=== PATIENT | female | born 1960 | race African-American/Black ===

== ENCOUNTER 2019-11-26 02:33 | Emergency (ER) | payer BC, OTHER ==
[2019-11-26] MEDS ORDERED: HYDROCODONE/CHLORPHEN 5 ML/OSYR ONE (03:12)
[2019-11-26] MEDS ORDERED: LEVALBUTEROL 1.25 MG/3 ML NEB ONE (03:12)
[2019-11-26 03:33] LABS: Absolute Lymphocytes (CBC) 3.8 K/uL (0.7-4.9); Basophils % 0.7 % (0-1.3); Hematocrit 39.1 % (36.0-45.0); Lymphocytes % 49.1 % (15.3-44.8); MPV 11.1 fL (7.6-11.3); RBC Red Blood Cell Count 4.39 M/uL (3.86-4.86)
[2019-11-26 03:41] LABS: Potassium 4.1 mmol/L (3.5-5.1)
--- NOTE | 2019-11-26 05:15 | ER ---
Nurse's Notes [facility] Name: Brenda Velasquez Age: 59 yrs Sex: Female : 1960 Arrival Date: 11/26/2019 Time: 02:34 Bed 5 Private MD: Diagnosis: Cough;Bronchitis, not specified as acute or chronic Presentation: 11/26 02:52 Presenting complaint: Patient states: non-productive cough x 1 week. Denies fever. aa1 Transition of care: patient was not received from another setting of care. Onset of symptoms was November 19, 2019. Risk Assessment: Do you want to hurt yourself or someone else? Patient reports no desire to harm self or others. Initial Sepsis Screen: Does the patient meet any 2 criteria? No. Patient's initial sepsis screen is negative. Does the patient have a suspected source of infection? No. Patient's initial sepsis screen is negative. Care prior to arrival: None. 02:52 Method Of Arrival: Ambulatory aa1 02:52 Acuity: JOSE 3 aa1 Triage Assessment: 02:53 General: Appears in no apparent distress. uncomfortable, ill, Behavior is calm, aa1 cooperative, appropriate for age. Historical: - Allergies: 02:53 No Known Allergies; aa1 - Home Meds: 02:53 None [Active]; aa1 - PMHx: 02:53 None; aa1 - PSHx: 02:53 cervical fusion; aa1 - Immunization history:: Flu vaccine is not up to date. - Social history:: Smoking status: Patient/guardian denies using tobacco. - Ebola Screening: : Patient denies exposure to infectious person Patient denies travel to an Ebola-affected area in the 21 days before illness onset. - Family history:: not pertinent. - Hospitalizations: : No recent hospitalization is reported. Screenin:30 Abuse screen: Denies threats or abuse. Denies injuries from another. Nutritional rr5 screening: No deficits noted. Tuberculosis screening: No symptoms or risk factors identified. Fall Risk IV access (20 points). Total Medley Fall Scale indicates No Risk (0-24 pts). Assessment: 02:55 General: Appears in no apparent distress. uncomfortable, Behavior is calm, cooperative, rr5 appropriate for age. Pain: Complains of pain in chest Pain does not radiate. Pain currently is 8 out of 10 on a pain scale. Quality of pain is described as aching, Pain began gradually, Is intermittent. 02:55 Neuro: Level of Consciousness is awake, alert, obeys commands, Oriented to person, rr5 place, time, situation, Appropriate for age. Cardiovascular: Reports chest pain, Capillary refill < 3 seconds Patient's skin is warm and dry. Respiratory: Reports cough that is non-productive, Airway is patent Respiratory effort is even, unlabored, Respiratory pattern is regular. GI: No signs and/or symptoms were reported involving the gastrointestinal system. : No signs and/or symptoms were reported regarding the genitourinary system. EENT: No signs and/or symptoms were reported regarding the EENT system. Derm: Skin is intact, is healthy with good turgor, Skin temperature is warm. Musculoskeletal: Capillary refill < 3 seconds. 03:45 Reassessment: Patient appears in no apparent distress at this time. Patient and/or rr5 family updated on plan of care and expected duration. Pain level reassessed. Patient is alert, oriented x 3, equal unlabored respirations, skin warm/dry/pink. awaiting for results. 04:30 Reassessment: Patient appears in no apparent distress at this time. Patient is alert, rr5 oriented x 3, equal unlabored respirations, skin warm/dry/pink. Patient states feeling better. Patient states symptoms have improved. 05:21 Reassessment: Patient appears in no apparent distress at this time. Patient is alert, rr5 oriented x 3, equal unlabored respirations, skin warm/dry/pink. discharge instruction given and explained without complaints made. Vital Signs: 02:53 BP 168 / 95; Pulse 83; Resp 20; Temp 97.4; Pulse Ox 97% on R/A; Weight 49.44 kg; Height aa1 5 ft. 1 in. (154.94 cm); Pain 8/10; 03:46 BP 152 / 88; Pulse 71; Resp 19; Pulse Ox 98% ; rr5 04:30 BP 138 / 75; Pulse 89; Resp 19; Pulse Ox 98% on R/A; rr5 05:20 BP 124 / 85; Pulse 75; Resp 16; Temp 98; Pulse Ox 99% on R/A; rr5 02:53 Body Mass Index 20.60 (49.44 kg, 154.94 cm) aa1 ED Course: 02:34 Patient arrived in ED. ds1 02:46 Kenn Rand MD is Attending Physician. rn 02:53 Triage completed. aa1 02:53 Arm band placed on right wrist. aa1 02:54 Patient has correct armband on for positive identification. Placed in gown. Bed in low aa1 position. Call light in reach. Side rails up X 1. Pulse ox on. NIBP on. Warm blanket given. 02:56 Jhonathan Mccormick, OREN is Primary Nurse. rr5 03:18 XRAY Chest (1 view) In Process Unspecified. EDMS 03:20 Inserted saline lock: 22 gauge in right forearm, using aseptic technique. Blood rr5 collected. 03:20 Initial Neb Treatment Given as ordered Patient was instructed and evaluated on rr5 procedure Patient tolerated procedure well without adverse effect. 03:30 EKG done, by ED staff, reviewed by Kenn Rand MD. rr5 05:21 No provider procedures requiring assistance completed. IV discontinued, intact, rr5 bleeding controlled, No redness/swelling at site. Pressure dressing applied. Patient maintains SpO2 saturation greater than 95% on room air. Administered Medications: 03:05 Drug: Tussionex Pennkinetic ER 5 ml Route: PO; rr5 04:05 Follow up: Response: No adverse reaction; Marked relief of symptoms rr5 03:10 Drug: Xopenex 1.25 mg Route: Inhalation; rr5 04:10 Follow up: Response: No adverse reaction; Marked relief of symptoms rr5 Outcome: 05:14 Discharge ordered by MD. rn 05:21 Discharged to home ambulatory, with family. rr5 05:21 Condition: stable 05:21 Discharge instructions given to patient, family, Instructed on discharge instructions, follow up and referral plans. medication usage, Demonstrated understanding of instructions, follow-up care, medications, Prescriptions given X 2. 05:22 Patient left the ED. rr5 Signatures: Dispatcher [employer] EDFL Keke Vyas RN RN aa1 Zina Edwards ds1 Kenn Rand MD MD rn Roque, Raymond, RN RN rr5
--- NOTE | 2019-11-26 05:16 | EDPHYS ---
Physician Documentation [facility] Name: Brenda Velasquez Age: 59 yrs Sex: Female : 1960 Arrival Date: 11/26/2019 Time: 02:34 Bed 5 Private MD: ED Physician Kenn Rand HPI: 11/26 04:25 This 59 yrs old Black Female presents to ER via Ambulatory with complaints of Chest rn Tightness, Cough. 04:25 The patient or guardian reports chest pain that is located primarily in the anterior rn chest wall. Onset: 1 week(s) ago. The pain does not radiate. Associated signs and symptoms: Pertinent positives: cough, Pertinent negatives: abdominal pain, diaphoresis, lower extremity swelling, near syncope, palpitations. The chest pain is described as sharp, stabbing. Duration: The patient or guardian reports multiple episodes, that are intermittent. Modifying factors: The symptoms are alleviated by nothing. the symptoms are aggravated by cough. Severity of pain: At its worst the pain was mild in the emergency department the pain is unchanged. The patient has not experienced similar symptoms in the past. Reports non-productive cough for 1 week, no fever, + congestion and runny nose, non-smoker, no hx of dvt/pe, no trauma, no hemoptysis. . Historical: - Allergies: 02:53 No Known Allergies; aa1 - Home Meds: 02:53 None [Active]; aa1 - PMHx: 02:53 None; aa1 - PSHx: 02:53 cervical fusion; aa1 - Immunization history:: Flu vaccine is not up to date. - Social history:: Smoking status: Patient/guardian denies using tobacco. - Ebola Screening: : Patient denies exposure to infectious person Patient denies travel to an Ebola-affected area in the 21 days before illness onset. - Family history:: not pertinent. - Hospitalizations: : No recent hospitalization is reported. ROS: 04:25 Constitutional: Negative for fever, chills, and weight loss, Eyes: Negative for injury, rn pain, redness, and discharge, Neck: Negative for injury, pain, and swelling, Cardiovascular: Negative for palpitations, and edema, Respiratory: + cough and pleuritic chest pain Abdomen/GI: Negative for abdominal pain, nausea, vomiting, diarrhea, and constipation, MS/Extremity: Negative for injury and deformity, Skin: Negative for injury, rash, and discoloration, Neuro: Negative for headache, weakness, numbness, tingling, and seizure. Exam: 04:25 Constitutional: This is a well developed, well nourished patient who is awake, alert, rn and in no acute distress. Ambulatory to room without difficulty Head/Face: Normocephalic, atraumatic. Eyes: Pupils equal round and reactive to light, extra-ocular motions intact. Lids and lashes normal. Conjunctiva and sclera are non-icteric and not injected. Cornea within normal limits. Periorbital areas with no swelling, redness, or edema. ENT: MMM, no stridor or swelling Neck: Trachea midline, no thyromegaly or masses palpated, and no cervical lymphadenopathy. Supple, full range of motion without nuchal rigidity, or vertebral point tenderness. No Meningismus. Cardiovascular: Regular rate and rhythm. No pulse deficits. Respiratory: No increased work of breathing, no retractions or nasal flaring. Clear bilateral breath sounds Abdomen/GI: soft, non-tender MS/ Extremity: Pulses equal, no cyanosis. Neurovascular intact. Full, normal range of motion. Equal circumference. Neuro: Awake and alert, GCS 15, oriented to person, place, time, and situation. Cranial nerves II-XII grossly intact. Motor strength 5/5 in all extremities. Sensory grossly intact. Cerebellar exam normal. Normal gait. Vital Signs: 02:53 BP 168 / 95; Pulse 83; Resp 20; Temp 97.4; Pulse Ox 97% on R/A; Weight 49.44 kg; Height aa1 5 ft. 1 in. (154.94 cm); Pain 8/10; 03:46 BP 152 / 88; Pulse 71; Resp 19; Pulse Ox 98% ; rr5 04:30 BP 138 / 75; Pulse 89; Resp 19; Pulse Ox 98% on R/A; rr5 05:20 BP 124 / 85; Pulse 75; Resp 16; Temp 98; Pulse Ox 99% on R/A; rr5 02:53 Body Mass Index 20.60 (49.44 kg, 154.94 cm) aa1 MDM: 02:46 Patient medically screened. rn 05:13 Differential diagnosis: acute pericarditis, chest wall pain, costochondritis, pleurisy, rn pneumonia, pneumothorax. Data reviewed: vital signs, nurses notes, lab test result(s), EKG, radiologic studies, plain films, and as a result, I will discharge patient. Test interpretation: by ED physician or midlevel provider: ECG, plain radiologic studies, CXR neg for acute infiltrate. Counseling: I had a detailed discussion with the patient and/or guardian regarding: the historical points, exam findings, and any diagnostic results supporting the discharge/admit diagnosis, lab results, radiology results, the need for outpatient follow up, to return to the emergency department if symptoms worsen or persist or if there are any questions or concerns that arise at home. Response to treatment: the patient's symptoms have markedly improved after treatment, and as a result, I will discharge patient. Special discussion: I discussed with the patient/guardian in detail that at this point there is no indication for admission to the hospital. It is understood, however, that if the symptoms persist or worsen the patient needs to return immediately for re-evaluation. 11/26 02:51 Order name: CBC with Diff; Complete Time: 05:11 11/26 02:51 Order name: Basic Metabolic Panel; Complete Time: 05:11 11/26 02:51 Order name: XRAY Chest (1 view) 11/26 02:51 Order name: Flu; Complete Time: 05:11 rn 11/26 02:51 Order name: Strep; Complete Time: 05:11 rn 11/26 03:52 Order name: Throat Culture [facility] 11/26 02:51 Order name: IV Start; Complete Time: 03:30 rn 11/26 02:51 Order name: EKG; Complete Time: 02:52 rn 11/26 02:51 Order name: EKG - Nurse/Tech; Complete Time: 03:30 rn Administered Medications: 03:05 Drug: Tussionex Pennkinetic ER 5 ml Route: PO; rr5 04:05 Follow up: Response: No adverse reaction; Marked relief of symptoms rr5 03:10 Drug: Xopenex 1.25 mg Route: Inhalation; rr5 04:10 Follow up: Response: No adverse reaction; Marked relief of symptoms rr5 Disposition: 11/26/19 05:14 Discharged to Home. Impression: Cough, Bronchitis, not specified as acute or chronic. - Condition is Stable. - Discharge Instructions: Acute Bronchitis, Adult, Cough, Adult. - Prescriptions for Zithromax Z- Gene 250 mg Oral Tablet - take 1 tablet by ORAL route as directed for 5 days Day 1 - take two (2) tablets one time. Day 2, 3, 4 , 5 take one (1) tablet once daily.; 6 tablet. Guaifenesin AC 10- 100 mg/5 mL Oral Liquid - take 10 milliliter by ORAL route every 4 hours As needed; 240 milliliter. - Medication Reconciliation Form, Thank You Letter, Antibiotic Education, Prescription Opioid Use form. - Follow up: Private Physician; When: As needed; Reason: Recheck today's complaints, Re-evaluation by your physician. - Problem is new. - Symptoms have improved. Signatures: Dispatcher [employer] EDKeke Dang RN RN aa1 Kenn Rand MD MD rn Roque, Raymond, RN RN rr5 Corrections: (The following items were deleted from the chart) 05:22 05:14 11/26/2019 05:14 Discharged to Home. Impression: Cough; Bronchitis, not specified rr5 as acute or chronic. Condition is Stable. Forms are Medication Reconciliation Form, Thank You Letter, Antibiotic Education, Prescription Opioid Use. Follow up: Private Physician; When: As needed; Reason: Recheck today's complaints, Re-evaluation by your physician. Problem is new. Symptoms have improved. rn
[2019-11-26 05:43] VITALS: BP 124/85; TEMP 98; O2SAT 99
--- NOTE | 2019-11-26 11:44 | EKG ---
Test Date: 2019-11-26 Test Time: 03:26:21 Peanut Sorter: RR MEASUREMENT RESULTS: Intervals: Rate: 68 AK: 140 QRSD: 88 QT: 416 QTc: 442 [place]: P: 75 AK: 140 QRS: 67 T: 46 INTERPRETIVE STATEMENTS: Normal sinus rhythm Minimal voltage criteria for LVH, may be normal variant Borderline ECG Compared to ECG 09/17/2014 19:03:19 Left ventricular hypertrophy now present Myocardial infarct finding no longer present Electronically Signed On 11-26-19 11:41:56 ELECTRIC NEEDLE SPECIALIST by Martin Monahan
--- NOTE | 2019-11-27 08:59 | RAD REPORT ---
EXAM DESCRIPTION: RAD - Chest Single View - 11/26/2019 3:17 am CLINICAL HISTORY: COUGH COMPARISON: None. FINDINGS: Single frontal view of the chest. Cardiomediastinal silhouette: Cardiomegaly. Lungs: No consolidation, pneumothorax, or pleural effusion. Bones: S-shaped scoliosis of the thoracolumbar spine partially visualized. Anterior fixation of the c ervical spine partially visualized. Degenerative endplate spondylosis. Upper abdomen: No abnormality identified. IMPRESSION: 1. No acute pulmonary process identified. Electronically signed by: Dimitri Martinez 11/26/2019 4:24 AM PRODUCTION LAPPING MACHINE OPERATOR Due to temporary technical issues with the PACS/Fluency reporting system, reports are being signed by the in house radiologist as a courtesy to ensure prompt reporting. The interpreting radiologist is f ully responsible for the content of the report.
== END 2019-11-26 05:22 | disposition home or self-care (01) ==
LOC: ER 02:33
DX: J40 Bronchitis, not specified as acute or chronic (principal)
CPT/HCPCS: 36415; 71045; 80048; 85025; 87070; 87081; 87804; 93005; 99285

== ENCOUNTER 2020-05-24 09:00 | Emergency (ER) | payer OTHER ==
[2020-05-24 09:44] LABS: Absolute Lymphocytes (CBC) 1.6 K/uL (0.7-4.9); Basophils % 1.3 % (0-1.3); Hematocrit 46.2 % (36.0-45.0); Lymphocytes % 38.7 % (15.3-44.8); MPV 10.9 fL (7.6-11.3); RBC Red Blood Cell Count 5.13 M/uL (3.86-4.86)
[2020-05-24 09:48] LABS: Protime INR 1.04
[2020-05-24 10:11] LABS: Albumin 3.7 g/dL (3.4-5.0); Bilirubin Direct 0.3 mg/dL (0-0.2); Bilirubin Total 0.8 mg/dL (0.2-1.0); Potassium 3.3 mmol/L (3.5-5.1); Protein, Total 7.1 g/dL (6.4-8.2)
--- OUTSIDE RECORDS SUMMARY | 2020-05-24 10:12 | XMS REPORT | Continuity of Care Document ---
:1960 Author Organization [facility] t Address [address] [place] [address] Dr. Bloom [address] [place] [id number] Care Team Providers Name Role Phone Unavailable Unavailable Unavailable Problems This patient has no known problems. Allergies, Adverse Reactions, Alerts This patient has no known allergies or adverse reactions. Medications This patient has no known medications. Procedures This patient has no known procedures. Results This patient has no known results.
[2020-05-24 10:20] LABS: Blood Morphology Comment NOT SEEN (NOT SEEN); Platelet Estimate ADEQ; Urine White Blood Cell Casts OK
--- NOTE | 2020-05-24 12:31 | EDPHYS ---
Physician Documentation [facility] Name: Brenda Velasquez Age: 60 yrs Sex: Female : 1960 Arrival Date: 05/24/2020 Time: 09:07 Bed 5 Private MD: ED Physician Tevin Machuca HPI: 05/24 10:22 This 60 yrs old Black Female presents to ER via EMS with complaints of overdose after [facility] substance abuse. 10:22 The patient presents to the emergency department with depression, a history of [facility] substance abuse, Type: cocaine, sporatic. Onset: The symptoms/episode began/occurred just prior to arrival, today. Past psychiatric history: Prior diagnosis: no previous psychiatric diagnosis known. Associated signs and symptoms: Pertinent positives;. Severity of symptoms: At their worst the symptoms were mild. The patient has not experienced similar symptoms in the past. Historical: - Allergies: 09: No Known Allergies; ph - Home Meds: : None [Active]; ph - PMHx: :21 drug abuse; Heart Murmur; ph - PSHx: : cervical fusion; ph - Immunization history:: Adult Immunizations unknown. - Social history:: Smoking status: Patient reports the use of cigarette tobacco products, smokes one pack cigarettes per day. Patient uses street drugs, cocaine, caffeine, Patient/guardian denies using alcohol. - Family history:: not pertinent. ROS: 10:22 Constitutional: Negative for fever, chills, and weight loss, Eyes: Negative for injury, rich pain, redness, and discharge, ENT: Negative for injury, pain, and discharge, Neck: Negative for injury, pain, and swelling, Cardiovascular: Negative for chest pain, palpitations, and edema, Respiratory: Negative for shortness of breath, cough, wheezing, and pleuritic chest pain, Abdomen/GI: Negative for abdominal pain, nausea, vomiting, diarrhea, and constipation, Back: Negative for injury and pain, : Negative for injury, bleeding, discharge, and swelling, MS/Extremity: Negative for injury and deformity, Skin: Negative for injury, rash, and discoloration. 10:22 Neuro: Positive for altered mental status, weakness. Exam: 10:22 Constitutional: This is a well developed, well nourished patient who is awake, alert, rich and in no acute distress. Head/Face: Normocephalic, atraumatic. Eyes: Pupils equal round and reactive to light, extra-ocular motions intact. Lids and lashes normal. Conjunctiva and sclera are non-icteric and not injected. Cornea within normal limits. Periorbital areas with no swelling, redness, or edema. ENT: Nares patent. No nasal discharge, no septal abnormalities noted. Tympanic membranes are normal and external auditory canals are clear. Oropharynx with no redness, swelling, or masses, exudates, or evidence of obstruction, uvula midline. Mucous membranes moist. Neck: Trachea midline, no thyromegaly or masses palpated, and no cervical lymphadenopathy. Supple, full range of motion without nuchal rigidity, or vertebral point tenderness. No Meningismus. Chest/axilla: Normal chest wall appearance and motion. Nontender with no deformity. No lesions are appreciated. Cardiovascular: Regular rate and rhythm with a normal S1 and S2. No gallops, murmurs, or rubs. Normal PMI, no JVD. No pulse deficits. Respiratory: Lungs have equal breath sounds bilaterally, clear to auscultation and percussion. No rales, rhonchi or wheezes noted. No increased work of breathing, no retractions or nasal flaring. Abdomen/GI: Soft, non-tender, with normal bowel sounds. No distension or tympany. No guarding or rebound. No evidence of tenderness throughout. Back: No spinal tenderness. No costovertebral tenderness. Full range of motion. Skin: Warm, dry with normal turgor. Normal color with no rashes, no lesions, and no evidence of cellulitis. MS/ Extremity: Pulses equal, no cyanosis. Neurovascular intact. Full, normal range of motion. Neuro: Awake and alert, GCS 15, oriented to person, place, time, and situation. Cranial nerves II-XII grossly intact. Motor strength 5/5 in all extremities. Sensory grossly intact. Cerebellar exam normal. Normal gait. Psych: Awake, alert, with orientation to person, place and time. Behavior, mood, and affect are within normal limits. 10:22 Musculoskeletal/extremity: DVT Exam: No signs of deep vein thrombosis. no pain, no swelling, no tenderness, negative Homans' sign noted on exam, no appreciated bluish discoloration, no erythema, no increased warmth. 10:27 ECG was reviewed by the Attending Physician. rich Vital Signs: 09:08 BP 153 / 96; Pulse 78; Resp 18; Temp 97.8; Pulse Ox 100% on R/A; Weight 49.44 kg; ph Height 5 ft. 1 in. (154.94 cm); 09:30 BP 155 / 92; Pulse 85; Resp 16; Pulse Ox 98% ; bp 10:00 BP 152 / 88; Pulse 76; Resp 16; Pulse Ox 100% ; bp 11:07 BP 138 / 86; Pulse 76; Resp 16; Pulse Ox 99% on R/A; ph 11:58 BP 116 / 81; Pulse 81; Resp 18; Pulse Ox 100% on R/A; ph 12:40 BP 145 / 85; Pulse 79; Resp 18; Temp 97.8; Pulse Ox 98% on R/A; ph 09:08 Body Mass Index 20.60 (49.44 kg, 154.94 cm) ph MDM: 09:07 Patient medically screened. [facility] 10:25 Data reviewed: vital signs, nurses notes, lab test result(s), EKG, radiologic studies, rich plain films. 10:26 Differential diagnosis: drug withdrawal. acute psychotic break, depression, psychosis rich secondary to non-compliance. Data interpreted: technology training associate: rate is 76 beats/min, rhythm is normal sinus rhythm, Pulse oximetry: on room air is 100 %. Test interpretation: by ED physician or midlevel provider: ECG. Counseling: I had a detailed discussion with the patient and/or guardian regarding: the historical points, exam findings, and any diagnostic results supporting the discharge/admit diagnosis, the presence of at least one elevated blood pressure reading (>120/80) during this emergency department visit, lab results, radiology results, the need for outpatient follow up. 05/24 09:09 Order name: Basic Metabolic Panel; Complete Time: 11:58 [facility] 05/24 09:09 Order name: CBC with Diff; Complete Time: 11:58 [facility] 05/24 09:09 Order name: ETOH Level; Complete Time: 11:58 [facility] 05/24 09:09 Order name: Hepatic Function; Complete Time: 11:58 [facility] 05/24 09:09 Order name: PT-INR; Complete Time: 11:58 [facility] 05/24 09:09 Order name: Ptt, Activated; Complete Time: 11:58 [facility] 05/24 09:09 Order name: Salicylate; Complete Time: 11:58 [facility] 05/24 09:09 Order name: EKG; Complete Time: 09:10 [facility] 05/24 10:10 Order name: Acetaminophen Level; Complete Time: 11:58 [facility] 05/24 10:20 Order name: CBC Smear Scan; Complete Time: 11:58 [facility] 05/24 09:09 Order name: EKG - Nurse/Tech; Complete Time: 09:29 [facility] 05/24 09:09 Order name: IV Saline Lock; Complete Time: 09:28 [facility] 05/24 09:09 Order name: Labs collected and sent; Complete Time: 09:36 [facility] EC:27 Rate is 66 beats/min. Rhythm is regular. QRS [place] is Normal. [place] interval is normal. QRS rich interval is normal. QT interval is normal. No Q waves. T waves are Normal. No ST changes noted. Clinical impression: NSR w/ Non-specific ST/T Changes and No evidence of ischemia. Interpreted by me. Reviewed by me. Administered Medications: 09:30 Drug: NS 0.9% 1000 ml Route: IV; Rate: 1 bolus; Site: left antecubital; bp 11:15 Follow up: Response: No adverse reaction; IV Status: Completed infusion; IV Intake: ph 1000ml 12:55 Drug: Potassium Effervescent Tablet 25 mEq Route: PO; ph 13:08 Follow up: Response: No adverse reaction ph Disposition: 05/24/20 12:31 Discharged to Home. Impression: Cocaine abuse, Suicidal ideations, Suicide attempt, Hypokalemia. - Condition is Stable. - Discharge Instructions: Stimulant Use Disorder-Cocaine, Potassium Content of Foods, Suicidal Feelings: How to Help Yourself, Helping Someone Who is Suicidal, Hypokalemia. - Medication Reconciliation Form, Thank You Letter, Antibiotic Education, Prescription Opioid Use form. - Follow up: Private Physician; When: 2 - 3 days; Reason: Recheck today's complaints, Continuance of care, Re-evaluation by your physician. - Problem is new. - Symptoms have improved. Signatures: Dispatcher [employer] EDIL Tevin Machuca MD MD cha Hall, Patricia, RN RN ph Cesar Barajas, RN RN bp Corrections: (The following items were deleted from the chart) 10: 09:10 ACETAMINOPHEN+C.LAB.BRZ ordered. EDIL EDMS 13:10 12:31 05/24/2020 12:31 Discharged to Home. Impression: Cocaine abuse; Suicidal ph ideations; Suicide attempt; Hypokalemia. Condition is Stable. Forms are Medication Reconciliation Form, Thank You Letter, Antibiotic Education, Prescription Opioid Use. Follow up: Private Physician; When: 2 - 3 days; Reason: Recheck today's complaints, Continuance of care, Re-evaluation by your physician. Problem is new. Symptoms have improved. rich
--- NOTE | 2020-05-24 12:31 | ER ---
Nurse's Notes [facility] Name: Brenda Velasquez Age: 60 yrs Sex: Female : 1960 Arrival Date: 05/24/2020 Time: 09:07 Bed 5 Private MD: Diagnosis: Cocaine abuse;Suicidal ideations;Suicide attempt;Hypokalemia Presentation: 05/24 09:08 Chief complaint: EMS states: Pt reports hx of drug abuse, has been trying to get clean, ph relapsed last night and smoked crack, then regretted her decision and took 8 sleeping pills and 5 lisinopril, reports vomiting after taking lisinopril and throwing up pills, VSS initial BP 138/75, pt states that she took the medications because" I am tired of living like this." Pt drowsy but responsive upon arrival. Coronavirus screen: Patient denies a cough. Patient denies shortness of breath or difficulty breathing. Patient denies measured and/or subjective temperature greater than 100.4F prior to today's visit. Patient denies travel on a cruise ship or to a country the [facility] currently lists as an affected area. Patient denies contact with known and/or suspected case of COVID-19. Ebola Screen: No symptoms or risks identified at this time. Initial Sepsis Screen: Does the patient meet any 2 criteria? No. Patient's initial sepsis screen is negative. Does the patient have a suspected source of infection? No. Patient's initial sepsis screen is negative. Risk Assessment: Do you want to hurt yourself or someone else? Other: Pt states, "After I took the pills I realized that I'm not ready to go". Onset of symptoms was May 24, 2020. 09:08 Method Of Arrival: EMS: [facility] 09:08 Acuity: JOSE 2 ph Triage Assessment: 09:30 General: Appears in no apparent distress. comfortable, Behavior is cooperative, drowsy. bp Pain: Denies pain. EENT: No deficits noted. Neuro: Level of Consciousness is obeys commands, lethargic, Oriented to person, place, time, situation, Appropriate for age. Cardiovascular: Rhythm is sinus rhythm. Respiratory: No deficits noted. GI: No signs and/or symptoms were reported involving the gastrointestinal system. : No signs and/or symptoms were reported regarding the genitourinary system. Derm: No deficits noted. Musculoskeletal: No deficits noted. Historical: - Allergies: :21 No Known Allergies; ph - Home Meds: : None [Active]; ph - PMHx: :21 drug abuse; Heart Murmur; ph - PSHx: :21 cervical fusion; ph - Immunization history:: Adult Immunizations unknown. - Social history:: Smoking status: Patient reports the use of cigarette tobacco products, smokes one pack cigarettes per day. Patient uses street drugs, cocaine, caffeine, Patient/guardian denies using alcohol. - Family history:: not pertinent. Screenin:21 Abuse screen: Denies threats or abuse. Denies injuries from another. Nutritional ph screening: No deficits noted. Tuberculosis screening: No symptoms or risk factors identified. Fall Risk None identified. Assessment: 09:30 General: SEE TRIAGE NOTE. bp 10:00 Reassessment: PT REMAINS NORMOTENSIVE, SR ON MONITOR. bp 11:30 Reassessment: Patient appears in no apparent distress at this time. Patient and/or ph family updated on plan of care and expected duration. Pain level reassessed. Pt asleep w/ equal and unlabored respirations, awakens easily, denies SI at this time, SO at bedside. 13:08 Reassessment: Patient appears in no apparent distress at this time. Patient and/or ph family updated on plan of care and expected duration. Pain level reassessed. Pt awake but remains drowsy, provided w/ a list of local resources for mental health, d/c home w/ SO. Vital Signs: 09:08 BP 153 / 96; Pulse 78; Resp 18; Temp 97.8; Pulse Ox 100% on R/A; Weight 49.44 kg; ph Height 5 ft. 1 in. (154.94 cm); 09:30 BP 155 / 92; Pulse 85; Resp 16; Pulse Ox 98% ; bp 10:00 BP 152 / 88; Pulse 76; Resp 16; Pulse Ox 100% ; bp 11:07 BP 138 / 86; Pulse 76; Resp 16; Pulse Ox 99% on R/A; ph 11:58 BP 116 / 81; Pulse 81; Resp 18; Pulse Ox 100% on R/A; ph 12:40 BP 145 / 85; Pulse 79; Resp 18; Temp 97.8; Pulse Ox 98% on R/A; ph 09:08 Body Mass Index 20.60 (49.44 kg, 154.94 cm) ph ED Course: 09:07 Patient arrived in ED. rich 09:07 Tevin Machuca MD is Attending Physician. [facility] 09:08 Shanna Mathias, RN is Primary Nurse. ph 09:20 Triage completed. ph 09:21 Arm band placed on Patient placed in an exam room, on a stretcher, on intranet developer, ph on pulse oximetry. 09:21 Patient has correct armband on for positive identification. Bed in low position. Call ph light in reach. Side rails up X2. real estate site analyst on. Pulse ox on. NIBP on. Door closed. Noise minimized. Warm blanket given. 09:21 Maintain EMS IV. Dressing intact. Good blood return noted. Site clean \\T\\ dry. Gauge \\T\\ ph site: 20 LAC. 09:31 EKG done, by ED staff, reviewed by Tevin Machuca MD. [facility] 12:40 No provider procedures requiring assistance completed. IV discontinued, intact, ph bleeding controlled, No redness/swelling at site. Pressure dressing applied. Administered Medications: 09:30 Drug: NS 0.9% 1000 ml Route: IV; Rate: 1 bolus; Site: left antecubital; bp 11:15 Follow up: Response: No adverse reaction; IV Status: Completed infusion; IV Intake: ph 1000ml 12:55 Drug: Potassium Effervescent Tablet 25 mEq Route: PO; ph 13:08 Follow up: Response: No adverse reaction ph Intake: 11:15 IV: 1000ml; Total: 1000ml. ph Outcome: 12:31 Discharge ordered by . rich 13:10 Discharged to home via wheelchair, with significant other. ph 13:10 Condition: stable 13:10 Discharge instructions given to patient, significant other, Instructed on discharge instructions, follow up and referral plans. Demonstrated understanding of instructions, follow-up care. 13:10 Patient left the ED. ph Signatures: Tevin Machuca MD MD cha Hall, Patricia, RN RN [place] [id number] Cesar Barajas, RN RN bp
[2020-05-24] MEDS ORDERED: POTASSIUM 25 MEQ EFFERV TAB ONE (12:55)
[2020-05-24 13:29] VITALS: TEMP 97.8
[2020-05-24 13:39] VITALS: BP 145/85; O2SAT 98
--- NOTE | 2020-05-24 18:14 | EKG ---
Test Date: 2020-05-24 Test Time: 09:31:41 Caramel Maker: FARHAD MEASUREMENT RESULTS: Intervals: Rate: 66 NE: 134 QRSD: 86 QT: 408 QTc: 427 [place]: P: 78 NE: 134 QRS: 63 T: -35 INTERPRETIVE STATEMENTS: Normal sinus rhythm Possible Left atrial enlargement Left ventricular hypertrophy Cannot rule out Septal infarct, age undetermined T wave abnormality, consider inferior ischemia Abnormal ECG Compared to ECG 11/26/2019 03:26:21 Myocardial infarct finding now present T-wave abnormality now present Possible ischemia now present Electronically Signed On 05-24-20 18:12:36 CDT by Martin Monahan
== END 2020-05-24 13:10 | disposition home or self-care (01) ==
LOC: ER 09:00
DX: T14.91XA Suicide attempt, initial encounter (principal); F14.10 Cocaine abuse, uncomplicated; T42.72XA Poisoning by unspecified antiepileptic and sedative-hypnotic drugs, intentional self-harm, initial encounter; E87.6 Hypokalemia; Y92.9 Unspecified place or not applicable; Y93.9 Activity, unspecified; F17.210 Nicotine dependence, cigarettes, uncomplicated
CPT/HCPCS: 36415; 80048; 80076; 80320; 80329; 85025; 85610; 85730; 93005; 96360; 96361; 99284

== ENCOUNTER 2020-09-04 07:32 | Inpatient (IN) | payer OTHER ==
[2020-09-04] MEDS ORDERED: HYDROCODONE/CHLORPHEN 5 ML/OSYR ONE (07:58)
--- NOTE | 2020-09-04 08:16 | RAD REPORT ---
EXAM DESCRIPTION: Ravinder Single View09/04/2020 8:08 am CLINICAL HISTORY: Cough COMPARISON: 2019 FINDINGS: Mild right basilar opacities suspected Left lung appears clear of acute infiltrate Heart is normal size. Scoliosis involves spine IMPRESSION: Mild right basilar opacity suspected which may indicate a mild pneumonia
[2020-09-04 08:27] LABS: Absolute Lymphocytes (CBC) 1.7 K/uL (0.7-4.9); Basophils % 1.1 % (0-1.3); Hematocrit 41.7 % (36.0-45.0); Lymphocytes % 34.7 % (15.3-44.8); MPV 11.3 fL (7.6-11.3); RBC Red Blood Cell Count 4.63 M/uL (3.86-4.86)
[2020-09-04 08:31] LABS: Ferritin 75.3 ng/mL (8-388); Potassium 3.6 mmol/L (3.5-5.1); Troponin (Emerg Dept Use Only) 0.17 ng/mL (0.0-0.045)
--- NOTE | 2020-09-04 09:29 | ER ---
Nurse's Notes [facility] Name: Brenda Velasquez Age: 60 yrs Sex: Female : 1960 Arrival Date: 09/04/2020 Time: 07:33 Bed 6 Private MD: Diagnosis: Pneumonia, unspecified organism;Chest pain, unspecified Presentation: 09/04 07:45 Chief complaint: Patient states: difficulty breathing X 1 week, +cough, no fever, feels iw like someone is sitting on her chest when she lies back. Coronavirus screen: cough unrelated to allergies, difficulty breathing, Client presents with at least one sign or symptom that may indicate coronavirus-19. Standard/surgical mask placed on the client. Provider contacted for isolation considerations. Ebola Screen: Patient negative for fever greater than or equal to 101.5 degrees Fahrenheit, and additional compatible Ebola Virus Disease symptoms Patient denies exposure to infectious person. Patient denies travel to an Ebola-affected area in the 21 days before illness onset. No symptoms or risks identified at this time. Onset of symptoms was August 29, 2020. 07:45 Method Of Arrival: Wheelchair iw 07:45 Acuity: JOSE 3 iw 08:00 Initial Sepsis Screen: Does the patient meet any 2 criteria? No. Patient's initial iw sepsis screen is negative. Does the patient have a suspected source of infection? No. Patient's initial sepsis screen is negative. Risk Assessment: Do you want to hurt yourself or someone else? Patient reports no desire to harm self or others. Triage Assessment: 07:45 General: Appears in no apparent distress. uncomfortable, Behavior is cooperative, bp appropriate for age, anxious. Pain: Complains of pain in chest. EENT: No deficits noted. Neuro: No deficits noted. Cardiovascular: Rhythm is sinus tachycardia. Respiratory: Reports shortness of breath cough that is Breath sounds with wheezes bilaterally. GI: No signs and/or symptoms were reported involving the gastrointestinal system. : No signs and/or symptoms were reported regarding the genitourinary system. Derm: No deficits noted. Musculoskeletal: No deficits noted. Historical: - Allergies: 07:52 No Known Allergies; iw - PMHx: 07:52 drug abuse; Heart Murmur; iw 10:17 Hepatitis; bp - Immunization history:: Adult Immunizations up to date. - Family history:: not pertinent. - Social history:: Smoking status: unknown. - Hospitalizations: : No recent hospitalization is reported. Screenin:45 Abuse screen: Denies threats or abuse. Denies injuries from another. Nutritional bp screening: No deficits noted. Tuberculosis screening: No symptoms or risk factors identified. Fall Risk None identified. Assessment: 07:45 General: SEE TRIAGE NOTE. bp 08:07 Reassessment: Warm blankets provided for pt. pt notified of wait time for labs and aa5 x-ray results, pt verbalized understanding. . 09:22 Reassessment: ALL CURRENT ORDERS COMPLETE, LEVAQUIN INFUSING. bp 10:14 Reassessment: ADMIT INITIATED. PT PLACED ON 2LNC FOR COMFORT. bp Vital Signs: 08:00 BP 146 / 90; Pulse 104; Resp 20 S; Temp 98.3; Pulse Ox 97% on R/A; Weight 49.9 kg; iw Height 5 ft. 1 in. (154.94 cm); Pain 5/10; 08:00 BP 145 / 99; Pulse 101; Resp 26 S; Pulse Ox 97% on R/A; aa5 09:22 BP 151 / 105; Pulse 94; Resp 16; Pulse Ox 92% on R/A; bp 10:14 BP 133 / 95; Pulse 95; Resp 17; Pulse Ox 97% on 2 lpm NC; bp 11:28 BP 141 / 99; Pulse 94; Resp 19; Pulse Ox 98% ; bp 08:00 Body Mass Index 20.79 (49.90 kg, 154.94 cm) iw ED Course: 07:33 Patient arrived in ED. as 07:34 Kenn Rand MD is Attending Physician. rn 07:35 Cesar Barajas, OREN is Primary Nurse. bp 07:53 Arm band placed on. aa5 07:53 Patient has correct armband on for positive identification. Placed in gown. Bed in low aa5 position. Call light in reach. Side rails up X2. media monitor on. Pulse ox on. NIBP on. 07:54 Triage completed. iw 07:56 Inserted saline lock: 20 gauge in right forearm, using aseptic technique. Blood aa5 collected. 07:56 Initial lab(s) drawn, by ca, sent to lab. First set of blood cultures drawn by me. aa5 08:06 Second set of blood cultures drawn by me. aa5 08:06 Patient maintains SpO2 saturation greater than 95% on room air. aa5 08:08 CXR XRAY In Process Unspecified. EDMS 09:28 Shakir Santos MD is Hospitalizing Provider. rn 11:28 No provider procedures requiring assistance completed. Patient admitted, IV remains in bp place. Administered Medications: 07:53 Drug: Tussionex Pennkinetic ER 5 ml Route: PO; aa5 09:29 Follow up: Response: Marked relief of symptoms bp 08:45 Drug: LevaQUIN 500 mg Volume: 100 ml; Route: IVPB; Infused Over: 60 mins; Site: right bp forearm; 11:29 Follow up: IV Status: Completed infusion bp 09:30 Drug: Aspirin Chewable Tablet 324 mg Route: PO; bp 10:13 Follow up: Response: No adverse reaction bp Outcome: 09:28 Decision to Hospitalize by Provider. rn 11:27 Admitted to Med/surg accompanied by tech, via wheelchair, room 222, with chart, Report bp called to NERY LOTT 11:27 Condition: stable 11:27 Instructed on the need for admit. 11:54 Patient left the ED. bp Signatures: Dispatcher [employer] EDMS Eileen ePderson as Edwina Freire, OREN RN iw Kenn Rand MD MD rn Calderon, Audri, RN RN aa5 Cesar Barajas RN RN bp Corrections: (The following items were deleted from the chart) 08:04 08:00 BP 146 / 90; Pulse 104bpm; Resp 20bpm; Spontaneous; Pulse Ox 97% RA; 49.9 kg; iw Height 5 ft. 1 in.; BMI: 20.7; Pain 5/10; iw 08:10 08:00 Arm band placed on iw aa5
--- NOTE | 2020-09-04 09:29 | EDPHYS ---
Physician Documentation [facility] Name: Brenda Velasquez Age: 60 yrs Sex: Female : 1960 Arrival Date: 09/04/2020 Time: 07:33 Bed 6 Private MD: ED Physician Kenn Rand HPI: 09/04 07:45 This 60 yrs old Black Female presents to ER via Unassigned with complaints of Chest rn Pain, Shortness Of Breath. 07:45 The patient has shortness of breath at rest, with light activity. rn 07:45 Onset: The symptoms/episode began/occurred 1 week(s) ago. Duration: The symptoms are rn intermittent. The patient's shortness of breath is aggravated by coughing, exertion. Severity of symptoms: At their worst the symptoms were moderate in the emergency department the symptoms are unchanged. The patient has experienced similar episodes in the past. Reports 1 week of cough, sob, chest heaviness, + chronic smoker, states quit this year, no hemoptysis, no hx of dvt/PE, no trauma, no sick contacts. . Historical: - Allergies: 07:52 No Known Allergies; iw - PMHx: 07:52 drug abuse; Heart Murmur; iw 10:17 Hepatitis; bp - Immunization history:: Adult Immunizations up to date. - Family history:: not pertinent. - Social history:: Smoking status: unknown. - Hospitalizations: : No recent hospitalization is reported. ROS: 07:45 Constitutional: Negative for fever, chills, and weight loss, Eyes: Negative for injury, rn pain, redness, and discharge, Cardiovascular: Negative for palpitations, and edema, Respiratory: + for sob and cough Abdomen/GI: Negative for abdominal pain, vomiting, diarrhea, and constipation, MS/Extremity: Negative for injury and deformity, Skin: Negative for injury, rash, and discoloration, Neuro: Negative for headache, numbness, tingling, and seizure. Exam: 07:45 Constitutional: This is a well developed, well nourished patient who is awake, alert, rn and in no acute distress. Head/Face: Normocephalic, atraumatic. ENT: no stridor Cardiovascular: Tachycardic, regular Respiratory: Mild tachypnea, no retractions Abdomen/GI: soft, non-tender Skin: Warm, dry MS/ Extremity: Pulses equal, no cyanosis. Neurovascular intact. Full, normal range of motion. Equal circumference. Neuro: Awake and alert, GCS 15 Vital Signs: 08:00 BP 146 / 90; Pulse 104; Resp 20 S; Temp 98.3; Pulse Ox 97% on R/A; Weight 49.9 kg; iw Height 5 ft. 1 in. (154.94 cm); Pain 5/10; 08:00 BP 145 / 99; Pulse 101; Resp 26 S; Pulse Ox 97% on R/A; aa5 09:22 BP 151 / 105; Pulse 94; Resp 16; Pulse Ox 92% on R/A; bp 10:14 BP 133 / 95; Pulse 95; Resp 17; Pulse Ox 97% on 2 lpm NC; bp 11:28 BP 141 / 99; Pulse 94; Resp 19; Pulse Ox 98% ; bp 08:00 Body Mass Index 20.79 (49.90 kg, 154.94 cm) iw MDM: 07:35 Patient medically screened. rn 09:27 Differential diagnosis: Myocardial Infarction pneumonia, Pneumothorax pulmonary edema. rn Data reviewed: vital signs, nurses notes, lab test result(s), EKG, radiologic studies, plain films, and as a result, I will admit patient. Counseling: I had a detailed discussion with the patient and/or guardian regarding: the historical points, exam findings, and any diagnostic results supporting the discharge/admit diagnosis, lab results, radiology results, the need for further work-up and treatment in the hospital. Response to treatment: the patient's symptoms have mildly improved after treatment, and as a result, I will admit patient. Admission orders: after a detailed discussion of the patient's condition and case, the admit orders are written by me. ED course: Pt with possible pneumonia, story consistent with this, O2 92%, elevated troponin, nonspecific ecg, will admit for abx and cardiology consultation. . 09/04 07:40 Order name: Blood Culture Adult (2) rn 09/04 07:40 Order name: BMP; Complete Time: 08:35 rn 09/04 07:40 Order name: CBC with Diff rn 09/04 07:40 Order name: Ferritin; Complete Time: 08:35 rn 09/04 07:40 Order name: Flu; Complete Time: 09:26 rn 09/04 07:40 Order name: Lactate; Complete Time: 08:35 rn 09/04 07:40 Order name: Procalcitonin; Complete Time: 09:26 rn 09/04 07:40 Order name: Troponin (emerg Dept Use Only); Complete Time: 08:35 rn 09/04 09:26 Order name: Urine Drug Screen rn 09/04 09:33 Order name: Manual Differential EDMS 09/04 09:40 Order name: SARS-COV-2 RT PCR EDMS 09/04 10:01 Order name: Comprehensive Metabolic Panel EDMS 09/04 10:01 Order name: Comprehensive Metabolic Panel EDMS 09/04 10:01 Order name: Lactate EDMS 09/04 10:01 Order name: Lactate EDMS 09/04 10:01 Order name: Lipid Profile EDMS 09/04 10:01 Order name: Lipid Profile EDMS 09/04 10:01 Order name: Magnesium EDMS 09/04 10:01 Order name: Magnesium EDMS 09/04 10:01 Order name: NT PRO-BNP EDMS 09/04 10:01 Order name: NT PRO-BNP EDMS 09/04 10:01 Order name: Phosphorus EDMS 09/04 10:01 Order name: Phosphorus EDMS 09/04 10:01 Order name: Protime (+INR) EDMS 09/04 10:01 Order name: Protime (+INR) EDMS 09/04 10:01 Order name: PTT, Activated Partial Thromb EDMS 09/04 10:01 Order name: PTT, Activated Partial Thromb EDMS 09/04 10:03 Order name: CBC with Automated Diff EDMS 09/04 10:03 Order name: CBC with Automated Diff EDMS 09/04 07:40 Order name: CXR XRAY; Complete Time: 08:19 rn 09/04 07:40 Order name: EKG; Complete Time: 07:41 rn 09/04 07:40 Order name: Cardiac monitoring; Complete Time: 07:42 rn 09/04 07:40 Order name: Droplet/Contact Precautions; Complete Time: 07:42 rn 09/04 07:40 Order name: EKG - Nurse/Tech; Complete Time: 07:48 rn 09/04 07:40 Order name: IV Start; Complete Time: 08:08 rn 09/04 07:40 Order name: Labs collected and sent; Complete Time: 08:08 rn 09/04 07:40 Order name: O2 Per Protocol; Complete Time: 07:42 rn 09/04 07:40 Order name: O2 Sat Monitoring; Complete Time: 07:42 rn 09/04 10:02 Order name: Heart Healthy EDMS 09/04 10:28 Order name: Urine Dipstick--Ancillary (enter results) bd 09/04 10:43 Order name: Urine Dipstick-Ancillary EDMS Administered Medications: 07:53 Drug: Tussionex Pennkinetic ER 5 ml Route: PO; aa5 09:29 Follow up: Response: Marked relief of symptoms bp 08:45 Drug: LevaQUIN 500 mg Volume: 100 ml; Route: IVPB; Infused Over: 60 mins; Site: right bp forearm; 11:29 Follow up: IV Status: Completed infusion bp 09:30 Drug: Aspirin Chewable Tablet 324 mg Route: PO; bp 10:13 Follow up: Response: No adverse reaction bp Disposition: 09/04/20 09:28 Hospitalization ordered by Shakir Santos for Observation. Preliminary diagnosis are Pneumonia, unspecified organism, Chest pain, unspecified. - Bed requested for Telemetry/MedSurg (observation). - Status is Observation. bp - Condition is Stable. - Problem is new. - Symptoms have improved. Signatures: Dispatcher [employer] EDTX Shruti Gregory RN RN kl Williams, Irene, RN RN iw Nieto, Roman, MD MD rn Calderon, Audri, RN RN aa5 Cesar Barajas RN RN bp Corrections: (The following items were deleted from the chart) 09:40 07:41 CORONAVIRUS+MR.LAB.BRZ ordered. [facility] 11:08 09:28 Hospitalization Ordered by Shakir Santos MD for Observation. Preliminary kl diagnosis is Pneumonia, unspecified organism; Chest pain, unspecified. Bed requested for Telemetry/MedSurg (observation). Status is Observation. Condition is Stable. Problem is new. Symptoms have improved. rn 11:54 11:08 09/04/2020 09:28 Hospitalization Ordered by Shakir Santos MD for Observation. bp Preliminary diagnosis is Pneumonia, unspecified organism; Chest pain, unspecified. Bed requested for Telemetry/MedSurg (observation). Status is Observation. Condition is Stable. Problem is new. Symptoms have improved. kl
[2020-09-04 09:33] LABS: Blood Morphology Comment NOT SEEN (NOT SEEN); Platelet Estimate ADEQ
[2020-09-04] MEDS ORDERED: ACETAMINOPHEN 500 MG TAB PO PRN (09:55)
[2020-09-04] MEDS ORDERED: ONDANSETRON 4 MG/2 ML VIAL IV PRN (09:55)
--- NOTE | 2020-09-04 09:55 | P.HP ---
Certification for Inpatient Patient admitted to: Inpatient With expected LOS: >2 Midnights Patient will require the following post-hospital care: None Practitioner: I am a practitioner with admitting privileges, knowledge of patient current condition, hospital course, and medical plan of care. Services: Services provided to patient in accordance with Admission requirements found in Title 42 Section 412.3 of the Code of Federal Regulations Patient History Date of Service: 09/04/20 Reason for admission: Shortness of breath/hypoxemia History of Present Illness: Patient is a 60-year-old female came to the hospital with difficulty breathing. Patient states that she has had this issue on an off. She has orthopnea and PND as well. She came into the hospital because she was really tachypneic. She was coughing and was having yellowish and pink frothy sputum. She states she used to smoke but quit earlier this year. She also stated that she quit cocaine use of a few months prior. However, her cocaine screening is positive. On her chest x-ray in the emergency room she does have a right lower lobe pneumonia as well as possible cardiomegaly. She is also hypoxic with room air oxygen saturations of 85%. She is up to 92% on 2 L. I am concerned that she may have cardiomyopathy in the setting of pneumonia. Will check a BNP level. She has ph ysical exam findings and historical information suggestive of congestive heart failure which is probably being exacerbated by her right lower lobe pneumonia. She will be admitted to the hospital. At this time, she is admitted for inpatient hospitalization. For insurance purposes, it will be noted that he if she improves substantially by tomorrow morning I may be able to discharge her with antibiotics and outpatient cardiology workup. However, if she remains hypoxic then she will probably need inpatient hospitalization, and will notify her insurance company regarding this. Allergies No Known Drug Allergies Allergy (Verified 09/04/20 16:05) Unknown Home Medications: NK [No Home Meds] 09/04/20 - Past Medical/Surgical History Diabetic: No -: heart murmur -: scoliosis - Social History Caffeine use: Yes Physical Examination - Studies Laboratory Data (last 24 hrs) 09/04/20 07:56: WBC 4.9, Hgb 13.9, Hct 41.7, Plt Count 164 09/04/20 07:56: Sodium 145, Potassium 3.6, BUN 12, Creatinine 0.95, Glucose 111 H Microbiology Data (last 24 hrs): 09/04/20 07:55 Nasopharnyx Influenza Type A Antigen Screen - Final 09/04/20 07:55 Nasopharnyx Influenza Type B Antigen Screen - Final Assessment & Plan - Problems (Diagnosis) (1) New onset of congestive heart failure Current Visit: Yes Status: Acute (2) Pneumonia involving right lung Current Visit: Yes Status: Acute (3) Tachypnea Current Visit: Yes Status: Acute - Plan 1. Echocardiogram 2. Strict blood pressure control 3. May need to start carvedilol 4. Cardiology consultation secondary to elevated troponin 5. May need to Hep-Lock fluids and IV antibiotics pending echocardiogram 6. Strict I's and O's 7. Repeat CXR to monitor pneumonia 8. Daily weights 9. Education regarding diet and treatment of congestive heart failure Discharge Plan: Home Plan to discharge in: Greater than 2 days - Advance Directives Does patient have a Living Will: No Does patient have a Durable POA for Healthcare: No - Code Status/Comfort Care Code Status Assessed: Yes Code Status: Full Code Critical Care: No Time Spent Managing PTS Care (In Minutes): 45
[2020-09-04] MEDS ORDERED: ASPIRIN 81 MG CHEWABLE TABLET ONE (10:20)
[2020-09-04 10:42] LABS: Urine Blood TRACE (NEG); Urine Glucose NEGATIVE (NEG); Urine Protein NEGATIVE (NEG); Urine Specific Gravity 1.025 (1.005-1.030)
[2020-09-04 10:53] LABS: Barbiturates NEGATIVE (NEGATIVE); Benzodiazepines NEGATIVE (NEGATIVE); Cocaine POSITIVE (NEGATIVE); METHAMPHETAM NEGATIVE (NEGATIVE); Methadone NEGATIVE (NEGATIVE); Opiates POSITIVE (NEGATIVE); Phencyclidine NEGATIVE (NEGATIVE); THC Cannibis NEGATIVE (NEGATIVE)
[2020-09-04] MEDS: NA CHLORIDE 0.9% 1,000 ML IV SCH ×2 (12:43→21:28)
[2020-09-04] MEDS: AZITHROMYCIN IV 500 MG in NA CHLORIDE 0.9% 250 ML IVPB SCH (12:44)
[2020-09-04] MEDS: CEFTRIAXONE/SWI 1gm 1 GM/10 ML SYR IV SCH ×2 (12:44→20:46)
[2020-09-04] MEDS: ENOXAPARIN 40 MG/0.4 ML SQ SCH (16:35)
[2020-09-04] MEDS ORDERED: TEMAZEPAM 15 MG CAP PO PRN (19:06)
[2020-09-04] MEDS ORDERED: INFLUENZA VACCINE (for 3y+) 0.5 ML DOSE IMVAC ONE (20:00)
[2020-09-04] MEDS: ALBUTEROL 2.5 MG/3 ML NEB SOL NEB PRN (21:00)
[2020-09-04] MEDS: IPRATROPIUM BROM 0.5MG/2.5ML NEB PRN (21:00)
[2020-09-04] MEDS: GUAIFENESIN/CODEINE 5ML UCUP PO PRN (21:28)
[2020-09-05] MEDS: GUAIFENESIN/CODEINE 5ML UCUP PO PRN ×2 (03:25→10:27)
[2020-09-05] MEDS: ALBUTEROL 2.5 MG/3 ML NEB SOL NEB PRN ×2 (03:40→08:18)
[2020-09-05] MEDS: IPRATROPIUM BROM 0.5MG/2.5ML NEB PRN ×3 (03:40→14:24)
--- NOTE | 2020-09-05 05:30 | EKG ---
Test Date: 2020-09-04 Test Time: 07:50:06 Lens Coating Technician: ADRIAN MEASUREMENT RESULTS: Intervals: Rate: 97 ME: 144 QRSD: 82 QT: 374 QTc: 474 [place]: P: 78 ME: 144 QRS: 8 T: 72 INTERPRETIVE STATEMENTS: Sinus rhythm with occasional premature ventricular complexes Left atrial enlargement Septal infarct, age undetermined Abnormal ECG Compared to ECG 05/24/2020 09:31:41 Ventricular premature complex(es) now present Left ventricular hypertrophy no longer present T-wave abnormality no longer present Possible ischemia no longer present Myocardial infarct finding still present Electronically Signed On 09-05-20 05:28:45 CDT by Martin Monahan
[2020-09-05 06:08] LABS: Albumin 3.2 g/dL (3.4-5.0); Bilirubin Total 0.6 mg/dL (0.2-1.0); Magnesium 1.9 mg/dL (1.8-2.4); Phosphorus 2.8 mg/dL (2.5-4.9); Potassium 3.7 mmol/L (3.5-5.1); Protein, Total 7.1 g/dL (6.4-8.2)
[2020-09-05 06:09] LABS: Basophils % 0.8 % (0-1.3); Hematocrit 39.7 % (36.0-45.0); Lymphocytes % 37.6 % (15.3-44.8); RBC Red Blood Cell Count 4.36 M/uL (3.86-4.86)
[2020-09-05 06:11] LABS: Protime INR 1.07
[2020-09-05] MEDS ORDERED: POTASSIUM CL SA 10 MEQ TAB PO ONE (09:00)
[2020-09-05] MEDS: CEFTRIAXONE/SWI 1gm 1 GM/10 ML SYR IV SCH ×2 (10:14→21:25)
[2020-09-05] MEDS: AZITHROMYCIN IV 500 MG in NA CHLORIDE 0.9% 250 ML IVPB SCH (10:24)
[2020-09-05] MEDS: NA CHLORIDE 0.9% 1,000 ML IV SCH (10:27)
[2020-09-05] MEDS ORDERED: FUROSEMIDE 40 MG/4 ML VIAL IV ONE (10:30)
--- NOTE | 2020-09-05 11:34 | RAD REPORT ---
EXAM DESCRIPTION: RAD - Chest Single View - 09/05/2020 11:16 am CLINICAL HISTORY: pneumonia COMPARISON: September 04 TECHNIQUE: AP portable chest image was obtained 09/05/2020 11:16 am . FINDINGS: Upright portable exam has slight respiratory motion degradation artifact. The patchy right base opacification seen on the prior day study has improved slightly. The interval changes minimal. Retrocardiac left base assessment is limited. Cardiomegaly and vascular engorgement are stable. Overa ll interstitial pattern is stable. No measurable pleural effusion and no pneumothorax. No acute bony abnormality seen. No acute aortic findings suspected. IMPRESSION: Patchy right base infiltrate seen on the prior day study has improved slightly.
[2020-09-05] MEDS ORDERED: ALBUMIN HUMAN 25% 50 ML IV ONE (11:58)
[2020-09-05] MEDS ORDERED: FENTANYL CITR 100 MCG/2 ML IV ONE (15:00)
[2020-09-05] MEDS ORDERED: FUROSEMIDE 20 MG/ 2ML VIAL IV ONE (15:00)
--- NOTE | 2020-09-05 15:03 | CON ---
Date of Consultation: 09/05/2020 Reason For Consultation: Chest pain and borderline elevated troponin. History Of Present Illness: A 60-year-old female, history of polysubstance abuse including cocaine, as per report last use was in April. She presented to the emergency room complaining of chest pain, s hortness of breath, orthopnea, and paroxysmal nocturnal dyspnea as well as some lower extremity edema . In the ER, she was hypoxic, saturating 85% on room air and 92% on 2 L. The patient at bedside kim eared to be anxious from shortness of breath and chest discomfort. Past Medical History: None reported. Medications: None. Allergies: NO KNOWN DRUG ALLERGIES. Family History: No premature coronary artery disease or cancer. Review of Systems: All systems reviewed and they were negative except what mentioned in the HPI. Physical Examination: Vital Signs: Temperature is 97.0, pulse 98, breathing at 18, blood pressure is 99/75, saturating 98% on room air. General: Pleasant, middle-aged female, in no apparent distress. Head and Neck: Pupils are equal, react to light. Intact eye movements. Positive JVD. No cervical lymphadenopathy. Neck is supple. Thyroid is not enlarged. Lungs: Clear to auscultation bilaterally. Positive crackles in both bases. No accessory muscle use or muscle retraction. Heart: Regular rate and rhythm with S3. Abdomen: Soft, nontender. Bowel sounds positive. No organomegaly. No masses or hernia. No rigidi ty or rebound. Extremities: No edema, clubbing, or cyanosis. Intact pulses. Skin: No rash noted. Neurologic: Alert, awake, oriented x3. No acute focal deficits appreciated. Investigations: Sodium 143, potassium 3.7, creatinine 0.87. Troponin 0.17, then 0.31. BNP is 5337 [QAMARKER] less than 0.05. White blood cell count is , hemoglobin is 13.1. Assessment And Plan: 1.Chest pain with positive troponin. I reviewed her echo. She has severely depressed LV function. EF is 15% to 20% with global severe hypokinesis and she has severe pulmonary hypertension with RVSP more than 60 mmHg. This could be drug-induced due to use of cocaine. Her urine tox screen is positi ve for cocaine and opiates. Recommend IV diuresis. See below. 2.Advanced systolic heart failure with acute exacerbation. She has chest pain with mild troponin le ak. This heart failure issue likely has been there for some time and could be drugs related; however , coronary artery disease is a possibility with the EF being so low. I would recommend this patient to be transferred to higher level of care center as her blood pressure is on low side and she is prob ably going into cardiogenic shock. She will probably require an LV support and to do an angiogram an d if there is any coronary artery disease that needs to be intervened upon, then Impella assisted victor manuel l be mandatory. Regarding sick patient, discussed the case in detail with the primary care physician , Dr. Shakir Santos. /DARLIN Voice ID: [id number] Report ID: [id number]
--- NOTE | 2020-09-05 15:11 | ECHO ---
HEIGHT: 5 ft 1 in WEIGHT: 110 lb 0 oz DATE OF STUDY: 09/05/[address]: Shakir Santos MD 2-DIMENSIONAL: YES M.MODE: YES DOPPLER: YES COLOR FLOW: YES TDS: PORTABLE: DEFINITY: BUBBLE STUDY: DIAGNOSIS: CONGESTIVE HEART FAILURE CARDIAC HISTORY: CATHERIZATION: NO SURGERY: NO PROSTHETIC VALVE: NO PACEMAKER: NO MEASUREMENTS (cm) DIASTOLIC (NORMALS) SYSTOLIC (NORMALS) IVSd 0.9 (0.6-1.2) LA Diam 3.6 (1.9-4.0) LVEF 24% LVIDd 5.9 (3.5-5.7) LVIDs 5.3 (2.0-3.5) %FS 11% LVPWd 0.9 (0.6-1.2) Ao Diam 2.6 (2.0-3.7) 2 DIMENSIONAL ASSESSMENT: RIGHT ATRIUM: NORMAL LEFT ATRIUM: NORMAL RIGHT VENTRICLE: NORMAL LEFT VENTRICLE: SEVERELY DEPRESSED EJECTION FRACTION TRICUSPID VALVE: MODERATE TRICUSPID REGURGITATION MITRAL VALVE: MODERATE TO SEVERE MITRAL REGURGITATION PULMONIC VALVE: MILD PULMONARY INSUFFIENCY AORTIC VALVE: MILD AORTIC INSUFFIENCY PERICARDIAL EFFUSION: NONE AORTIC ROOT: NORMAL LEFT VENTRICULAR WALL MOTION: SEVERE GLOBAL HYPOKINESIS DOPPLER/COLOR FLOW: MODERATE TRICUSPID REGURGITATION. MODERATE TO SEVERE MITRAL REGURGITATION. COMMENTS: SEVERELY DEPRESSED LEFT VENTRICULAR EJECTIO FRACTION 15-20% WITH SEVERE GLOBAL HYPOKINESIS. SEVERE PULMONARY HYPERTENSION WITH RIGHT VENTRICULAR SYSTOLIC PRESSURE >60mmHg AND ELEVATED FILLING PRESSURE. MODERATE TRICUSPID REGURGITATION. MODERATE TO SEVERE MITRAL REGURGITATION. MILD AORTIC INSUFFIENCY. SEVERELY DILATED LEFT VENTRICLE. TECHNOLOGIST: JOSEMANUEL KHOURY
[2020-09-05] MEDS: ENOXAPARIN 40 MG/0.4 ML SQ SCH (17:00)
--- OUTSIDE RECORDS SUMMARY | 2020-09-05 17:42 | XMS REPORT | Summary of Care ---
:1960 Author Organization [facility] Address [address] [place] [address] Care Team Providers Name Role Phone Reece Khan MD Primary Care Provider Reason for Referral (Routine) Status Reason Specialty Diagnoses / Referred By Referred To Procedures Contact Contact New Request Surgery Diagnoses Colon cancer screening Gloria Jurado, Procedures CONSULT/REFERRAL GENERAL SURGERY (colorectal); Preferred Location: ([facility] [place] [address] [place] [address] [address] [place] [address] Radiology Services (Routine) Status Reason Specialty Diagnoses / Referred By Referred To Procedures Contact Contact New Request Diagnostic Diagnoses Encounter for screening breast examination and discussion of breast self examination Rhiannon Radiology Procedures BI SCREENING MAMMOGRAM BILATERAL [place] [facility] [address] [place] [address] Reason for Visit Reason Comments Well Woman Exam last PAP- over 1 year ago Vaginal Bleeding Other orange/reddish urine Encounter Details Date Type Department Care Team Description 06/10/2020 Office Visit [facility] Women's Gloria Jurado Well woman exam with routine gynecological exam (Primary Dx); [facility] [place] [place] Encounter for screening breast examinati on and discussion of breast self examination; [address] [place] [address] [facility] Urinary tract infection with hematuria, site unspecified; Drive, [address] Drive Colon cancer screening; [place], [place] [address] Jaundice; [address] [place] Screening examination for ve nereal disease; [phone] [address] History of illicit drug use [phone] Allergies No Known Allergiesdocumented as of this encounter (statuses as of 06/10/2020) Medications Medication Sig Dispensed Refills Start Date End Date Status methylPREDNISolone 4 mg Follow package 21 Each 0 11/27/2019 Active tabletsIndications: directions Shortness of breath, Wheezing, Bronchitis with bronchospasm, Reactive airway disease with acute exacerbation, unspecified asthma severity, unspecified whether persistent albuterol 2.5 mg /3 mL Inhale 3 mL 120 Vial 0 11/27/2019 Active (0.083 %) nebulizer every 4 (four) solutionIndications: hours as needed Shortness of breath, for Wheezing or Wheezing, Bronchitis Shortness of with bronchospasm, Breath. Via Reactive airway disease nebulizer with acute exacerbation, unspecified asthma severity, unspecified whether persistent cephALEXin 500 mg Take 1 capsule 14 capsule 0 06/10/2020 Active capsuleIndications: by mouth 2 (two) Urinary tract infection times daily. with hematuria, site unspecified documented as of this encounter (statuses as of 06/10/2020) Active Problems No known active problemsdocumented as of this encounter (statuses as of 06/10/2020) Social History Tobacco Use Types Packs/Day Years Used Date Never Smoker Smokeless Tobacco: Never Used Alcohol Use Drinks/Week oz/Week Comments Never Alcohol Habits Answer Date Recorded How often do you have a drink containing alcohol? Never 11/27/2019 How many drinks containing alcohol do you have on a typical Not asked day when you are drinking? How often do you have six or more drinks on one occasion? No t asked Sex Assigned at Date Recorded Not on file Job Start Date Occupation Industry Not on file Not on file Not on file Travel History Travel Start Travel End No recent travel history available. COVID-19 Exposure Response Date Recorded In the last month, have you been in contact with No / Unsure 06/10/2020 9:35 AM CDT someone who was confirmed or suspected to have Coronavirus / COVID-19? documented as of this encounter Last Filed Vital Signs Vital Sign Reading Time Taken Comments Blood Pressure 118/76 06/10/2020 10:09 AM CDT Pulse 90 06/10/2020 10:09 AM CDT Temperature 36.9 C (98.4 F) 06/10/2020 10:09 AM CDT Respiratory Rate 16 06/10/2020 10:09 AM CDT Oxygen Saturation - - Inhaled Oxygen Concentration - - Weight 50.6 kg (111 lb 9.6 oz) 06/10/2020 10:09 AM CDT Height 154.9 cm (5' 1") 06/10/2020 10:09 AM CDT Body Mass Index 21.09 06/10/2020 10:09 AM CDT documented in this encounter Progress Notes Gloria Jurado PA-C - 06/10/2020 9:30 AM CDT Chief complaint: Chief Complaint Patient presents with Well Woman Exam last PAP- over 1 year ago Vaginal Bleeding Other orange/reddish urine HPI Brenda Dickinson is a 60 year old female presenting for well woman exam. She is particularly concerned about spotting. Patient reports it began last week and it was very little bleeding. 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 The patient has a Body mass index is 21.09 kg/m.. She is working on eating healthier and exercising more. The patient is not concerned about her menstrual cycles. Her cycles are not present. Patient reports she went through menopause almost 10 years ago. The patient is sexually active. She currently has1 sexual partner(s). She is offered sexually transmitted disease testing and accepts. She has had 1 sexual partners in the past year. She engages in vaginal and oral sex. She prefers men. She is currently using menopause/BTL for contraception. She denies any hot flushes or night sweats. She is not using hormone therapy. She denies using any complementary or alternative medicines. The patient denies any urinary incontinence. She denies any fecal incontinence. Her last pap smear was in 2019 and was normal. Her next pap smear is due today. She engages in breast self awareness. She denies any breast changes. Her last mammogram was in 2019 and was normal. Her last colonoscopy was in 2009 and was normal. She denies any n/v, d/c, rectal bleeding. She denies any family history of breast, ovarian, uterine or colon cancer. The patient feels safe at home. She does not smoke or drink. Patient reports she use to do crack/cocaine but has stopped. Her mood is good. Histories OB History Para Term AB Living 5 5 SAB TAB Ectopic Multiple Live Births # Outcome Date GA Lbr Andi/2nd Weight Sex Delivery Anes PTL Lv 5 Para 4 Para 3 Para 2 Para 1 Para Past Medical History: Diagnosis Date Pneumonia Family History Problem Relation Age of Onset Pancreatic Cancer Mother Arthritis Father of old age COPD (chronic obstructive pulmonary disease) Father Diabetes Sister Hypertension Sister Diabetes Brother Hypertension Brother Family Status Relation Name Status Mo (Not Specified) Fa (Not Specified) Sis (Not Specified) Bro (Not Specified) Past Surgical History: Procedure Laterality Date ANTERIOR CERVICAL FUSION TUBAL LIGATION Social History Socioeconomic History Marital status: Spouse name: Not on file Number of children: Not on file Years of education: Not on file Highest education level: Not on file Occupational History Not on file Social Needs Financial resource strain: Not on file Food insecurity: Worry: Not on file Inability: Not on file Transportation needs: Medical: Not on file Non-medical: Not on file Tobacco Use Smoking status: Never Smoker Smokeless tobacco: Never Used Substance and Sexual Activity Alcohol use: Never Frequency: Never Drug use: Not Currently Types: Other-see comments Comment: crack cocaine Sexual activity: Yes Lifestyle Physical activity: Days per week: Not on file Minutes per session: Not on file Stress: Not on file Relationships Social connections: Talks on phone: Not on file Gets together: Not on file Attends gnosticist service: Not on file Active member of club or organization: Not on file Attends meetings of clubs or organizations: Not on file Relationship status: Not on file Intimate partner violence: Fear of current or ex partner: Not on file Emotionally abused: Not on file Physically abused: Not on file Forced sexual activity: Not on file Other Topics Concern Not on file Social History Narrative Not on file Social History Substance and Sexual Activity Sexual Activity Yes Labs none Radiology none Allergies Brenda has No Known Allergies. Medications Brenda has a current medication list which includes the following prescription(s): albuterol and methylprednisolone. Review of Systems Constitutional: Negative for appetite change, fatigue, fever, unexpected weight change, weight gain and weight loss. HENT: Negative for rhinorrhea and sore throat. Eyes: Negative for pain and itching. Respiratory: Negative for cough, chest tightness and shortness of breath. Breasts: Negative for discharge, mass and pain. Cardiovascular: Negative for chest pain, palpitations and leg swelling. Gastrointestinal: Negative for abdominal pain, constipation, diarrhea and nausea. Genitourinary: Negative for bladder incontinence, dysuria, vaginal discharge, difficulty urinating, vaginal pain and pelvic pain. Musculoskeletal: Negative for gait problem and myalgias. Skin: Negative for rash. Neurological: Negative for dizziness and headaches. Psychiatric/Behavioral: Negative for suicidal ideas. The patient is not nervous/anxious. Endocrine: Negative for hair loss, weight gain and weight loss. BP 118/76 | Pulse 90 | Temp 36.9 C (98.4 F) (Oral) | Resp 16 | Ht 5' 1" (1.549 m) | Wt 111 lb 9.6 oz (50.6 kg) | BMI 21.09 kg/m Pregravid BMI: Could not be calculated Physical Exam Vitals reviewed. Constitutional: She is oriented to person, place, and time. She appears well- developed and well-nourished. Neck: No mass. No thyromegaly palpated. No neck adenopathy. Cardiovascular: Regular rate and rhythm. Pulmonary/Chest: Normal inspiratory effort. Abdominal: Abdomen is soft. No tenderness present. No hernia palpated or inspected. Neuro/Psychiatric: She has a normal mood and affect. She is oriented to person, place, and time. Skin: Skin normal. Lymphadenopathy: No neck adenopathy present. No axillary adenopathy present. No inguinal adenopathy present. Breast: Right breast exhibits no mass, no nipple discharge and no tenderness. Left breast exhibits no mass, no nipple discharge and no tenderness. Breasts are symmetrical. Normal left breast and normalright breast External genitalia: Normal external genitalia appropriate for age. Urethral meatus: Normal urethral meatus Urethra: Normal urethra. Bladder: No tenderness. Normal bladder Vagina:Normal vagina. No lesion inspected. No abnormal vaginal discharge found. Cervix: Normal cervix. No lesion. No tenderness and no discharge present. Uterus: Uterus is non-tender. Normal uterus Adnexa: Right adnexa without tenderness. Left adnexa without tenderness. Normal left adnexa and normal right adnexa Anus/perineum: Normal perineum and normal anus. Assessment/Plan Well woman exam with routine gynecological exam (primary encounter diagnosis) Plan: PAP Smear-Liquid Based, HIGH RISK HPV-THIN PREP, GC & CHLAMYDIA AMPLIFIED ASSAY, TRICHOMONAS AMPLIFIED ASSAY, PAP Smear-Liquid Based, HIGH RISK HPV-THIN PREP, GC & CHLAMYDIA AMPLIFIED ASSAY, TRICHOMONAS AMPLIFIED ASSAY, URINE CULTURE, URINE CULTURE FOLLOW-UP in 1 yr WWE Encounter for screening breast examination and discussion of breast self examination Plan: GC & CHLAMYDIA AMPLIFIED ASSAY, TRICHOMONAS AMPLIFIED ASSAY, GC & CHLAMYDIA AMPLIFIED ASSAY, TRICHOMONAS AMPLIFIED ASSAY mammo ordered Urinary tract infection with hematuria, site unspecified Rx keflex given. Advised pt to increase fluid intake. Pt advised to wipe from front to back when using the restroom. Also to not hold their urine. If they are sexually active to urinate before and after sex. Pt also suggested to take cranberry tablets. Colon cancer screening Referral for colonoscopy Jaundice Plan: CBC WITH DIFF, COMP. METABOLIC PANEL (68953), HEPATIC FUNCTION PANEL (15260) (ALB,T.PRO,BILI T,BU/BC,ALT,AST,ALK PHOS) Patient to follow-up with PCP Screening examination for venereal disease Plan: ADC OR JOSE ONLY - RPR, HCV ANTIBODY, HEPATITIS B SURFACE ANTIGEN, HIV 1/2 AG-AB WITH REFLEX I counseled the patient about prevention of sexually transmitted diseases. The best form of prevention is abstinence but condom use is highly recommended to help prevent transmission in those who are sexually active. Condom use is not 100% effective in preventing transmission of sexually transmitteddisease. Discussed that while many STDs are treatable, they can have lasting impact on fertility and pelvic pain. Some STDs are not curable (HIV and HSV). The best method is prevention so encourageddiscussion with partners about sexual health and regular condom use. History of illicit drug use Plan: ADC OR JOSE ONLY - RPR, HCV ANTIBODY, HEPATITIS B SURFACE ANTIGEN, HIV 1/2 AG-AB WITH REFLEX Return to clinic in 1 yr WWE . Discussed treatment options. Reviewed patient instructions and provided printed copy. This visit did not involve counseling and coordination that comprised more than 50% of the visit time. Gloria Jurado PA-C 06/10/2020 10:12 AM documented in this encounter Plan of Treatment Date Type Specialty Care Team Description 06/10/2020 Balloon Maker Visit Phlebotomy Gloria Jurado PA-C [address] [place] [phone] 2, Adc Lab 06/10/2021 Office Visit Obstetrics & Gynecology Gloria Jurado PA-C [address] [place] [phone] Name Type Priority Associated Diagnoses Order S chedule PAP Smear-Liquid Based LAB Routine Well woman exam wi th Expected: routine gynecological 2019, Expires: exam 06/10/2021 HIGH RISK HPV-THIN PREP LAB Routine Well woman exam w ith Expected: routine gynecological 2019, Expires: exam 06/10/2021 GC & CHLAMYDIA LAB Routine Well woman exam with Expec lev: AMPLIFIED ASSAY routine gynecological , Expires: exam 06/10/2021 Encounter for screening breast examination and discussion of breast self examination TRICHOMONAS AMPLIFIED LAB Routine Well woman exam wit h Expected: ASSAY routine gynecological 2019, Expires: exam 06/10/2021 Encounter for screening breast examination and discussion of breast self examination URINE CULTURE LAB Routine Well woman exam with Expect ed: routine gynecological 2019, Expires: exam 06/10/2021 CARROLL OR JOSE ONLY - LAB Routine Screening examinati on for Expected: 07/01/2020 RPR venereal disease (Approximate), History of illicit drug Expi res: 09/10/2020 use HCV ANTIBODY LAB Routine Screening examination for Ex pected: venereal disease 06/10/2020, Expires: History of illicit drug 05/29 use HEPATITIS B SURFACE LAB Routine Screening examination for Expected: ANTIGEN venereal disease 06/10/2020, Expires: History of illicit drug 05/29 use HIV 1/2 AG-AB WITH LAB Routine Screening examination for Expected: REFLEX venereal disease 06/10/2020, Expires: History of illicit drug 05/29 use CBC WITH DIFF LAB Routine Jaundice Expected: 06/10/2020, Exp ires: 06/10/2021 COMP. METABOLIC PANEL LAB Routine Jaund[place] Expect ed: (20707) 06/10/2020, Exp ires: 06/10/2021 HEPATIC FUNCTION PANEL LAB Routine Jaundice Expec lev: (37394) (ALB,T.PRO,BILI 05/29, Expires: T,BU/BC,ALT,AST,ALK 06/10/20 21 PHOS) BI SCREENING MAMMOGRAM IMAGING Routine Encounter for scre ening Expected: BILATERAL breast examination and 06/10, Expires: discussion of breast self examination Health Maintenance Due Date Last Done Comments HEPATITIS C (HCV) SCREEN 1960 PNEUMOCOCCAL 0-64 YEARS COMBINED SERIES (1 of 1 - 1967 PPSV23) DTaP,Tdap,and Td Vaccines (1 - Tdap) 1972 PAP SMEAR 1982 Breast Cancer Screening (MAMMOGRAM) 2001 COLONOSCOPY 2011 Zoster Recombinant Vaccine (SHINGRIX) (1 of 2) 2011 INFLUENZA VACCINE (#1) 2020 02/08/2017 Depression Screening 11/27/2020 11/27/2019 documented as of this encounter Procedures Procedure Name Priority Date/Time Associated Diagnosis Comme nts POCT URINALYSIS W/O Routine 06/10/2020 Urinary tract infecti on Results for this SPECIFIC GRAVITY with hematuria, site pro cedure are in the unspecified results section . documented in this encounter Results POCT URINALYSIS W/O SPECIFIC GRAVITY (06/10/2020) Pathologist Sig nature POCT PH U 5 5 - 8 mg/dl POCT U LEUK EST ++ Negative - Negative POCT U NIT + Negative - Negative POCT U PROT trace Negative - Negative POCT U GLU normal Negative - Negative POCT U KETONE ++ moderate Negative - Negative POCT U BLD trace Negative - Negative Specimen Urine - URINE, CLEAN CATCH documented in this encounter Visit Diagnoses Diagnosis Well woman exam with routine gynecologic al exam - Primary Routine gynecological examination Encounter for screening breast examinati on and discussion of breast self examination Urinary tract infection with hematuria, site unspecified Colon cancer screening Special screening for malignant neoplasm s, colon Jaundice Jaundice, unspecified, not of Screening examination for venereal disea se History of illicit drug use documented in this encounter documented as of this encounter
--- OUTSIDE RECORDS SUMMARY | 2020-09-05 17:42 | XMS REPORT | Summary of Care ---
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 documented as of this encounter Last Filed Vital Signs Not on filedocumented in this encounter Plan of Treatment Date Type Specialty Care Team Description 06/10/2021 Office Visit Obstetrics & Gynecology Gloria Jurado PA-C [address] [place] [phone] Name Type Priority Associated Diagnoses Order S chedule CBC WITH DIFFERENTIAL LAB Routine Jaundice Ordere d: 06/10/2020 BILI UNCONJUGATED/BILI LAB Routine Jaundice Expec lev: 06/10/2020, CONJUG Expires: 2020 Health Maintenance Due Date Last Done Comments HEPATITIS C (HCV) SCREEN 1960 PNEUMOCOCCAL 0-64 YEARS COMBINED SERIES (1 of 1 - 1967 PPSV23) DTaP,Tdap,and Td Vaccines (1 - Tdap) 1972 PAP SMEAR 1982 Breast Cancer Screening (MAMMOGRAM) 2001 COLONOSCOPY 2011 Zoster Recombinant Vaccine (SHINGRIX) (1 of 2) 2011 INFLUENZA VACCINE (#1) 2020 02/08/2017 Depression Screening 11/27/2020 11/27/2019 documented as of this encounter Results Not on filedocumented in this encounter Visit Diagnoses Diagnosis Jaundice - Primary Jaundice, unspecified, not of Screening examination for venereal disea se History of illicit drug use documented in this encounter documented as of this encounter
--- OUTSIDE RECORDS SUMMARY | 2020-09-05 17:42 | XMS REPORT | Summary of Care ---
:1960 Author Organization [facility] Address [address] [place] [address] Care Team Providers Name Role Phone Reece Khan MD Primary Care Provider Reason for Visit Reason Comments Results Encounter Details Date Type Department Care Team Description 07/09/2020 Telephone [facility] Family Medicine Ginny Welch MD Results - [address] [place] [address] [place] [address] [phone] Allergies No Known Allergiesdocumented as of this encounter (statuses as of 07/09/2020) Medications Medication Sig Dispensed Refills Start Date [...] as of this encounter (statuses as of 07/09/2020) Active Problems No known active problemsdocumented as of this encounter (statuses as of 07/09/2020) Social History Tobacco Use Types Packs/Day Years [...] Assigned at Date Recorded Not on file COVID-19 Exposure Response Date Recorded In the last month, have you been in contact with No / Unsure 06/10/2020 2:12 PM CDT someone who was confirmed or suspected to have Coronavirus / COVID-19? documented as of this encounter Last Filed Vital Signs Not on filedocumented in this encounter Miscellaneous Notes Telephone Encounter - Codie Justice - 07/09/2020 1:22 PM CDTPatient has viewed lab results/recommendations via [employer]zzrhart elephone Encounter - Sarah Beth Olivera MA - 07/09/2020 1:21 PM CDTPt advised lab orders are from her DRUGLESS DOCTOR and to contact her office for results. Telephone Encounter - Yumiko Young - 07/09/2020 10:01 AM CDTPt returning call back in regards to results. documented in this encounter Plan of Treatment Date Type Specialty Care Team Description 07/15/2020 Office Visit Obstetrics & Gynecology Milena Cowan MD [address] [place] [address] Dr. Garcia [place] [phone] 07/15/2020 Office Visit Family Medicine Zuly Khan MD [address] [facility] Arely Zabala [place] [phone] 07/23/2020 Office Visit Surgery Caroline Jarvis MD [address] [facility] [address] [place] [address] [phone] 06/10/2021 Office Visit Obstetrics & Gynecology Gloria Jurado PA-C [address] [facility] [address] [place], [place] [phone] Health Maintenance Due Date Last Done Comments PNEUMOCOCCAL 0-64 YEARS COMBINED SERIES (1 of 1 - 1967 PPSV23) DTaP,Tdap,and Td Vaccines (1 - Tdap) 1980 Breast Cancer Screening (MAMMOGRAM) 2001 COLON CANCER SCREENING ANNUAL FIT/FOBT 2011 COLON CANCER SCREENING FIT DNA EVERY 3 YEARS 2011 COLON CANCER SCREENING SIGMOIDOSCOPY EVERY 5 YEARS 2011 COLONOSCOPY 2011 Colorectal Cancer Screening 2011 Zoster Recombinant Vaccine (SHINGRIX) (1 of 2) 2011 INFLUENZA VACCINE (#1) 2020 02/08/2017 Depression Screening 11/27/2020 11/27/2019 PAP SMEAR 06/10/2023 06/10/2020 HEPATITIS C (HCV) SCREEN Completed 06/10/2020 documented as of this encounter Results Not on filedocumented in this encounter Insurance Payer Benefit Plan / Group Subscriber ID Effective Dates Phone Address Type [employer] [id number] 2019-Present PPO documented as of this encounter
--- OUTSIDE RECORDS SUMMARY | 2020-09-05 17:42 | XMS REPORT | Summary of Care ---
:1960 Author Organization [facility] Address [address] [place] [address] Care Team Providers Name Role Phone Reece Khan MD Primary Care Provider Reason for Visit Reason Comments LAB Encounter Details Date Type Department Care Team Description 07/15/[address] [facility] Donovan Khan MD [address] [place] [address] [place] [address] Abnormal LFTs; Professional Office 2, Ad[facility] Lab Chronic hepatitis C without hepatic coma Building Phlebotomy Lab Professional Office Building [address] [facility] , [address] [place] [address] Allergies No Known Allergiesdocumented as of this encounter (statuses as of 07/15/2020) Medications Medication Sig Dispensed Refills Start Date End Date Status albuterol 2.5 mg /3 Inhale 3 mL every 4 120 Vial 0 11/27/2019 Active mL (0.083 %) (four) hours as nebulizer needed for Wheezing solutionIndications: or Shortness of Shortness of breath, Breath. Via Wheezing, Bronchitis nebulizer with bronchospasm, Reactive airway disease with acute exacerbation, unspecified asthma severity, unspecified whether persistent documented as of this encounter (statuses as of 07/15/2020) Active Problems No known active problemsdocumented as of this encounter (statuses as of 07/15/2020) Resolved Problems Problem Noted Date Resolved Date Tobacco use disorder, mild, abuse 09/01/20182019 Major depressive disorder, single episode, moderate 08/31/20 18 07/15/2020 Generalized anxiety disorder 08/31/2018 07/15/2020 Panic attacks 08/31/2018 07/15/2020 Cocaine use disorder, moderate, dependence 08/31/2018 07/15/2020 documented as of this encounter (statuses as of 07/15/2020) Social History Tobacco Use Types Packs/Day Years [...] been in contact with No / Unsure 07/15/2020 2:56 PM CDT someone who was confirmed or suspected to have Coronavirus / COVID-19? documented as of this encounter Last Filed Vital Signs Not on filedocumented in this encounter Nursing Notes Radha Gardner - 07/15/2020 4:00 PM CDT Venipuncture collection performed by clean technique on the left anticubitus. Total of 1 attempts were made. Slight pressure and a bandage/dressing were applied to the site(s). The patient experienced no complications. The following specimens were processed according to instructions and sent to [facility] laboratories per lab order on 07/15/20: LT BLUE SST 5 RED LAV PPT 1 DK GREEN (LiHep) DK GREEN (SodH) VIGIL DK BLUE (K2) DK BLUE (S) ACD Blood Culture NIPT/NTD documented in this encounter Plan of Treatment Date Type Specialty Care Team Description 07/23/2020 Office [place] [address] [place] [address] [place] [id number] 06/10/2021 Office Visit Obstetrics & Gynecology Gloria Jurado PA-C [address] [place] [phone] Health Maintenance Due Date Last [...] filedocumented in this encounter Visit Diagnoses Diagnosis Abnormal LFTs Other abnormal blood chemistry Chronic hepatitis C without hepatic coma documented in this encounter documented as of this encounter
--- OUTSIDE RECORDS SUMMARY | 2020-09-05 17:42 | XMS REPORT | Summary of Care ---
:1960 Author Organization [facility] Address [address] [place] [address] Care Team Providers Name Role Phone Reece Khan MD Primary Care Provider Reason for Referral (Routine) Status Reason Specialty Diagnoses / Referred By Referred To Procedures Contact Contact New Request Surgery Diagnoses Colon cancer screening Gloria Jurado, Procedures CONSULT/REFERRAL GENERAL SURGERY (colorectal); Preferred Location: ([facility] [place] [address] [place] [address] [address] [place] [address] Radiology Services (Routine) Status Reason Specialty Diagnoses / Referred By Referred To Procedures Contact Contact New Request Diagnostic Diagnoses Encounter for screening breast examination and discussion of breast self examination [facility] Procedures BI SCREENING MAMMOGRAM BILATERAL [facility] [address] [place] [address] Reason for Visit Reason Comments Well Woman Exam last PAP- over 1 year ago Vaginal Bleeding Other orange/reddish urine Encounter Details Date Type Department Care Team Description 06/10/2020 Office Visit [facility] Women's Gloria Jurado Well woman exam with routine gynecological exam (Primary Dx); [facility] [place] Encounter for screening breast examinati on and discussion of breast self examination; [address] [place] [address] [facility] Urinary tract infection with hematuria, site unspecified; Drive, [address] Drive Colon cancer screening; [place], [place] [address] [place]und[place]; [phone] [place] Screening examination for ve nereal disease; [phone] History of illicit drug use [phone] Allergies No Known Allergiesdocumented as of this [...] 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 The patient has a Body [...] file Gets together: Not on file Attends confucianism service: Not on file Active member of [...] Plan: CBC WITH DIFF, COMP. METABOLIC PANEL (95999), HEPATIC FUNCTION PANEL (99087) (ALB,T.PRO,BILI T,BU/BC,ALT,AST,ALK PHOS) Patient to follow-up with [...] Date Type Specialty Care Team Description 06/10/2020 Warehouse Record Clerk Visit Phlebotomy Gloria Jurado PA-C [address] [place] [phone] 2, Ad[facility] Lab 06/10/2021 Office Visit Obstetrics & Gynecology Gloria Jurado PA-C [address] [place] [phone] Name Type Priority Associated Diagnoses Order S [...] METABOLIC PANEL LAB Routine Jaundice Expect ed: (71522) 06/10/2020, Exp ires: 06/10/2021 HEPATIC FUNCTION PANEL LAB Routine Jaundice Expec lev: ([id number]) (ALB,T.PRO,BILI 05/29, Expires: T,BU/BC,ALT,AST,ALK 06/10/20 21 PHOS) [...]
--- OUTSIDE RECORDS SUMMARY | 2020-09-05 17:42 | XMS REPORT | Summary of Care ---
:1960 Author Organization [facility] Address [address] [place] [id number] Care Team Providers Name Role Phone Reece Khan MD Primary Care Provider Reason for Referral Radiology Services (STAT) Status Reason Specialty Diagnoses / Referred By Referred To Procedures Contact Contact New Request Diagnostic Diagnoses Abnormal LFTs Chronic hepatitis C without hepatic coma Erin, Radiology Procedures US ABDOMEN COMPLETE Ginny Newell MD [address] [place] [phone] (CHERRIE) Status Reason Specialty Diagnoses / Referred By Referred To Procedures Contact Contact New Request Gastroenterology Diagnoses Abnormal LFTs Chronic hepatitis C without hepatic coma Erin, Procedures CONSULT/REFERRAL HEPATOLOGY Ginny Newell MD [address] [place] [phone] Reason for Visit Reason Comments Abnormal Lab Encounter Details Date Type Department Care Team Description 07/15/2020 Office Visit [facility] Pediatric Ginny Khan hronic hepatitis C without hepatic coma (Primary Dx); and Adult Primary MD Reece Abnormal LFTs Care- [address], [address] [id number] [place], [place] [phone] [id number] [phone] Allergies No Known Allergiesdocumented as of this encounter (statuses as of 07/15/2020) Medications Medication Sig Dispensed Refills Start End Date Status Date albuterol 2.5 mg /3 mL Inhale 3 mL 120 Vial 0 Active (0.083 %) nebulizer every 4 (four) 9 solutionIndications: hours as Shortness of breath, needed for Wheezing, Bronchitis Wheezing or with bronchospasm, Shortness of Reactive airway Breath. Via disease with acute nebulizer exacerbation, unspecified asthma severity, unspecified whether persistent methylPREDNISolone 4 Follow package 21 Each 0 06/29 Discontinued mg tabletsIndications: directions 9 20 Shortness of breath, Wheezing, Bronchitis with bronchospasm, Reactive airway disease with acute exacerbation, unspecified asthma severity, unspecified whether persistent cephALEXin 500 mg Take 1 capsule 14 capsule 0 Discontinued capsuleIndications: by mouth 2 0 20 Urinary tract (two) times infection with daily. hematuria, site unspecified documented as of this encounter (statuses as of 07/15/2020) Active Problems Problem Noted Date Abnormal LFTs 07/15/2020 Chronic hepatitis C without hepatic coma 07/15/2020 documented as of this encounter (statuses [...] Sign Reading Time Taken Comments Blood Pressure 130/83 07/15/2020 2:56 PM CDT Pulse 78 07/15/2020 2:56 PM CDT Temperature 36.1 C (97 F) 07/15/2020 2:56 PM CDT Respiratory Rate - - Oxygen Saturation 100% 07/15/2020 2:56 PM CDT Inhaled Oxygen Concentration - - Weight 53 kg (116 lb 12.8 oz) 07/15/2020 2:56 PM CDT Height 154.9 cm (5' 1") 07/15/2020 2:56 PM CDT Body Mass Index 22.07 07/15/2020 2:56 PM CDT documented in this encounter Patient Instructions Patient InstructionsGinny Khan MD - 07/15/2020 3:00 PM CDT Patient Education Understanding Hepatitis C Virus (HCV) Hepatitis means inflammation of the liver. There are many kinds of hepatitis. Some are from infections and can be spread. Others are not. Hepatitis C virus (HCV) can be spread to other people. It can lead to lifelong liver disease. This includes chronic hepatitis, cirrhosis, liver failure, and liver cancer. Symptoms of hepatitis C Most people have no symptoms until they develop liver disease years later. Symptoms can include: Flulike symptoms such as fatigue, nausea, vomiting, diarrhea, and sore muscles and joints Sore feeling in the upper right abdomen Yellow color in skin and eyes (jaundice) Swelling in the belly Itching Confusion Abnormal bleeding Dark yellow to brown urine Light-colored stool (vo or mamie color) How HCV spreads HCV spreads through contact with an infected persons blood and body fluids. This is most likely to happen if: You used an infected needle with IV drug use, tattoos, acupuncture, or body piercing You had a needle stick injury in the hospital You shared personal care items such as razors You had sex without a condom with an infected person (a less common cause) You had a blood transfusion several years ago (blood is now screened for HCV) You shared drug tools (like snorting straws) You have ever been in retirement Many people do not know how they were exposed to HCV. The CDC advises people born between 1945 and 1965 to have 1 screening test. Screening is also advised for people born to mothers with HCV. Prevent the spread No vaccine can prevent the spread of HCV and hepatitis C. If you have HCV, its up to you to protect other people from the virus. Do's: Cover all of your skin breaks and sores. If you need help, the person helping you should wear latex gloves. Use condoms during sex. Donts: Dont donate blood, plasma, body organs, other body tissue, or sperm. Dont share needles. Dont share razors, toothbrushes, manicure tools, or other personal items. [employer] last reviewed this educational content on 12/30/201919990227-1533 [employer]. [address] [place] [address]. All rights reserved. This information is not intended as a substitute for professional medical care. Always follow your healthcare professional's instructions. Patient Education Treating Hepatitis C Virus (HCV) Its likely thatthe hepatitis C virus (HCV)was found when you had routine liver tests on your blood, or after you donated blood. Once hepatitis C is found, you need to be checked for liver disease. You may also have a small liver sample (biopsy) taken. It can see if medicines may help. Hepatitis C can be a short-term (acute) or long-term (chronic) illness. Acute hepatitis C often goesaway without treatment. With new treatments, chronichepatitis C can be cured in most people. Take these steps To help keep your body strong and possibly ease symptoms: Don't stress your liver. Dont use alcohol or any unneeded medicines. Your healthcare provider may advise not taking or taking a lower dose of acetaminophen or a nonsteroidal anti-inflammatory drug (NSAID). Sometimes, you can still use these medicines safely. Always check with your healthcare provider first before taking any srvv-bzx-lzmgydk medicines or supplements. Eat a balanced diet. A diet low in fat, high in fiber, and full of fresh fruits and vegetables helps you stay healthy. Stay at a healthy weight and control any other health problems. You have a higher risk for a fatty liver if you are overweight or obese. That's also the case if you have high cholesterol, high blood pressure, or diabetes. A fatty liver can make HCV liver disease worse. Take prescribed medicines. Your provider will talk with you about the types of medicines that will work best for you. You may need to take medicines to treat hepatitis C for several months.Compared with past treatments, new medicines are very good at curing the disease. They have fewer side effects. They are also taken by mouth and for less time. Follow up regularly Hepatitis C can get worse and hurt your liver without your knowing it. Stay in touch with your provider and healthcare team. They can watch your condition. They can tell you about any new research and types of treatment for hepatitis C. How to prevent the spread of HCV No vaccine or medicine can prevent the spread of HCV and hepatitis C. Its up to you to keep others safe. Cover all skin breaks and sores yourself. If you need help, the person treating you should wear latex gloves. Use condoms during sex. Dont donate blood, plasma, other body tissue, or sperm. Dont share needles, razors, toothbrushes, manicure tools, or other personal items. Hepatitis C can live on surfaces outside the body at room temperature for up to 4 days. Clean anyblood spills using 1 part household bleach with 10 parts water. Wear gloves when cleaning. Talk with your healthcare provider about joining a support group. [employer] reviewed this educational content on 11/29/201919998683-7344 [employer]. [address] [place] [address]. All rights reserved. This information is not intended as a substitute for professional medical care. Always follow your healthcare professional's instructions. Patient Education Hepatitis C: Preventing the Spread Dispose of needles safely, and do not share needles If you use needles for any reason, dont share them. Keep syringes capped between uses. Dont let anyone else use them. After using a needle, dispose of it safely in a puncture-proof container. (Ask your healthcare provider about this.)Don't share other drug paraphernalia, including anything used to snort. Practice safer sex Rarely, the hepatitis C virus can pass from person to person during sex. Using latex condoms correctly every time is the only effective way to protect against most diseases that are spread through sex. Dont share toiletries Even if you cant see it, tiny amounts of blood can be on razors, toothbrushes, nail clippers, or other personal care items. Dont share these items with anyone. Talk with your healthcare provider if youre not sure whats safe to share. Care for open wounds If youre bleeding, take care of the wound yourself. Anyone who helps you should wear latex gloves. Use bleach to clean up any spilled blood.Carefully dispose of bandages, tissues, or anything thathas your blood on it.Cover open cuts or sores with a bandage so others will not be exposed to yourblood. [employer] last reviewed this educational content on 12/30/201919994590-1584 [employer]. [address] [place] [address], [place] [address]. All rights reserved. This information is not intended as a substitute for professional medical care. Always follow your healthcare professional's instructions. Patient Education Hepatitis C: Protecting Your Liver Taking good care of yourself is the best way to prevent health problems linked to the hepatitis C virus (HCV). Give your liver a fighting chance. This means staying away from things that can make liverdamage worse. And help your body defend against the HCV by staying healthy. Watch medicines and supplements Some medicines and herbal supplements can harm your liver. To protect yourself: Check with yourhealthcare provideror pharmacist before taking anything that you buy hdeo-mge-wotpiyh. This includes herbal medicines. The FDA does not regulate them. So it may be hard to know which ones could harm your liver. Learn the generic and brand names for yldz-bha-hbrnqpi products that may harm your liver.Know the many combination medicines that have acetaminophen in them. Make sure you tell anyhealthcare providerwho prescribes medicine for you that you have hepatitis C. If you have cirrhosis, get specific instructions from your healthcare provider. Don't take nonsteroidal anti-inflammatory drugs (NSAIDs) such as naproxen and ibuprofen. They can hurt your kidney if you have cirrhosis. Don't drink alcohol Your liver works hard to process alcohol. If you have HCV infection, drinking alcohol may make you more likely to get cirrhosis. Youmay also developit faster. It is not known if there is a safe amount of alcohol to drink. It's best to not drink any alcohol. Get tested Make sure you get tested for hepatitis A and hepatitis B. There are vaccines against them. Talk withyourhealthcare provider about getting the shots. Stay healthy Your bodys immune system fights against infections. Its more able to do this when your body ishealthy. Eating healthy foods and getting plenty of sleep will help keep your body strong. And staying upbeat can help you keep hepatitis C in perspective. You can also help protect your liver by: Staying at a healthy weight Keeping your blood pressure and cholesterol levels in a healthy range Controlling diabetes, if you have the disease [employer] last reviewed this educational content on 12/30/201919991206-0949 [employer]. [address] [place] [address], [place] [address]. All rights reserved. This information is not intended as a substitute for professional medical care. Always follow your healthcare professional's instructions. Patient Education Hepatitis Type C You have been diagnosed with hepatitis C, also called HCV. Hepatitis is an inflammation of the liver. In your case, it is from an infection with the Hepatitis C virus. Causes The most common causes of hepatitis are viruses. Alcohol and drug abuse, chemical toxins, and immunesystem problems can also cause hepatitis. So can diabetes, obesity, and the metabolic syndrome. When a virus causes hepatitis, it is called viral hepatitis. The hepatitis viruses A, B, and C commonly cause viral hepatitis. Other viral infections can also cause hepatitis, such as the viruses that cause mononucleosis and chicken pox. What all the hepatic (liver) viruses have in common is that once they are spread to you, they infectthe liver and then cause inflammation (hepatitis). The different viruses are spread in different ways, but all of them can affect your health over a long time. Possible complications include cirrhosis,liver cancer, and liver failure. HCV is commonly spread through injection of contaminated body fluids or blood products, transfusions, or intravenous (IV) drug use. It can also be spread through tattoos or piercing with nonsterile instruments, or certain medical procedures. Although you can get hepatitis C from someone you are close to and from sexual contact, the chances are very low. There is currently no vaccine for HCV. Avoiding the common causes is the best way to avoid infection. Symptoms Many people with hepatitis B and C have no symptoms or only mild ones when they are first infected. Often this is also the case for many years afterwards. However, HCV it can damage your liver, and it can become chronic in some people. Symptoms in the early stages can include: Tiredness, fatigue, or weakness Low-grade fever Loss of appetite Upset stomach, diarrhea, nausea, or vomiting Abdominal pain Dark yellow-colored urine Light-colored or pale stool (vo or mamie color) Yellow color of the skin or eyes (jaundice) Joint pain These symptoms can be caused by many different conditions. Because these symptoms are not specific to HCV, many people are not diagnosed for a long time. HCV can become chronic in more than half of people who are infected. Chronic HCV infection means that you carry the virus and can spread the diseaseto others. Most people with chronic infection (about 70%) will develop some degree of chronic liver disease. For many, this may cause no symptoms or long-term effects, but there is a 20% chance of eventually getting cirrhosis (scarring). Heavy alcohol drinkers and people with chronic hepatitis B infection are at greatest risk for long-term problems. So are people whose livers are also inflamed from fatty liver disease (a condition called non-alcoholic steatohepatitis, or WHITE). Anyone who has hepatitis C needs to be checked by his or her healthcare provider at least once a year. This is to be sure the liver inflammation is not getting worse. There is no vaccine yet for hepatitis C. However, there is an effective treatment. You can discuss this treatment with your healthcare provider. Most people can be treated successfully with an oral treatment and hepatitis C is now considered curable. Home care A diet low in saturated fats and high in fruits and vegetables is best for you and your liver. Have small, frequent meals if you experience nausea. If you are having symptoms of hepatitis, you may fatigue easily. Get lots of rest. Don't exert yourself too much. Acetaminophen and anti-inflammatory drugs such as ibuprofen and naproxen can be toxic to the liver in high doses, with prolonged use, or in the presence of existing liver damage. ? If you have hepatitis, you should not take these medicines until you talk about them with your healthcare provider. ? If you have only mild or no liver damage from chronic hepatitis, you may take acetaminophen in lowdoses (2 grams per 24 hours). Do not take anti-inflammatory medicines. Never take acetaminophen withalcohol, since this increases the risk of liver damage. Alcohol stresses the liver. People with hepatitis should not drink alcohol. It can worsen the disease. Preventing the spread of hepatitis HCV is most often spread by blood contact. Never share needles, syringes, tattoo equipment, or snorting straws. Don't try to donate blood, organs, tissues, or semen. Don't share razors or toothbrushes, although this is a very rare method of transmitting hepatitisC. If you need medical or dental care, inform the staff that you have hepatitis. If you are or plan to become , tell your healthcare provider. There is a small chance that hepatitis C can be transmitted to the unborn baby. HCV is not passed in breast milk. The risk of spreading the virus through sex is low, especially in monogamous relationships. Standard safer-sex practices, including the use of latex condoms, are advised if you have sex with more than one partner. There is no need to change your sexual practices if you are in a long-term, monogamous relationship. The risk of household spread is low. There is no need to avoid close contact or sharing of meals or utensils. HCV does not involve any restrictions on work. Follow-up care Follow up with your healthcare provider, or as advised. Ask about hepatitis A and B vaccines. You are at greater risk of getting these types of the disease, and they could cause more damage to your liver. Your sexual partner should contact their healthcare provider and have a test to see if they have been infected with HCV. If X-rays, a CT scan, an MRI, or an ultrasound was done, they will be reviewed by a specialist. You will be notified of the results, especially if they affect treatment. Call 911 Call 911 if any of these occur: Trouble breathing or swallowing, wheezing Confusion Extreme drowsiness or trouble awakening Fainting or loss of consciousness Rapid heart rate Vomiting blood or significant rectal bleeding (red blood or black, tarry stool) When to seek medical advice Call your healthcare provider right away if any of these occur: Frequent vomiting Weight loss from poor appetite Increase in abdominal pain or swelling Increasing drowsiness or confusion Weakness or dizziness New or increasing yellow color of skin or eyes Bleeding from the gums or nose, or easy bruising [employer] last reviewed this educational content on 03/29/201719999852-1997 [employer]. [address] [place] [address], [place] [address]. All rights reserved. This information is not intended as a substitute for professional medical care. Always follow your healthcare professional's instructions. Our [facility] Referrals Team can be reached at [phone] for help with your specialist referral. 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 She says her of many years had Hepatitis C in the past but was cured with oral medication acouple of years ago. She says she was never told to get tested at that time and only had the test recently as part of her STD screening labs during her routine annual [employer]ESSING TE[employer] check-up. She denies a h/o IVDU, blood transfusion, or tattoos. She has noticed some yellowing of her eyes but she denies yellowing of her skin, abdominal pain, abdominal distension, pruritus, or confusion. She denies alcohol use or known FHx of liver disease though she does admit her parents were both alcoholics. No Known Allergies Current Outpatient Medications on File Prior to Visit Medication Sig Dispense Refill albuterol 2.5 mg /3 mL (0.083 %) nebulizer solution Inhale 3 mL every 4 (four) hours as needed for Wheezing or Shortness of Breath. Via nebulizer 120 Vial 0 No current facility-administered medications on file prior to visit. Past Medical History: Diagnosis Date Cocaine use disorder, moderate, dependence 08/31/2018 Generalized anxiety disorder 08/31/2018 Major depressive disorder, single episode, moderate 08/31/2018 Panic attacks 08/31/2018 Pneumonia Tobacco use disorder, mild, abuse 09/01/2018 Past Surgical History: Procedure Laterality Date ANTERIOR CERVICAL FUSION TUBAL LIGATION Family History Problem Relation Age of Onset Pancreatic Cancer Mother Arthritis Father of old age COPD (chronic obstructive pulmonary disease) Father Diabetes Sister Hypertension Sister Diabetes Brother Hypertension Brother Social History Socioeconomic History Marital status: Spouse name: Not on file Number of children: Not on file Years of education: Not on file Highest education level: Not on file Occupational History Not on file Social Needs Financial resource strain: Not on file Food insecurity Worry: Not on file Inability: Not on file Transportation needs Medical: Not on file Non-medical: Not on file Tobacco Use Smoking status: Never Smoker Smokeless tobacco: Never Used Substance and Sexual Activity Alcohol use: Never Frequency: Never Drug use: Not Currently Types: Other-see comments Comment: crack cocaine Sexual activity: Yes Lifestyle Physical activity Days per week: Not on file Minutes per session: Not on file Stress: Not on file Relationships Social connections Talks on phone: Not on file Gets together: Not on file Attends taoist service: Not on file Active member of club or organization: Not on file Attends meetings of clubs or organizations: Not on file Relationship status: Not on file Intimate partner violence Fear of current or ex partner: Not on file Emotionally abused: Not on file Physically abused: Not on file Forced sexual activity: Not on file Other Topics Concern Not on file Social History Narrative Not on file Review of Systems Constitutional: Negative. HENT: Negative. Eyes: "yellow eyes" Respiratory: Negative. Cardiovascular: Negative. Gastrointestinal: Negative. Genitourinary: Negative. Musculoskeletal: Negative. Skin: Negative. Neurological: Negative. Psychiatric/Behavioral: Negative. Endocrine: Endocrine negative Vital signs BP 130/83 | Pulse 78 | Temp 36.1 C (97 F) (Tympanic) | Ht 5' 1" (1.549 m) | Wt 116 lb 12.8 oz (53 kg) | SpO2 100% | BMI 22.07 kg/m Physical Exam Constitutional: She is oriented to person, place, and time. She appears well- developed. No distress. HENT: Mouth/Throat: Mucous membranes are normal. Eyes: Conjunctivae are normal. No scleral icterus. Neck: Neck supple. No JVD present. No tracheal deviation present. No thyromegaly present. Cardiovascular: Normal rate, regular rhythm, normal heart sounds and intact distal pulses. Exam reveals no gallop and no friction rub. No murmur heard. Pulmonary/Chest: Breath sounds normal. No respiratory distress. She has no wheezes. She has no rales. Abdominal: Soft. Bowel sounds are normal. She exhibits no shifting dullness, no distension, no pulsatile liver, no fluid wave, no ascites and no mass. There is no abdominal tenderness. There is negative Hinkle's sign. Musculoskeletal: General: No edema. Lymphadenopathy: She has no cervical adenopathy. Neurological: She is alert and oriented to person, place, and time. She displays no tremor. Skin: Skin is warm and dry. No rash noted. No pallor. Psychiatric: She has a normal mood and affect. Her behavior is normal. Judgment and thought content normal. LABS: CBC CMP WBC (10*3/L) Date Value 06/10/2020 5.93 NA (mmol/L) Date Value 06/10/2020 137 RBC (10*6/L) Date Value 06/10/2020 4.74 K (mmol/L) Date Value 06/10/2020 4.4 PLT (10*3/L) Date Value 06/10/2020 175 CALCIUM (mg/dL) Date Value 06/10/2020 9.1 HGB (g/dL) Date Value 06/10/2020 13.9 CL (mmol/L) Date Value 06/10/2020 104 HCT (%) Date Value 06/10/2020 43.5 BUN (mg/dL) Date Value 06/10/2020 10 LIPID PANEL CREATININE (mg/dL) Date Value 06/10/2020 0.77 No results found for: CHOL GLUCOSE (mg/dL) Date Value 06/10/2020 111 (H) No results found for: LDL CO2 TOTAL (mmol/L) Date Value 06/10/2020 26 No results found for: HDL ALBUMIN Date Value Ref Range Status 06/10/2020 3.9 3.5 - 5.0 g/dL Final No results found for: TRIG T PROTEIN Date Value Ref Range Status 06/10/2020 7.1 6.3 - 8.2 g/dL Final TSH TOTAL BILI Date Value Ref Range Status 06/10/2020 2.6 (H) 0.1 - 1.1 mg/dL Final No results found for: TSH No components found for: BILIUNCOM BILI CONJ Date Value Ref Range Status 06/10/2020 0.0 0.0 - 0.3 mg/dL Final ALTv Date Value Ref Range Status 06/10/2020 531 (H) 5 - 35 U/L Final AST(SGOT) Date Value Ref Range Status 06/10/2020 370 (H) 13 - 40 U/L Final ALK PHOS Date Value Ref Range Status 06/10/2020 247 (H) 34 - 122 U/L Final ASSESSMENT/PLAN Diagnoses and all orders for this visit: Chronic hepatitis C without hepatic coma We discussed the pathophysiology, diagnosis, treatment, and prognosis of Hepatitis C infection. It sounds like she likely contracted the infection from her who had it. I recommended evaluation and management by a Hepatology specialist and a referral has been initiated. I will check her Hepatitis C genotype and an abdominal US in preparation for that consultation. - CONSULT/REFERRAL HEPATOLOGY - US ABDOMEN COMPLETE; Future - HEPATITIS C VIRUS GENOTYPE; Standing Abnormal LFTs Her abnormal LFTs are likely due to her chronic Hepatitis C infection but concurrent autoimmune and genetic liver disorders like AIH, lupus, and hemochromatosis should be ruled-out along with structural causes of abnormal LFTs such as gallbladder disease and liver tumors. The patient was counseled to avoid/limit hepatotoxic agents including EtOH. Further work-up was ordered as noted including more advanced lab work and imaging. She has been referred to Hepatology for further evaluation and management given her diagnosis of chronic Hepatitis C infection. - CONSULT/REFERRAL HEPATOLOGY - ALKALINE PHOSPHATASE ISOENZYME; Standing - ALPHA 1 ANTITRYPSIN; Standing - ALPHA FETOPROTEIN; Standing - ANTI-NUCLEAR ANTIBODY SCREEN; Standing - FERRITIN SERUM; Standing - CERULOPLASMIN; Standing - GAMMA GLUTAMYLTRANSFERASE; Standing - HAV ANTIBODY (IGG AND IGM) ; Standing - HEPATITIS B SURFACE ANTIBODY; Standing - MITOCHONDRIAL M2 AB, IGG; Standing - SMOOTH MUSCLE AB,IGG W/REFLEX; Standing - HEPATITIS C VIRUS GENOTYPE; Standing - US ABDOMEN COMPLETE; Future Plan of care, desired health behaviors, goals, Ddx of abnormal LFTs, and any prescribed medications were discussed with the patient. This visit involved counseling and coordination of care that comprised more than 50% of the visit time. I spent 25 minute(s) total time with the patient. Education resources and self-management tools were provided and reviewed with the AVS. Patient/guardian/family verbalized understanding and agrees to the plan of care. Barriers to care: None. Ability to manage care: Good. Advanced care planning (living will) information was not given/offered to the patient to review for discussion at a future visit. If applicable, the [facility] database was accessed to review any controlled substance prescription claims data. If the patient is taking prescribed medications, the [employer] prescription claims data in [employer] was reviewed to assess patient compliance with the medication treatment plan. COVID-19 precautions given including frequent handwashing, social distancing, cleaning and disinfecting, indications for testing, etc. Follow-up: Return TBD based on lab results. Follow-up sooner if any problems or concerns. Scribe Attestation I, Elvia Caldwell am scribing for, and in the presence of, Ginny Khan MD who performed the services described here-in. Elvia Caldwell, July 15, 2020, 1:00 PM Physician Attestation I, Ginny Khan MD, personally performed the services described in this documentation , as scribed by, Elvia Caldwell in my presence and it is both accurate and complete. Ginny Khan MD July 15, 2020, 1:00 PM documented in this encounter Plan of Treatment Date Type Specialty Care Team Description 07/16/2020 Appointment Radiology Zuly Khan MD [address] [place], [place] [phone] 07/23/2020 Office Visit Surgery Caroline Jarvis MD [address] [facility] 2.[address] [place], [place] [address] 06/10/2021 Office Visit Obstetrics & Gynecology Gloria Jurado PA-C [address] [facility] [address] [place], [place] [phone] Name Type Priority Associated Diagnoses Date/Ti me ALKALINE PHOSPHATASE LAB Routine Abnormal LF Ts 07/15/2020 3:54 PM ISOENZYME Chronic hepatitis C CDT without hepatic coma ALPHA 1 ANTITRYPSIN LAB Routine Abnormal LFT s 07/15/2020 3:54 PM Chronic hepatitis C CDT without hepatic coma ANTI-NUCLEAR ANTIBODY LAB Routine Abnormal L FTs 07/15/2020 3:54 PM SCREEN Chronic hepatitis C CDT without hepatic coma CERULOPLASMIN LAB Routine Abnormal LFTs 07/15/2020 3:54 PM Chronic hepatitis C CDT without hepatic coma MITOCHONDRIAL M2 AB, IGG LAB Routine Abnorma l LFTs 07/15/2020 3:54 PM Chronic hepatitis C CDT without hepatic coma SMOOTH MUSCLE AB,IGG LAB Routine Abnormal LF Ts 07/15/2020 3:54 PM W/REFLEX Chronic hepatitis C CDT without hepatic coma HEPATITIS C VIRUS GENOTYPE LAB Routine Abnor mal LFTs 07/15/2020 3:54 PM Chronic hepatitis C CDT without hepatic coma Name Type Priority Associated Diagnoses Order S chedule ALKALINE PHOSPHATASE LAB Routine Abnormal LF Ts 1 Occurrences starting ISOENZYME Chronic hepatitis C 07/15/20 until without hepatic coma 020 ALPHA 1 ANTITRYPSIN LAB Routine Abnormal LFT s 1 Occurrences starting Chronic hepatitis C 07/15/20 20 until without hepatic coma 020 ANTI-NUCLEAR ANTIBODY LAB Routine Abnormal L FTs 1 Occurrences starting SCREEN Chronic hepatitis C 07/15/20 until without hepatic coma 020 CERULOPLASMIN LAB Routine Abnormal LFTs 1 Occurrences starting Chronic hepatitis C 07/15/20 until without hepatic coma 020 MITOCHONDRIAL M2 AB, IGG LAB Routine Abnorma l LFTs 1 Occurrences starting Chronic hepatitis C 07/15/20 until without hepatic coma 020 SMOOTH MUSCLE AB,IGG LAB Routine Abnormal LF Ts 1 Occurrences starting W/REFLEX Chronic hepatitis C 07/15/20 until without hepatic coma 020 US ABDOMEN COMPLETE IMAGING STAT Abnormal LFT s Expected: 07/15/2020, Chronic hepatitis C Expires: 07/15/2021 without hepatic coma HEPATITIS C VIRUS LAB Routine Abnormal LFTs 1 Occurrences starting GENOTYPE Chronic hepatitis C 07/15/20 until without hepatic coma 020 Health Maintenance Due Date Last Done Comments [...] 06/10/2020 documented as of this encounter Results HEPATITIS B SURFACE ANTIBODY (07/15/2020 3:54 PM CDT) Pathologist Sig nature HBsAB Negative [facility] HBsAb 0.00 mIU/mL [facility] Semi-Quantitative SERVICES Specimen Blood Narrative Performed At Interpretation: Hepatitis B Surface An tibody [facility] Negative - Patient is considered to be not immu ne to infection with HBV. Positive - Anti-HBs detected at greater than or equal to 12 mIU/mL. Patient is considered to be immune to infection with HBV. Performing Organization Address City/State/[facility] Phone Number [facility] CLIA: [id number] [place] [address] [place] [address] HAV ANTIBODY (IGG AND IGM) (07/15/2020 3:54 PM CDT) Pathologist Sig nature HAV Total Negative [facility] HAVT Semi-Quantitative 1.44 [facility] Specimen Blood Performing Organization Address [facility] Phone Number [facility] CLIA: [id number] [place] [address] [place] [address] GAMMA GLUTAMYLTRANSFERASE (07/15/2020 3:54 PM CDT) Pathologist Sig [facility] GGT 205 (H) 13 - 40 U/L [facility] Specimen Blood Performing Organization Address [facility] Phone Number [facility] CLIA: [id number] [place], [place] [address] LABORAT[address] FERRITIN SERUM (07/15/2020 3:54 PM CDT) Pathologist Sig nature FERRITIN 162.0 11.0 - 264.0 ng/mL [facility] Specimen Blood Narrative Performed At Biotin has been reported to cause a negative [facility] bias, interpret results relative to patient's use of biotin. Performing Organization Address [facility] Phone Number [facility] CLIA: [id number] [place] [address] ALPHA FETOPROTEIN (07/15/2020 3:54 PM CDT) Pathologist Sig nature AFP 7.1 <=7.5 ng/mL [facility] Specimen Blood Narrative Performed At Biotin has been reported to cause a negative bias, int erpret [facility] results relative to patient's use of biotin. Performing Organization Address City/[facility] Phone Number [facility] CLIA: [id number] [place] [address] [place] [address] documented in this encounter Visit Diagnoses Diagnosis Chronic hepatitis C without hepatic coma - Primary Abnormal LFTs Other abnormal blood chemistry documented in this encounter documented as of this encounter
--- OUTSIDE RECORDS SUMMARY | 2020-09-05 17:42 | XMS REPORT | Summary of Care ---
:1960 Author Organization [facility] Address [address] [place] [address] Care Team Providers Name Role Phone Reece Khan MD Primary Care Provider Reason for Visit Reason Comments LAB Encounter Details Date Type Department Care Team Description 06/10/2020 Body Stylist Visit [facility] Gloria Jurado PA-C [address] [place] [address] [address] [place] [address] Jaundice (Primary Dx); Professional Office 2, [facility] Lab Screening examination for venereal disea se; Building Phlebotomy History of illicit drug use Lab Professional Office Building [address] [place] [address] , [address] [place] [address] Allergies No Known Allergiesdocumented as of this encounter (statuses as of 06/11/2020) Medications Medication Sig Dispensed Refills Start Date [...] as of this encounter (statuses as of 06/11/2020) Active Problems No known active problemsdocumented as of this encounter (statuses as of 06/11/2020) Social History Tobacco Use Types Packs/Day Years [...] Visit Obstetrics & Gynecology Gloria Jurado PA-C [address] [place] [phone] Name Type Priority Associated Diagnoses Date/Ti me HCV BY PCR LAB Routine Screening examination for 2:18 PM CDT venereal disease History of illicit drug use RPR (QUANTITATIVE) LAB Routine Screening examination for 06/10/2020 2:18 PM CDT venereal disease History of illicit drug use T. PALLIDUM PARTICLE LAB Routine Screening examinatio n for 06/10/2020 2:18 PM CDT AGG venereal disease History of illicit drug use Name Type Priority Associated Diagnoses Order S chedule HCV BY PCR LAB Routine Screening examination for Ex pected: 06/11/2020, venereal disease Expires: 06/11/2021 History of illicit drug use RPR (QUANTITATIVE) LAB Routine Screening examination for Expected: 06/11/2020, venereal disease Expires: 06/11/2021 History of illicit drug use T. PALLIDUM PARTICLE LAB Routine Screening examinatio n for Expected: 06/11/2020, AGG venereal disease Expires: 06/11/2021 History of illicit drug use Health Maintenance Due Date Last Done Comments PNEUMOCOCCAL 0-64 YEARS COMBINED SERIES (1 of 1 - 1967 PPSV23) DTaP,Tdap,and Td Vaccines (1 - Tdap) 1972 PAP SMEAR 1982 Breast Cancer Screening (MAMMOGRAM) 2001 COLONOSCOPY 2011 Zoster Recombinant Vaccine (SHINGRIX) (1 of 2) 2011 INFLUENZA VACCINE (#1) 2020 02/08/2017 Depression Screening 11/27/2020 11/27/2019 HEPATITIS C (HCV) SCREEN Completed 06/10/2020 documented as of this encounter Procedures Procedure Name Priority Date/Time Associated Diagnosis Comme nts HIV 1/2 AG-AB WITH Routine 06/10/2020 2:18 Screening Resul ts for this REFLEX PM CDT examination for procedure ar e in venereal disease the results History of illicit section. drug use CBC WITH DIFFERENTIAL Routine 06/10/2020 2:18 Jaundice Re sults for this PM CDT procedure are i n the results section. ADC OR JOSE ONLY - Routine 06/10/2020 2:18 Screening Re sults for this RPR PM CDT examination for procedure ar e in venereal disease the results History of illicit section. drug use HCV ANTIBODY Routine 06/10/2020 2:18 Screening Results for this PM CDT examination for procedure ar e in venereal disease the results History of illicit section. drug use HEPATITIS B SURFACE Routine 06/10/2020 2:18 Screening Resu lts for this ANTIGEN PM CDT examination for procedure ar e in venereal disease the results History of illicit section. drug use CBC WITH DIFFERENTIAL Routine 06/10/2020 2:18 Jaundice Re sults for this PM CDT procedure are i n the results section. COMP. METABOLIC PANEL Routine 06/10/2020 2:18 Jaundice Re sults for this (13541) PM CDT procedure are i n the results section. BILI Routine 06/10/2020 2:18 Jaundice Results for this UNCONJUGATED/BILI PM CDT procedure are in CONJUG the results section. documented in this encounter Results BILI UNCONJUGATED/BILI CONJUG (06/10/2020 2:18 PM CDT) Pathologist Sig nature BILI CONJ 0.0 0.0 - 0.3 mg/dL [facility] BILI UNCON 1.0 0.1 - 1.1 mg/dL [facility] Specimen Blood Performing Organization Address City/State/Zipcode Phone Number [facility] CLIA: [id number], [address] [place], [place] [address] CBC WITH DIFFERENTIAL (06/10/2020 2:18 PM CDT) WBC 5.93 4.30 - 11.10 [facility] 10*3/L [facility] RBC 4.74 3.93 - 5.25 [facility] 10*6/L [facility] HGB 13.9 11.6 - 15.0 [facility] g/dL [facility] HCT 43.5 35.7 - 45.2 % [facility] MCV 91.8 80.6 - 95.5 [facility] LABORATORY MCH 29.3 25.9 - 32.8 [facility] LABORATORY MCHC 32.0 31.6 - 35.1 [facility] g/dL [facility] RDW-SD 50.6 (H) 39.0 - 49.9 [facility] LABORATORY RDW-CV 15.1 12.0 - 15.5 % [facility] PLT 175 166 - 358 [facility] 10*3/L [facility] MPV 14.5 (H) 9.5 - 12.9 fL [facility] IPF % 17.5 (H)Comment: 1.3 - 7.7 % [facility] Platelet count [facility] measured by LABORATORY fluorescence method. NRBC/100 WBC 0.0 0.0 - 10.0 [facility] /100 WBCs [facility] NRBC x10^3 <0.01 10*3/L [facility] GRAN MAT (NEUT) % 43.2 % [facility] IMM GRAN % 0.30 % [facility] LYMPH % 42.2 % [facility] MONO % 11.6 % [facility] EOS % 1.9 % [facility] BASO % 0.8 % [facility] GRAN MAT 2.56 1.88 - 7.09 [facility] x10^3(ANC) 10*3/uL [facility]OSPITAL LAB[facility]ORY IMM GRAN x10^3 <0.03 0.00 - 0.06 [facility] 10*3/uL [facility] LYMPH x10^3 2.50 1.32 - 3.29 [facility] 10*3/uL [facility] MONO x10^3 0.69 0.33 - 0.92 [facility] 10*3/uL [facility]ITAL LAB[facility]ORY EOS x10^3 0.11 0.03 - 0.39 [facility] 10*3/uL [facility] LAB[facility] BASO x10^3 0.05 0.01 - 0.07 [facility] 10*3/uL [facility] Specimen Blood Performing Organization Address City/State/Zipcode Phone Number [facility] CLIA: [id number], [address] [place] [address] COMP. METABOLIC PANEL (03666) (06/10/2020 2:18 PM CDT) Pathologist Sig nature NA 137 135 - 145 [facility] mmol/L [facility] K 4.4 3.5 - 5.0 [facility] mmol/L [facility] CL 104 98 - 108 mmol/L [facility] CO2 TOTAL 26 23 - 31 mmol/L [facility] AGAP 7 2 - 16 [facility] BUN 10 7 - 23 mg/dL [facility] GLUCOSE 111 (H) 70 - 110 mg/dL [facility] CREATININE 0.77 0.50 - 1.04 [facility] mg/dL [facility] TOTAL BILI 2.6 (H) 0.1 - 1.1 mg/dL [facility] CALCIUM 9.1 8.6 - 10.6 [facility] mg/dL [facility] T PROTEIN 7.1 6.3 - 8.2 g/dL [facility] ALBUMIN 3.9 3.5 - 5.0 g/dL [facility] ALK PHOS 247 (H) 34 - 122 U/L [facility] ALTv 531 (H) 5 - 35 U/L [facility] AST(SGOT) 370 (H) 13 - 40 U/L [facility] eGFR Calculation 76.7 mL/min/1.73m2 [facility] (Non[facility] LABORATORY [place]) eGFR Calculation 93.0 mL/min/1.73m2 [facility] () [facility] Specimen Blood Narrative Performed At Association of Glomerular Filtration Rate (GFR) [facility] and Staging of Kidney Disease* + + +- + | GFR (mL/min/1.73 m2) | With Kidney Damage | Without Kidney Damage + + +- + | >90 | Stage one | Normal + + +- + | 60-89 | Stage two | Decreased GFR + + +- + | 30-59 | Stage three | Stage three + + +- + | 15-29 | Stage four | Stage four + + +- + | <15 (or dialysis) | Stage five | Stage five + + +- + *Each stage assumes the associated GFR level has been in effect for at least three months. Stages 1 to 5, with or without kidney disease, indicate chronic kidney disease. Notes: Determination of stages one and two (with eGFR >59mL/min/1.73 m2) requires estimation of kidney damage for at least three months as defined by structural or functional abnormalities of the kidney, manifested by either: Pathological abnormalities or Markers of kidney damage (including abnormalities in the composition of the blood or urine or abnormalities in imaging tests). Performing Organization Address City/[facility] Phone Number [facility] CLIA: [id number], [address] [place] [address] 15 LABORATORY [facility] HIV 1/2 AG-AB WITH REFLEX (06/10/2020 2:18 PM CDT) [facility] HIV 1/2 Ag-Ab with Negative Negative [facility] LABORATORY HIV Semi-quantitative 0.10 [facility] Specimen Blood Narrative Performed At Non-reactive for HIV-1 antigen and HIV-1/HIV-2 [facility] antibodies. No laboratory evidence of HIV infection. Repeat in 2-4 weeks if acute HIV infection is suspected. Performing Organization Address City/[facility]/Zipcode Phone Number [facility] CLIA: [id number], [address] [place] [address] HEPATITIS B SURFACE ANTIGEN (06/10/2020 2:18 PM CDT) Pathologist Sig nature HBsAg Negative Negative [facility] HBsAg 0.07 [facility] Semi-Quantitative SERVICES Specimen Blood Performing Organization Address City/State/Zipcode Phone Number [facility] CLIA: [id number], [address] [place], [place] [address] [facility] HCV ANTIBODY (06/10/2020 2:18 PM CDT) HCV Ab Presumptive Positive [facility] HCV 2.36 [facility] Semi-Quantitative SERVICES Specimen Blood Narrative Performed At Presumptive positive for HCV antibody with a low signa l to [facility] cutoff ration (s/c). This may represent a false posi tive. This specimen has been reflexed to qualitative PCR t est and submitted to [facility] Laboratory. A re port will be issued by that laboratory. If any questions, contact the Clinical Chemistry Director traffic personnel supervisor at [phone]. Performing Organization Address City/[facility]/Zipcode Phone Number [facility] CLIA: [id number], [address] [place], [place] [address] [facility] ADC OR JOSE ONLY - RPR (06/10/2020 2:18 PM CDT) Pathologist Sig nature RPR (Qualitative) Reactive (A) Nonreactive [facility] Specimen Blood Narrative Performed At Weakly reactive at ADC.cn. [facility] L ABORATORY Performing Organization Address City/State/Zipcode Phone Number [facility] CLIA: [id number], [address] [place], [place] [address] documented in this encounter Visit Diagnoses Diagnosis Jaundice - Primary Jaundice, unspecified, not of Screening examination for venereal disea se History of illicit drug use documented in this encounter documented as of this encounter"
--- OUTSIDE RECORDS SUMMARY | 2020-09-05 17:42 | XMS REPORT | Continuity of Care Document ---
:1960 Author Organization [facility] t Address [address] [place] [address] Dr. Mill[address] [place] [address] Care Team Providers Name Role Phone Fab SANTILLAN Attending Clinician Problems This patient has no known problems. Allergies, Adverse Reactions, Alerts This patient has no known allergies or adverse reactions. Medications This patient has no known medications. Procedures This patient has no known procedures. Encounters Start End Encounter Admission Attending Care Care Encounter Source Date/Time Date/Time Type Type Clinicians Facility Department ID 2020-08-30 2020-08-30 Telephone LOKI Sanon [id number] 00:00:00 00:00:00 [employer] [id number] [facility] [id number] 2020-08-30 2020-08-30 Telephone LOKI Sanon [id number] 00:00:00 00:00:00 [employer] [id number] [facility] [id number] 2020-08-13 2020-08-13 Telephone LOKI Sanon [id number] 00:00:00 00:00:00 [employer] [id number] [facility] [id number] 2020-07-31 2020-07-31 Office LOKI Sanon [id number] 08:07:04 08:57:58 Visit [facility] [id number] [facility] [id number] Results This patient has no known results.
--- OUTSIDE RECORDS SUMMARY | 2020-09-05 17:43 | XMS REPORT | Summary of Care ---
:1960 Author Organization [facility] Address [address] [place] [address] Care Team Providers Name Role Phone Reece Khan MD Primary Care Provider Reason for Visit Reason Comments New Patient Establish Care routine colon cancer screeni ng- colonoscopy (Routine) Status Reason Specialty Diagnoses / Procedures Referred By Stanford ontact Referred To Contact Closed Surgery Diagnoses Colon cancer screening Gloria Jurado, Procedures CONSULT/REFERRAL GENERAL SURGERY (colorectal); Preferred Location: ([place]) [place] [address] [address] Phone: Encounter Details Date Type Department Care Team Description 07/23/2020 Office Visit [facility] Caroline Jarvis, En counter for screening colonoscopy (Primary Dx); Specialties - [place] on Chronic hepatitis C without hepatic coma [address] [facility], [address] [place] [address] [address] [facility] 2.100 [address] [place], [place] [phone] [address] [phone] Allergies No Known Allergiesdocumented as of this encounter (statuses as of 07/23/2020) Medications Medication Sig Dispensed Refills Start Date [...] as of this encounter (statuses as of 07/23/2020) Active Problems Problem Noted Date Abnormal LFTs 07/15/2020 Chronic hepatitis C without hepatic coma 07/15/2020 documented as of this encounter (statuses as of 07/23/2020) Resolved Problems Problem Noted Date Resolved Date Tobacco use disorder, mild, abuse 09/01/20182019 Major depressive disorder, single episode, moderate 08/31/20 18 07/15/2020 Generalized anxiety disorder 08/31/2018 07/15/2020 Panic attacks 08/31/2018 07/15/2020 Cocaine use disorder, moderate, dependence 08/31/2018 07/15/2020 documented as of this encounter (statuses as of 07/23/2020) Social History Tobacco Use Types Packs/Day Years [...] been in contact with No / Unsure 07/23/2020 1:15 PM CDT someone who was confirmed or suspected to have Coronavirus / COVID-19? documented as of this encounter Last Filed Vital Signs Vital Sign Reading Time Taken Comments Blood Pressure 121/75 07/23/2020 1:33 PM CDT Pulse 84 07/23/2020 1:33 PM CDT Temperature 36.2 C (97.2 F) 07/23/2020 1:33 PM CDT Respiratory Rate 18 07/23/2020 1:33 PM CDT Oxygen Saturation 97% 07/23/2020 1:33 PM CDT Inhaled Oxygen Concentration - - Weight 53.8 kg (118 lb 9.6 oz) 07/23/2020 1:33 PM CDT Height 154.9 cm (5' 1") 07/23/2020 1:33 PM CDT Body Mass Index 22.41 07/23/2020 1:33 PM CDT documented in this encounter Progress Notes Alisha Cruz MD - 07/23/2020 1:[address] [facility] clinic Note: Chief Complaint Patient presents with New Patient Establish Care routine colon cancer screening- colonoscopy Brenda Dickinson is a 60 year old female with a significant 40 pack year smoking history (she quitted recently), recently diagnosed Hepatitis C (07/15/20) confirmed by PCR but not on antiviral therapy yet, and former crack cocaine abuse in her teens, who now presents as a referral for a routine Colonoscopy screening. Her last colonoscopy was 2011 in [facility] and patient reports that 1 noncancerous polyp was found. Patient denies any significant symptoms such as weight changes, loss of appetite, melena, fever, chills, diarrhea, food intolerance. Patient denies any FH of colon cancer or, history of inflammatory bowel disease. Allergies Brenda has No Known Allergies. Medications Outpatient Medications Prior to Visit Medication Sig Dispense Refill albuterol 2.5 mg /3 mL (0.083 %) nebulizer solution Inhale 3 mL every 4 (four) hours as needed for Wheezing or Shortness of Breath. Via nebulizer 120 Vial 0 Histories Past Medical History: Diagnosis Date Abnormal LFTs 07/15/2020 Chronic hepatitis C without hepatic coma 07/15/2020 Cocaine use disorder, moderate, dependence 08/31/2018 Generalized [...] Not on file Tobacco Use Smoking status: Quit April 2020 40 years, 1 pack/week Smokeless tobacco: Never Used Substance and Sexual Activity Alcohol use: Never Frequency: Never Drug use: Not Currently Types: Other-see comments Comment: crack cocaine Sexual activity: Yes Lifestyle Physical activity Days per week: Not on file Minutes per session: Not on file Stress: Not on file Relationships Social connections Talks on phone: Not on file Gets together: Not on file Attends yazdanism service: Not on file Active member of [...] file Social History Narrative Not on file Family History Problem Relation Age of Onset Pancreatic Cancer Mother Arthritis Father of old age COPD (chronic obstructive pulmonary disease) Father Diabetes Sister Hypertension Sister Diabetes Brother Hypertension Brother Review of Systems Eyes: negative. Mouth/Throat: negative. Cardiovascular: negative. Respiratory: negative. Gastrointestinal: negative. Genitourinary: negative. Skin: negative. Neuro: negative. Vital Signs BP 121/75 (BP Location: Left arm, Patient Position: Sitting, BP CUFF SIZE: Adult Medium) | Pulse 84 | Temp 36.2 C (97.2 F) (Temporal Artery) | Resp 18 | Ht 5' 1" (1.549 m) | Wt 118 lb 9.6 oz (53.8 kg) | SpO2 97% | BMI 22.41 kg/m Physical Exam HENT: Head: Normocephalic and atraumatic. Mouth/Throat: Mouth: Oropharynx is clear and moist. Eyes: Extraocular Movements: EOM normal. Conjunctiva/sclera: Conjunctivae normal. Pupils: Pupils are equal, round, and reactive to light. Neck: Musculoskeletal: Neck supple. Cardiovascular: Rate and Rhythm: Normal rate and regular rhythm. Pulmonary: Breath sounds: Normal breath sounds. Abdominal: General: Bowel sounds are normal. Neurological: Mental Status: She is alert and oriented to person, place, and time. Psychiatric: Mood and Affect: Affect normal. Assessment/Plan Brenda Dickinson is a 60 year old female who presents as a referral for routine Colonoscopy screening. Last colonoscopy was 10 years ago. Plan 1. Colonoscopy - patient scheduled for colonoscopy. Risks of procedure were explained. She is consented 2. Hepatitis C Infection - continue to monitor, will follow up with primary team Note done by Marcio Grijalva, MS4, edited by me Alisha Bradley MD General Surgery. PGY2 Attending Attestation: I personally evaluated and examined the patient on 07/23/[address] Bradley's clinic note aswritten. I actively participated in the decision-making process. Please see the resident's note for additional details. 60 YEAR-OLD F with PMH significant for HCV presents to discuss screening colonoscopy. Last colonoscopy was about 10 years ago where she had a benign polyp removed. She denies abdominal c/o or family history of colon cancer. Will schedule colonoscopy. Risks including bleeding and perforation, benefits, alternatives of colonsocopy were discussed with the patient; all questions answered; informed consent obtained. Caroline Jarvis M.D. 07/23/2020 16:43 documented in this encounter Plan of Treatment Date Type Specialty Care Team Description 07/31/2020 Office Visit Gastroenterology Yin Sanon PA [address] [place], [place] [address] 06/10/2021 Office Visit Obstetrics & Gynecology Gloria Jurado PA-C [address] [place], [place] [phone] Health Maintenance Due Date Last Done Comments PNEUMOCOCCAL 0-64 YEARS COMBINED SERIES (1 of - 1967 PPSV23) DTaP,Tdap,and Td Vaccines (1 [...] filedocumented in this encounter Visit Diagnoses Diagnosis Encounter for screening colonoscopy - Pr imary Special screening for malignant neoplasm s, colon Chronic hepatitis C without hepatic coma documented in this encounter documented as of this encounter
--- OUTSIDE RECORDS SUMMARY | 2020-09-05 17:43 | XMS REPORT | Summary of Care ---
:1960 Author Organization [facility] Address [address] [place] [address] Care Team Providers Name Role Phone Reece Khan MD Primary Care Provider Encounter Details Date Type Department Care Team Description 07/16/2020 Orders Only [facility] Doctor Unassigned, No 301 [facility] Name [place] [phone] [place] [address] Allergies No Known Allergiesdocumented as of this encounter (statuses as of 07/16/2020) Medications Medication Sig Dispensed Refills Start Date [...] as of this encounter (statuses as of 07/16/2020) Active Problems Problem Noted Date Abnormal LFTs 07/15/2020 Chronic hepatitis C without hepatic coma 07/15/2020 documented as of this encounter (statuses as of 07/16/2020) Resolved Problems Problem Noted Date Resolved Date Tobacco use disorder, mild, abuse 09/01/20182019 Major depressive disorder, single episode, moderate 08/31/20 18 07/15/2020 Generalized anxiety disorder 08/31/2018 07/15/2020 Panic attacks 08/31/2018 07/15/2020 Cocaine use disorder, moderate, dependence 08/31/2018 07/15/2020 documented as of this encounter (statuses as of 07/16/2020) Social History Tobacco Use Types Packs/Day Years [...] 07/16/2020 Appointment Radiology Zuly Khan MD [address] [place], [place] [phone] 07/17/2020 Office Visit Gastroenterology Yin Sanon, PA [address] [place], [place] [address] 07/23/2020 Office Visit Surgery Caroline Jarvis MD [address] [facility] 2.100 [place] [address] [phone] 06/10/2021 Office Visit Obstetrics & Gynecology Gloria Jurado PA-C 146 [facility] [address] [place], [place] [phone] Health Maintenance Due Date [...] Name Priority Date/Time Associated Diagnosis Comme nts ASSIGNMENT OF BENEFITS Routine 07/16/2020 5:23 PM CDT documented in this encounter Results Not on filedocumented in this encounter Insurance Payer Benefit Plan / Group Subscriber ID Effective Dates Phone Address Type [employer] [id number] 2019-Present PPO documented as of this encounter
--- OUTSIDE RECORDS SUMMARY | 2020-09-05 17:43 | XMS REPORT | Summary of Care ---
:1960 Author Organization [facility] Address [address] [place] [address] Care Team Providers Name Role Phone Reece Khan MD Primary Care Provider Reason for Visit Reason Comments Establish Care (CHERRIE) Status Reason Specialty Diagnoses / Referred By Referred To Procedures Contact Contact New Request Gastroenterology Diagnoses Abnormal LFTs Chronic hepatitis C without hepatic coma Erin Procedures CONSULT/REFERRAL HEPATOLOGY Ginny Newell MD [address] [place] [address] [place] [address] Encounter Details Date Type Department Care Team Description 07/17/2020 Office Visit [facility] O'Sukumar, Hepatitis C vir us infection without hepatic coma, unspecified chronicity (Primary Dx); [facility]; ston [address] Elevated liver enzymes [facility] [id number], [address] [place] [address] [place], [place] [phone] [address] (Fax) [phone] Allergies No Known Allergiesdocumented as of this encounter (statuses as of 07/22/2020) Medications Medication Sig Dispensed Refills Start Date [...] as of this encounter (statuses as of 07/22/2020) Active Problems Problem Noted Date Abnormal LFTs 07/15/2020 Chronic hepatitis C without hepatic coma 07/15/2020 documented as of this encounter (statuses as of 07/22/2020) Resolved Problems Problem Noted Date Resolved Date Tobacco use disorder, mild, abuse 09/01/20182019 Major depressive disorder, single episode, moderate 08/31/20 18 07/15/2020 Generalized anxiety disorder 08/31/2018 07/15/2020 Panic attacks 08/31/2018 07/15/2020 Cocaine use disorder, moderate, dependence 08/31/2018 07/15/2020 documented as of this encounter (statuses as of 07/22/2020) Social History Tobacco Use Types Packs/Day Years [...] been in contact with No / Unsure 07/17/2020 8:33 AM CDT someone who was confirmed or suspected to have Coronavirus / COVID-19? documented as of this encounter Last Filed Vital Signs Vital Sign Reading Time Taken Comments Blood Pressure 128/85 07/17/2020 8:33 AM CDT Pulse 77 07/17/2020 8:33 AM CDT Temperature 36.6 C (97.9 F) 07/17/2020 8:33 AM CDT Respiratory Rate - - Oxygen Saturation - - Inhaled Oxygen Concentration - - Weight 53.1 kg (117 lb 1.6 oz) 07/17/2020 8:33 AM CDT Height 154.9 cm (5' 1") 07/17/2020 8:33 AM CDT Body Mass Index 22.13 07/17/2020 8:33 AM CDT documented in this encounter Progress Notes ODesirae Doston PA - 07/17/2020 9:30 AM CDTCC: elevated LFTs/HCV, new patient, her liver tests were markedly high last month after she noticed mild icterus, joint pain, light stool and dark urine, she was subsequently dx and treated with cephalexin for UTI (labs were drawn prior starting abx), w/u with PCP reveals she is positive for HCV, gt and autoimmune markers are pending, abd US from yesterday significant for mildly enlarged liver w/steatosis, her was treated successfully for HCV ~10yrs ago, she had never been tested previously,she has smoked crack cocaine for years, but denies using needles or straws PMH-spinal fusion, , no blood tx FH-alcoholism, DM, HTN SH-, lives in [place], 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, rare etoh, quit crack cocaine x 2mon, no tobacco/tattoo, +pierced ears ROS: CONSTITUTIONAL: no fever/chills/night sweats EYES:no vision changes ENT:no epistaxis CV: no chest pain/syncope RESP: no dyspnea/cough GI:no nausea/vomiting/diarrhea/constipation/change bm/melena/hematochezia :no dysuria/hematuria MS: no joint pain, no back pain SKIN: no changes/pruritis/rash NEURO: no seizure hx PSYCH: no depression/anxiety ENDO: no weight change HEME: no bruising/prolong bleeding PE: GEN: no acute distress, ambulatory without assistance SKIN: no jaundice/rash/pallor HEAD: normocephalic, no hair loss EYES: no pallor/icterus MOUTH: tongue wnl, no aphthous mouth NECK:thyroid wnl, no LAD ABD: soft, non-tender, no organomegaly/mass/ascites EXT: no leach erythema/c/c/e PSCH: good affect with clear mentation, no asterixis HCV 1a, w/markedly elevated LFTs, trending down Hepatomegaly/steatosis, mild Crack cocaine use w/abstinence ~ 2mos Labs Abd US reviewed Mavyret x 8wks after review of labs F/U 2wks documented in this encounter Plan of Treatment Date Type Specialty Care Team Description 07/23/2020 Office Visit Surgery Caroline Jarvis MD [address] [facility] 2.[address] [place] [address] [phone] 07/31/2020 Office Visit Gastroenterology Yin Sanon, JACQUE [address] [place], [place] [address] 06/10/2021 Office Visit Obstetrics & Gynecology Gloria Jurado PA-C [address] [phone] Health Maintenance Due Date Last [...] Name Priority Date/Time Associated Diagnosis Comme nts HBC ANTIBODY (IGM & Routine 07/17/2020 10:22 AM Hepatitis C vi arron Results for this IGG) CDT infection without procedure are in hepatic coma, the results unspecified section. chronicity Hepatic steatosi s Elevated liver enzymes documented in this encounter Results TOTAL IRON BINDING CAPACITY (07/17/2020 10:22 AM CDT) Pathologist Sig nature TIBC 441 (H) 250 - 410 ug/dL [facility] % FE SAT 30 20 - 50 % [facility] Specimen Blood - ARM, LEFT Performing Organization Address City/State/Zipcode Phone Number [facility] CLIA: [id number] [place] [address] [place], [place] [address]vd IRON (07/17/2020 10:22 AM CDT) Pathologist Sig nature IRON 134 50 - 160 ug/dL [facility] Specimen Blood - ARM, LEFT Performing Organization Address City/[facility]/Zipcode Phone Number [facility] CLIA: [id number] [place] [address] [place] [address] HBC ANTIBODY (IGM & IGG) (07/17/2020 10:22 AM CDT) Pathologist Sig nature HBC Negative [facility] HBC Semi-Quantitative 3.78 [facility] Specimen Blood - ARM, LEFT Performing Organization Address City/[facility]/Zipcode Phone Number [facility] CLIA: [id number] [place] [address] [place] [address] CBC WITH DIFF (07/17/2020 10:22 AM CDT) Pathologist Sig nature WBC 5.39 4.30 - 11.10 [facility] 10*3/L SERVICES RBC 4.87 3.93 - 5.25 [facility] 10*6/L SERVICES HGB 14.5 11.6 - 15.0 [facility] g/dL SERVICES HCT 45.3 (H) 35.7 - 45.2 % [facility] MCV 93.0 80.6 - 95.5 fL [facility] MCH 29.8 25.9 - 32.8 pg [facility] MCHC 32.0 31.6 - 35.1 [facility] g/dL SERVICES RDW-SD 49.8 39.0 - 49.9 fL [facility] RDW-CV 14.6 12.0 - 15.5 % [facility] PLT 108 (L) 166 - 358 [facility] 10*3/L SERVICES MPV 13.5 (H) 9.5 - 12.9 fL [facility] NRBC/100 WBC 0.0 0.0 - 10.0 /100 [facility] WBCs SERVICES NRBC x10^3 <0.01 10*3/L [facility] GRAN MAT (NEUT) % 28.2 % [facility] IMM GRAN % 0.00 % [facility] LYMPH % 58.3 % [facility] MONO % 11.1 % [facility] EOS % 1.5 % [facility] BASO % 0.9 % [facility] GRAN MAT x10^3(ANC) 1.52 (L) 1.88 - 7.09 [facility] 10*3/uL SERVICES IMM GRAN x10^3 <0.03 0.00 - 0.06 [facility] 10*3/uL SERVICES LYMPH x10^3 3.14 1.32 - 3.29 [facility] 10*3/uL SERVICES MONO x10^3 0.60 0.33 - 0.92 [facility] 10*3/uL SERVICES EOS x10^3 0.08 0.03 - 0.39 [facility] 10*3/uL SERVICES BASO x10^3 0.05 0.01 - 0.07 [facility] 10*3/uL SERVICES REACT LYMPHS Rare [facility] Specimen Blood - ARM, LEFT Performing Organization Address City/State/Zipcode Phone Number [facility] CLIA: [id number] [place] [address] [place] [address] PROTHROMBIN TIME / INR (07/17/2020 10:22 AM CDT) PROTIME PATIENT 11.0 10.1 - 12.6 [facility] Seconds SERVICES INR 1.0Comment: Normal [facility] INR <1.1; Warfarin SERVICES Therapeutic range 2.0 to 3.0 or 2.5 to 3.5, depending upon the indications. Specimen Blood - ARM, LEFT Performing Organization Address [facility] Phone Number [facility] CLIA: [id number] [place] [address] [place] [address] HEPATIC FUNCTION PANEL (42831) (ALB,T.PRO,BILI T,BU/BC,ALT,AST,ALK PHOS) (07/17/2020 10:22 AM CDT) Pathologist Sig nature TOTAL BILI 0.7 0.1 - 1.1 mg/dL [facility] BILI UNCON 0.5 0.1 - 1.1 mg/dL [facility] BILI CONJ 0.0 0.0 - 0.3 mg/dL [facility] T PROTEIN 8.0 6.3 - 8.2 g/dL [facility] ALBUMIN 4.4 3.5 - 5.0 g/dL [facility] ALK PHOS 139 (H) 34 - 122 U/L [facility] ALTv 65 (H) 5 - 35 U/L [facility] AST(SGOT) 43 (H) 13 - 40 U/L [facility] Specimen Blood - ARM, LEFT Performing Organization Address City/State/Zipcode Phone Number [facility] CLIA: [id number] [place], [place] [id number] [address] [place] [address] BASIC METABOLIC PANEL (NA, K, CL, CO2, GLUCOSE, BUN, CREATININE, CA) (07/17/2020 10:22 AM CDT) [facility] NA 139 135 - 145 mmol/L [facility] K 4.7 3.5 - 5.0 mmol/L [facility] CL 102 98 - 108 mmol/L [facility] CO2 TOTAL 29 23 - 31 mmol/L [facility] AGAP 8 2 - 16 [facility] BUN 10 7 - 23 mg/dL [facility] GLUCOSE 90 70 - 110 mg/dL [facility] CREATININE 0.75 0.50 - 1.04 [facility] mg/dL SERVICES CALCIUM 10.0 8.6 - 10.6 mg/dL [facility] eGFR Calculation 79.1 mL/min/1.73m2 [facility] (Non-) SERVICES eGFR Calculation 95.9 mL/min/1.73m2 [facility] () SERVICES Specimen Blood - ARM, LEFT Narrative Performed At Association of Glomerular Filtration Rate (GFR) and St aging [facility] of Kidney Disease* + + +------- ------ + | GFR (mL/min/1.73 m2) | With Kidney Damage | Barbara bolton Kidney Damage + + +------- ------ + | >90 | Stage one | Normal + + +------- ------ + | 60-89 | Stage two | Decreased GFR + + +------- ------ + | 30-59 | Stage three | Stage three + + +------- ------ + | 15-29 | Stage four | Stage four + + +------- ------ + | <15 (or dialysis) | Stage five | Stage five + + +------- ------ + *Each stage assumes the associated GFR level has been in effect for at least three months. Stages 1 to 5, wit h or without kidney disease, indicate chronic kidney disease. Notes: Determination of stages one and two (with eGFR >59mL/min/1.73 m2) requires estimation of kidney damag e for at least three months as defined by structural or func tional abnormalities of the kidney, manifested by either: Pathological abnormalities or Markers of kidney damage (including abnormalities in the composition of the blo od or urine or abnormalities in imaging tests) . Performing Organization Address City/State/Zipcode Phone Number [facility] CLIA: [id number] [place] [address] [place] [address] documented in this encounter Visit Diagnoses Diagnosis Hepatitis C virus infection without hepa tic coma, unspecified chronicity - Primary Hepatic steatosis Other chronic nonalcoholic liver disease Elevated liver enzymes Nonspecific elevation of levels of trans aminase or lactic acid dehydrogenase (LDH) documented in this encounter documented as of this encounter
--- OUTSIDE RECORDS SUMMARY | 2020-09-05 17:43 | XMS REPORT | Summary of Care ---
:1960 Author Organization [facility] Address [address] [place] [address] Care Team Providers Name Role Phone Reece Khan MD Primary Care Provider Reason for Referral Radiology Services (STAT) Status Reason Specialty Diagnoses / Referred By Referred To Procedures Contact Contact Closed Diagnostic Diagnoses Abnormal LFTs Chronic hepatitis C without hepatic coma Erin, [facility] Radiology Procedures US ABDOMEN ANTWAN Newell MD [address] [place] [address] [facility] [place] [address] Reason for Visit Radiology Services (STAT) Status Reason Specialty Diagnoses / Referred By Referred To Procedures Contact Contact Closed Diagnostic Diagnoses Abnormal LFTs Chronic hepatitis C without hepatic coma Erin, Wondiful Radiology Procedures US ABDOMEN ANTWAN Newell MD [address] [place] [address] [place] [address] Encounter Details Date Type Department Care Team Description 07/16/2020 Hospital Encounter [facility] Antoine Beaulieu Arrived [facility] [address] [place] [address] Dr balbuena [address] [place] [address] [place] [address] [place] [address] [phone] [address] Allergies No Known Allergiesdocumented as of this encounter (statuses as of 07/17/2020) Medications Medication Sig Dispensed Refills Start Date [...] as of this encounter (statuses as of 07/17/2020) Active Problems Problem Noted Date Abnormal LFTs 07/15/2020 Chronic hepatitis C without hepatic coma 07/15/2020 documented as of this encounter (statuses as of 07/17/2020) Resolved Problems Problem Noted Date Resolved Date Tobacco use disorder, mild, abuse 09/01/20182019 Major depressive disorder, single episode, moderate 08/31/20 18 07/15/2020 Generalized anxiety disorder 08/31/2018 07/15/2020 Panic attacks 08/31/2018 07/15/2020 Cocaine use disorder, moderate, dependence 08/31/2018 07/15/2020 documented as of this encounter (statuses as of 07/17/2020) Social History Tobacco Use Types Packs/Day Years [...] Treatment Date Type Specialty Care Team Description 07/17/2020 Office Visit Gastroenterology Yin Sanon, PA [address] [place], [place] [address] 07/23/2020 Office Visit Surgery Caroline Jarvis MD 2[address] [facility] [address] [place] [address] [phone] 06/10/2021 Office Visit Obstetrics & Gynecology Gloria Jurado PA-C [address] [place] [phone] Name Type Priority Associated Diagnoses Date/Ti me US ABDOMEN COMPLETE IMAGING STAT Abnormal LFT s 07/16/2020 6:13 PM CDT Chronic hepatitis C without hepatic coma Name Type Priority Associated Diagnoses Order S chedule US ABDOMEN COMPLETE IMAGING STAT Abnormal LFT s ONCE for 1 Occurrences Chronic hepatitis C starting 07/16/2020 without hepatic coma until 0 07/16/2020 Health Maintenance Due Date Last Done Comments [...]
--- OUTSIDE RECORDS SUMMARY | 2020-09-05 17:43 | XMS REPORT | Summary of Care ---
:1960 Author Organization [facility] Address [address] [place] [address] Care Team Providers Name Role Phone Reece Khan MD Primary Care Provider Encounter Details Date Type Department Care Team Description 07/23/2020 Prep For Surgery [facility] Urology- Reva Song, Screening for [facility] colorectal cancer [facility] [address] [place] [address] [phone] Allergies No Known Allergiesdocumented as of this [...] exacerbation, unspecified asthma severity, unspecified whether persistent peg-electrolyte soln Take 4,000 mL by 4000 mL 0 07/23/2020 Active 236-22.74-6.74 -5.86 mouth gram SEE-INSTRUCTIONS. solutionIndications: Take as directed Screening for colorectal cancer documented as of this encounter (statuses as [...] Sanon PA [address] [place] [address] 06/10/2021 Office Visit Obstetrics & Gynecology Gloria Jurado PA-C [address] [place], [place] [phone] Health Maintenance Due Date Last Done [...] filedocumented in this encounter Visit Diagnoses Diagnosis Screening for colorectal cancer - Primar y Special screening for malignant neoplasm s, colon documented in this encounter Insurance Payer Benefit Plan / Group Subscriber ID Effective Dates Phone Address Type MULTIPLAN MULTIP[employer] GENERIC [id number] 2019-Present PPO documented as of this encounter
--- OUTSIDE RECORDS SUMMARY | 2020-09-05 17:43 | XMS REPORT | Summary of Care ---
:1960 Author Organization [facility] Address [address] [place] [address] Care Team Providers Name Role Phone Reece Khan MD Primary Care Provider Reason for Visit Reason Comments New Patient Establish Care routine colon cancer screeni ng- colonoscopy (Routine) Status Reason Specialty Diagnoses / Procedures Referred By [facility] ontact Referred To Contact Closed Surgery Diagnoses Colon cancer screening Gloria Jurado, Procedures CONSULT/REFERRAL GENERAL SURGERY (colorectal); Preferred Location: ([place]) [place] [address] [address] Phone: Encounter Details Date Type Department Care Team Description 07/23/2020 Office Visit [facility] Surgical Caroline Jarvis, En counter for screening colonoscopy (Primary Dx); Specialties - Anglet on Chronic hepatitis C without hepatic coma 146 [facility], [address] [place] [address] [address] [facility] [address] [address] [place], [place] [phone] [address] [phone] Allergies No Known Allergiesdocumented as of this [...] Cruz MD - 07/23/2020 1:30 PM CDT [facility] clinic Note: Chief Complaint Patient presents [...] screening. Her last colonoscopy was 2011 in [facility] and patient reports that 1 noncancerous polyp [...] Sanon PA [address] [place], [place] [address] 06/10/2021 Office Visit Obstetrics & Gynecology Gloria Jurado PA-C [address] [place], [place] [address] [phone] Health Maintenance Due Date Last Done [...]
--- OUTSIDE RECORDS SUMMARY | 2020-09-05 17:43 | XMS REPORT | Summary of Care ---
:1960 Author Organization [facility] [[email or web address]] - [facility] Address [address] [place] [address] Care Team Providers Name Role Phone Reece Khan MD Primary Care Provider Encounter Details Date Type Department Care Team Description 07/22/2020 Patient [facility] Desirae Sanon, Gastroenterology-[facility] PA n 301 [facility] inics [id number] [place] [address] 6th [address] [address] [place], [place] [phone] Allergies No Known Allergiesdocumented as of this [...] this encounter Miscellaneous Notes Telephone Encounter - Desirae Sanon PA - 07/22/2020 1:17 PM CDTPatient contacted with lab results, no need for Lbx at this time. Plan to start Mavyret at Sept appointment. mo documented in this encounter Plan of Treatment Date Type Specialty Care Team Description 07/23/2020 Office Visit Surgery Caroline Jarvis MD [facility] [facility] [address] [place] [address] [phone] 07/31/2020 Office Visit Gastroenterology Yin Sanon PA [address] [place], [place] [address] 06/10/2021 Office Visit Obstetrics & Gynecology Gloria Jurado PA-C 146 [facility] 208 [place], [place] [phone] Health Maintenance Due Date Last Done Comments PNEUMOCOCCAL 0-64 YEARS COMBINED SERIES (1 - 1967 PPSV23) DTaP,Tdap,and Td Vaccines (1 [...] Dates Phone Address Type MULTIPLAN MULTIPLAN GENERIC [id number] 2019-Present PPO documented as of this encounter
--- OUTSIDE RECORDS SUMMARY | 2020-09-05 17:43 | XMS REPORT | Summary of Care ---
:1960 Author Organization [facility] [[email or web address]] - [facility] Address [address] [place] [address] Care Team Providers Name Role Phone Reece Khan MD Primary Care Provider Reason for Visit Reason Comments LAB WORK Encounter Details Date Type Department Care Team Description 07/17/2020 Hand Rigger Visit [facility] Clinical Desirae Sanon PA 301 [facility] [id number] [place] [address] Hepatitis C virus infection without hepa tic coma, unspecified chronicity; Laboratory - [facility], [facility] Hepatic steatosis; [place] Elevated liver enzymes [address] [facility] [address] [place] [address] Allergies No Known Allergiesdocumented as of this [...] on filedocumented in this encounter Nursing Notes Princess Reece Aldridge - 07/17/2020 10:15 AM CDT Venipuncture collection performed by clean technique on the left anticubitus. Total of 1 attempts were made. Slight pressure and a bandage/dressing were applied to the site(s). The patient experienced no complications. The following specimens were processed according to instructions and sent to [email or web address] laboratories per lab order on 07/17/2020: LT BLUE 1 SST 1 RED LAV 1 PPT DK GREEN (LiHep) DK GREEN (SodH) VIGIL DK BLUE (K2) DK BLUE (S) ACD Blood Culture NIPT/NTD documented in this encounter Plan of Treatment Date Type Specialty Care Team Description 07/23/2020 Office Visit Surgery Caroline Jarvis MD 1540 [facility] [address] [place] [address] [phone] 07/31/2020 Office Visit Gastroenterology O'Yin Patino ca, PA [address] [place], [place] [address] 06/10/2021 Office Visit Obstetrics & Gynecology Gloria Jurado PA-C [address] [facility] [address] [facility] 208 [place], [place] [phone] Name Type Priority Associated Diagnoses Date/Ti me BASIC METABOLIC PANEL LAB Routine Hepatitis C virus 0 07/17/2020 10:22 AM (NA, K, CL, CO2, GLUCOSE, infection witho ut CDT BUN, CREATININE, CA) hepatic coma, unspecified 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 nicity Hepatic steatosis HEPATIC FUNCTION PANEL LAB Routine Hepatitis C virus 07/17/2020 10:22 AM (18553) (ALB,T.PRO,BILI infection without CDT T,BU/BC,ALT,AST,ALK PHOS) hepatic coma, unspecified 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 nicity Hepatic steatosis PROTHROMBIN TIME / INR LAB Routine Hepatitis C virus 07/17/2020 10:22 AM infection without CDT hepatic coma, unspecified 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 nicity Hepatic steatosis CBC WITH DIFF LAB Routine Hepatitis C virus 0 10:22 AM infection without CDT hepatic coma, unspecified 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 nicity Hepatic steatosis IRON LAB Routine Hepatitis C virus 07/17/2020 10:22 AM infection without CDT hepatic coma, unspecified 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 nicity Hepatic steatosi s Elevated liver enzymes TOTAL IRON BINDING LAB Routine Hepatitis C virus 06/29 10:22 AM CAPACITY infection without CDT hepatic coma, unspecified 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 nicity Hepatic steatosi s Elevated liver enzymes Health Maintenance Due Date Last Done Comments [...] filedocumented in this encounter Visit Diagnoses Diagnosis Hepatitis C virus infection without hepa tic coma, unspecified chronicity Hepatic steatosis Other chronic nonalcoholic liver disease Elevated liver enzymes Nonspecific elevation of levels of trans aminase or lactic acid dehydrogenase (LDH) documented in this encounter documented as of this encounter
--- OUTSIDE RECORDS SUMMARY | 2020-09-05 17:43 | XMS REPORT | Summary of Care ---
:1960 Author Organization [facility] Address [address] [place] [address] Care Team Providers Name Role Phone Reece Khan MD Primary Care Provider Reason for Referral Radiology Services (STAT) Status Reason Specialty Diagnoses / Referred By Referred To Procedures Contact Contact New Request Diagnostic Diagnoses Abnormal LFTs Chronic hepatitis C without hepatic coma Erin, Radiology Procedures US ABDOMEN COMPLETE Ginny Newell MD [address] [place] [phone] (CHERRIE) Status Reason Specialty Diagnoses / Referred By Referred To Procedures Contact Contact New Request Gastroenterology Diagnoses Abnormal LFTs Chronic hepatitis C without hepatic coma Erin, Procedures CONSULT/REFERRAL HEPATOLOGY Ginny Newell MD [address] [place] [phone] Reason for Visit Reason Comments Abnormal Lab Encounter Details Date Type Department Care Team Description 07/15/2020 Office Visit [facility] Pediatric Ginny Khan hronic hepatitis C without hepatic coma (Primary Dx); and Adult Primary MD Reece Abnormal LFTs Care- [address], [address] [address] [place], [place] [phone] [address] [phone] Allergies No Known Allergiesdocumented as of this [...] snorting straws) You have ever been in fpc Many people do not know how they [...] toothbrushes, manicure tools, or other personal items. [employer] last reviewed this educational content on 12/30/201919991344-9238 [employer]. [address] [place] [address]. All rights reserved. This information is not [...] your healthcare provider first before taking any kwfv-ebp-hjztbgl medicines or supplements. Eat a balanced diet. [...] healthcare provider about joining a support group. [employer] reviewed this educational content on 11/29/201919991231-8013 [employer]. [address] [place] [address]. All rights reserved. This information is not [...] others will not be exposed to yourblood. [employer] last reviewed this educational content on 12/30/201919991442-4997 [employer]. [address] [place] [address], [place] [address]. All rights reserved. This information is not [...] pharmacist before taking anything that you buy ucoq-yya-fjqowbd. This includes herbal medicines. The FDA does not regulate them. So it may be hard to know which ones could harm your liver. Learn the generic and brand names for pqvz-bit-yskbcwx products that may harm your liver.Know the [...] Controlling diabetes, if you have the disease [employer] last reviewed this educational content on 12/30/201919999329-2747 [employer]. [address] [place] [address], [place] [address]. All rights reserved. This information is not [...] the gums or nose, or easy bruising [employer] last reviewed this educational content on 03/29/201719991546-0491 [employer]. [address] [place] [address], [place] [address]. All rights reserved. This information is not intended as a substitute for professional medical care. Always follow your healthcare professional's instructions. Our [facility] Referrals Team can be reached at [phone] for help with your specialist referral. 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 She denies a h/o IVDU, blood [...] file Gets together: Not on file Attends latter day service: Not on file Active member of [...] at a future visit. If applicable, the [facility] database was accessed to review any controlled substance prescription claims data. If the patient is taking prescribed medications, the [employer] prescription claims data in [employer]xtControl was reviewed to assess patient compliance with [...] 07/16/2020 Appointment Radiology Zuly Khan MD [address] [place], [place] [address] 07/23/2020 Office Visit Surgery Caroline Jarvis MD 2[address] [facility] [address] [place], [place] [address] 06/10/2021 Office Visit Obstetrics & Gynecology Gloria Jurado PA-C 146 [facility] 208 [place], [place] [address] Name Type Priority Associated [...] PM CDT) Pathologist Sig nature HBsAB Negative [facility] SERVICES HBsAb 0.00 mIU/mL [facility] Semi-Quantitative SERVICES Specimen Blood Narrative Performed At Interpretation: Hepatitis B Surface An tibody [facility] Negative - Patient is considered to be not immu ne to infection with HBV. Positive - Anti-HBs detected at greater than or equal to 12 mIU/mL. Patient is considered to be immune to infection with HBV. Performing Organization Address City/State/[place] Phone Number [facility] CLIA: [id number] [place] [address] [place] [address] HAV ANTIBODY (IGG AND IGM) (07/15/2020 3:54 PM CDT) Pathologist Sig nature HAV Total Negative [facility] HAVT Semi-Quantitative 1.44 [facility] SERVICES Specimen Blood Performing Organization Address [facility] Phone Number [facility] CLIA: [id number] [place] [address] [place] [address] GAMMA GLUTAMYLTRANSFERASE (07/15/2020 3:54 PM CDT) Pathologist Sig critical [facility] hospital GGT 205 (H) 13 - 40 U/L [facility] Specimen Blood Performing Organization Address [facility] Phone Number [facility] CLIA: [id number] [place], [place] [id number] LABORATORY [address] FERRITIN SERUM (07/15/2020 3:54 PM CDT) Pathologist Sig nature FERRITIN 162.0 11.0 - 264.0 ng/mL [facility]OR[facility] Specimen Blood Narrative Performed At Biotin has been reported to cause a negative [facility] bias, interpret results relative to patient's use of biotin. Performing Organization Address [facility] Phone Number [facility] CLIA: [id number] [place] [address] ALPHA FETOPROTEIN (07/15/2020 3:54 PM CDT) Pathologist Sig nature AFP 7.1 <=7.5 ng/mL [facility] SERVICES Specimen Blood Narrative Performed At Biotin has been reported to cause a negative bias, int erpret [facility] results relative to patient's use of biotin. Performing Organization Address City/[facility] Phone Number [facility] CLIA: [id number] [place] [address] [place] [address] documented in this encounter Visit Diagnoses Diagnosis Chronic hepatitis C without hepatic coma - Primary Abnormal LFTs Other abnormal blood chemistry documented in this encounter documented as of this encounter
--- OUTSIDE RECORDS SUMMARY | 2020-09-05 17:43 | XMS REPORT | Summary of Care ---
:1960 Author Organization [facility] Address [address] [place] [address] Care Team Providers Name Role Phone Reece Khan MD Primary Care Provider Reason for Visit Reason Comments Establish Care (CHERRIE) Status Reason Specialty Diagnoses / Referred By Referred To Procedures Contact Contact New Request Gastroenterology Diagnoses Abnormal LFTs Chronic hepatitis C without hepatic coma Erin Procedures CONSULT/REFERRAL HEPATOLOGY Ginny Newell MD [address] [place] [address] [place] [address] Encounter Details Date Type Department Care Team Description 07/17/2020 Office Visit [facility] O'Sukumar, Hepatitis C vir us infection without hepatic coma, unspecified chronicity (Primary Dx); [facility]; ston [address] Elevated liver enzymes [facility] [id number], [address] [place] [address] [place], [place] [phone] [address] (Fax) [phone] Allergies No Known Allergiesdocumented as of this [...] documented in this encounter Progress Notes ODesirae Dotson PA - 07/17/2020 9:30 AM CDTCC: elevated [...] tx FH-alcoholism, DM, HTN SH-, lives in [place], 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, rare etoh, quit crack [...] Office Visit Surgery Caroline Jarvis MD [address] [facility] [address] [place] [address] [phone] 07/31/2020 Office Visit Gastroenterology Yin Sanon, JACQUE [address] [place], [place] [address] 06/10/2021 Office Visit Obstetrics & Gynecology Gloria Jurado PA-C [address] [facility] [address] [phone] Health Maintenance Due Date [...] TIBC 441 (H) 250 - 410 ug/dL [facility] % FE SAT 30 20 - 50 % [facility] Specimen Blood - ARM, LEFT Performing Organization Address City/State/Zipcode Phone Number [facility] CLIA: [id number] [place] [address] [place], [place] [address]vd IRON (07/17/2020 10:22 AM CDT) Pathologist Sig nature IRON 134 50 - 160 ug/dL [facility] Specimen Blood - ARM, LEFT Performing Organization Address City/[facility]/Zipcode Phone Number [facility] CLIA: [id number] [place] [address] [place] [address] HBC ANTIBODY (IGM & IGG) (07/17/2020 10:22 AM CDT) Pathologist Sig nature HBC Negative [facility] HBC Semi-Quantitative 3.78 [facility] Specimen Blood - ARM, LEFT Performing Organization Address City/[facility]/Zipcode Phone Number [facility] CLIA: [id number] [place] [address] [place] [address] CBC WITH DIFF (07/17/2020 10:22 AM CDT) Pathologist Sig nature WBC 5.39 4.30 - 11.10 [facility] 10*3/L SERVICES RBC 4.87 3.93 - 5.25 [facility] 10*6/L SERVICES HGB 14.5 11.6 - 15.0 [facility] g/dL SERVICES HCT 45.3 (H) 35.7 - 45.2 % [facility] MCV 93.0 80.6 - 95.5 fL [facility] MCH 29.8 25.9 - 32.8 pg [facility] MCHC 32.0 31.6 - 35.1 [facility] g/dL SERVICES RDW-SD 49.8 39.0 - 49.9 fL [facility] RDW-CV 14.6 12.0 - 15.5 % [facility] PLT 108 (L) 166 - 358 [facility] 10*3/L SERVICES MPV 13.5 (H) 9.5 - 12.9 fL [facility] NRBC/100 WBC 0.0 0.0 - 10.0 /100 [facility] WBCs SERVICES NRBC x10^3 <0.01 10*3/L [facility] GRAN MAT (NEUT) % 28.2 % [facility] IMM GRAN % 0.00 % [facility] LYMPH % 58.3 % [facility] MONO % 11.1 % [facility] EOS % 1.5 % [facility] BASO % 0.9 % [facility] GRAN MAT x10^3(ANC) 1.52 (L) 1.88 - 7.09 [facility] 10*3/uL SERVICES IMM GRAN x10^3 <0.03 0.00 - 0.06 [facility] 10*3/uL SERVICES LYMPH x10^3 3.14 1.32 - 3.29 [facility] 10*3/uL SERVICES MONO x10^3 0.60 0.33 - 0.92 [facility] 10*3/uL SERVICES EOS x10^3 0.08 0.03 - 0.39 [facility] 10*3/uL SERVICES BASO x10^3 0.05 0.01 - 0.07 [facility] 10*3/uL SERVICES REACT LYMPHS Rare [facility] Specimen Blood - ARM, LEFT Performing Organization Address City/State/Zipcode Phone Number [facility] CLIA: [id number] [place] [address] [place] [address] PROTHROMBIN TIME / INR (07/17/2020 10:22 AM CDT) PROTIME PATIENT 11.0 10.1 - 12.6 [facility] Seconds SERVICES INR 1.0Comment: Normal [facility] INR <1.1; Warfarin SERVICES Therapeutic range 2.0 to 3.0 or 2.5 to 3.5, depending upon the indications. Specimen Blood - ARM, LEFT Performing Organization Address [facility] Phone Number [facility] CLIA: [id number] [place] [address] [place] [address] HEPATIC FUNCTION PANEL ([id number]) (ALB,T.PRO,BILI T,BU/BC,ALT,AST,ALK PHOS) (07/17/2020 10:22 AM CDT) Pathologist Sig nature TOTAL BILI 0.7 0.1 - 1.1 mg/dL [facility] BILI UNCON 0.5 0.1 - 1.1 mg/dL [facility] BILI CONJ 0.0 0.0 - 0.3 mg/dL [facility] T PROTEIN 8.0 6.3 - 8.2 g/dL [facility] ALBUMIN 4.4 3.5 - 5.0 g/dL [facility] ALK PHOS 139 (H) 34 - 122 U/L [facility] ALTv 65 (H) 5 - 35 U/L [facility] AST(SGOT) 43 (H) 13 - 40 U/L [facility] Specimen Blood - ARM, LEFT Performing Organization Address City/State/Zipcode Phone Number [facility] CLIA: [id number] [place], [place] [id number] [address] [place] [address] BASIC METABOLIC PANEL (NA, K, CL, CO2, GLUCOSE, BUN, CREATININE, CA) (07/17/2020 10:22 AM CDT) [facility] NA 139 135 - 145 mmol/L [facility] K 4.7 3.5 - 5.0 mmol/L [facility] CL 102 98 - 108 mmol/L [facility] CO2 TOTAL 29 23 - 31 mmol/L [facility] AGAP 8 2 - 16 [facility] BUN 10 7 - 23 mg/dL [facility] GLUCOSE 90 70 - 110 mg/dL [facility] CREATININE 0.75 0.50 - 1.04 [facility] mg/dL SERVICES CALCIUM 10.0 8.6 - 10.6 mg/dL [facility] eGFR Calculation 79.1 mL/min/1.73m2 [facility] (Non-) SERVICES eGFR Calculation 95.9 mL/min/1.73m2 [facility] () SERVICES Specimen Blood - ARM, LEFT Narrative Performed At Association of Glomerular Filtration Rate (GFR) and St aging [facility] of Kidney Disease* + + [...] . Performing Organization Address City/State/Zipcode Phone Number [facility] CLIA: [id number] [place] [address] [place] [address] documented in this encounter Visit Diagnoses Diagnosis Hepatitis C virus infection without hepa tic coma, unspecified chronicity - Primary Hepatic steatosis Other chronic nonalcoholic liver disease Elevated liver enzymes Nonspecific elevation of levels of trans aminase or lactic acid dehydrogenase (LDH) documented in this encounter documented as of this encounter
--- OUTSIDE RECORDS SUMMARY | 2020-09-05 17:44 | XMS REPORT | Summary of Care ---
:1960 Author Organization [facility] Address [address] [place] [address] Care Team Providers Name Role Phone Reece Khan MD Primary Care Provider Reason for Visit Reason Comments Results Encounter Details Date Type Department Care Team Description 07/31/2020 Telephone [facility] Gill Sanon PA Results Gastroenterology-[address] [id number] [place] [address] [place] [address] 64-9012 [place] [address] Allergies No Known Allergiesdocumented as of this encounter (statuses as of 07/31/2020) Medications Medication Sig Dispensed Refills Start Date End Date Status albuterol 2.5 mg Inhale 3 mL 120 Vial 0 11/27/2019 Active /3 mL (0.083 %) every 4 (four) nebulizer hours as solutionIndicatio needed for ns: Shortness of Wheezing or breath, Wheezing, Shortness of Bronchitis with Breath. Via bronchospasm, nebulizer Reactive airway disease with acute exacerbation, unspecified asthma severity, unspecified whether persistent peg-electrolyte Take 4,000 mL 4000 mL 0 07/23/2020 Active soln by mouth 236-22.74-6.74 SEE-INSTRUCTIO -5.86 gram NS. Take as solutionIndicatio directed ns: Screening for colorectal cancer glecaprevir-pibre Take 3 tablets 84 tablet 1 07/31/2020 Active ntasvir (MAVYRET) by mouth 100-40 daily. mgIndications: Hepatitis C virus infection without hepatic coma, unspecified chronicity, Hepatic steatosis, Elevated liver enzymes, Hepatomegaly glecaprevir-pibre Take 3 tablets 84 tablet 1 07/31/2020 Discontinued ntasvir (MAVYRET) by mouth 0 (R eorder) 100-40 daily. mgIndications: Hepatitis C virus infection without hepatic coma, unspecified chronicity, Hepatic steatosis, Elevated liver enzymes, Hepatomegaly documented as of this encounter (statuses as of 07/31/2020) Active Problems Problem Noted Date Screening for colorectal cancer 07/24/2020 Overview: Added automatically from request for mary turner [id number] Abnormal LFTs 07/15/2020 Chronic hepatitis C without hepatic coma 07/15/2020 documented as of this encounter (statuses as of 07/31/2020) Resolved Problems Problem Noted Date Resolved Date Tobacco use disorder, mild, abuse 09/01/20182019 Major depressive disorder, single episode, moderate 08/31/20 18 07/15/2020 Generalized anxiety disorder 08/31/2018 07/15/2020 Panic attacks 08/31/2018 07/15/2020 Cocaine use disorder, moderate, dependence 08/31/2018 07/15/2020 documented as of this encounter (statuses as of 07/31/2020) Immunizations Name Administration Dates Next Due Twinrix (hep a/hep b) 07/31/2020 documented as of this encounter Social History Tobacco Use Types Packs/Day Years [...] been in contact with No / Unsure 07/31/2020 8:19 AM CDT someone who was confirmed or suspected to have Coronavirus / COVID-19? documented as of this encounter Last Filed Vital Signs Not on filedocumented in this encounter Miscellaneous Notes Telephone Encounter - Jory Hay RN - 07/31/2020 9:52 AM CDTMavyret 8 week treatment e-scribed to [facility] to assist with PA. documented in this encounter Plan of Treatment Date Type Specialty Care Team Description 08/30/2020 Nurse Visit Gastroenterology Faculty, [facility] Gi Nurse- 10/30/2020 Office Visit Gastroenterology Yin Sanon, PA [address] [place], [place] [address] 06/10/2021 Office Visit Obstetrics & Gynecology Gloria Jurado PA-C [address] [facility] [address] [place], [place] [phone] Health Maintenance Due Date [...] trans aminase or lactic acid dehydrogenase (LDH) Hepatomegaly documented in this encounter Insurance Payer Benefit Plan / Group Subscriber ID Effective Dates Phone Address Type [employer]IC [id number] 2019-Present PPO documented as of this encounter
--- OUTSIDE RECORDS SUMMARY | 2020-09-05 17:44 | XMS REPORT | Summary of Care ---
:1960 Author Organization [facility] Address [address] [place] [address] Care Team Providers Name Role Phone Reece Khan MD Primary Care Provider Encounter Details Date Type Department Care Team Description 07/23/2020 Orders Only [facility] Doctor Unassigned, No [facility] [place] [id number] [address] [place] [address] Allergies No Known Allergiesdocumented as of this [...] Added automatically from request for mary turner [id number] Abnormal LFTs 07/15/2020 Chronic hepatitis C without [...] of this encounter (statuses as of 07/31/2020) Social History Tobacco Use Types Packs/Day Years [...] Team Description 08/30/2020 Nurse Visit Gastroenterology Faculty, [facility] Gi Nurse- 10/30/2020 Office Visit Gastroenterology Yin Sanon, PA [address] [place] [address] 06/10/2021 Office Visit Obstetrics & Gynecology Gloria Jurado PA-C [address] [place] [phone] Health Maintenance Due Date Last [...] Name Priority Date/Time Associated Diagnosis Comme nts DISCLOSURE AND CONSENT, Routine 07/23/2020 12:01 AM MEDICAL AND SURGICAL CDT PROCEDURES documented in this encounter Results Not on filedocumented in this encounter Insurance Payer Benefit Plan / Group Subscriber ID Effective Dates Phone Address Type MULTIPLAN MULTIPL[employer] GENERIC [id number] 2019-Present PPO documented as of this encounter
--- OUTSIDE RECORDS SUMMARY | 2020-09-05 17:44 | XMS REPORT | Summary of Care ---
:1960 Author Organization [facility] Address [address] [place] [address] Care Team Providers Name Role Phone Reece Khan MD Primary Care Provider Reason for Visit Reason Comments Follow-up Encounter Details Date Type Department Care Team Description 07/31/2020 Office Visit [facility] [place] [facility] O'Sukumar, Hepatitis C vir us infection without hepatic coma, unspecified chronicity (Primary Dx); Gastroenterology-Caron Cutler Hepatic steatosis; [address] Elevated liver enzymes; [facility] [id number] Hepatomegaly Clinics [address], [address] [place] [address] Floor [phone] [place], [place] [phone] [address] (Fax) [phone] Allergies No Known Allergiesdocumented as of this encounter (statuses as of 08/02/2020) Medications Medication Sig Dispensed Refills Start Date [...] as of this encounter (statuses as of 08/02/2020) Active Problems Problem Noted Date Screening for colorectal cancer 07/24/2020 Overview: Added automatically from request for mary turner [id number] Abnormal LFTs 07/15/2020 Chronic hepatitis C without hepatic coma 07/15/2020 documented as of this encounter (statuses as of 08/02/2020) Resolved Problems Problem Noted Date Resolved Date Tobacco use disorder, mild, abuse 09/01/20182019 Major depressive disorder, single episode, moderate 08/31/20 18 07/15/2020 Generalized anxiety disorder 08/31/2018 07/15/2020 Panic attacks 08/31/2018 07/15/2020 Cocaine use disorder, moderate, dependence 08/31/2018 07/15/2020 documented as of this encounter (statuses as of 08/02/2020) Immunizations Name Administration Dates Next Due Twinrix [...] Sign Reading Time Taken Comments Blood Pressure 128/83 07/31/2020 8:20 AM CDT Pulse 95 07/31/2020 8:20 AM CDT Temperature 36.4 C (97.6 F) 07/31/2020 8:20 AM CDT Respiratory Rate - - Oxygen Saturation - - Inhaled Oxygen Concentration - - Weight 53.4 kg (117 lb 11.2 oz) 07/31/2020 8:20 AM CDT Height 154.9 cm (5' 1") 07/31/2020 8:20 AM CDT Body Mass Index 22.24 07/31/2020 8:20 AM CDT documented in this encounter Progress Notes Judy Justice MA - 07/31/2020 8:00 AM CDT60 year old female has been identified by and name. Verbal consent has been obtained by patientto have an immunization(s) of Hepatitis B and Hepatitis A, as ordered by the provider by JACQUE Sanon. NDC (National Drug Code) 25311-274-60. The site(s) was cleaned with an alcohol swab and given intramuscularly (IM) in the left deltoid. A band aid dressing was then applied to the injection site. The patient tolerated the procedure well. Desirae Alva PA - 07/31/2020 8:00 AM CDTCC: HCV, routine f/u, her liver tests were markedly high in Jun after she noticed mild icterus, joint pain, light stool and dark urine, she was subsequently dx and treated with cephalexin for UTI (labswere drawn prior starting abx), her liver tests have since trended down, now more c/w chronic HCV, it is possible she had acute HCV, but I suspect this was an incidental finding in the midst of anotheracute hepatitis as her risks for HCV go back many years, abd US reveals a mildly enlarged liver w/steatosis, her was treated successfully for HCV ~10yrs ago, she had never been tested previously, she has smoked crack cocaine for years, but denies using needles or straws, she c/s her screening colonoscopy d/t cost PE: GEN: no acute distress, ambulatory without assistance SKIN: no jaundice/rash/pallor HEAD: normocephalic, no hair loss EYES: no pallor/icterus MOUTH: tongue wnl, no aphthous mouth NECK:thyroid wnl, no LAD ABD: soft, non-tender, no organomegaly/mass/ascites EXT: no leach erythema/c/c/e PSCH: good affect with clear mentation, no asterixis HCV 1a, naive, w/markedly elevated LFTs, trending down Hepatomegaly/steatosis, mild Crack cocaine use w/abstinence >2mos Labs from 07/17/20 reviewed and discussed Abd US reviewed Start Twinrix Mavyret x 8wks Labs 4 wks p starting DAA F/U 3mos documented in this encounter Plan of Treatment Date Type Specialty Care Team Description 08/30/2020 Nurse Visit Gastroenterology Faculty, [facility] Gi Nurse- 10/30/2020 Office Visit Gastroenterology Yin Sanon, PA [address] [place], [place] [address] 06/10/2021 Office Visit Obstetrics & Gynecology Gloria Jurado PA-C [address] [place] [phone] Health Maintenance Due Date Last [...] Name Priority Date/Time Associated Diagnosis Comme nts TWINRIX (HEP A/HEP Routine 07/31/2020 8:47 AM Hepatitis C vir us B)VACCINE CDT infection without hepatic coma, unspecified body coverer nicity Hepatic steatosi s Elevated liver e nzymes Hepatomegaly documented in this encounter Results Not on filedocumented in this encounter Visit Diagnoses Diagnosis Hepatitis C virus infection without hepa tic coma, unspecified chronicity - Primary Hepatic steatosis Other chronic nonalcoholic liver disease Elevated liver enzymes Nonspecific elevation of levels of trans aminase or lactic acid dehydrogenase (LDH) Hepatomegaly documented in this encounter documented as of this encounter
--- OUTSIDE RECORDS SUMMARY | 2020-09-05 17:44 | XMS REPORT | Summary of Care ---
:1960 Author Organization [facility] Address [address] [place] [address] Care Team Providers Name Role Phone Reece Khan MD Primary Care Provider Reason for Visit Reason Comments COLONOSCOPY Encounter Details Date Type Department Care Team Description 07/26/2020 Telephone [facility] Surgical Annemarie Jarvis MD COLONOSCOPY Specialties - [facility] on [address], [address] [place], [place] [address] [place] [address] [phone] Allergies No Known Allergiesdocumented as of this encounter (statuses as of 07/26/2020) Medications Medication Sig Dispensed Refills Start Date [...] as of this encounter (statuses as of 07/26/2020) Active Problems Problem Noted Date Screening for colorectal cancer 07/24/2020 Overview: Added automatically from request for mary turner [id number] Abnormal LFTs 07/15/2020 Chronic hepatitis C without hepatic coma 07/15/2020 documented as of this encounter (statuses as of 07/26/2020) Resolved Problems Problem Noted Date Resolved Date Tobacco use disorder, mild, abuse 09/01/20182019 Major depressive disorder, single episode, moderate 08/31/20 18 07/15/2020 Generalized anxiety disorder 08/31/2018 07/15/2020 Panic attacks 08/31/2018 07/15/2020 Cocaine use disorder, moderate, dependence 08/31/2018 07/15/2020 documented as of this encounter (statuses as of 07/26/2020) Social History Tobacco Use Types Packs/Day Years [...] this encounter Miscellaneous Notes Telephone Encounter - Rvea Song FNP - 07/26/2020 9:33 AM CDTCased canceled Telephone Encounter - Joselo Schulz - 07/26/2020 8:59 AM CDTPlease cancel colonoscopy for patient - She canceled for financial purposes Joselo Schulz 07/26/2020 9:00 AM documented in this encounter Plan of Treatment Date Type Specialty Care Team Description 07/30/2020 Hospital Surgery Matheus, Screening for Encounter MD Caroline colorectal cancer [address] [facility] [address] [place] [address] [phone] 07/30/2020 Surgery Surgery Matheus, JHONATAN Velazquez MD [address] [facility] [address] [place] [address] [phone] 07/31/2020 Office Visit Gastroenterology Desirae Sanon PA [address] [place], [place] [address] 06/10/2021 Office Visit Obstetrics & Gynecology Gloria Jurado PA-[place] 146 [facility] [address] [place] [address] Health Maintenance Due Date Last Done Comments [...] Dates Phone Address Type MULTIPLAN MULTIPL[employer] GENERIC [id number] 2019-Present PPO documented as of this encounter
--- OUTSIDE RECORDS SUMMARY | 2020-09-05 17:44 | XMS REPORT | Summary of Care ---
:1960 Author Organization [facility] Address [address] [place] [address] Care Team Providers Name Role Phone Reece Khan MD Primary Care Provider Reason for Visit Reason Comments Follow-up Encounter Details Date Type Department Care Team Description 07/31/2020 Office Visit [facility] O'Sukumar, Hepatitis C vir us infection without hepatic coma, unspecified chronicity (Primary Dx); Gastroenterology-Caron Cutler Hepatic steatosis; [address] Elevated liver enzymes; [facility] [id number] Hepatomegaly Clinics [address], [address] [place] [address] Floor [phone] [place], [place] [phone] (Fax) [phone] Allergies No Known Allergiesdocumented as of this [...] Added automatically from request for mary turner [id number] Abnormal LFTs 07/15/2020 Chronic hepatitis C without [...] by JACQUE Sanon. NDC (National Drug Code) 90230-578-35. The site(s) was cleaned with an alcohol [...] Team Description 08/30/2020 Nurse Visit Gastroenterology Faculty, [facility] Gi Nurse- 10/30/2020 Office Visit Gastroenterology Yin Sanon, PA [address] [place], [place] [address] 06/10/2021 Office Visit Obstetrics & Gynecology Gloria Jurado PA-C [address] [place] [phone] Health Maintenance Due Date Last [...] B)VACCINE CDT infection without hepatic coma, unspecified director new product nicity Hepatic steatosi s Elevated liver e [...]
--- OUTSIDE RECORDS SUMMARY | 2020-09-05 17:45 | XMS REPORT | Summary of Care ---
:1960 Author Organization [facility] Address [address] [place] [address] Care Team Providers Name Role Phone Reece Khan MD Primary Care Provider Reason for Visit Reason Comments VACCINATIONS Encounter Details Date Type Department Care Team Description 08/30/2020 Telephone [facility] Gill Sanon PA VACCINATIONS Gastroenterology-[id number] [place] [address] [place] [address] [phone] [place] [address] Allergies No Known Allergiesdocumented as of this encounter (statuses as of 08/30/2020) Medications Medication Sig Dispensed Refills Start Date End Date Status albuterol 2.5 mg /3 mL Inhale 3 mL every 120 Vial 0 9 Active (0.083 %) nebulizer 4 (four) hours as solutionIndications: needed for Shortness of breath, Wheezing or Wheezing, Bronchitis Shortness of with bronchospasm, Breath. Via Reactive airway nebulizer disease with acute exacerbation, unspecified asthma severity, unspecified whether persistent peg-electrolyte soln Take 4,000 mL by 4000 mL 0 07/23/2020 Active 236-22.74-6.74 -5.86 mouth gram SEE-INSTRUCTIONS. solutionIndications: Take as directed Screening for colorectal cancer glecaprevir-pibrentasv Take 3 tablets by 84 tablet 1 0 Active ir (MAVYRET) 100-40 mouth daily. mgIndications: Hepatitis C virus infection without hepatic coma, unspecified chronicity, Hepatic steatosis, Elevated liver enzymes, Hepatomegaly documented as of this encounter (statuses as of 08/30/2020) Active Problems Problem Noted Date Screening for colorectal cancer 07/24/2020 Overview: Added automatically from request for mary turner [id number] Abnormal LFTs 07/15/2020 Chronic hepatitis C without hepatic coma 07/15/2020 documented as of this encounter (statuses as of 08/30/2020) Resolved Problems Problem Noted Date Resolved Date Tobacco use disorder, mild, abuse 09/01/20182019 Major depressive disorder, single episode, moderate 08/31/20 18 07/15/2020 Generalized anxiety disorder 08/31/2018 07/15/2020 Panic attacks 08/31/2018 07/15/2020 Cocaine use disorder, moderate, dependence 08/31/2018 07/15/2020 documented as of this encounter (statuses as of 08/30/2020) Immunizations Name Administration Dates Next Due Twinrix [...] Telephone Encounter - Jory Hay RN - 08/30/2020 8:24 AM CDT documented in this encounter Plan of Treatment Date Type Specialty Care Team Description 06/10/2021 Office Visit Obstetrics & Gynecology Gloria Jurado PA-C [address] [place] [address] [phone] Name Type Priority Associated Diagnoses Order S sole SANDOVALRIX (HEP A/HEP IMMUNIZATION/INJ Routine Need for hepatitis Expected: B)VACCINE ECTION vaccination 12/31/2020, Expires: 2020 Health Maintenance Due Date Last [...] filedocumented in this encounter Visit Diagnoses Diagnosis Need for hepatitis vaccination - Primary Need for prophylactic vaccination and in oculation against viral hepatitis documented in this encounter Insurance Payer Benefit Plan / Group Subscriber ID Effective Dates Phone Address Type [employer] [id number] 2019-Present PPO documented as of this encounter
--- OUTSIDE RECORDS SUMMARY | 2020-09-05 17:45 | XMS REPORT | Summary of Care ---
:1960 Author Organization [facility] Address [address] [place] [address] Care Team Providers Name Role Phone Reece Khan MD Primary Care Provider Reason for Visit Reason Comments Rx Concern/Question Encounter Details Date Type Department Care Team Description 08/13/2020 Telephone [facility] Desirae Sanon, Rx Concer n/Question Gastroenterology-[facility] n [address] [facility] [id number] [facility] [place] [address] [place] [address], [facility] [place] [address] [place] [address] Allergies No Known Allergiesdocumented as of this encounter (statuses as of 08/14/2020) Medications Medication Sig Dispensed Refills Start Date [...] as of this encounter (statuses as of 08/14/2020) Active Problems Problem Noted Date Screening for colorectal cancer 07/24/2020 Overview: Added automatically from request for mary turner [id number] Abnormal LFTs 07/15/2020 Chronic hepatitis C without hepatic coma 07/15/2020 documented as of this encounter (statuses as of 08/14/2020) Resolved Problems Problem Noted Date Resolved Date Tobacco use disorder, mild, abuse 09/01/20182019 Major depressive disorder, single episode, moderate 08/31/20 18 07/15/2020 Generalized anxiety disorder 08/31/2018 07/15/2020 Panic attacks 08/31/2018 07/15/2020 Cocaine use disorder, moderate, dependence 08/31/2018 07/15/2020 documented as of this encounter (statuses as of 08/14/2020) Immunizations Name Administration Dates Next Due Twinrix [...] Telephone Encounter - Jory Hay RN - 08/14/2020 8:53 AM CDTMessage sent to [facility] for advice on hep c funding. elephone Encounter - Desirae Sanon PA - 08/13/2020 5:41 PM CDTWould they cover a different DAA? Harvoni or Epclusa maybe? If not, can we refer her to PAP? Thx, mo elephone Encounter - Jory Hay RN - 08/13/2020 1:29 PM CDTPer communication from [facility]: copay is $13,942. Patient's iinsurance is not paying anything towards drug cost and all is out of pocket expense. Can't get funding approved for this amount plus additional month. Routing to JACQUE Amezquita to inform. elephone Encounter - Laura Wolfe - 08/13/2020 8:16 AM Veronica Josi Dickinson is a 60 year old female Patient is calling medication you prescribed is not covered by insurance. glecaprevir-pibrentasvir (MAVYRET) 100-40 mg Please call to discuss with Patient other medication options. [phone] Thank you documented in this encounter Plan of Treatment Date Type Specialty Care Team Description 08/30/2020 Nurse Visit Gastroenterology Faculty, [facility] Gi Nurse- 10/30/2020 Office Visit Gastroenterology Yin Sanon PA [address] [place] [phone] 06/10/2021 Office Visit Obstetrics & Gynecology Gloria Jurado PA-C [address] [place], [place] [address] [phone] Health Maintenance Due Date Last Done [...] Dates Phone Address Type M[employer] [id number] 2019-Present PPO documented as of this encounter
--- OUTSIDE RECORDS SUMMARY | 2020-09-05 17:45 | XMS REPORT | Summary of Care ---
:1960 Author Organization [facility] Address [address] [place] [address] Care Team Providers Name Role Phone Reece Khan MD Primary Care Provider Reason for Visit Reason Comments Medication Assistance Encounter Details Date Type Department Care Team Description 08/30/2020 Telephone [facility] Desirae Sanon Medicyannao n Assistance Gastroenterology-Rhianna SANTILLAN on [address] [facility] [id number], [address] [place] [address] Floor [phone] [place] [address] [phone] Allergies No Known Allergiesdocumented as of this [...] Added automatically from request for mary turner [id number] Abnormal LFTs 07/15/2020 Chronic hepatitis C without [...] Encounter - Jory Hay RN - 08/30/2020 8:26 AM CDTPer communication from [facility]: copay is $13,942. Her insurance isn't paying anything towards drug cost and all is out of pocket expense. Can't get funding approved for this amount plus additional month. Routing to JACQUE Amezquita to inform. documented in this encounter Plan of Treatment Date Type Specialty Care Team Description 06/10/2021 Office Visit Obstetrics & Gynecology Gloria Jurado PA-C [address] [place] [address] [phone] Health Maintenance Due Date Last Done [...] Dates Phone Address Type M[employer] [id number] 2019-Present PPO documented as of this encounter
[2020-09-05] MEDS ORDERED: Magnesium Sulfate 2gm IVPB 2 G/50 ML BAG IV ONE ×2 (17:54→18:00)
[2020-09-05] MEDS ORDERED: FUROSEMIDE 20 MG/ 2ML VIAL ONE (17:54)
[2020-09-05] MEDS ORDERED: FUROSEMIDE 20 MG/ 2ML VIAL IV SCH (18:00)
[2020-09-05] MEDS ORDERED: POTASSIUM CL 40 MEQ in NA CHLORIDE 0.9% 500 ML IV SCH (18:00)
[2020-09-05] MEDS ORDERED: IPRATROPIUM BROM 0.5MG/2.5ML ONE (21:09)
[2020-09-05] MEDS ORDERED: TEMAZEPAM 15 MG CAP ONE (21:23)
[2020-09-05] MEDS ORDERED: CEFTRIAXONE/SWI 1gm 1 GM/10 ML SYR ONE (21:24)
[2020-09-06] MEDS ORDERED: FUROSEMIDE 20 MG/ 2ML VIAL IV SCH (01:00)
--- NOTE | 2020-09-06 08:05 | P.PN ---
Subjective Date of Service: 09/05/20 Patient with elevated JVP. Will start diuresing patient. Cardiology consulted and echocardiogram pending. Spoke with family this morning that I think she has new onset heart failure and possibly cardiomyopathy from her history of drug use. Awaiting echocardiogram findings. Review of Systems 10-point ROS is otherwise unremarkable Physical Examination - Vital Signs Temperature: 98.7 F Blood Pressure: 155/102 Pulse: 98 Respirations: 20 Pulse Ox (%): 98 - Physical Exam General: Alert, In no apparent distress, Oriented x3 Neck: JVD distended Respiratory: Diminished, Crackles/rales Cardiovascular: Regular rate/rhythm, Normal S1 S2, Systolic murmur Gastrointestinal: Normal bowel sounds, Soft and benign, Non-distended, No tenderness Musculoskeletal: No clubbing, No swelling, No tenderness Neurological: Normal strength at 5/5 x4 extr, Sensation intact, Cranial nerves 3-12 intact - Studies Medications List Reviewed: Yes Assessment & Plan - Problems (Diagnosis) (1) New onset of congestive heart failure Current Visit: Yes Status: Acute (2) Pneumonia involving right lung Current Visit: Yes Status: Acute (3) Tachypnea Current Visit: Yes Status: Acute - Plan 1. Echocardiogram pending 2. Strict blood pressure control 3. IV diuretics 4. Cardiology consultation secondary to elevated troponin and evaluation for CHF 5. Hep-Lock fluids and continue IV antibiotics and IV diuretics pending echocardiogram 6. Strict I's and O's 7. Repeat CXR shows improvement in right-sided haziness 8. Daily weights 9. Education regarding diet and treatment of congestive heart failure Discharge Plan: Home Plan to discharge in: Greater than 2 days - Advance Directives Does patient have a Living Will: No Does patient have a Durable POA for Healthcare: No - Code Status/Comfort Care Code Status: Full Code Critical Care: No Time Spent Managing PTS Care (In Minutes): 45
--- NOTE | 2020-09-06 08:07 | P.PN ---
Date of Service: 09/05/20 Workup revealed the patient was severe cardiomyopathy with an ejection fraction of 20%. Patient with severe mitral regurgitation and elevated right ventricular pressures. Will evaluate for PE with CT angio for PE protocol. Family also is agreeable to transfer. There initial request was [facility]. Patient with poor prognosis. Spoke with Cardiology and they recommended transfer to tertiary care facility as well.
[2020-09-06] MEDS ORDERED: FUROSEMIDE 40 MG/4 ML VIAL ONE ×2 (08:22→17:30)
[2020-09-06] MEDS ORDERED: CEFTRIAXONE/SWI 1gm 1 GM/10 ML SYR ONE ×2 (08:22→21:09)
[2020-09-06] MEDS: FUROSEMIDE 20 MG/ 2ML VIAL IV SCH ×2 (09:00→17:00)
--- NOTE | 2020-09-06 09:40 | RAD REPORT ---
EXAM DESCRIPTION: CT - Chest For Pe Angio - 09/06/2020 9:07 am CLINICAL HISTORY: Chest pain. r/o PE COMPARISON: CTANGIO CHEST FOR PE dated 10/14/2012; Chest Single View dated 09/05/2020; Chest Single V iew dated 09/04/2020 TECHNIQUE: CT angiogram of the pulmonary arteries was performed with MIP. All CT scans are performed using dose optimization technique as appropriate and may include automated exposure control or mA/KV adjustment according to patient size. FINDINGS: No evidence of pulmonary thromboembolism. No acute aortic finding demonstrated. Cardiomegaly is present particularly involving the left atrium and left ventricle. COPD is present with mild interstitial pulmonary edema suspected. Linear opacities in the lung bases most compatible with atelectasis. Small early infiltrate is possible left base. Small bilateral pleural effusions. Calcified lymph nodes are seen in the mediastinum and hilar region s. No concerning bony finding. IMPRESSION: No evidence of pulmonary thromboembolism. Moderate CHF pattern is observed with cardiomegaly. Moderate COPD.
[2020-09-06] MEDS: CEFTRIAXONE/SWI 1gm 1 GM/10 ML SYR IV SCH ×2 (09:44→21:12)
[2020-09-06] MEDS ORDERED: METHYLPREDNISOLONE 125 MG INJ IV ONE (13:43)
[2020-09-06] MEDS ORDERED: IPRATROPIUM BROM 0.5MG/2.5ML NEB PRN (15:00)
[2020-09-06] MEDS ORDERED: ALBUTEROL 2.5 MG/3 ML NEB SOL NEB PRN (15:00)
[2020-09-06] MEDS ORDERED: METHYLPREDNISOLONE 125 MG INJ ONE (15:36)
[2020-09-06 16:00] VITALS: BMI 20.5
[2020-09-06] MEDS: ENOXAPARIN 40 MG/0.4 ML SQ SCH (17:23)
[2020-09-06] MEDS ORDERED: ENOXAPARIN 40 MG/0.4 ML SQ ONE (17:30)
[2020-09-07] MEDS ORDERED: FUROSEMIDE 40 MG/4 ML VIAL ONE ×2 (01:48→07:19)
[2020-09-07] MEDS: FUROSEMIDE 20 MG/ 2ML VIAL IV SCH ×3 (01:57→16:29)
[2020-09-07] MEDS: CEFTRIAXONE/SWI 1gm 1 GM/10 ML SYR IV SCH (08:40)
[2020-09-07] MEDS ORDERED: CEFTRIAXONE 1000 MG/VIAL ONE (08:50)
[2020-09-07 09:03] VITALS: O2SAT 99
--- NOTE | 2020-09-07 15:14 | P.PN ---
Subjective Date of Service: 09/06/20 PATIENT IS FEELING MUCH BETTER. SHE IS OXYGENATING MUCH BETTER WELL. HER CHF APPEARS TO BE COMPENSATED. WORKING ON TRANSFER TO [facility]. Review of Systems 10-point ROS is otherwise unremarkable Physical Examination - Vital Signs Temperature: 98.2 F Blood Pressure: 123/70 Pulse: 88 Respirations: 12 Pulse Ox (%): 99 - Physical Exam General: Alert, In no apparent distress, Oriented x3 Respiratory: Diminished, Crackles/rales Cardiovascular: Regular rate/rhythm, Normal S1 S2, Systolic murmur Gastrointestinal: Normal bowel sounds, Soft and benign, Non-distended, No tenderness Musculoskeletal: No clubbing, No swelling, No tenderness - Studies Medications List Reviewed: Yes Assessment & Plan - Problems (Diagnosis) (1) New onset of congestive heart failure Current Visit: Yes Status: Acute (2) Pneumonia involving right lung Current Visit: Yes Status: Acute (3) Tachypnea Current Visit: Yes Status: Acute (4) COPD (chronic obstructive pulmonary disease) Current Visit: Yes Status: Acute (5) Cocaine abuse Current Visit: Yes Status: Acute - Plan 1. Echocardiogram revealed a systolic function of 20% 2. Strict blood pressure control 3. IV diuretics 4. Cardiology consultation appreciated. Transfer to tertiary care facility for possible pacemaker/defibrillator. 5. Hep-Lock fluids and continue IV antibiotics 6. Strict I's and O's 7. Repeat CXR shows improvement in right-sided haziness 8. Daily weights 9. Patient with COPD on CT scan findings and will do nebs as needed along with steroids. She will need to go with long-acting beta agonist/steroid inhaler 1 4. Outpatient pulmonary function testing as well. 10. Education regarding diet and treatment of congestive heart failure Discharge Plan: Home Plan to discharge in: Greater than 2 days - Advance Directives Does patient have a Living Will: No Does patient have a Durable POA for Healthcare: No - Code Status/Comfort Care Code Status: Full Code Critical Care: No Time Spent Managing PTS Care (In Minutes): 35
--- NOTE | 2020-09-07 15:20 | P.DS ---
Discharge Date: 09/07/20 Disposition: TRANSFER TO [facility] Discharge Condition: GOOD Reason for Admission: Shortness of breath/hypoxemia - Problems (1) New onset of congestive heart failure Current Visit: Yes Status: Acute (2) Pneumonia involving right lung Current Visit: Yes Status: Acute (3) Tachypnea Current Visit: Yes Status: Acute Brief History of Present Illness: Patient is a 60-year-old female came to the hospital with difficulty breathing. Patient states that she has had this issue on an off. She has orthopnea and PND as well. She came into the hospital because she was really tachypneic. She was coughing and was having yellowish and pink frothy sputum. She states she used to smoke but quit earlier this year. She also stated that she quit cocaine use of a few months prior. However, her cocaine screening is positive. On her chest x-ray in the emergency room she does have a right lower lobe pneumonia as well as possible cardiomegaly. She is also hypoxic with room air oxygen saturations of 85%. She is up to 92% on 2 L. I am concerned that she may have cardiomyopathy in the setting of pneumonia. Will check a BNP level. She has physical exam findings and historical information suggestive of congestive heart failure which is probably being exacerbated by her right lower lobe pneumonia. She will be admitted to the hospital. At this time, she is admitted for inpatient hospitalization. For insurance purposes, it will be noted that he if she improves substantially by tomorrow morning I may be able to discharge her with antibiotics and outpatient cardiology workup. However, if she remains hypoxic then she will probably need inpatient hospitalization, and will notify her insurance company regarding this. Hospital Course: Patient was diuresed extensively. Patient is starting to feel better. Patient will move to the general medical floor. Spoke with Cardiology and will continue to monitor patient prior to discharge to tertiary care facility. Vital Signs/Physical Exam: Temp Pulse Resp BP Pulse Ox 98.7 F 98 H 20 155/102 H 98 09/07/20 15:14 09/07/20 15:14 09/07/20 15:14 09/07/20 15:14 09/07/20 15:14 General: Alert, In no apparent distress, Oriented x3 Laboratory Data at Discharge: WBC 5.4 K/uL (4.3-10.9) 09/05/20 05:38 Hgb 13.1 g/dL (12.0-15.0) 09/05/20 05:38 Hct 39.7 % (36.0-45.0) 09/05/20 05:38 Plt Count 163 K/uL (152-406) 09/05/20 05:38 PT 12.6 SECONDS (9.5-12.5) H 09/05/20 05:38 INR 1.07 09/05/20 05:38 APTT 32.0 SECONDS (24.3-36.9) 09/05/20 05:38 Sodium 143 mmol/L (136-145) 09/06/20 04:58 Potassium 4.0 mmol/L (3.5-5.1) 09/06/20 04:58 BUN 8 mg/dL (7-18) 09/06/20 04:58 Creatinine 0.87 mg/dL (0.55-1.3) 09/06/20 04:58 Glucose 101 mg/dL (74-106) 09/06/20 04:58 Phosphorus 2.8 mg/dL (2.5-4.9) 09/05/20 05:38 Magnesium 1.9 mg/dL (1.8-2.4) 09/05/20 05:38 Total Bilirubin 0.6 mg/dL (0.2-1.0) 09/05/20 05:38 AST 44 U/L (15-37) H 09/05/20 05:38 ALT 55 U/L (12-78) 09/05/20 05:38 Alkaline Phosphatase 119 U/L (45-117) H 09/05/20 05:38 Troponin I 0.31 ng/mL (0.0-0.045) H 09/05/20 10:49 Triglycerides 126 mg/dL (<150) 09/05/20 05:38 Cholesterol 120 mg/dL (<200) 09/05/20 05:38 HDL Cholesterol 54 mg/dL (40-60) 09/05/20 05:38 Cholesterol/HDL Ratio 2.22 09/05/20 05:38 Home Medications: Albuterol Neb [Proventil 0.083% Neb Soln] 2.5 mg NEB [id number] PRN amp 09/07/20 Enoxaparin Sodium [Lovenox 40 MG INJ*] 40 mg SQ DAILY 5 PM syr 09/07/20 Furosemide [Lasix 20 MG inj*] 40 mg IV Q8HR vial 09/07/20 Guaifen W/Codeine Syrup [ROBITUSSIN A-C Syrup*] 10 ml PO QID PRN ucup 09/07/20 Ipratropium Neb [Atrovent*] 0.5 mg NEB [id number] PRN amp 09/07/20 Temazepam [Restoril*] 15 mg PO BEDTIME PRN PRN cap 09/07/20 Patient Discharge Instructions: OK TO TRANSFER TO [facility]. CALL or TEXT DR. BRUCE AT [phone] IF ANY QUESTIONS REGARDING HOSPITAL STAY. PLEASE CALL THE FLOOR AT [phone] IF ANY MEDICATION OR NURSING QUESTIONS. Diet: AHA Activity: Fall precautions Time spent managing pt's care (in minutes): 35
[2020-09-07] MEDS: ENOXAPARIN 40 MG/0.4 ML SQ SCH (16:28)
[2020-09-07 17:36] VITALS: BP 115/75; TEMP 98.4
[2020-09-07] MEDS ORDERED: carvediloL 6.25 MG TAB PO SCH (21:00)
--- NOTE | 2020-09-08 11:19 | EKG ---
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
== END 2020-09-07 16:43 | disposition short-term general hospital (02) | DRG 291 ==
LOC: ER 07:32 → OBSVTOIN 09:56 → INTOOBSV 09:56 → ERHOLD 09:56 → 2ND 11:28 → OBSVTOIN 09-05 12:18 → ERHOLD 09-05 17:28 → 2ND 09-07 10:00
PROVIDERS: ADMIT Hospitalist; ATTEND Hospitalist
DX: I50.23 Acute on chronic systolic (congestive) heart failure (principal); J18.9 Pneumonia, unspecified organism; I42.9 Cardiomyopathy, unspecified; J44.0 Chronic obstructive pulmonary disease with (acute) lower respiratory infection; I27.20 Pulmonary hypertension, unspecified; F14.10 Cocaine abuse, uncomplicated; I34.0 Nonrheumatic mitral (valve) insufficiency; R06.82 Tachypnea, not elsewhere classified; R77.8 Other specified abnormalities of plasma proteins; Z87.891 Personal history of nicotine dependence; Z20.828 Contact with and (suspected) exposure to other viral communicable diseases
CPT/HCPCS: 36415; 71045; 71275; 80048; 80053; 80061; 80307; 81003; 82728; 83605; 83735; 83880; 84100; 84145; 84484; 85025; 85610; 85730; 87040; 87804; 93005; 93306; 94640; 94760; 96365; 96366; 99285; J0456; J0696; J1650; J1940; J2930; J3010; J3475; J3480; J7030; J7040; J7050; P9047; Q9967; U0003

== ENCOUNTER 2021-06-24 11:14 | Emergency (ER) | payer OTHER ==
--- OUTSIDE RECORDS SUMMARY | 2021-06-24 11:20 | XMS REPORT | Continuity of Care Document ---
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 malalignment. Signed: Mayte Cohn Verified Date/Time: 02/26/2021 17:32:49 [facility] TROPONIN [id number] 17:27:00 Test Item Value Reference Range Interpretation Comments TROPONIN I (BEAKER) (test code = 0.05 ng/mL 0.00-0.03 H 397) Troponin I (TnI) levels must be interpreted in the context of the presenting symptoms and the clinical findings. Elevated TnI levels indicate myocardial damage, but are not specific for ischemic heart disease. Elevated TnI levels are seen in patients with other cardiac conditions (including myocarditis and congestive heart failure), and slight TnI elevations occur in patients with other conditions, including sepsis, renal failure, acidosis, acute neurological disease, and persistent tachyarrhythmia.Alarm Technician ID - aahamidComprehensive metabolic [id number] 17:21:00 Test Item Value Reference Range Interpretation Comments Protein, Total 7.1 See_Comment Specimen slig htly (test code = hemolyzed 2884-2) [Automated message] The system which generated this result transmit lev reference range : 6.0 - 8.3 gm/dL . The reference range was not u sed to interpret th is result as normal/abnormal . Albumin (test code 3.9 g/dL 3.5-5 Specimen slightly = 36372-0) hemolyzed Alkaline 78 U/L 40-150 Phosphatase (test code = 6768-6) Total Bilirubin 0.8 mg/dL 0.2-1.2 Specimen sli ghtly (test code = hemolyzed 1974-) Sodium (test code = 139 meq/L 192-965 7105-2) Potassium (test 4.2 meq/L 3.5-5.1 Specimen sli ghtly code = 2823-3) hemolyzed Chloride (test code 105 meq/L 98-107 = 2075-0) CO2 (test code = 26 meq/L -2028-07) BUN (test code = 10 mg/dL 7-21 3094-0) Creatinine (test 0.84 mg/dL 0.57-1.25 Specimen sl ightly code = 2160-0) hemolyzed Glucose (test code 95 mg/dL 70-105 = 2345-7) Calcium (test code 9.0 mg/dL 8.4-10.2 = 84761-0) AST (test code = 18 U/L 5-34 Specimen sl ightly 1920-8) hemolyzed ALT (test code = 13 U/L 6-55 Specimen sl ightly 1742-6) hemolyzed EGFR (test code = 84 mL/min/1.[place] [address]-4) NOT ACCURATE CREATININE CLEARANCE IN PREDICTING GLOMERULAR FILTRATION RATE . ESTIMATED GFR I S NOT APPLICABLE FOR DIALYSIS PATIEN TS. ZENG (test code = Alarm Technician ID - AZUCENA) [facility] [id number] 17:21:00 Test Item Value Reference Range Interpretation Comments TOTAL PROTEIN 7.1 gm/dL 6.0-8.3 Specimen sligh tly (BEAKER) (test code = hemoly zed 770) ALBUMIN (BEAKER) 3.9 g/dL 3.5-5.0 Specimen sl ightly (test code = 1145) hemolyzed ALKALINE PHOSPHATASE 78 U/L 40-150 (BEAKER) (test code = 346) BILIRUBIN TOTAL 0.8 mg/dL 0.2-1.2 Specimen sli ghtly (BEAKER) (test code = hemoly zed 377) SODIUM (BEAKER) (test 139 meq/L 136-145 code = 381) POTASSIUM (BEAKER) 4.2 meq/L 3.5-5.1 Specimen slightly (test code = 379) hemolyzed CHLORIDE (BEAKER) 105 meq/L 98-107 (test code = 382) CO2 (BEAKER) (test 26 meq/L 22-29 code = 355) BLOOD UREA NITROGEN 10 mg/dL 7-21 (BEAKER) (test code = 354) CREATININE (BEAKER) 0.84 mg/dL 0.57-1.25 Specimen slightly (test code = 358) hemolyzed GLUCOSE RANDOM 95 mg/dL 70-105 (BEAKER) (test code = 652) CALCIUM (BEAKER) 9.0 mg/dL 8.4-10.2 (test code = 697) AST (SGOT) (BEAKER) 18 U/L 5-34 Specimen slightly (test code = 353) hemolyzed ALT (SGPT) (BEAKER) 13 U/L 6-55 Specimen slightly (test code = 347) hemolyzed EGFR (BEAKER) (test 84 mL/min/1.73 ESTIMA LEV GFR IS code = 1092) sq m NOT ACCURATE CREATININE CLEARANCE IN PREDICTING GLOMERULAR FILTRATION RATE . ESTIMATED GFR I S NOT APPLICABLE FOR DIALYSIS PATIEN TS. Alarm Technician ID - aahamidCBC with platelet count + automated [id number] 17:02:00 Test Item Value Reference Range Interpretation Comments WBC (test code = 6690-2) 5.7 See_Comment [A utomated message] The system [employer] generated this result transmitted ref erence range: 3.5 - 10 .5 K/L. The refe rence range was not u sed to interpret this result as normal/abnor mal. RBC (test code = 789-8) 4.61 See_Comment [Au tomated message] The system [employer] generated this result transmitted ref erence range: 3.93 - 5 .22 M/L. The refe rence range was not u sed to interpret this result as normal/abnor mal. MCHC (test code = 786-4) 33.3 See_Comment [A utomated message] The system [employer] generated this result transmitted ref erence range: 32.2 - 3 5.5 GM/DL. The refe rence range was not u sed to interpret this result as normal/abnor mal. Hematocrit (test code = 42.0 % 34.1-44.9 4544-3) MCV (test code = 787-2) 91.1 fL 79.4-94.8 MCH (test code = 785-6) 30.4 pg 25.6-32.2 RDW (test code = 788-0) 13.4 % 11.7-14.4 Platelets (test code = 127 See_Comment L [Aut omated message] 187-3) The system [employer] generated this result transmitted ref erence range: 150 - 45 0 K/CU MM. The referen ce range was not u sed to interpret this result as normal/abnor mal. MPV (test code = 12.5 fL 9.4-12.3 H 45639-1) nRBC (test code = 413) 0 See_Comment [Aut omated message] The system [employer] generated this result transmitted ref erence range: 0 - 0 /1 00 WBC. The refere nce range was not u sed to interpret this result as normal/abnor mal. % Neutros (test code = 58 % 429) % Lymphs (test code = 32 % 430) % Monos (test code = 7 % 431) % Eos (test code = 432) 2 % % Baso (test code = 437) 0 % # Neutros (test code = 3.33 See_Comment [Aut omated message] 670) The system [employer] generated this result transmitted ref erence range: 1.56 - 6 .13 K/L. The refe rence range was not u sed to interpret this result as normal/abnor mal. # Lymphs (test code = 1.80 See_Comment [Auto mated message] 414) The system [employer] generated this result transmitted ref erence range: 1.18 - 3 .74 K/L. The refe rence range was not u sed to interpret this result as normal/abnor mal. # Monos (test code = 0.41 See_Comment H [Autom ated message] 415) The system [employer] generated this result transmitted ref erence range: 0.24 - 0 .36 K/L. The refe rence range was not u sed to interpret this result as normal/abnor mal. # Eos (test code = 416) 0.13 See_Comment [Au tomated message] The system [employer] generated this result transmitted ref erence range: 0.04 - 0 .36 K/L. The refe rence range was not u sed to interpret this result as normal/abnor mal. # Baso (test code = 417) 0.02 See_Comment [A utomated message] The system [employer] generated this result transmitted ref erence range: 0.01 - 0 .08 K/L. The refe rence range was not u sed to interpret this result as normal/abnor mal. Immature 0 % 0-1 Granulocytes-Relative (test code = 2801) Lab Interpretation (test Abnormal code = 57964-8) [facility] W/PLT COUNT & AUTO [id number] 17:02:00 Test Item Value Reference Range Interpretation Comments WHITE BLOOD CELL COUNT (BEAKER) 5.7 K/ L 3.5-10.5 (test code = 775) RED BLOOD CELL COUNT (BEAKER) 4.61 M/ L 3.93-5.22 (test code = 761) HEMOGLOBIN (BEAKER) (test code = 14.0 GM/DL 11.2-15.7 410) HEMATOCRIT (BEAKER) (test code = 42.0 % 34.1-44.9 411) MEAN CORPUSCULAR VOLUME (BEAKER) 91.1 fL 79.4-94.8 (test code = 753) MEAN CORPUSCULAR HEMOGLOBIN 30.4 pg 25.6-32.2 (BEAKER) (test code = 751) MEAN CORPUSCULAR HEMOGLOBIN CONC 33.3 GM/DL 32.2-35.5 (BEAKER) (test code = 752) RED CELL DISTRIBUTION WIDTH 13.4 % 11.7-14.4 (BEAKER) (test code = 412) PLATELET COUNT (BEAKER) (test 127 K/CU MM 150-450 L code = 756) MEAN PLATELET VOLUME (BEAKER) 12.5 fL 9.4-12.3 H (test code = 754) NUCLEATED RED BLOOD CELLS 0 /100 WBC 0-0 (BEAKER) (test code = 413) NEUTROPHILS RELATIVE PERCENT 58 % (BEAKER) (test code = 429) LYMPHOCYTES RELATIVE PERCENT 32 % (BEAKER) (test code = 430) MONOCYTES RELATIVE PERCENT 7 % (BEAKER) (test code = 431) EOSINOPHILS RELATIVE PERCENT 2 % (BEAKER) (test code = 432) BASOPHILS RELATIVE PERCENT 0 % (BEAKER) (test code = 437) NEUTROPHILS ABSOLUTE COUNT 3.33 K/ L 1.56-6.13 (BEAKER) (test code = 670) LYMPHOCYTES ABSOLUTE COUNT 1.80 K/ L 1.18-3.74 (BEAKER) (test code = 414) MONOCYTES ABSOLUTE COUNT (BEAKER) 0.41 K/ L 0.24-0.36 H (test code = 415) EOSINOPHILS ABSOLUTE COUNT 0.13 K/ L 0.04-0.36 (BEAKER) (test code = 416) BASOPHILS ABSOLUTE COUNT (BEAKER) 0.02 K/ L 0.01-0.08 (test code = 417) IMMATURE GRANULOCYTES-RELATIVE 0 % 0-1 PERCENT (BEAKER) (test code = 2801) ECG/EKG [id number] 16:44:55Luda Hall MD 02/26/2021 8:15 PMECG/EKG Interpretation Date/Time: 02/26/2021 8:08 PMPerformed by: Luda Hall MDAuthorized by: Luda Hall MD The ECG was interpreted by ED physician. This ECG was compared with previous ECG(s).The ECG is interpreted as sinus rhythm. Rate is normalrate. Heart rate is 71 BPM.T-wave inversion in lead(s) II, III, aVF and V6. ECG reviewed and does not meet STEMI criteria.[facility], NON [id number] 07:03:00Reason for exam:->post ICD implantIs the patient ?- >NoShould this be performed at the bedside?->Yes [facility] 1960 Sex: FFINAL REPORT RAD, CHEST, 1 VIEW, NON DEPT INDICATION: post ICD implant COMPARISON: Prior day's exam FINDINGS: Portable frontal view of the chest. IMPRESSION: Support Lines: None Lungs and pleura: Clear lungs. No postprocedural pneumothorax.Heart and mediastinum: Stable contours. Stable pacerAdditional findings: None. Signed: JR Kandi, Sharona Valadez Debi melvined Date/Time: 02/26/2021 07:03:40 Reading Location: [facility] Reading Room [id number] 05:22:00 Test Item Value Reference Range Interpretation Comments Sodium (test code = 136 meq/L 682-065 3714-2) Potassium (test code = 4.0 meq/L 3.5-5.1 Speci men 2823-3) slightly hemolyzed Chloride (test code = 104 meq/L 98-107 5-0) CO2 (test code = 25 meq/L 2028-07) AZUCENA (test code = AZUCENA) Alarm Technician ID - TANYA Fisher Lab Interpretation Normal (test code = 00053-8) [facility] HospitalB[facility] and [id number] 05:22:00 Test Item Value Reference Range Interpretation Comments BUN (test code = 10 mg/dL - 3094-0) Creatinine (test 0.80 mg/dL 0.57-1.25 code = 2160-0) BUN/Creatinine 13 For a normal ratio (test code = individua l on a 3097-3) normal diet, th e reference inter susie for the mass ra tres ranges between 12:1 and 20:1 ( BUN in mg/dL/creatinin e in mg/dL) EGFR (test code = 89 mL/min/1.[place] [address]-0) NOT ACCURATE CREATININE CLEARANCE IN PREDICTING GLOMERULAR FILTRATION RATE . ESTIMATED GFR I S NOT APPLICABLE FOR DIALYSIS PATIEN TS. AZUCENA (test code = Alarm Technician ID - AZUCENA) TANYA Fisher [facility] HospitalELECTROLYTES2021-03-31 05:22:00 Test Item Value Reference Range Interpretation Comments SODIUM (BEAKER) (test 136 meq/L 136-145 code = 381) POTASSIUM (BEAKER) 4.0 meq/L 3.5-5.1 Specimen slightly (test code = 379) hemolyzed CHLORIDE (BEAKER) 104 meq/L 98-107 (test code = 382) CO2 (BEAKER) (test 25 meq/L code = 355) Alarm Technician ID - TANYA MBUN AND CREATININE [id number] 05:22:00 Test Item Value Reference Range Interpretation Comments BLOOD UREA NITROGEN 10 mg/dL 7-21 (BEAKER) (test code = 354) CREATININE (BEAKER) 0.80 mg/dL 0.57-1.25 (test code = 358) BUN/CREAT RATIO 13 For a normal (BEAKER) (test code individu al on a = 7943324952) normal diet, t he reference inter susie for the mass ra tres ranges between 12:1 and 20:1 (BUN i n mg/dL/creatinin e in mg/dL) EGFR (BEAKER) (test 89 mL/min/1.73 ESTIMA LEV GFR IS code = 1092) sq m NOT ACCURATE CREATININE CLEARANCE IN PREDICTING GLOMERULAR FILTRATION RATE . ESTIMATED GFR I S NOT APPLICABLE FOR DIALYSIS PATIEN TS. Alarm Technician ID - TANYA [facility] (Hemogram only)2021-02-26 05:15:00 Test Item Value Reference Range Interpretation Comments WBC (test code = 6690-2) 8.9 See_Comment [A utomated message] The system [employer] generated this result transmitted ref erence range: 3.5 - 10 .5 K/L. The refe rence range was not u sed to interpret this result as normal/abnor mal. RBC (test code = 789-8) 4.40 See_Comment [Au tomated message] The system [employer] generated this result transmitted ref erence range: 3.93 - 5 .22 M/L. The refe rence range was not u sed to interpret this result as normal/abnor mal. MCHC (test code = 786-4) 32.5 See_Comment [A utomated message] The system [employer] generated this result transmitted ref erence range: 32.2 - 3 5.5 GM/DL. The refe rence range was not u sed to interpret this result as normal/abnor mal. Hematocrit (test code = 40.6 % 34.1-44.9 4544-3) MCV (test code = 787-2) 92.3 fL 79.4-94.8 MCH (test code = 785-6) 30.0 pg 25.6-32.2 RDW (test code = 788-0) 13.2 % 11.7-14.4 Platelets (test code = 127 See_Comment L [Aut omated message] 777-3) The system [employer] generated this result transmitted ref erence range: 150 - 45 0 K/CU MM. The referen ce range was not u sed to interpret this result as normal/abnor mal. MPV (test code = 13.3 fL 9.4-12.3 H 00534-2) nRBC (test code = 413) 0 See_Comment [Aut omated message] The system [employer] generated this result transmitted ref erence range: 0 - 0 /1 00 WBC. The refere nce range was not u sed to interpret this result as normal/abnor mal. Lab Interpretation (test Abnormal code = 47332-9) [facility] (HEMOGRAM ONLY)2021-02-26 05:15:00 Test Item Value Reference Range Interpretation Comments WHITE BLOOD CELL COUNT (BEAKER) 8.9 K/ L 3.5-10.5 (test code = 775) RED BLOOD CELL COUNT (BEAKER) 4.40 M/ L 3.93-5.22 (test code = 761) HEMOGLOBIN (BEAKER) (test code = 13.2 GM/DL 11.2-15.7 410) HEMATOCRIT (BEAKER) (test code = 40.6 % 34.1-44.9 411) MEAN CORPUSCULAR VOLUME (BEAKER) 92.3 fL 79.4-94.8 (test code = 753) MEAN CORPUSCULAR HEMOGLOBIN 30.0 pg 25.6-32.2 (BEAKER) (test code = 751) MEAN CORPUSCULAR HEMOGLOBIN CONC 32.5 GM/DL 32.2-35.5 (BEAKER) (test code = 752) RED CELL DISTRIBUTION WIDTH 13.2 % 11.7-14.4 (BEAKER) (test code = 412) PLATELET COUNT (BEAKER) (test 127 K/CU MM 150-450 L code = 756) MEAN PLATELET VOLUME (BEAKER) 13.3 fL 9.4-12.3 H (test code = 754) NUCLEATED RED BLOOD CELLS 0 /100 WBC 0-0 (BEAKER) (test code = 413) RAD, CHEST, 1 VIEW, NON [id number] 13:11:00Reason for exam:->Post ICD implantShould this be performed at the bedside?->Yes [facility] 1960 Sex: FFINAL REPORT RAD, CHEST, 1 VIEW, NON DEPT INDICATION: Post ICD implant COMPARISON: September 10, 2020 FINDINGS: Portable frontal view of the chest. IMPRESSION: Support Lines: None Lungs and pleura: No new consolidation. No postprocedural pneumothorax.Heart and mediastinum: Stable contours. Single lead pacer has been placed.Additional findings: None. Signed: JR Chau Robert MDReport Verified Date/Time: 02/25/2021 13:11:04 Reading Location: [facility] Radiology Reading Room Basic metabolic [id number] 08:58:00 Test Item Value Reference Range Interpretation Comments Sodium (test code = 141 meq/L 916-728 6762-2) Potassium (test 4.3 meq/L 3.5-5.1 code = 2823-3) Chloride (test code 106 meq/L 98-107 = 5-0) CO2 (test code = 27 meq/L -2028-07) BUN (test code = 13 mg/dL 7- 3094-0) Creatinine (test 0.86 mg/dL 0.57-1.25 code = 2160-0) Glucose (test code 94 mg/dL 70-105 = 2345-7) Calcium (test code 8.9 mg/dL 8.4-10.2 = 58784-0) EGFR (test code = 82 mL/min/1.[place] [address]-8) NOT ACCURATE CREATININE CLEARANCE IN PREDICTING GLOMERULAR FILTRATION RATE . ESTIMATED GFR I S NOT APPLICABLE FOR DIALYSIS PATIEN TS. AZUCENA (test code = Alarm Technician ID - AZUCENA) DIANA Annemarie PONCE [facility] METABOLIC [id number] 08:58:00 Test Item Value Reference Range Interpretation Comments SODIUM (BEAKER) 141 meq/L 136-145 (test code = 381) POTASSIUM (BEAKER) 4.3 meq/L 3.5-5.1 (test code = 379) CHLORIDE (BEAKER) 106 meq/L 98-107 (test code = 382) CO2 (BEAKER) (test 27 meq/L 22-29 code = 355) BLOOD UREA NITROGEN 13 mg/dL 7-21 (BEAKER) (test code = 354) CREATININE (BEAKER) 0.86 mg/dL 0.57-1.25 (test code = 358) GLUCOSE RANDOM 94 mg/dL 70-105 (BEAKER) (test code = 652) CALCIUM (BEAKER) 8.9 mg/dL 8.4-10.2 (test code = 697) EGFR (BEAKER) (test 82 mL/min/1.73 ESTIMA LEV GFR IS code = 1092) sq m NOT ACCURATE CREATININE CLEARANCE IN PREDICTING GLOMERULAR FILTRATION RATE . ESTIMATED GFR I S NOT APPLICABLE FOR DIALYSIS PATIEN TS. Alarm Technician ID - PIAYA [facility] (HEMOGRAM ONLY)2021-02-25 08:14:00 Test Item Value Reference Range Interpretation Comments WHITE BLOOD CELL COUNT (BEAKER) 5.7 K/ L 3.5-10.5 (test code = 775) RED BLOOD CELL COUNT (BEAKER) 4.66 M/ L 3.93-5.22 (test code = 761) HEMOGLOBIN (BEAKER) (test code = 14.2 GM/DL 11.2-15.7 410) HEMATOCRIT (BEAKER) (test code = 42.9 % 34.1-44.9 411) MEAN CORPUSCULAR VOLUME (BEAKER) 92.1 fL 79.4-94.8 (test code = 753) MEAN CORPUSCULAR HEMOGLOBIN 30.5 pg 25.6-32.2 (BEAKER) (test code = 751) MEAN CORPUSCULAR HEMOGLOBIN CONC 33.1 GM/DL 32.2-35.5 (BEAKER) (test code = 752) RED CELL DISTRIBUTION WIDTH 13.8 % 11.7-14.4 (BEAKER) (test code = 412) PLATELET COUNT (BEAKER) (test 148 K/CU MM 150-450 L code = 756) MEAN PLATELET VOLUME (BEAKER) 12.8 fL 9.4-12.3 H (test code = 754) NUCLEATED RED BLOOD CELLS 0 /100 WBC 0-0 (BEAKER) (test code = 413) Prothrombin time/[id number] 08:12:00 Test Item Value Reference Interpretation Comments Range Protime (test code = 12.6 See_Comment [Autom ated 5902-2) message] The system which generated this result transmitted reference range : 11.9 - 14.2 seconds. The reference range was not used to interpret this result as normal/abnormal . INR (test code = 0.97 See_Comment [Automated 6301-6) message] The system which generated this result transmitted reference range : <=5.90. The reference range was not used to interpret this result as normal/abnormal . AZUCENA (test code = Effective 04/26/2019: AZUCENA) PT Reference Range ChangeNew: 11.9-14.2 Previous: 11.7-14.7 RECOMMENDED COUMADIN/WARFARIN INR THERAPY RANGESSTANDARD DOSE: 2.0-3.0 Includes: PROPHYLAXIS for venous thrombosis, systemic embolization; TREATMENT for venous thrombosis and/or pulmonary embolus.HIGH RISK: Target INR is 2.5-3.5 for patients wiht mechanical heart valves. Within 24 hours, if on Coumadin Lab Interpretation Normal (test code = 27043-5) [facility]PROTHROM[facility]/[id number] 08:12:00 Test Item Value Reference Range Interpretation Comments PROTIME (BEAKER) 12.6 seconds 11.9-14.2 (test code = 759) INR (BEAKER) (test 0.97 See_Comment [Automat ed message] code = 370) The system ic h generated this result transmitted ref erence range: <=5.90. The reference range was not used to int erpret this result as normal/abnormal . Effective 04/26/2019: PT Reference Range ChangeNew: 11.9-14.2 Previous: 11.7- 14.7RECOMMENDED COUMADIN/WARFARIN INR THERAPY RANGESSTANDARD DOSE: 2.0-3.0 Includes: PROPHYLAXIS for venous thrombosis, systemic embolization; TREATMENT for venous thrombosis and/or pulmonary embolus.HIGH RISK: Target INR is2.5-3.5 for patients wiht mechanical heart valves.Within 24 hours, if on Coumadin SARS-CoV2/RT-PCR ([facility])2021-02-22 01:29:00 Test Item Value Reference Range Interpretation Comments SARS-COV2/RT-PCR Negative Not Detected, (test code = Negative, See 16715-3) external report for linked test SARS-COV-2 [facility] (test code = 85771-1) AZUCENA (test code = Negative result for this AZUCENA) test determines that SARS-CoV-2 RNA was not present in the specimen above the Limit of Detection (LOD). However, Negative results do not preclude SARS-CoV-2 infection and should not be used as the sole basis for treatment or patient management decisions. Negative results must be combined with clinical observations, patient history, and epidemiological information. A false negative result may occur if a specimen is improperly collected, transported or handled. A false negative result should be considered if patient's recent exposures or clinical presentation indicate that COVID-19 (SARS-CoV-2) is likely and diagnostic tests for other causes of illness are negative. Re-testing should be considered in cases of suspected false negatives. The limit of detection for this assay is 100 copies/mL. This SARS CoV-2 test is a real-time RT-PCR test intended for the qualitative detection of nucleic acid from SARS-CoV-2 in a nasopharyngeal swab specimen collected from individuals suspected of COVID-19 by their healthcare provider. This test has not been Food and Drug Administration (FDA) cleared or approved. This is a modified version of an approved Emergency Use Authorization (EUA) and is in the process of review by the FDA. Once authorized by the FDA, the issued EUA will be effective until the declaration that circumstances exist justifying the authorization of the emergency use of in vitro diagnostic tests for detection and/or diagnosis of COVID-19 is terminated under Section 564(b)(2) of the Act or the EUA is revoked under Section 564(g) of the Act. Testing was performed using the [employer] SARS-CoV-2 assay. Fact Sheet for Healthcare Providers:https://www.[employer]/devin/RT_SA KX-ZvR-1_VTL_Zzgp_Zhbds_ 51-094901.pdf Fact Sheet for Healthcare Patients:https://www.[employer]/devin/RT_SAR A-OlL-2_Vxsmmkm_Ebfo_Qvx et_EN_51-571631M3.pdf Performing Laboratory:[facility] [place] [address] [facility] ([facility])2021-02-22 01:29:00 Test Item Value Reference Range Interpretation Comments SARS-COV2/RT-PCR (test Negative Not Detected, Negative, code = 8294145) See external report for linked test SARS-COV-2 PERFORMING LAB [facility] (test code = 5794472) Negative result for this test determines that SARS-CoV-2 RNA was not present in the specimen above the Limit of Detection (LOD). However, Negative results do not preclude SARS-CoV-2 infection and should not be used as the sole basis for treatment or patient management decisions. Negative results mustbe combined with clinical observations, patient history, and epidemiological information. A false negative result may occur if a specimen is improperly collected, transported or handled. A false negative result should be considered if patient's recent exposures or clinical presentation indicate that COVID-19 (SARS-CoV-2) is likely and diagnostic tests for other causes of illness are negative. Re-testing should be considered in cases of suspected false negatives.The limit of detection for this assay is 100 copies/mL.This SARS CoV-2 test is a real-time RT-PCR test intended for the qualitative detection of nucleic acid from SARS-CoV-2 in a nasopharyngeal swab specimen collected from individuals susp ected of COVID-19 by their healthcare provider.This test has not been Food and Drug Administration (FDA) cleared or approved. This is a modified version of an approved Emergency Use Authorization (EUA) and is in the process of review by the FDA. Once authorized by the FDA, the issued EUA will be effective until the declaration that circumstances exist justifying the authorization of the emergency use of in vitro diagnostic tests for detection and/or diagnosis of COVID-19 is terminated under Section 564(b)(2) of the Act or the EUA is revoked under Section 564(g) of the Act.Testing was performed using the Augustine SARS-CoV-2 assay.Fact Sheet for Healthcare Providers:https://www.[facility].augustine/devin/ WO_LGLT-SqT-5_UYA_Uaen_Kqxue_[email or web address].pdfFact Sheet for Healthcare Patients:https://www.[facility].[employer] argelia/devin/KO_QKIO-RjQ-0_Xsfjfpq_Dbkq_Kmawp_SJ_[email or web address].pdfPerforming Laboratory:[address] [place] [address] BASIC METABOLIC [id number] 14:55:00 Test Item Value Reference Range Interpretation Comments SODIUM (BEAKER) 142 meq/L 136-145 (test code = 381) POTASSIUM (BEAKER) 4.1 meq/L 3.5-5.1 (test code = 379) CHLORIDE (BEAKER) 105 meq/L 98-107 (test code = 382) CO2 (BEAKER) (test 30 meq/L 22-29 H code = 355) BLOOD UREA NITROGEN 12 mg/dL 7-21 (BEAKER) (test code = 354) CREATININE (BEAKER) 0.91 mg/dL 0.57-1.25 (test code = 358) GLUCOSE RANDOM 85 mg/dL 70-105 (BEAKER) (test code = 652) CALCIUM (BEAKER) 9.3 mg/dL 8.4-10.2 (test code = 697) EGFR (BEAKER) (test 76 mL/min/1.73 ESTIMA LEV GFR IS code = 1092) sq m NOT ACCURATE CREATININE CLEARANCE IN PREDICTING GLOMERULAR FILTRATION RATE . ESTIMATED GFR I S NOT APPLICABLE FOR DIALYSIS PATIEN TS. Alarm Technician ID - RMCBC W/PLT COUNT & AUTO [id number] 14:38:00 Test Item Value Reference Range Interpretation Comments WHITE BLOOD CELL COUNT (BEAKER) 5.0 K/ L 3.5-10.5 (test code = 775) RED BLOOD CELL COUNT (BEAKER) 4.51 M/ L 3.93-5.22 (test code = 761) HEMOGLOBIN (BEAKER) (test code = 13.8 GM/DL 11.2-15.7 410) HEMATOCRIT (BEAKER) (test code = 43.1 % 34.1-44.9 411) MEAN CORPUSCULAR VOLUME (BEAKER) 95.6 fL 79.4-94.8 H (test code = 753) MEAN CORPUSCULAR HEMOGLOBIN 30.6 pg 25.6-32.2 (BEAKER) (test code = 751) MEAN CORPUSCULAR HEMOGLOBIN CONC 32.0 GM/DL 32.2-35.5 L (BEAKER) (test code = 752) RED CELL DISTRIBUTION WIDTH 13.7 % 11.7-14.4 (BEAKER) (test code = 412) PLATELET COUNT (BEAKER) (test 146 K/CU MM 150-450 L code = 756) MEAN PLATELET VOLUME (BEAKER) 13.0 fL 9.4-12.3 H (test code = 754) NUCLEATED RED BLOOD CELLS 0 /100 WBC 0-0 (BEAKER) (test code = 413) NEUTROPHILS RELATIVE PERCENT 40 % (BEAKER) (test code = 429) LYMPHOCYTES RELATIVE PERCENT 48 % (BEAKER) (test code = 430) MONOCYTES RELATIVE PERCENT 10 % (BEAKER) (test code = 431) EOSINOPHILS RELATIVE PERCENT 1 % (BEAKER) (test code = 432) BASOPHILS RELATIVE PERCENT 0 % (BEAKER) (test code = 437) NEUTROPHILS ABSOLUTE COUNT 1.99 K/ L 1.56-6.13 (BEAKER) (test code = 670) LYMPHOCYTES ABSOLUTE COUNT 2.40 K/ L 1.18-3.74 (BEAKER) (test code = 414) MONOCYTES ABSOLUTE COUNT (BEAKER) 0.50 K/ L 0.24-0.36 H (test code = 415) EOSINOPHILS ABSOLUTE COUNT 0.07 K/ L 0.04-0.36 (BEAKER) (test code = 416) BASOPHILS ABSOLUTE COUNT (BEAKER) 0.02 K/ L 0.01-0.08 (test code = 417) IMMATURE GRANULOCYTES-RELATIVE 0 % 0-1 PERCENT (BEAKER) (test code = 2801) VASCULAR DIAGRAM -[id number] 14:31:51Ordered by an unspecified provider.[facility] - [id number] 15:16:58Ordered by an unspecified provider.[facility] HospitalMagnesium2020-10-20 05:43:00 Test Item Value Reference Range Interpretation Comments Magnesium (test code = 1.7 mg/dL 1.6-2.6 35190-3) AZUCENA (test code = AZUCENA) Alarm Technician ID - DIANA L Lab Interpretation (test Normal code = 92671-1) [facility] 05:43:00 Test Item Value Reference Range Interpretation Comments Phosphorus (test code = 3.9 mg/dL 2.3-4.7 2777-1) AZUCENA (test code = AZUCENA) Alarm Technician ID - DIANA L Lab Interpretation (test Normal code = 26942-8) [facility] [id number] 05:43:00 Test Item Value Reference Range Interpretation Comments SODIUM (BEAKER) 138 meq/L 136-145 (test code = 381) POTASSIUM (BEAKER) 4.2 meq/L 3.5-5.1 (test code = 379) CHLORIDE (BEAKER) 102 meq/L 98-107 (test code = 382) CO2 (BEAKER) (test 28 meq/L 22-29 code = 355) BLOOD UREA NITROGEN 17 mg/dL 7-21 (BEAKER) (test code = 354) CREATININE (BEAKER) 0.82 mg/dL 0.57-1.25 (test code = 358) GLUCOSE RANDOM 96 mg/dL 70-105 (BEAKER) (test code = 652) CALCIUM (BEAKER) 9.1 mg/dL 8.4-10.2 (test code = 697) EGFR (BEAKER) (test 86 mL/min/1.73 ESTIMA LEV GFR IS code = 1092) sq m NOT ACCURATE CREATININE CLEARANCE IN PREDICTING GLOMERULAR FILTRATION RATE . ESTIMATED GFR I S NOT APPLICABLE FOR DIALYSIS PATIEN TS. Alarm Technician ID - DIANA [id number] 05:43:00 Test Item Value Reference Range Interpretation Comments MAGNESIUM (BEAKER) (test code = 1.7 mg/dL 1.6-2.6 627) Alarm Technician ID - DIANA [id number] 05:43:00 Test Item Value Reference Range Interpretation Comments PHOSPHORUS (BEAKER) (test code = 3.9 mg/dL 2.3-4.7 604) Alarm Technician ID - PIAYA [id number] 05:36:00 Test Item Value Reference Range Interpretation Comments MAGNESIUM (BEAKER) 2.0 mg/dL 1.6-2.6 Specimen slightly (test code = 627) hemolyzed Alarm Technician ID - [id number] 05:36:00 Test Item Value Reference Range Interpretation Comments PHOSPHORUS (BEAKER) 4.3 mg/dL 2.3-4.7 Specimen slightly (test code = 604) hemolyzed Alarm Technician ID - DBBASIC METABOLIC [id number] 05:36:00 Test Item Value Reference Range Interpretation Comments SODIUM (BEAKER) 138 meq/L 136-145 (test code = 381) POTASSIUM (BEAKER) 4.2 meq/L 3.5-5.1 Specimen slightly (test code = 379) hemolyzed CHLORIDE (BEAKER) 101 meq/L 98-107 (test code = 382) CO2 (BEAKER) (test 29 meq/L 22-29 code = 355) BLOOD UREA NITROGEN 27 mg/dL 7-21 H (BEAKER) (test code = 354) CREATININE (BEAKER) 0.86 mg/dL 0.57-1.25 Specimen slightly (test code = 358) hemolyzed GLUCOSE RANDOM 109 mg/dL 70-105 H (BEAKER) (test code = 652) CALCIUM (BEAKER) 9.1 mg/dL 8.4-10.2 (test code = 697) EGFR (BEAKER) (test 82 mL/min/1.73 ESTIMA LEV GFR IS code = 1092) sq m NOT ACCURATE CREATININE CLEARANCE IN PREDICTING GLOMERULAR FILTRATION RATE . ESTIMATED GFR I S NOT APPLICABLE FOR DIALYSIS PATIEN TS. Alarm Technician ID - DBCBC W/PLT COUNT & AUTO [id number] 05:10:00 Test Item Value Reference Range Interpretation Comments WHITE BLOOD CELL COUNT (BEAKER) 4.8 K/ L 3.5-10.5 (test code = 775) RED BLOOD CELL COUNT (BEAKER) 4.45 M/ L 3.93-5.22 (test code = 761) HEMOGLOBIN (BEAKER) (test code = 13.3 GM/DL 11.2-15.7 410) HEMATOCRIT (BEAKER) (test code = 41.9 % 34.1-44.9 411) MEAN CORPUSCULAR VOLUME (BEAKER) 94.2 fL 79.4-94.8 (test code = 753) MEAN CORPUSCULAR HEMOGLOBIN 29.9 pg 25.6-32.2 (BEAKER) (test code = 751) MEAN CORPUSCULAR HEMOGLOBIN CONC 31.7 GM/DL 32.2-35.5 L (BEAKER) (test code = 752) RED CELL DISTRIBUTION WIDTH 13.5 % 11.7-14.4 (BEAKER) (test code = 412) PLATELET COUNT (BEAKER) (test 175 K/CU MM 150-450 code = 756) MEAN PLATELET VOLUME (BEAKER) 11.7 fL 9.4-12.3 (test code = 754) NUCLEATED RED BLOOD CELLS 0 /100 WBC 0-0 (BEAKER) (test code = 413) NEUTROPHILS RELATIVE PERCENT 27 % (BEAKER) (test code = 429) LYMPHOCYTES RELATIVE PERCENT 57 % (BEAKER) (test code = 430) MONOCYTES RELATIVE PERCENT 11 % (BEAKER) (test code = 431) EOSINOPHILS RELATIVE PERCENT 4 % (BEAKER) (test code = 432) BASOPHILS RELATIVE PERCENT 1 % (BEAKER) (test code = 437) NEUTROPHILS ABSOLUTE COUNT 1.31 K/ L 1.56-6.13 L (BEAKER) (test code = 670) LYMPHOCYTES ABSOLUTE COUNT 2.72 K/ L 1.18-3.74 (BEAKER) (test code = 414) MONOCYTES ABSOLUTE COUNT (BEAKER) 0.52 K/ L 0.24-0.36 H (test code = 415) EOSINOPHILS ABSOLUTE COUNT 0.19 K/ L 0.04-0.36 (BEAKER) (test code = 416) BASOPHILS ABSOLUTE COUNT (BEAKER) 0.05 K/ L 0.01-0.08 (test code = 417) IMMATURE GRANULOCYTES-RELATIVE 0 % 0-1 PERCENT (BEAKER) (test code = 2801) Calcium, [id number] 05:03:00 Test Item Value Reference Range Interpretation Comments Calcium, Ion (test code = 1994-3) 1.20 mmol/L 1.12-1.27 pH, Blood (test code = 96577-3) 7.38 [facility] HospitalCALCI[facility], [id number] 05:03:00 Test Item Value Reference Range Interpretation Comments CALCIUM IONIZED (BEAKER) (test 1.20 mmol/L 1.12-1.27 code = 698) PH, BLOOD (BEAKER) (test code = 7.38 1810) BASIC METABOLIC [id number] 10:45:00 Test Item Value Reference Range Interpretation Comments SODIUM (BEAKER) 135 meq/L 136-145 L (test code = 381) POTASSIUM (BEAKER) 4.7 meq/L 3.5-5.1 (test code = 379) CHLORIDE (BEAKER) 97 meq/L 98-107 L (test code = 382) CO2 (BEAKER) (test 28 meq/L 22-29 code = 355) BLOOD UREA NITROGEN 18 mg/dL 7-21 (BEAKER) (test code = 354) CREATININE (BEAKER) 0.88 mg/dL 0.57-1.25 (test code = 358) GLUCOSE RANDOM 141 mg/dL 70-105 H (BEAKER) (test code = 652) CALCIUM (BEAKER) 9.7 mg/dL 8.4-10.2 (test code = 697) EGFR (BEAKER) (test 80 mL/min/1.73 ESTIMA LEV GFR IS code = 1092) sq m NOT ACCURATE CREATININE CLEARANCE IN PREDICTING GLOMERULAR FILTRATION RATE . ESTIMATED GFR I S NOT APPLICABLE FOR DIALYSIS PATIEN TS. Alarm Technician ID - AAHAMIDLipid [id number] 06:41:00 Test Item Value Reference Range Interpretation Comments Triglycerides (test 94 mg/dL code = 2571-8) Cholesterol (test code 119 mg/dL = 2093-3) HDL (test code = 51 mg/dL 5-9) LDL Calculated (test 49 mg/dL code = 07665-6) AZUCENA (test code = AZUCENA) Triglyceride Reference Range: Low Risk <150 Borderline 150-199 High Risk 200-499 Very High Risk >=500 Cholesterol Reference Range: Low Risk <200 Borderline 200-239 High Risk >240 HDL Cholesterol Reference Range: Low Risk >=60 High Risk <40 LDL Cholesterol Reference Range: Optimal <100 Near Optimal 100-129 Borderline 130-159 High 160-189 Very High >=190 Alarm Technician ID - TANYA [facility]OLIC [id number] 06:41:00 Test Item Value Reference Range Interpretation Comments SODIUM (BEAKER) 139 meq/L 136-145 (test code = 381) POTASSIUM (BEAKER) 4.8 meq/L 3.5-5.1 (test code = 379) CHLORIDE (BEAKER) 101 meq/L 98-107 (test code = 382) CO2 (BEAKER) (test 29 meq/L 22-29 code = 355) BLOOD UREA NITROGEN 21 mg/dL 7-21 (BEAKER) (test code = 354) CREATININE (BEAKER) 0.82 mg/dL 0.57-1.25 (test code = 358) GLUCOSE RANDOM 98 mg/dL 70-105 (BEAKER) (test code = 652) CALCIUM (BEAKER) 8.9 mg/dL 8.4-10.2 (test code = 697) EGFR (BEAKER) (test 86 mL/min/1.73 ESTIMA LEV GFR IS code = 1092) sq m NOT ACCURATE CREATININE CLEARANCE IN PREDICTING GLOMERULAR FILTRATION RATE . ESTIMATED GFR I S NOT APPLICABLE FOR DIALYSIS PATIEN TS. Alarm Technician ID - TANYA [id number] 06:41:00 Test Item Value Reference Range Interpretation Comments MAGNESIUM (BEAKER) (test code = 1.8 mg/dL 1.6-2.6 627) Alarm Technician ID Glendy MARTÍNEZ [id number] 06:41:00 Test Item Value Reference Range Interpretation Comments PHOSPHORUS (BEAKER) (test code = 4.1 mg/dL 2.3-4.7 604) Alarm Technician ID Glendy MARTÍNEZ MLIPID [id number] 06:41:00 Test Item Value Reference Range Interpretation Comments TRIGLYCERIDES (BEAKER) (test code = 94 mg/dL 540) CHOLESTEROL (BEAKER) (test code = 119 mg/dL 631) HDL CHOLESTEROL (BEAKER) (test code 51 mg/dL = 976) LDL CHOLESTEROL CALCULATED (BEAKER) 49 mg/dL (test code = 633) Triglyceride Reference Range: Low Risk <150 Borderline 150-199 High Risk 200-499 Very High Risk >=500Cholesterol Reference Range: Low Risk <200 Borderline 200-239 High Risk >240HDL Cholesterol Reference Range: Low Risk >=60 High Risk <40LDL Cholesterol Reference Range: Optimal <100 Near Optimal 100-129 Borderline 130-159 High 160-189 Very High >=190 Alarm Technician ID - TANYA MCBC W/PLT COUNT & AUTO [id number] 06:09:00 Test Item Value Reference Range Interpretation Comments WHITE BLOOD CELL COUNT (BEAKER) 4.3 K/ L 3.5-10.5 (test code = 775) RED BLOOD CELL COUNT (BEAKER) 4.63 M/ L 3.93-5.22 (test code = 761) HEMOGLOBIN (BEAKER) (test code = 13.7 GM/DL 11.2-15.7 410) HEMATOCRIT (BEAKER) (test code = 43.5 % 34.1-44.9 411) MEAN CORPUSCULAR VOLUME (BEAKER) 94.0 fL 79.4-94.8 (test code = 753) MEAN CORPUSCULAR HEMOGLOBIN 29.6 pg 25.6-32.2 (BEAKER) (test code = 751) MEAN CORPUSCULAR HEMOGLOBIN CONC 31.5 GM/DL 32.2-35.5 L (BEAKER) (test code = 752) RED CELL DISTRIBUTION WIDTH 14.3 % 11.7-14.4 (BEAKER) (test code = 412) PLATELET COUNT (BEAKER) (test 213 K/CU MM 150-450 code = 756) MEAN PLATELET VOLUME (BEAKER) 11.6 fL 9.4-12.3 (test code = 754) NUCLEATED RED BLOOD CELLS 0 /100 WBC 0-0 (BEAKER) (test code = 413) NEUTROPHILS RELATIVE PERCENT 27 % (BEAKER) (test code = 429) LYMPHOCYTES RELATIVE PERCENT 57 % (BEAKER) (test code = 430) MONOCYTES RELATIVE PERCENT 11 % (BEAKER) (test code = 431) EOSINOPHILS RELATIVE PERCENT 4 % (BEAKER) (test code = 432) BASOPHILS RELATIVE PERCENT 1 % (BEAKER) (test code = 437) NEUTROPHILS ABSOLUTE COUNT 1.18 K/ L 1.56-6.13 L (BEAKER) (test code = 670) LYMPHOCYTES ABSOLUTE COUNT 2.45 K/ L 1.18-3.74 (BEAKER) (test code = 414) MONOCYTES ABSOLUTE COUNT (BEAKER) 0.48 K/ L 0.24-0.36 H (test code = 415) EOSINOPHILS ABSOLUTE COUNT 0.18 K/ L 0.04-0.36 (BEAKER) (test code = 416) BASOPHILS ABSOLUTE COUNT (BEAKER) 0.04 K/ L 0.01-0.08 (test code = 417) IMMATURE GRANULOCYTES-RELATIVE 0 % 0-1 PERCENT (BEAKER) (test code = 2801) CALCIUM, [id number] 04:39:00 Test Item Value Reference Range Interpretation Comments CALCIUM IONIZED (BEAKER) (test 1.22 mmol/L 1.12-1.27 code = 698) PH, BLOOD (BEAKER) (test code = 7.40 1810) CBC W/PLT COUNT & AUTO [id number] 05:15:00 Test Item Value Reference Range Interpretation Comments WHITE BLOOD CELL COUNT (BEAKER) 5.1 K/ L 3.5-10.5 (test code = 775) RED BLOOD CELL COUNT (BEAKER) 4.70 M/ L 3.93-5.22 (test code = 761) HEMOGLOBIN (BEAKER) (test code = 14.1 GM/DL 11.2-15.7 410) HEMATOCRIT (BEAKER) (test code = 44.1 % 34.1-44.9 411) MEAN CORPUSCULAR VOLUME (BEAKER) 93.8 fL 79.4-94.8 (test code = 753) MEAN CORPUSCULAR HEMOGLOBIN 30.0 pg 25.6-32.2 (BEAKER) (test code = 751) MEAN CORPUSCULAR HEMOGLOBIN CONC 32.0 GM/DL 32.2-35.5 L (BEAKER) (test code = 752) RED CELL DISTRIBUTION WIDTH 14.3 % 11.7-14.4 (BEAKER) (test code = 412) PLATELET COUNT (BEAKER) (test 221 K/CU MM 150-450 code = 756) MEAN PLATELET VOLUME (BEAKER) 11.6 fL 9.4-12.3 (test code = 754) NUCLEATED RED BLOOD CELLS 0 /100 WBC 0-0 (BEAKER) (test code = 413) NEUTROPHILS RELATIVE PERCENT 22 % (BEAKER) (test code = 429) LYMPHOCYTES RELATIVE PERCENT 62 % (BEAKER) (test code = 430) MONOCYTES RELATIVE PERCENT 9 % (BEAKER) (test code = 431) EOSINOPHILS RELATIVE PERCENT 6 % (BEAKER) (test code = 432) BASOPHILS RELATIVE PERCENT 1 % (BEAKER) (test code = 437) NEUTROPHILS ABSOLUTE COUNT 1.11 K/ L 1.56-6.13 L (BEAKER) (test code = 670) LYMPHOCYTES ABSOLUTE COUNT 3.19 K/ L 1.18-3.74 (BEAKER) (test code = 414) MONOCYTES ABSOLUTE COUNT (BEAKER) 0.48 K/ L 0.24-0.36 H (test code = 415) EOSINOPHILS ABSOLUTE COUNT 0.29 K/ L 0.04-0.36 (BEAKER) (test code = 416) BASOPHILS ABSOLUTE COUNT (BEAKER) 0.05 K/ L 0.01-0.08 (test code = 417) IMMATURE GRANULOCYTES-RELATIVE 0 % 0-1 PERCENT (BEAKER) (test code = 2801) BASIC METABOLIC [id number] 05:12:00 Test Item Value Reference Range Interpretation Comments SODIUM (BEAKER) 139 meq/L 136-145 (test code = 381) POTASSIUM (BEAKER) 5.0 meq/L 3.5-5.1 (test code = 379) CHLORIDE (BEAKER) 103 meq/L 98-107 (test code = 382) CO2 (BEAKER) (test 27 meq/L 22-29 code = 355) BLOOD UREA NITROGEN 21 mg/dL 7-21 (BEAKER) (test code = 354) CREATININE (BEAKER) 0.93 mg/dL 0.57-1.25 (test code = 358) GLUCOSE RANDOM 87 mg/dL 70-105 (BEAKER) (test code = 652) CALCIUM (BEAKER) 8.6 mg/dL 8.4-10.2 (test code = 697) EGFR (BEAKER) (test 75 mL/min/1.73 ESTIMA LEV GFR IS code = 1092) sq m NOT ACCURATE CREATININE CLEARANCE IN PREDICTING GLOMERULAR FILTRATION RATE . ESTIMATED GFR I S NOT APPLICABLE FOR DIALYSIS PATIEN TS. Alarm Technician ID - TANYA [id number] 05:12:00 Test Item Value Reference Range Interpretation Comments MAGNESIUM (BEAKER) (test code = 1.7 mg/dL 1.6-2.6 627) Alarm Technician ID - TANYA [id number] 05:12:00 Test Item Value Reference Range Interpretation Comments PHOSPHORUS (BEAKER) (test code = 4.0 mg/dL 2.3-4.7 604) Alarm Technician ID - TANYA MCALCIUM, [id number] 04:39:00 Test Item Value Reference Range Interpretation Comments CALCIUM IONIZED (BEAKER) (test 1.17 mmol/L 1.12-1.27 code = 698) PH, BLOOD (BEAKER) (test code = 7.42 1810) RAD, CHEST, 1 VIEW, NON [id number] 15:46:00Reason for exam:->SOBShould this be performed at the bedside?->YesIs the patient ?->NoFINAL REPORT CLINICAL HISTORY: SOB TECHNIQUE: 1 view of the chest. COMPARISON: None IMPRESSION: There are no focal infiltrates or effusions. The cardiomediastinal silhouette is magnified by technique. There is a dextroscoliosis of the thoracic spine. There is cervical fusion hardware. Signed: Oleg Allen [facility] Verified Date/Time: 09/10/2020 15:46:57 Reading Location: [facility] Radiology Reading Room TSH/Free T4 If [id number] 06:32:00 Test Item Value Reference Range Interpretation Comments TSH (test code = 3.534 See_Comment [Automated 90750-0) message] The system which generated this result transmit lev reference range : 0.350 - 4.940 uIU/mL. The reference range was not used to interpret this result as normal/abnormal . AZUCENA (test code = AZUCENA) Alarm Technician ID - EDASI Lab Interpretation Normal (test code = 98134-4) [facility] T[facility] IF [id number] 06:32:00 Test Item Value Reference Range Interpretation Comments THYROID STIMULATING HORMONE 3.534 uIU/mL 0.350-4.940 (BEAKER) (test code = 772) Alarm Technician ID - EDASIBASIC METABOLIC [id number] 06:10:00 Test Item Value Reference Range Interpretation Comments SODIUM (BEAKER) 141 meq/L 136-145 (test code = 381) POTASSIUM (BEAKER) 4.4 meq/L 3.5-5.1 (test code = 379) CHLORIDE (BEAKER) 105 meq/L 98-107 (test code = 382) CO2 (BEAKER) (test 27 meq/L 22-29 code = 355) BLOOD UREA NITROGEN 16 mg/dL 7-21 (BEAKER) (test code = 354) CREATININE (BEAKER) 0.84 mg/dL 0.57-1.25 (test code = 358) GLUCOSE RANDOM 97 mg/dL 70-105 (BEAKER) (test code = 652) CALCIUM (BEAKER) 8.3 mg/dL 8.4-10.2 L (test code = 697) EGFR (BEAKER) (test 84 mL/min/1.73 ESTIMA LEV GFR IS code = 1092) sq m NOT ACCURATE CREATININE CLEARANCE IN PREDICTING GLOMERULAR FILTRATION RATE . ESTIMATED GFR I S NOT APPLICABLE FOR DIALYSIS PATIEN TS. Alarm Technician ID - [id number] 06:10:00 Test Item Value Reference Range Interpretation Comments MAGNESIUM (BEAKER) (test code = 2.0 mg/dL 1.6-2.6 627) Alarm Technician ID - [id number] 06:10:00 Test Item Value Reference Range Interpretation Comments PHOSPHORUS (BEAKER) (test code = 3.6 mg/dL 2.3-4.7 604) Alarm Technician ID - EDASICBC W/PLT COUNT & AUTO [id number] 05:49:00 Test Item Value Reference Range Interpretation Comments WHITE BLOOD CELL COUNT (BEAKER) 5.1 K/ L 3.5-10.5 (test code = 775) RED BLOOD CELL COUNT (BEAKER) 4.87 M/ L 3.93-5.22 (test code = 761) HEMOGLOBIN (BEAKER) (test code = 14.7 GM/DL 11.2-15.7 410) HEMATOCRIT (BEAKER) (test code = 45.6 % 34.1-44.9 H 411) MEAN CORPUSCULAR VOLUME (BEAKER) 93.6 fL 79.4-94.8 (test code = 753) MEAN CORPUSCULAR HEMOGLOBIN 30.2 pg 25.6-32.2 (BEAKER) (test code = 751) MEAN CORPUSCULAR HEMOGLOBIN CONC 32.2 GM/DL 32.2-35.5 (BEAKER) (test code = 752) RED CELL DISTRIBUTION WIDTH 14.5 % 11.7-14.4 H (BEAKER) (test code = 412) PLATELET COUNT (BEAKER) (test 217 K/CU MM 150-450 code = 756) MEAN PLATELET VOLUME (BEAKER) 11.8 fL 9.4-12.3 (test code = 754) NUCLEATED RED BLOOD CELLS 0 /100 WBC 0-0 (BEAKER) (test code = 413) NEUTROPHILS RELATIVE PERCENT 27 % (BEAKER) (test code = 429) LYMPHOCYTES RELATIVE PERCENT 57 % (BEAKER) (test code = 430) MONOCYTES RELATIVE PERCENT 9 % (BEAKER) (test code = 431) EOSINOPHILS RELATIVE PERCENT 6 % (BEAKER) (test code = 432) BASOPHILS RELATIVE PERCENT 1 % (BEAKER) (test code = 437) NEUTROPHILS ABSOLUTE COUNT 1.37 K/ L 1.56-6.13 L (BEAKER) (test code = 670) LYMPHOCYTES ABSOLUTE COUNT 2.92 K/ L 1.18-3.74 (BEAKER) (test code = 414) MONOCYTES ABSOLUTE COUNT (BEAKER) 0.48 K/ L 0.24-0.36 H (test code = 415) EOSINOPHILS ABSOLUTE COUNT 0.28 K/ L 0.04-0.36 (BEAKER) (test code = 416) BASOPHILS ABSOLUTE COUNT (BEAKER) 0.05 K/ L 0.01-0.08 (test code = 417) IMMATURE GRANULOCYTES-RELATIVE 0 % 0-1 PERCENT (BEAKER) (test code = 2801) CALCIUM, [id number] 04:41:00 Test Item Value Reference Range Interpretation Comments CALCIUM IONIZED (BEAKER) (test 1.14 mmol/L 1.12-1.27 code = 698) PH, BLOOD (BEAKER) (test code = 7.42 1810) Hemoglobin [id number] 09:27:00 Test Item Value Reference Range Interpretation Comments Hemoglobin A1C (test code = 4548-4) 5.9 % 4.3-6.1 Lab Interpretation (test code = Normal 44105-2) [id number]:00 Test Item Value Reference Range Interpretation Comments HEMOGLOBIN A1C (BEAKER) (test code = 5.9 % 4.3-6.1 368) [id number] 07:51:00 Test Item Value Reference Range Interpretation Comments Prealbumin (test code = 18 mg/dL 53969-1) AZUCENA (test code = AZUCENA) Alarm Technician ID - TANYA M Lab Interpretation (test Normal code = 60315-3) [id number] Test Item Value Reference Range Interpretation Comments PREALBUMIN (BEAKER) (test code = 18 mg/dL 586) Alarm Technician ID - TANYA [id number] 05:08:00 Test Item Value Reference Range Interpretation Comments MAGNESIUM (BEAKER) 1.7 mg/dL 1.6-2.6 Specimen slightly (test code = 627) hemolyzed Alarm Technician ID - TANYA [id number] 05:08:00 Test Item Value Reference Range Interpretation Comments PHOSPHORUS (BEAKER) 4.7 mg/dL 2.3-4.7 Specimen slightly (test code = 604) hemolyzed Alarm Technician ID - TANYA MBASIC METABOLIC [id number] 05:08:00 Test Item Value Reference Range Interpretation Comments SODIUM (BEAKER) 138 meq/L 136-145 (test code = 381) POTASSIUM (BEAKER) 3.7 meq/L 3.5-5.1 Specimen slightly (test code = 379) hemolyzed CHLORIDE (BEAKER) 100 meq/L 98-107 (test code = 382) CO2 (BEAKER) (test 27 meq/L 22-29 code = 355) BLOOD UREA NITROGEN 18 mg/dL 7-21 (BEAKER) (test code = 354) CREATININE (BEAKER) 0.86 mg/dL 0.57-1.25 Specimen slightly (test code = 358) hemolyzed GLUCOSE RANDOM 101 mg/dL 70-105 (BEAKER) (test code = 652) CALCIUM (BEAKER) 8.6 mg/dL 8.4-10.2 (test code = 697) EGFR (BEAKER) (test 82 mL/min/1.73 ESTIMA LEV GFR IS code = 1092) sq m NOT ACCURATE CREATININE CLEARANCE IN PREDICTING GLOMERULAR FILTRATION RATE . ESTIMATED GFR I S NOT APPLICABLE FOR DIALYSIS PATIEN TS. Alarm Technician ID - TANYA [facility] W/PLT COUNT & AUTO [id number] 04:45:00 Test Item Value Reference Range Interpretation Comments WHITE BLOOD CELL COUNT (BEAKER) 7.2 K/ L 3.5-10.5 (test code = 775) RED BLOOD CELL COUNT (BEAKER) 5.21 M/ L 3.93-5.22 (test code = 761) HEMOGLOBIN (BEAKER) (test code = 15.3 GM/DL 11.2-15.7 410) HEMATOCRIT (BEAKER) (test code = 47.8 % 34.1-44.9 H 411) MEAN CORPUSCULAR VOLUME (BEAKER) 91.7 fL 79.4-94.8 (test code = 753) MEAN CORPUSCULAR HEMOGLOBIN 29.4 pg 25.6-32.2 (BEAKER) (test code = 751) MEAN CORPUSCULAR HEMOGLOBIN CONC 32.0 GM/DL 32.2-35.5 L (BEAKER) (test code = 752) RED CELL DISTRIBUTION WIDTH 14.6 % 11.7-14.4 H (BEAKER) (test code = 412) PLATELET COUNT (BEAKER) (test 232 K/CU MM 150-450 code = 756) MEAN PLATELET VOLUME (BEAKER) 11.9 fL 9.4-12.3 (test code = 754) NUCLEATED RED BLOOD CELLS 0 /100 WBC 0-0 (BEAKER) (test code = 413) NEUTROPHILS RELATIVE PERCENT 32 % (BEAKER) (test code = 429) LYMPHOCYTES RELATIVE PERCENT 55 % (BEAKER) (test code = 430) MONOCYTES RELATIVE PERCENT 9 % (BEAKER) (test code = 431) EOSINOPHILS RELATIVE PERCENT 3 % (BEAKER) (test code = 432) BASOPHILS RELATIVE PERCENT 1 % (BEAKER) (test code = 437) NEUTROPHILS ABSOLUTE COUNT 2.30 K/ L 1.56-6.13 (BEAKER) (test code = 670) LYMPHOCYTES ABSOLUTE COUNT 3.94 K/ L 1.18-3.74 H (BEAKER) (test code = 414) MONOCYTES ABSOLUTE COUNT (BEAKER) 0.65 K/ L 0.24-0.36 H (test code = 415) EOSINOPHILS ABSOLUTE COUNT 0.24 K/ L 0.04-0.36 (BEAKER) (test code = 416) BASOPHILS ABSOLUTE COUNT (BEAKER) 0.07 K/ L 0.01-0.08 (test code = 417) IMMATURE GRANULOCYTES-RELATIVE 0 % 0-1 PERCENT (BEAKER) (test code = 2801) CALCIUM, [id number] 04:14:00 Test Item Value Reference Range Interpretation Comments CALCIUM IONIZED (BEAKER) (test 1.15 mmol/L 1.12-1.27 code = 698) PH, BLOOD (BEAKER) (test code = 7.44 1810) 2D Echo W/Doppler(CW/PW/Color)2020-09-08 14:00:50Ejection FractionSLEH ECHO HEARTLAB MKCKESSON CPACSInterface, External Ris In - 09/08/2020 2:01 PM C DTTransthoracic Echocardiography Report (TTE) Demographics Patient Name CUONG, Date of Study 09/07/2020 SATINDER Gender Female Visit Number [id number] Race Black Room Number [id number] Number Date of 1961 Referring Physician PRISCILA Clark Age 59 year(s) Vaccinator Rufino Connors Research Laboratory Manager Lizabeth Lopez Interpreting Claire Guerra Physician Procedure Type of Study TTE procedure:2DECHO W DOPPLER(CW/PW/COLOR) (Routine) Indications:Congestive heart failure.Clinical HistoryHX OF COCAINE ABUSE, [facility]FHeight[facility] inches Weight: 49.9 kg (110 lbs) BSA: 1.47 m^2 BMI: 20.78 kg/m^2HR: 89 bpm BP: 124/71 mmHg Summary The left ventricle is chamber size (by vol index) is mildly enlarged (female - LVED 62-70ml/m2). The following segment(s) are not wellvisualized: apex for shortened. .The following segment(s) appear akinetic: basal-mid inferior and inf eroseptum. The other segments are hypokinetic. LVEF by Coley's method of disk assessment is severely reduced (25-29%) . Grade 1 diastolic dysfunction (impaired relaxation and low-normal LA pressure). Global RV systolic function is mildly reduced . Unable to estimate peak systolic PA pressure; inadequate TR velocity signal. Previous Study No prior exam available for comparison. Signature Findings Technical Quality: Technically fair exam. Left Ventricle The leftventricle is chamber size (by vol index) is mildly enlarged (female - LVED 62-70ml/m2). Normal LV wall thickness. The following segment(s) are not well visualized: apex for shortened. .The following segment(s) appear akinetic: basal-mid inferior and inferoseptum. The other segments are hypokinetic. Global LV systolic function severely reduced . LVEF by Coley's method of disk assessment is severely reduced (25-29%) . The LVEF was measured using Coley's bi-plane method of disk . Grade 1 diastolic dysfunction (impaired relaxation and low-normal LA pressure). Left Atrium LA size is normal (16-34 ml/m2) . Right Ventricle RV chamber size is normal . Global RV systolic function is mildly reduced . Right Atrium RA cavity size is normal . Aortic Valve Mild AoV cusp thickening. Mitral Valve Mild MV leaflet thickening. Trace mitral regurgitation. Tricuspid Valve Unable to estimate peak systolic PA pressure; inadequate TR velocity signal. Pulmonic Valve PV is not well visualized; function appears normal by Doppler visualized. Aorta Aortic root size (SInus of Valsalva diameter) is normal . Pericardium No significant pericardial effusion is visualized. IVC/SVC/PA/PV/Pleural The estimated RA pressure by IVC dynamics 5-10mmHg . Chambers/Structures Left Atrium LA Volume: 48.62 ml LA Area: 16.68 cm^2 LA Vol. Index: 33 ml/m^2 Left Ventricle LVIDd: 5.61 cm LV Septum Diastolic: 0.82 cm LV PW Diastolic: 1.11 cm LVEDV Coley's:106.99 ml LV Length: 8.03 cm LVESV Coley's:75.27 ml LVEF Coley's: 29.6 % LVEDVI: 73 ml/m^2 LVESVI: 51 ml/m^2 LVOT Diameter: 1.76 cm Right Ventricle TAPSE: 1.36 cm Aorta Ao Root S of Susie.: 2.75 cm Doppler/Quantitative Measu rements Mitral Valve MV Peak E-Wave: 0.29 m/s MV Peak A-Wave: 0.49 m/s E/A Ratio: 0.58 Peak Gradient: 0.33 mmHg Deceleration Time: 227.4 msec MV Abilio. Peak: Tissue Doppler E' Lateral Velocity: 0.04 m/s E/E': 7.64 Aortic Valve Peak Velocity: 1.29 m/s Mean Velocity: 0.95 m/s Peak Gradient: 6.67 mmHg Mean Gradient: 3.93 mmHg AV Area (continuity): 2.23 cm^2 AV VTI: 19.88 cm AV DVI: 0.92 LVOT Peak Velocity: 1.27 m/s Peak Gradient: 6.43 mmHg Mean Velocity: 0.8 m/s Mean Gradient: 3.14 mmHg LVOT Diameter: 1.76 cm LVOT VTI: 18.22 cm LVOT Area: 2.43 cm^2 LVOT SV:44.3 ml LVOT CO: 3.94 l/min LVOT CI: 2.68 l/min/m^2[facility] HospitalTSH/FREE T4 IF [id number] 13:40:00 Test Item Value Reference Range Interpretation Comments THYROID STIMULATING HORMONE 2.569 uIU/mL 0.350-4.940 (BEAKER) (test code = 772) Alarm Technician ID - [id number] 13:20:00 Test Item Value Reference Range Interpretation Comments MAGNESIUM (BEAKER) 1.7 mg/dL 1.6-2.6 Specimen slightly (test code = 627) hemolyzed Alarm Technician ID - [id number] 13:20:00 Test Item Value Reference Range Interpretation Comments PHOSPHORUS (BEAKER) 4.5 mg/dL 2.3-4.7 Specimen slightly (test code = 604) hemolyzed Alarm Technician ID - TERAIANGCOMPREHENSIVE METABOLIC [id number] 13:20:00 Test Item Value Reference Range Interpretation Comments TOTAL PROTEIN 7.4 gm/dL 6.0-8.3 Specimen sligh tly (BEAKER) (test code = hemoly zed 770) ALBUMIN (BEAKER) 3.9 g/dL 3.5-5.0 Specimen sl ightly (test code = 1145) hemolyzed ALKALINE PHOSPHATASE 126 U/L 40-150 (BEAKER) (test code = 346) BILIRUBIN TOTAL 0.4 mg/dL 0.2-1.2 Specimen sli ghtly (BEAKER) (test code = hemoly zed 377) SODIUM (BEAKER) (test 136 meq/L 136-145 code = 381) POTASSIUM (BEAKER) 3.4 meq/L 3.5-5.1 L Specimen slightly (test code = 379) hemolyzed CHLORIDE (BEAKER) 98 meq/L 98-107 (test code = 382) CO2 (BEAKER) (test 28 meq/L 22-29 code = 355) BLOOD UREA NITROGEN 18 mg/dL 7-21 (BEAKER) (test code = 354) CREATININE (BEAKER) 1.10 mg/dL 0.57-1.25 Specimen slightly (test code = 358) hemolyzed GLUCOSE RANDOM 167 mg/dL 70-105 H (BEAKER) (test code = 652) CALCIUM (BEAKER) 9.5 mg/dL 8.4-10.2 (test code = 697) AST (SGOT) (BEAKER) 32 U/L 5-34 Specimen slightly (test code = 353) hemolyzed ALT (SGPT) (BEAKER) 64 U/L 6-55 H Specimen slightly (test code = 347) hemolyzed EGFR (BEAKER) (test 62 mL/min/1.73 ESTIMA LEV GFR IS code = 1092) sq m NOT ACCURATE CREATININE CLEARANCE IN PREDICTING GLOMERULAR FILTRATION RATE . ESTIMATED GFR I S NOT APPLICABLE FOR DIALYSIS PATIEN TS. Alarm Technician ID - ROSIANGCALCIUM, [id number] 12:52:00 Test Item Value Reference Range Interpretation Comments CALCIUM IONIZED (BEAKER) (test 1.14 mmol/L 1.12-1.27 code = 698) PH, BLOOD (BEAKER) (test code = 7.45 1810) CBC W/PLT COUNT & AUTO [id number] 12:48:00 Test Item Value Reference Range Interpretation Comments WHITE BLOOD CELL COUNT (BEAKER) 7.2 K/ L 3.5-10.5 (test code = 775) RED BLOOD CELL COUNT (BEAKER) 5.25 M/ L 3.93-5.22 H (test code = 761) HEMOGLOBIN (BEAKER) (test code = 15.6 GM/DL 11.2-15.7 410) HEMATOCRIT (BEAKER) (test code = 48.3 % 34.1-44.9 H 411) MEAN CORPUSCULAR VOLUME (BEAKER) 92.0 fL 79.4-94.8 (test code = 753) MEAN CORPUSCULAR HEMOGLOBIN 29.7 pg 25.6-32.2 (BEAKER) (test code = 751) MEAN CORPUSCULAR HEMOGLOBIN CONC 32.3 GM/DL 32.2-35.5 (BEAKER) (test code = 752) RED CELL DISTRIBUTION WIDTH 14.6 % 11.7-14.4 H (BEAKER) (test code = 412) PLATELET COUNT (BEAKER) (test 228 K/CU MM 150-450 code = 756) MEAN PLATELET VOLUME (BEAKER) 11.8 fL 9.4-12.3 (test code = 754) NUCLEATED RED BLOOD CELLS 0 /100 WBC 0-0 (BEAKER) (test code = 413) NEUTROPHILS RELATIVE PERCENT 51 % (BEAKER) (test code = 429) LYMPHOCYTES RELATIVE PERCENT 38 % (BEAKER) (test code = 430) MONOCYTES RELATIVE PERCENT 8 % (BEAKER) (test code = 431) EOSINOPHILS RELATIVE PERCENT 2 % (BEAKER) (test code = 432) BASOPHILS RELATIVE PERCENT 1 % (BEAKER) (test code = 437) NEUTROPHILS ABSOLUTE COUNT 3.62 K/ L 1.56-6.13 (BEAKER) (test code = 670) LYMPHOCYTES ABSOLUTE COUNT 2.75 K/ L 1.18-3.74 (BEAKER) (test code = 414) MONOCYTES ABSOLUTE COUNT (BEAKER) 0.57 K/ L 0.24-0.36 H (test code = 415) EOSINOPHILS ABSOLUTE COUNT 0.16 K/ L 0.04-0.36 (BEAKER) (test code = 416) BASOPHILS ABSOLUTE COUNT (BEAKER) 0.04 K/ L 0.01-0.08 (test code = 417) IMMATURE GRANULOCYTES-RELATIVE 0 % 0-1 PERCENT (BEAKER) (test code = 2801) Rapid drug screen, [id number] 00:38:00 Test Item Value Reference Range Interpretation Comments Barbiturate Screen Negative Negative (test code = 23181-4) Benzodiazepine Screen Negative Negative (test code = 07753-2) Cocaine (Metab.) Negative Negative Screen (test code = 3397-7) Methadone Screen (test Negative Negative code = 18289-7) Opiate Screen (test Positive Negative A code = 96066-7) Cannabinoid Screen Negative Negative (test code = 51672-5) Amph/Methamph Screen Negative Negative (test code = 45858-3) Phencyclidine Screen Negative Negative (test code = 73653-6) pH, UA (test code = 6.0 5.0-8.0 5803-2) AZUCENA (test code = AZUCENA) DRUG CUTOFF CONC.Cocaine 300 ng/mL Cannabinoid 50 ng/mLBenzodiazepine 200 ng/mLBarbiturate 200 ng/mLPhencyclidine 25 ng/mLOpiate 300 ng/mLMethadone 300 ng/mLAmphetamine/ 1000 ng/mL Methamphetamine This assay provides an unconfirmed qualitative test result for the clinical management of patients in emergency situations. Chain of custody not maintained. Some bemz-sqm-ekyfxsj medications, as well as adulterants, may cause inaccurate results. Clinical correlation should be applied. A more comprehensive drug screen or confirmation of a detected drug may be performed upon request.Alarm Technician ID - DIANA Penningtonpedro ID - [auto] Lab Interpretation Abnormal (test code = 28923-0) [facility] [id number] 00:38:00 Test Item Value Reference Range Interpretation Comments BARBITURATE URINE (BEAKER) (test Negative Negative code = 725) BENZODIAZEPINE SCREEN URINE (BEAKER) Negative Negative (test code = 726) COCAINE (METAB.) SCREEN (BEAKER) Negative Negative (test code = 1164) METHADONE SCREEN (BEAKER) (test code Negative Negative = 1436) OPIATE SCREEN URINE (BEAKER) (test Positive Negative A code = 734) CANNABINOID SCREEN URINE (BEAKER) Negative Negative (test code = 727) AMPH/METHAMPH SCREEN (BEAKER) (test Negative Negative code = 1438) PHENCYCLIDINE SCREEN URINE (BEAKER) Negative Negative (test code = 608) PH UA (BEAKER) (test code = 467) 6.0 5.0-8.0 DRUG CUTOFF CONC.Cocaine 300 ng/mL Cannabinoid 50 ng/mLBenzodiazepine 200 ng/mLBarbiturate 200 ng/mLPhencyclidine 25 ng/mLOpiate 300 ng/mLMethadone 300 ng/mLAmphetamine/ 1000 ng/mL MethamphetamineThis assay provides an unconfirmed qualitative test result for the clinical management of patients in emergency situations. Chain of custody not maintained. Some fpdt-gkg-oovdqtp medications, as well as adulterants, may cause inaccurate results. Clinical correlation should be applied. A more comprehensivedrug screen or confirmation of a detected drug may be performed upon request.Alarm Technician ID - DIANA Raymond ID - [auto]
--- NOTE | 2021-06-24 14:25 | RAD REPORT ---
EXAM DESCRIPTION: RAD - Chest Single View - 06/24/2021 2:18 pm CLINICAL HISTORY: Cough;SOB COMPARISON: Portable August 2020 TECHNIQUE: AP portable chest image was obtained 06/24/2021 2:18 pm . FINDINGS: Patient has a baseline prominent interstitial lung pattern is not clearly different from c omparison. Pacer/defibrillator has been placed since prior imaging. Heart size is prominent but stabl e. Cardiac silhouette is distorted by rotation and prominent right convex thoracic scoliosis. Cardiom ediastinal silhouette is not felt to have changed. No measurable pleural effusion and no pneumothorax. No acute bony abnormality seen. No acute aortic findings suspected. IMPRESSION: No acute cardiopulmonary process. No suspicious finding from prior imaging.
[2021-06-24] MEDS ORDERED: LEVALBUTEROL 1.25 MG/3 ML NEB ONE (14:46)
[2021-06-24] MEDS ORDERED: dexAMETHasone 10 MG/ML VIAL ONE (14:46)
--- NOTE | 2021-06-24 18:10 | ER ---
Nurse's Notes [facility] Name: Brenda Velasquez Age: 61 yrs Sex: Female : 1960 Arrival Date: 06/24/2021 Time: 11:15 Bed 26 Private MD: Ginny Khan Diagnosis: Acute serous otitis media, right ear;Acute upper respiratory infection, unspecified Presentation: 06/24 11:46 Chief complaint: Patient states: SO SOB, cough, runny nose , no known exposure to iw COVID, no fever, started last night. Coronavirus screen: congestion, cough unrelated to allergies, difficulty breathing. Ebola Screen: Patient negative for fever greater than or equal to 101.5 degrees Fahrenheit, and additional compatible Ebola Virus Disease symptoms Patient denies exposure to infectious person. Patient denies travel to an Ebola-affected area in the 21 days before illness onset. No symptoms or risks identified at this time. Initial Sepsis Screen: Does the patient meet any 2 criteria? No. Patient's initial sepsis screen is negative. Does the patient have a suspected source of infection? No. Patient's initial sepsis screen is negative. Risk Assessment: Do you want to hurt yourself or someone else? Patient reports no desire to harm self or others. Onset of symptoms was June 23, 2021. 11:46 Method Of Arrival: Ambulatory iw 11:46 Acuity: JOSE 3 iw Historical: - Allergies: 11:47 No Known Allergies; iw - PMHx: 11:47 drug abuse; Heart Murmur; Hepatitis; iw - Immunization history:: Client reports receiving the 2nd dose of the Covid vaccine. - Social history:: Smoking status: Patient denies any tobacco usage or history of. Screenin:10 Abuse screen: Denies threats or abuse. Denies injuries from another. Nutritional ld1 screening: No deficits noted. Tuberculosis screening: No symptoms or risk factors identified. Fall Risk None identified. Assessment: 13:10 General: Appears in no apparent distress. comfortable, Behavior is calm, cooperative, ld1 appropriate for age. Pain: Denies pain. Neuro: Level of Consciousness is awake, alert, obeys commands, Oriented to person, place, time, situation. Cardiovascular: Capillary refill < 3 seconds Patient's skin is warm and dry. Respiratory: Airway is patent Respiratory effort is even, unlabored, Respiratory pattern is regular, symmetrical. Respiratory: Reports cough that is. GI: Abdomen is flat, non-distended. : No signs and/or symptoms were reported regarding the genitourinary system. EENT: No signs and/or symptoms were reported regarding the EENT system. Derm: No signs and/or symptoms reported regarding the dermatologic system. Musculoskeletal: No signs and/or symptoms reported regarding the musculoskeletal system. 13:42 Reassessment: Patient appears in no apparent distress at this time. Patient and/or ld1 family updated on plan of care and expected duration. Pain level reassessed. Patient is alert, oriented x 3, equal unlabored respirations, skin warm/dry/pink. 15:12 Reassessment: Patient appears in no apparent distress at this time. Patient and/or ld1 family updated on plan of care and expected duration. Pain level reassessed. Patient is alert, oriented x 3, equal unlabored respirations, skin warm/dry/pink. Vital Signs: 11:48 BP 140 / 92; Pulse 80; Resp 18; Temp 97.9; Pulse Ox 98% on R/A; Weight 47.63 kg; Height iw 5 ft. 1 in. (154.94 cm); 13:10 BP 147 / 94; Pulse 82; Resp 18; Pulse Ox 96% on R/A; ld1 13:42 BP 149 / 96; Pulse 78; Resp 18; Pulse Ox 95% on R/A; ld1 15:12 BP 142 / 90; Pulse 82; Resp 18; Pulse Ox 97% on R/A; ld1 11:48 Body Mass Index 19.84 (47.63 kg, 154.94 cm) ED Course: 11:15 Patient arrived in ED. as 11:16 Ginny Khan is Private Physician. as 11:47 Triage completed. iw 11:48 Arm band placed on. iw 13:04 Ciro Scott PA is PHCP. [facility] 13:04 Kenn Rand MD is Attending Physician. [facility] 13:07 Haley Mantilla, OREN is Primary Nurse. ld1 13:08 COVID-19 : Document "Date of Symptom Onset" if Symptomatic. Sent. ld1 13:10 Patient has correct armband on for positive identification. Bed in low position. Call ld1 light in reach. Side rails up X2. Pulse ox on. NIBP on. Door closed. Noise minimized. Warm blanket given. 13:10 No provider procedures requiring assistance completed. ld1 14:15 Radiology exam delayed due to tech went to lobby for pt at 12:20 called pts name ml multiple time with no answer , cxr1 donr in room at 14:16. 14:20 CXR XRAY In Process Unspecified. EDMS 14:49 Ginny Khan is Referral Physician. jmm 15:13 Patient did not have IV access during this emergency room visit. ld1 Administered Medications: 14:28 Drug: Xopenex (levalbuterol) (3) 1.25 mg Route: Inhalation; ld1 14:28 Drug: Decadron (dexamethasone) 10 mg Route: IM; Site: right deltoid; ld1 Outcome: 14:50 Discharge ordered by MD. lizbethm 15:13 Discharged to home ambulatory. ld1 15:13 Condition: stable 15:13 Condition: stable 15:13 Discharge instructions given to patient, Instructed on discharge instructions, follow up and referral plans. medication usage, Demonstrated understanding of instructions, follow-up care, medications, Prescriptions given X 2. 15:13 Patient left the ED. ld1 Signatures: Dispatcher [employer] EDMS Ciro Scott PA PA jmm Martinez, Amelia as Williams, Irene, RN Frida Gonzales Lauren, RN RN ld1
--- NOTE | 2021-06-24 18:10 | EDPHYS ---
Physician Documentation [facility] Name: Brenda Velasquez Age: 61 yrs Sex: Female : 1960 Arrival Date: 06/24/2021 Time: 11:15 Bed 26 Private MD: Ginny Khan ED Physician Kenn Rand HPI: 06/24 13:21 This 61 yrs old Black Female presents to ER via Ambulatory with complaints of r/o covid.[facility] 13:21 The patient or guardian reports cough. Onset: The symptoms/episode began/occurred jmm gradually, 1 day(s) ago. Is a 61-year-old female with a history of coronary artery disease, presents emerged part with complaints of cough, congestion beginning last night. Patient mainly complains of generalized fatigue. Denies sore throat, vomiting, diarrhea.. Historical: - Allergies: 11:47 No Known Allergies; iw - PMHx: 11:47 drug abuse; Heart Murmur; Hepatitis; iw - Immunization history:: Client reports receiving the 2nd dose of the Covid vaccine. - Social history:: Smoking status: Patient denies any tobacco usage or history of. ROS: 13:21 Constitutional: Positive for body aches, fatigue. jmm 13:21 Respiratory: Positive for cough. 13:21 All other systems are negative. Exam: 13:21 Constitutional: This is a well developed, well nourished patient who is awake, alert, jmm and in no acute distress. Head/Face: atraumatic. Eyes: EOMI, no conjunctival erythema appreciated ENT: Moist Mucus Membranes Neck: Trachea midline, Supple Chest/axilla: Normal chest wall appearance and motion. Cardiovascular: Regular rate and rhythm. No edema appreciated Respiratory: Normal respirations, no respiratory distress appreciated Abdomen/GI: Non distended, soft Back: Normal ROM Skin: General appearance color normal MS/ Extremity: Moves all extremities, no obvious deformities appreciated, no edema noted to the lower extremities Neuro: Awake and alert, normal gait Psych: Behavior is normal, Mood is normal, Patient is cooperative and pleasant 14:48 ENT: TM's: erythema, that is moderate, on the right. [facility] Vital Signs: 11:48 BP 140 / 92; Pulse 80; Resp 18; Temp 97.9; Pulse Ox 98% on R/A; Weight 47.63 kg; Height iw 5 ft. 1 in. (154.94 cm); 13:10 BP 147 / 94; Pulse 82; Resp 18; Pulse Ox 96% on R/A; ld1 13:42 BP 149 / 96; Pulse 78; Resp 18; Pulse Ox 95% on R/A; ld1 15:12 BP 142 / 90; Pulse 82; Resp 18; Pulse Ox 97% on R/A; ld1 11:48 Body Mass Index 19.84 (47.63 kg, 154.94 cm) iw MDM: 13:20 Patient medically screened. [facility] 14:48 Data reviewed: vital signs, nurses notes. [facility] 14:48 Counseling: I had a detailed discussion with the patient and/or guardian regarding: the [facility] historical points, exam findings, and any diagnostic results supporting the discharge/admit diagnosis, radiology results, the need for outpatient follow up, to return to the emergency department if symptoms worsen or persist or if there are any questions or concerns that arise at home. ED course: Patient is alert nontoxic in appearance in the ED vital signs are within normal limits. Patient does not appear to be in acute respiratory distress. Chest x-ray is clear, Covid swab was negative. Patient advised to follow-up with primary care provider and otherwise given strict return precautions. Patient understood and agrees to plan of care.. 06/24 12:43 Order name: COVID-19 : Document "Date of Symptom Onset" if Symptomatic. kg 06/24 11:49 Order name: CXR XRAY; Complete Time: 14:26 iw 06/24 13:47 Order name: SARS-COV-2 RT PCR; Complete Time: 13:54 EDMS Administered Medications: 14:28 Drug: Xopenex (levalbuterol) (3) 1.25 mg Route: Inhalation; ld1 14:28 Drug: Decadron (dexamethasone) 10 mg Route: IM; Site: right deltoid; ld1 Disposition: 16:51 Co-signature as Attending Physician, Kenn Rand MD. rn Disposition Summary: 06/24/21 14:50 Discharge Ordered Location: Home [facility] Condition: Stable jm Diagnosis - Acute serous otitis media, right ear jmm - Acute upper respiratory infection, unspecified jmm Followup: [facility] - With: Ginny Khan - When: 2 - 3 days - Reason: Recheck today's complaints, Continuance of care, Re-evaluation by your physician Discharge Instructions: - Discharge Summary Sheet jmm - Upper Respiratory Infection, Adult [facility] Forms: - Medication Reconciliation Form jm - Thank You Letter jm - Antibiotic Education [facility] - Prescription Opioid Use [facility] Prescriptions: - cefdinir 300 mg Oral capsule - take 1 capsule by ORAL route every 12 hours for 10 days; 20 capsule; Refills: jmm 0, Product Selection Permitted - albuterol sulfate 90 mcg/actuation Inhalation HFA aerosol inhaler - inhale 2 puff by INHALATION route every 4 hours; 1 Pump; Refills: 0, Product jmm Selection Permitted Signatures: Dispatcher [employer] EDMS Ciro Scott PA PA jmm Williams, Irene, RN RN iw Nieto, Roman, MD MD rn Dibbern, Lauren, RN RN ld1 Corrections: (The following items were deleted from the chart) 12:54 12:44 CORONAVIRUS ordered. EDNE EDMS
[2021-06-25 22:40] VITALS: TEMP 97.9
[2021-06-25 22:45] VITALS: BP 142/90; O2SAT 97
== END 2021-06-24 15:13 | disposition home or self-care (01) ==
LOC: ER 11:14
DX: J06.9 Acute upper respiratory infection, unspecified (principal); H65.01 Acute serous otitis media, right ear; Z20.822 Contact with and (suspected) exposure to COVID-19
CPT/HCPCS: 71045; U0003; J1100

== ENCOUNTER 2021-10-18 13:21 | Emergency (ER) | payer OTHER ==
--- OUTSIDE RECORDS SUMMARY | 2021-10-18 14:05 | XMS REPORT | Continuity of Care Document ---
:1960 Author Organization [facility] t Address [address] [place] [address] Care Team Providers Name Role Phone Pcp Primary Care Physician Unavailable MATHEUS Attending Clinician Unavailable TONYA VARGAS Attending Clinician Unavailable Monalisa GARCIA Attending Clinician Unavailable FAB Attending Clinician Unavailable Doctor Unassigned, Name Attending Clinician Unavailable HIEU Attending Clinician Unavailable Sagrario VILLAR Attending Clinician Unavailable Reece Fuentes MD Attending Clinician Gianni FAITH L Attending Clinician Reece FUENTES Attending Clinician Unavailable [facility] Attending Clinician Unavailable Fab SANTILLAN Attending Clinician Isabel POTTER Attending Clinician Tonya Vargas MD Attending Clinician [phone] Jamal Veras RN Attending Clinician Unavailable Tonya Vargas MD Attending Clinician [phone] Lenny Kirkland DO Attending Clinician , Lab Attending Clinician Unavailable Cassy POTTER Attending Clinician Monalisa Garcia MD Attending Clinician Craig POTTER Attending Clinician Sagar POTTER Attending Clinician Matheus POTTER Attending Clinician Reece Tripathi Attending Clinician Annemarie GALLO Attending Clinician Unavailable Hieu FREGOSO Attending Clinician MATHEUS Admitting Clinician Unavailable TONYA VARGAS Admitting Clinician Unavailable Monalisa GARCIA Admitting Clinician Unavailable CRAIG Admitting Clinician Unavailable Payers Payer Name Policy Type Policy Effective Date Expiration Date Sour ce Number MULTIPLAN GENERIC [id number] 2019 00:00:00 MULTIPLAN PPO [id number] 2019 00:00:00 COVENTRY/FIRST [id number] [address] [facility] 00:00:00 - Medical CCNCOVENTRY Center [id number] Problems Condition Condition Condition Status Onset Resolution Last Treating Co mments Source Name Details Category Date Date Treatment Clinician Date Chronic Chronic Disease Active Univers left-sided left-sided 6-15 it y of low back low back 00:00: [place] pain with pain with 00 Medi isabel left-sided left-sided Br anch sciatica sciatica Venous Venous Disease Active Univers reflux, reflux, 6-14 [place] extremity extremity 00 Medi [place]abel Branch PAD PAD Disease Active Univers (periphera (periphera 6-14 it y of l artery l artery 00:00: [place] disease) disease) 00 Medica l Branch Cardiomyop Cardiomyop Disease Active [facility]hy [facility] Medical 00 [place] CHF CHF Disease Active 2019-[address] [...] 0-10 [facility] Medical 00 Center Screening Screening Disease Active Overview: Univers for for 8-26 Formattin ity of colorectal colorectal 00:00: g of this [place] cancer cancer 00 note Medical might be Branch different from the original. Added automatic ally from request for surgery [id number] Abnormal Abnormal Disease Active Unive rs LFTs LFTs 07-15 ity of 00:00: [place] 00 Medical Branch Chronic Chronic Disease Active Univers hepatitis hepatitis 07-15 [place] of C without [place] without [place] hepatic hepatic 00 Medical coma coma Branch No known No known Disease [facility] active active College problems problems of Medicin e Allergies, Adverse Reactions, Alerts Allergy Allergy Status Severity Reaction(s) Onset Inactive Treating Comm ents Source Name Type Date Date Clinician NO KNOWN Drug Active Univers ALLERGIE Class ity of S [place] [facility] [place] NO KNOWN Allergy Active [facility] Social History Social Habit Start Date Stop Date Quantity Comments Source History SDOH University o f Alcohol Std [place] [facility] Drinks Branch History NJOH University o f Alcohol Binge [place] [facility] al Branch Exposure to Not sure [facility] SARS-CoV-2 [place] [facility] (event) Branch Tobacco use and 2021-02-17 2021-02-17 Former user [facility] C ollege of exposure 00:00:00 00:00:00 Medicine Alcohol intake 2021-02-17 2021-02-17 Current [facility] Col lege of 00:00:00 00:00:00 non-drinker of Medicine alcohol (finding) History [facility] 2019-11-27 2019-11-27 1 University o f Alcohol Frequency 00:00:00 00:00:00 [facility] edical Branch History of 2016-03-23 User of smokeless [facility] of tobacco use 00:00:00 tobacco Medicine Sex Ass[birth year] [facility] Co llege of 00:00:00 00:00:00 Medicine Smoking Status Start Date Stop Date Source Never smoker [facility] Medical Branch Current every day smoker 2021-02-17 00:00:00 [facility] Medications Ordered Filled Start Stop Current Ordering Indication Dosage Frequency Signature Comments Components Source Medication Medication Date Date Medication? Clinician (SIG) Name Name methocarbam Yes [id number] 500mg Take 1 Univers oL 500 mg 6-24 tablet by ity o f tablet 00:00: mouth 4 [place] 00 (four) Medical times Branch daily as needed (muscle pain or spasm). methocarbam Yes [id number] 500mg Take 1 Univers oL 500 mg 6-24 tablet by ity o f tablet 00:00: mouth 4 [place] [address] (four) Medical times [place] daily as needed (muscle pain or spasm). methocarbam 0 Yes [id number] 500mg Take 1 Univers oL 500 mg 6-24 tablet by ity o f tablet 00:00: mouth 4 [place] 00 (four) Medical times [place] daily as needed (muscle pain or spasm). spironolact Yes 25mg Take 25 mg Univers one 25 mg 6-10 by mouth. ity o f tablet 19:29: [address] losartan 25 Yes 12.5mg Take 12.5 Univers mg tablet 6-10 mg by ity of 19:29: mouth. [address] spironolact Yes 25mg Take 25 mg Univers one 25 mg 6-10 by mouth. ity o f tablet 19:29: [address] losartan 25 Yes 12.5mg Take 12.5 Univers mg tablet 6-10 mg by ity of 19:29: mouth. [address] spironolact Yes 25mg Take 25 mg Univers one 25 mg 6-10 by mouth. ity o f tablet 19:29: [address] losartan 25 Yes 12.5mg Take 12.5 Univers mg tablet 6-10 mg by ity of 19:29: mouth. [address] spironolact Yes 25mg Take 25 mg Univers one 25 mg 6-10 by mouth. ity o f tablet 19:29: [address] losartan 25 Yes 12.5mg Take 12.5 Univers mg tablet 6-10 mg by ity of 19:29: mouth. [address] spironolact Yes 25mg Take 25 mg Univers one 25 mg 6-10 by mouth. ity o f tablet 19:29: [address] losartan 25 Yes 12.5mg Take 12.5 Univers mg tablet 6-10 mg by ity of 19:29: mouth. [address] spironolact Yes 25mg Take 25 mg Univers one 25 mg 6-10 by mouth. ity o f tablet 19:29: [address] losartan 25 Yes 12.5mg Take 12.5 Univers mg tablet 6-10 mg by ity of 19:29: mouth. [address] spironolact Yes 25mg Take 25 mg Univers one 25 mg 6-10 by mouth. ity o f tablet 19:29: [address] losartan 25 Yes 12.5mg Take 12.5 Univers mg tablet 6-10 mg by ity of 19:29: mouth. [address] spironolact Yes 25mg Take 25 mg Univers one 25 mg 6-10 by mouth. ity o f tablet 19:29: [address] losartan 25 Yes 12.5mg Take 12.5 Univers mg tablet 6-10 mg by ity of 19:29: mouth. [address] spironolact Yes 25mg Take 25 mg Univers one 25 mg 6-10 by mouth. ity o f tablet 19:29: [address] losartan 25 Yes 12.5mg Take 12.5 Univers mg tablet 6-10 mg by ity of 19:29: mouth. [address] spironolact Yes 25mg Take 25 mg Univers one 25 mg 6-10 by mouth. ity o f tablet 19:29: [address] losartan 25 Yes 12.5mg Take 12.5 Univers mg tablet 6-10 mg by ity of 19:29: mouth. [address] amiodarone 2020-0 Yes 200mg Take 200 Un natalie 200 mg 5-25 mg by ity of tablet 00:00: mouth 2 [place] [address] (two) Medical times Branch daily. amiodarone 2020-0 Yes 200mg Take 200 Un natalie 200 mg 5-25 mg by ity of tablet 00:00: mouth 2 [place] (two) Medical times Branch daily. amiodarone 2020-0 Yes 200mg Take 200 Un natalie 200 mg 5-25 mg by ity of tablet 00:00: mouth 2 [place] (two) Medical times Branch daily. amiodarone 2020-0 Yes 200mg Take 200 Un natalie 200 mg 5-25 mg by ity of tablet 00:00: mouth 2 [place] (two) Medical times Branch daily. amiodarone 2020-0 Yes 200mg Take 200 Un natalie 200 mg 5-25 mg by ity of tablet 00:00: mouth [place] (two) Medical times Branch daily. amiodarone 2020-0 Yes 200mg Take 200 Un natalie 200 mg 5-25 mg by ity of tablet 00:00: mouth [place] (two) Medical times Branch daily. amiodarone 2020-0 Yes 200mg Take 200 Un natalie 200 mg 5-25 mg by ity of tablet 00:00: mouth [place] (two) Medical times Branch daily. amiodarone 2020-0 Yes 200mg Take 200 Un natalie 200 mg 5-25 mg by ity of tablet 00:00: mouth [place] (two) Medical times Branch daily. amiodarone 2020-0 Yes 200mg Take 200 Un natalie 200 mg 5-25 mg by ity of tablet 00:00: mouth [place] (two) Medical times Branch daily. amiodarone 2020-0 Yes 200mg Take 200 Un natalie 200 mg 5-25 mg by ity of tablet 00:00: mouth [place] (two) Medical times Branch daily. losartan Yes 12.5mg QD Take 12.[address] (COZAAR) 25 3-31 mg by [facility] - MG tablet 14:17: mouth Medical 07 daily. Center spironolact Yes 25mg QD Take [address] one 3-31 by mouth [facility] - (ALDACTONE) 14:17: daily. Medi isabel 25 MG 07 Center tablet clindamycin 2020- No 150mg Q.25D Take [address] (Cleocin 3 04-05 capsule [facility] - HCL) 150 MG 00:00: 23:59 (150 mg Me dical capsule 00 :00 total) by Center mouth 4 (four) times daily for 5 days. mINOCYCLine 2020-2020- No 100mg Take [address] (MINOCIN,DY 3- 03-31 capsule [facility] - NACIN) 100 00:00: 00:00 (100 mg Med ical MG capsule 00 :00 total) by Cent er mouth every 12 (twelve) hours for 10 doses. clindamycin 2020-2020- No 150mg Q.25D Take [address] (Cleocin 3-31 03-31 capsule [facility] - HCL) 150 MG 00:00: [...] MG 24 hr 00 daily. Center tablet metoprolol Yes 12.5mg Take 12.5 [facility] (TOPROL-XL) 1-21 mg by College 25 MG XL 00:00: mouth of tablet 00 daily. Medicin e metoprolol Yes 12.5mg Take 12.5 Univers succinate 1-21 mg by ity of XL 25 mg 24 [place] [facility] metoprolol Yes 12.5mg Take 12.5 Univers succinate 1-21 mg by ity of XL 25 mg 24 00:[place] tablet [facility] metoprolol Yes 12.5mg Take 12.5 Univers succinate 1-21 mg by ity of XL 25 mg 24 00:00: [place] hr tablet [facility] metoprolol Yes 12.5mg Take 12.5 Univers succinate 1-21 mg by ity of XL 25 mg 24 00:00: [place] tablet [facility] metoprolol Yes 12.5mg Take 12.5 Univers succinate 1-21 mg by ity of XL 25 mg 24 00:00: [place] tablet [facility] metoprolol Yes 12.5mg Take 12.5 Univers succinate 1-21 mg by ity of XL 25 mg 24 00:00: [place] hr tablet [facility] metoprolol Yes 12.5mg Take 12.5 Univers succinate 1-21 mg by ity of XL 25 mg 24 00:00: [place] hr tablet [facility] Branch metoprolol Yes 12.5mg Take 12.5 Univers succinate 1-21 mg by ity of XL 25 mg 24 00:00: [place] tablet [facility] Branch metoprolol Yes 12.5mg Take 12.5 Univers succinate 1-21 mg by ity of XL 25 mg 24 00:00: [place] tablet [facility] Branch metoprolol Yes 12.5mg Take 12.5 Univers succinate 1-21 mg by ity of XL 25 mg 24 00:00: [place] tablet 00 [facility] Branch aspirin 81 2019-11- No 81mg QD Take [...] MG 24 hr 00 :00 total) by [address] tablet mouth daily for 30 days. [...] mouth Center nightly for 30 days. furosemide 2019-11- No 40mg Take [address] [facility] (LASIX) 40 0-15 11-14 tablet (40 Angélica kes - MG tablet 00:00: 23:59 mg total) Me dical 00 :00 by mouth 2 Center (two) times daily for 30 days. potassium 2020-1 2020- No 40meq QD Take [address] chloride SA 0-15 11-14 tablets Luke s - (K-DUR,KLOR 00:00: 23:59 (40 mEq Me dical -CON) 20 00 :00 total) by Center MEQ tablet mouth daily for 30 days. glecaprevir 2020-0 Yes [id number] 3{tbl} Take 3 Univers -pibrentasv 9-02 tablets by it y of ir 00:00: mouth [place] (MAVYRET) 00 daily. Medical 100-40 mg Branch glecaprevir 2020-0 Yes [id number] 3{tbl} Take 3 Univers -pibrentasv 9-02 tablets by it y of ir 00:00: mouth [place] (MAVYRET) 00 daily. Medical 100-40 mg Branch glecaprevir 2020-0 Yes [id number] 3{tbl} Take 3 Univers -pibrentasv 9-02 tablets by it y of ir 00:00: mouth [place] (MAVYRET) 00 daily. Medical 100-40 mg Branch glecaprevir 2020-0 Yes [id number] 3{tbl} Take 3 Univers -pibrentasv 9-02 tablets by it y of ir 00:00: mouth [place] (MAVYRET) 00 daily. Medical 100-40 mg Branch glecaprevir 2020-0 Yes [id number] 3{tbl} Take 3 Univers -pibrentasv 9-02 tablets by it y of ir 00:00: mouth [place] (MAVYRET) 00 daily. Medical 100-40 mg Branch glecaprevir 2020-0 Yes [id number] 3{tbl} Take 3 Univers -pibrentasv 9-02 tablets by it y of ir 00:00: mouth [place] (MAVYRET) 00 daily. Medical 100-40 mg Branch glecaprevir 2020-0 Yes [id number] 3{tbl} Take 3 Univers -pibrentasv 9-02 tablets by it y of ir 00:00: mouth [place] (MAVYRET) 00 daily. Medical 100-40 mg Branch glecaprevir 2020-0 Yes [id number] 3{tbl} Take 3 Univers -pibrentasv 9-02 tablets by it y of ir 00:00: mouth [place] (MAVYRET) 00 daily. Medical 100-40 mg Branch glecaprevir 2020-0 Yes [id number] 3{tbl} Take 3 Univers -pibrentasv 9-02 tablets by it y of ir 00:00: mouth [place] (MAVYRET) 00 daily. Medical 100-40 mg Branch glecaprevir 2020-0 Yes [id number] 3{tbl} Take 3 Univers -pibrentasv 9-02 tablets by it y of ir 00:00: mouth [place] (MAVYRET) 00 daily. Medical 100-40 mg Branch glecaprevir 2020-0 Yes [id number] 3{tbl} Take 3 Univers -pibrentasv 9-02 tablets by it y of ir 00:00: mouth [place] (MAVYRET) 00 daily. Medical 100-40 mg Branch glecaprevir 2020-0 Yes [id number] 3{tbl} Take 3 Univers -pibrentasv 9-02 tablets by it y of ir 00:00: mouth [place] (MAVYRET) 00 daily. Medical 100-40 mg Branch glecaprevir 2020-0 Yes [id number] 3{tbl} Take 3 Univers -pibrentasv 9-02 tablets by it y of ir 00:00: mouth [place] (MAVYRET) 00 daily. Medical 100-40 mg Branch glecaprevir 2020-0 Yes [id number] 3{tbl} Take 3 Univers -pibrentasv 9-02 tablets by it y of ir 00:00: mouth [place] (MAVYRET) 00 daily. Medical 100-40 mg Branch glecaprevir 2020-0 Yes [id number] 3{tbl} Take 3 Univers -pibrentasv 9-02 tablets by it y of ir 00:00: mouth [place] (MAVYRET) 00 daily. Medical 100-40 mg Branch glecaprevir 2020-0 Yes [id number] 3{tbl} Take 3 Univers -pibrentasv 9-02 tablets by it y of ir 00:00: mouth [place] (MAVYRET) 00 daily. Medical 100-40 mg Branch glecaprevir 2020-0 Yes [id number] 3{tbl} Take 3 Univers -pibrentasv 9-02 tablets by it y of ir 00:00: mouth [place] (MAVYRET) 00 daily. Medical 100-40 mg Branch glecaprevir 2020-0 Yes [id number] 3{tbl} Take 3 Univers -pibrentasv 9-02 tablets by it y of ir 00:00: mouth [place] (MAVYRET) 00 daily. Medical 100-40 mg Branch glecaprevir 2020-0 Yes [id number] 3{tbl} Take 3 Univers -pibrentasv 9-02 tablets by it y of ir 00:00: mouth [place] (MAVYRET) 00 daily. Medical 100-40 mg Branch glecaprevir 2020-0 Yes [id number] 3{tbl} Take 3 Univers -pibrentasv 9-02 tablets by it y of ir 00:00: mouth [place] (MAVYRET) 00 daily. Medical 100-40 mg Branch glecaprevir 2020-0 Yes [id number] 3{tbl} Take 3 Univers -pibrentasv 9-02 tablets by it y of ir 00:00: mouth [place] (MAVYRET) 00 daily. Medical 100-40 mg Branch glecaprevir 2020-0 Yes [id number] 3{tbl} Take 3 Univers -pibrentasv 9-02 tablets by it y of ir 00:00: mouth [place] (MAVYRET) 00 daily. Medical 100-40 mg Branch glecaprevir 2020-0 Yes [id number] 3{tbl} Take 3 Univers -pibrentasv 9-02 tablets by it y of ir 00:00: mouth [place] (MAVYRET) 00 daily. Medical 100-40 mg Branch glecaprevir 2020-0 Yes [id number] 3{tbl} Take 3 Univers -pibrentasv 9-02 tablets by it y of ir 00:00: mouth [place] (MAVYRET) 00 daily. Medical 100-40 mg Branch glecaprevir 2020-0 Yes [id number] 3{tbl} Take 3 Univers -pibrentasv 9-02 tablets by it y of ir 00:00: mouth [place] (MAVYRET) 00 daily. Medical 100-40 mg Branch glecaprevir 2020-0 Yes [id number] 3{tbl} Take 3 Univers -pibrentasv 9-02 tablets by it y of ir 00:00: mouth [place] (MAVYRET) 00 daily. Medical 100-40 mg Branch glecaprevir 2020-0 Yes [id number] 3{tbl} Take 3 Univers -pibrentasv 9-02 tablets by it y of ir 00:00: mouth [place] (MAVYRET) 00 daily. Medical 100-40 mg Branch glecaprevir 2020-0 Yes [id number] 3{tbl} Take 3 Univers -pibrentasv 9-02 tablets by it y of ir 00:00: mouth [place] (MAVYRET) 00 daily. Medical 100-40 mg Branch glecaprevir 2020-0 Yes [id number] 3{tbl} Take 3 Univers -pibrentasv 9-02 tablets by it y of ir 00:00: mouth [place] (MAVYRET) 00 daily. Medical 100-40 mg Branch glecaprevir 2020-0 2020- No 3{tbl} QD Take [address] -pibrentasv 9-02 03-30 tablets by L rafia - ir 00:00: 00:00 mouth Medical (Mavyret) 00 :00 daily. Center 100-40 mg Tab glecaprevir 2020-0 2020- No [id number] 3{tbl} Take 3 Univers -pibrentasv 9-02 09-02 tablets by i ty of ir 00:00: 00:00 mouth [place] (MAVYRET) 00 :00 daily. Medical 100-40 mg Branch glecaprevir 2020-0 2020- No [id number] 3{tbl} Take 3 Univers -pibrentasv 9-02 09-02 tablets by i ty of ir 00:00: 00:00 mouth [place] (MAVYRET) 00 :00 daily. Medical 100-40 mg Branch glecaprevir 2020-0 2020- No [id number] 3{tbl} Take 3 Univers -pibrentasv 9-02 09-02 tablets by i ty of ir 00:00: 00:00 mouth [place] (MAVYRET) 00 :00 daily. Medical 100-40 mg Branch polyethylen 2020-0 Yes 4000mL Take 4,000 [place] e glycol 8-25 mL by [place] (GOLYTELY;N 00:00: mouth of ULYTELY) 00 daily. Medicin 236 g e suspension peg-electro 2020-0 Yes [id number] 4000mL Take 4,000 Univers lyte soln 8-25 mL by ity of - 00:00: mouth [place] .74 -5.86 00 SEE-INSTRU Medi isabel gram CTIONS. Branch solution Take as directed peg-electro 2020-0 Yes [id number] 4000mL Take 4,000 Univers lyte soln 8-25 mL by ity of - 00:00: mouth [place] .74 -5.86 00 SEE-INSTRU Medi isabel gram CTIONS. Branch solution Take as directed peg-electro 2020-0 Yes [id number] 4000mL Take 4,000 Univers lyte soln 8-25 mL by ity of - 00:00: mouth [place] .74 -5.86 00 SEE-INSTRU Medi isabel gram CTIONS. Branch solution Take as directed peg-electro 2020-0 Yes [id number] 4000mL Take 4,000 Univers lyte soln 8-25 mL by ity of - 00:00: mouth [place] .74 -5.86 00 SEE-INSTRU Medi isabel gram CTIONS. Branch solution Take as directed peg-electro 2020-0 Yes [id number] 4000mL Take 4,000 Univers lyte soln 8-25 mL by ity of - 00:00: mouth [place] .74 -5.86 00 SEE-INSTRU Medi isabel gram CTIONS. Branch solution Take as directed peg-electro 2020-0 Yes [id number] 4000mL Take 4,000 Univers lyte soln 8-25 mL by ity of - 00:00: mouth [place] .74 -5.86 00 SEE-INSTRU Medi isabel gram CTIONS. Branch solution Take as directed peg-electro 2020-0 Yes [id number] 4000mL Take 4,000 Univers lyte soln 8-25 mL by ity of - 00:00: mouth [place] .74 -5.86 00 SEE-INSTRU Medi isabel gram CTIONS. Branch solution Take as directed peg-electro 2020-0 Yes [id number] 4000mL Take 4,000 Univers lyte soln 8-25 mL by ity of -6 00:00: mouth [place] .74 -5.86 00 SEE-INSTRU Medi isabel gram CTIONS. Branch solution Take as directed peg-electro 2020-0 Yes [id number] 4000mL Take 4,000 Univers lyte soln 8-25 mL by ity of .74-6 00:00: mouth [place] .74 -5.86 00 SEE-INSTRU Medi isabel gram CTIONS. Branch solution Take as directed peg-electro 2020-0 Yes [id number] 4000mL Take 4,000 Univers lyte soln 8-25 mL by ity of -6 00:00: mouth [place] .74 -5.86 00 SEE-INSTRU Medi isabel gram CTIONS. Branch solution Take as directed peg-electro 2020-0 Yes [id number] 4000mL Take 4,000 Univers lyte soln 8-25 mL by ity of - 00:00: mouth [place] .74 -5.86 00 SEE-INSTRU Medi isabel gram CTIONS. Branch solution Take as directed peg-electro 2020-0 Yes [id number] 4000mL Take 4,000 Univers lyte soln 8-25 mL by ity of - 00:00: mouth [place] .74 -5.86 00 SEE-INSTRU Medi isabel gram CTIONS. Branch solution Take as directed peg-electro 2020-0 Yes [id number] 4000mL Take 4,000 Univers lyte soln 8-25 mL by ity of - 00:00: mouth [place] .74 -5.86 00 SEE-INSTRU Medi isabel gram CTIONS. Branch solution Take as directed peg-electro 2020-0 Yes [id number] 4000mL Take 4,000 Univers lyte soln 8-25 mL by ity of -6 00:00: mouth [place] .74 -5.86 00 SEE-INSTRU Medi isabel gram CTIONS. Branch solution Take as directed peg-electro 2020-0 Yes [id number] 4000mL Take 4,000 Univers lyte soln 8-25 mL by ity of -6 00:00: mouth [place] .74 -5.86 00 SEE-INSTRU Medi isabel gram CTIONS. Branch solution Take as directed peg-electro 2020-0 Yes [id number] 4000mL Take 4,000 Univers lyte soln 8-25 mL by ity of - 00:00: mouth [place] .74 -5.86 00 SEE-INSTRU Medi isabel gram CTIONS. Branch solution Take as directed peg-electro 2020-0 Yes [id number] 4000mL Take 4,000 Univers lyte soln 8-25 mL by ity of - 00:00: mouth [place] .74 -5.86 00 SEE-INSTRU Medi isabel gram CTIONS. Branch solution Take as directed peg-electro 2020-0 Yes [id number] 4000mL Take 4,000 Univers lyte soln 8-25 mL by ity of - 00:00: mouth [place] .74 -5.86 00 SEE-INSTRU Medi isabel gram CTIONS. Branch solution Take as directed peg-electro 2020-0 Yes [id number] 4000mL Take 4,000 Univers lyte soln 8-25 mL by ity of - 00:00: mouth [place] .74 -5.86 00 SEE-INSTRU Medi isabel gram CTIONS. Branch solution Take as directed peg-electro 2020-0 Yes [id number] 4000mL Take 4,000 Univers lyte soln 8-25 mL by ity of - 00:00: mouth [place] .74 -5.86 00 SEE-INSTRU Medi isabel gram CTIONS. Branch solution Take as directed peg-electro 2020-0 Yes [id number] 4000mL Take 4,000 Univers lyte soln 8-25 mL by ity of - 00:00: mouth [place] .74 -5.86 00 SEE-INSTRU Medi isabel gram CTIONS. Branch solution Take as directed peg-electro 2020-0 Yes [id number] 4000mL Take 4,000 Univers lyte soln 8-25 mL by ity of - 00:00: mouth [place] .74 -5.86 00 SEE-INSTRU Medi isabel gram CTIONS. Branch solution Take as directed peg-electro 2020-0 Yes [id number] 4000mL Take 4,000 Univers lyte soln 8-25 mL by ity of -6 00:00: mouth [place] .74 -5.86 00 SEE-INSTRU Medi isabel gram CTIONS. Branch solution Take as directed peg-electro 2020-0 Yes [id number] 4000mL Take 4,000 Univers lyte soln 8-25 mL by ity of - 00:00: mouth [place] .74 -5.86 00 SEE-INSTRU Medi isabel gram CTIONS. Branch solution Take as directed peg-electro 2020-0 Yes [id number] 4000mL Take 4,000 Univers lyte soln 8-25 mL by ity of - 00:00: mouth [place] .74 -5.86 00 SEE-INSTRU Medi isabel gram CTIONS. Branch solution Take as directed peg-electro 2020-0 Yes [id number] 4000mL Take 4,000 Univers lyte soln 8-25 mL by ity of - 00:00: mouth [place] .74 -5.86 00 SEE-INSTRU Medi isabel gram CTIONS. Branch solution Take as directed peg-electro 2020-0 Yes [id number] 4000mL Take 4,000 Univers lyte soln 8-25 mL by ity of - 00:00: mouth [place] .74 -5.86 00 SEE-INSTRU Medi isabel gram CTIONS. Branch solution Take as directed peg-electro 2020-0 Yes [id number] 4000mL Take 4,000 Univers lyte soln 8-25 mL by ity of - 00:00: mouth [place] .74 -5.86 00 SEE-INSTRU Medi isabel gram CTIONS. Branch solution Take as directed peg-electro 2020-0 Yes [id number] 4000mL Take 4,000 Univers lyte soln 8-25 mL by ity of - 00:00: mouth [place] .74 -5.86 00 SEE-INSTRU Medi isabel gram CTIONS. Branch solution Take as directed peg-electro 2020-0 Yes [id number] 4000mL Take 4,000 Univers lyte soln 8-25 mL by ity of - 00:00: mouth [place] .74 -5.86 00 SEE-INSTRU Medi isabel gram CTIONS. Branch solution Take as directed peg-electro 2020-0 Yes [id number] 4000mL Take 4,000 Univers lyte soln 8-25 mL by ity of 236-22.74-6 00:00: mouth [place] .74 -5.86 00 SEE-INSTRU Medi isabel gram CTIONS. Branch solution Take as directed peg-electro 2020-0 Yes [id number] 4000mL Take 4,000 Univers lyte soln 8-25 mL by ity of 236-22.74-6 00:00: mouth [place] .74 -5.86 00 SEE-INSTRU Medi isabel gram CTIONS. Branch solution Take as directed peg-electro 2020-0 Yes [id number] 4000mL Take 4,000 Univers lyte soln 8-25 mL by ity of 236-22.74-6 00:00: mouth [place] .74 -5.86 00 SEE-INSTRU Medi isabel gram CTIONS. Branch solution Take as directed peg-electro 2020-0 Yes [id number] 4000mL Take 4,000 Univers lyte soln 8-25 mL by ity of 236-22.74-6 00:00: mouth [place] .74 -5.86 00 SEE-INSTRU Medi isabel gram CTIONS. Branch solution Take as directed polyethylen 2019-0 2020- No 4000mL QD Take 4,[address] e glycol 8-25 03-30 mLs by [facility] (GoLYTELY,N 00:00: 00:00 mouth Medi isabel uLYTELY) 00 :00 daily. Center 236-22.74-6 .74 -5.86 gram solution cephALEXin 2020-0 Yes [id number] 500mg Take 1 [facility] 500 mg 7-13 capsule by ity of capsule 00:00: mouth 2 [place] (two) Medical times Branch daily. cephALEXin 2020-0 Yes [id number] 500mg Take 1 [facility] 500 mg 7-13 capsule by ity of capsule 00:00: mouth 2 [place] (two) Medical times Branch daily. cephALEXin 2020-0 Yes [id number] 500mg Take 1 [facility] 500 mg 7-13 capsule by ity of capsule 00:00: mouth 2 [place] (two) Medical times Branch daily. cephALEXin 2020-0 Yes [id number] 500mg Take 1 [facility] 500 mg 7-13 capsule by ity of capsule 00:00: mouth 2 [place] (two) Medical times Branch daily. cephALEXin 2020-0 Yes [id number] 500mg Take 1 [facility] 500 mg 7-13 capsule by ity of capsule 00:00: mouth 2 [place] 00 (two) Medical times Branch daily. cephALEXin 2019- No [id number] 500mg Take 1 [facility] 500 mg 7-13 08-17 capsule by ity of capsule 00:00: 00:00 mouth 2 [place] 00 :00 (two) Medical times Branch daily. cephALEXin 2019- No [id number] 500mg Take 1 [facility] 500 mg 7-13 08-17 capsule by ity of capsule 00:00: 00:00 mouth 2 [place] 00 :00 (two) Medical times Branch daily. albuterol 2018-11 Yes 2.5mg 2.5 mg by [employer] [facility] (PROVENTIL) 2-30 Inhalation [facility] (2.5 mg/3 00:00: route as of mL) 0.083% 00 needed. Medici n nebulizer e solution methylPREDN 2018-11 Yes daily. [place] ISolone 4 2-30 College MG TBPK 00:00: of 00 Medicin e methylPREDN 2018-11 Yes [id number] Follow [facility] ISolone 4 2-30 6 package ity of mg tablets 00:00: directions [facility] albuterol 2018-11 Yes [id number] 2.5mg Inhale 3 Univers 2.5 mg /3 2-30 6 mL every 4 ity of mL (0.083 00:00: (four) [place] %) 00 hours as Medical nebulizer needed for Bran ch solution Wheezing or Shortness of Breath. Via nebulizer methylPREDN 2018-11 Yes [id number] Follow Univers ISolone 4 2-30 6 package ity of mg tablets 00:00: directions [facility] Branch albuterol 2018-11 Yes [id number] 2.5mg Inhale 3 [facility] 2.5 mg /3 2-30 6 mL every 4 ity of mL (0.083 00:00: (four) [place] %) 00 hours as Medical nebulizer needed for Bran ch solution Wheezing or Shortness of Breath. Via nebulizer methylPREDN 2018-11 Yes [id number] Follow Univers ISolone 4 2-30 6 package ity of mg tablets 00:00: directions [facility] albuterol 2018-11 Yes [id number] 2.5mg Inhale 3 [facility] 2.5 mg /3 2-30 6 mL every 4 ity of mL (0.083 00:00: (four) [place] %) 00 hours as Medical nebulizer needed for Bran ch solution Wheezing or Shortness of Breath. Via nebulizer albuterol 2018-11 Yes [id number] 2.5mg Inhale 3 [facility] 2.5 mg /3 2-30 6 mL every 4 ity of mL (0.083 00:00: (four) [place] %) 00 hours as Medical nebulizer needed for Bran ch solution Wheezing or Shortness of Breath. Via nebulizer albuterol 2018-11 Yes [id number] 2.5mg Inhale 3 [facility] 2.5 mg /3 2-30 6 mL every 4 ity of mL (0.083 00:00: (four) [place] %) 00 hours as Medical nebulizer needed for Bran ch solution Wheezing or Shortness of Breath. Via nebulizer albuterol 2018-11 Yes [id number] 2.5mg Inhale 3 [facility] 2.5 mg /3 2-30 6 mL every 4 ity of mL (0.083 00:00: (four) [place] %) 00 hours as Medical nebulizer needed for Bran ch solution Wheezing or Shortness of Breath. Via nebulizer albuterol 2018-11 Yes [id number] 2.5mg Inhale 3 [facility] 2.5 mg /3 2-30 6 mL every 4 ity of mL (0.083 00:00: (four) [place] %) 00 hours as Medical nebulizer needed for Bran ch solution Wheezing or Shortness of Breath. Via nebulizer albuterol 2018-11 Yes [id number] 2.5mg Inhale 3 [facility] 2.5 mg /3 2-30 6 mL every 4 ity of mL (0.083 00:00: (four) [place] %) 00 hours as Medical nebulizer needed for Bran ch solution Wheezing or Shortness of Breath. Via nebulizer albuterol 2018-11 Yes [id number] 2.5mg Inhale 3 [facility] 2.5 mg /3 2-30 6 mL every 4 ity of mL (0.083 00:00: (four) [place] %) 00 hours as Medical nebulizer needed for Bran ch solution Wheezing or Shortness of Breath. Via nebulizer albuterol 2018-11 Yes [id number] 2.5mg Inhale 3 [facility] 2.5 mg /3 2-30 6 mL every 4 ity of mL (0.083 00:00: (four) [place] %) 00 hours as Medical nebulizer needed for Bran ch solution Wheezing or Shortness of Breath. Via nebulizer albuterol 2018-11 Yes [id number] 2.5mg Inhale 3 [facility] 2.5 mg /3 2-30 6 mL every 4 ity of mL (0.083 00:00: (four) [place] %) 00 hours as Medical nebulizer needed for Bran ch solution Wheezing or Shortness of Breath. Via nebulizer albuterol 2018-11 Yes [id number] 2.5mg Inhale 3 [facility] 2.5 mg /3 2-30 6 mL every 4 ity of mL (0.083 00:00: (four) [place] %) 00 hours as Medical nebulizer needed for Bran ch solution Wheezing or Shortness of Breath. Via nebulizer albuterol 2018-11 Yes [id number] 2.5mg Inhale 3 Univers 2.5 mg /3 2-30 6 mL every 4 ity of mL (0.083 00:00: (four) [place] %) 00 hours as Medical nebulizer needed for Bran ch solution Wheezing or Shortness of Breath. Via nebulizer albuterol 2018-11 Yes [id number] 2.5mg Inhale 3 Univers 2.5 mg /3 2-30 6 mL every 4 ity of mL (0.083 00:00: (four) [place] %) 00 hours as Medical nebulizer needed for Bran ch solution Wheezing or Shortness of Breath. Via nebulizer albuterol 2018-11 Yes [id number] 2.5mg Inhale 3 Univers 2.5 mg /3 2-30 6 mL every 4 ity of mL (0.083 00:00: (four) [place] %) 00 hours as Medical nebulizer needed for Bran ch solution Wheezing or Shortness of Breath. Via nebulizer albuterol 2018-11 Yes [id number] 2.5mg Inhale 3 Univers 2.5 mg /3 2-30 6 mL every 4 ity of mL (0.083 00:00: (four) [place] %) 00 hours as Medical nebulizer needed for Bran ch solution Wheezing or Shortness of Breath. Via nebulizer albuterol 2018-11 Yes [id number] 2.5mg Inhale 3 [facility] 2.5 mg /3 2-30 6 mL every 4 ity of mL (0.083 00:00: (four) [place] %) 00 hours as Medical nebulizer needed for Bran ch solution Wheezing or Shortness of Breath. Via nebulizer albuterol 2018-11 Yes [id number] 2.5mg Inhale 3 [facility] 2.5 mg /3 2-30 6 mL every 4 ity of mL (0.083 00:00: (four) [place] %) 00 hours as Medical nebulizer needed for Bran ch solution Wheezing or Shortness of Breath. Via nebulizer albuterol 2018-11 Yes [id number] 2.5mg Inhale 3 [facility] 2.5 mg /3 2-30 6 mL every 4 ity of mL (0.083 00:00: (four) [place] %) 00 hours as Medical nebulizer needed for Bran ch solution Wheezing or Shortness of Breath. Via nebulizer albuterol 2018-11 Yes [id number] 2.5mg Inhale 3 Univers 2.5 mg /3 2-30 6 mL every 4 ity of mL (0.083 00:00: (four) [place] %) 00 hours as Medical nebulizer needed for Bran ch solution Wheezing or Shortness of Breath. Via nebulizer albuterol 2018-11 Yes [id number] 2.5mg Inhale 3 [facility] 2.5 mg /3 2-30 6 mL every 4 ity of mL (0.083 00:00: (four) [place] %) 00 hours as Medical nebulizer needed for Bran ch solution Wheezing or Shortness of Breath. Via nebulizer albuterol 2018-11 Yes [id number] 2.5mg Inhale 3 [facility] 2.5 mg /3 2-30 6 mL every 4 ity of mL (0.083 00:00: (four) [place] %) 00 hours as Medical nebulizer needed for Bran ch solution Wheezing or Shortness of Breath. Via nebulizer albuterol 2018-11 Yes [id number] 2.5mg Inhale 3 [facility] 2.5 mg /3 2-30 6 mL every 4 ity of mL (0.083 00:00: (four) [place] %) 00 hours as Medical nebulizer needed for Bran ch solution Wheezing or Shortness of Breath. Via nebulizer albuterol 2018-11 Yes [id number] 2.5mg Inhale 3 [facility] 2.5 mg /3 2-30 6 mL every 4 ity of mL (0.083 00:00: (four) [place] %) 00 hours as Medical nebulizer needed for Bran ch solution Wheezing or Shortness of Breath. Via nebulizer albuterol 2018-11 Yes [id number] 2.5mg Inhale 3 [facility] 2.5 mg /3 2-30 6 mL every 4 ity of mL (0.083 00:00: (four) [place] %) 00 hours as Medical nebulizer needed for Bran ch solution Wheezing or Shortness of Breath. Via nebulizer albuterol 2018-11 Yes [id number] 2.5mg Inhale 3 [facility] 2.5 mg /3 2-30 6 mL every 4 ity of mL (0.083 00:00: (four) [place] %) 00 hours as Medical nebulizer needed for Bran ch solution Wheezing or Shortness of Breath. Via nebulizer albuterol 2018-11 Yes [id number] 2.5mg Inhale 3 [facility] 2.5 mg /3 2-30 6 mL every 4 ity of mL (0.083 00:00: (four) [place] %) 00 hours as Medical nebulizer needed for Bran ch solution Wheezing or Shortness of Breath. Via nebulizer albuterol 2018-11 Yes [id number] 2.5mg Inhale 3 [facility] 2.5 mg /3 2-30 6 mL every 4 ity of mL (0.083 00:00: (four) [place] %) 00 hours as Medical nebulizer needed for Bran ch solution Wheezing or Shortness of Breath. Via nebulizer albuterol 2018-11 Yes [id number] 2.5mg Inhale 3 [facility] 2.5 mg /3 2-30 6 mL every 4 ity of mL (0.083 00:00: (four) [place] %) 00 hours as Medical nebulizer needed for Bran ch solution Wheezing or Shortness of Breath. Via nebulizer albuterol 2018-11 Yes [id number] 2.5mg Inhale 3 [facility] 2.5 mg /3 2-30 6 mL every 4 ity of mL (0.083 00:00: (four) [place] %) 00 hours as Medical nebulizer needed for Bran ch solution Wheezing or Shortness of Breath. Via nebulizer albuterol 2018-11 Yes [id number] 2.5mg Inhale 3 [facility] 2.5 mg /3 2-30 6 mL every 4 ity of mL (0.083 00:00: (four) [place] %) 00 hours as Medical nebulizer needed for Bran ch solution Wheezing or Shortness of Breath. Via nebulizer albuterol 2018-11 Yes [id number] 2.5mg Inhale 3 [facility] 2.5 mg /3 2-30 6 mL every 4 ity of mL (0.083 00:00: (four) [place] %) 00 hours as Medical nebulizer needed for Bran ch solution Wheezing or Shortness of Breath. Via nebulizer albuterol 2018-11 Yes [id number] 2.5mg Inhale 3 [facility] 2.5 mg /3 2-30 6 mL every 4 ity of mL (0.083 00:00: (four) [place] %) 00 hours as Medical nebulizer needed for Bran ch solution Wheezing or Shortness of Breath. Via nebulizer albuterol 2018-11 Yes [id number] 2.5mg Inhale 3 [facility] 2.5 mg /3 2-30 6 mL every 4 ity of mL (0.083 00:00: (four) [place] %) 00 hours as Medical nebulizer needed for Bran ch solution Wheezing or Shortness of Breath. Via nebulizer albuterol 2018-11 Yes [id number] 2.5mg Inhale 3 [facility] 2.5 mg /3 2-30 6 mL every 4 ity of mL (0.083 00:00: (four) [place] %) 00 hours as Medical nebulizer needed for Bran ch solution Wheezing or Shortness of Breath. Via nebulizer albuterol 2018-11 Yes [id number] 2.5mg Inhale 3 [facility] 2.5 mg /3 2-30 6 mL every 4 ity of mL (0.083 00:00: (four) [place] %) 00 hours as Medical nebulizer needed for Bran ch solution Wheezing or Shortness of Breath. Via nebulizer albuterol 2018-11 Yes [id number] 2.5mg Inhale 3 [facility] 2.5 mg /3 2-30 6 mL every 4 ity of mL (0.083 00:00: (four) [place] %) 00 hours as Medical nebulizer needed for Bran ch solution Wheezing or Shortness of Breath. Via nebulizer albuterol 2018-11 Yes [id number] 2.5mg Inhale 3 [facility] 2.5 mg /3 2-30 6 mL every 4 ity of mL (0.083 00:00: (four) [place] %) 00 hours as Medical nebulizer needed for Bran ch solution Wheezing or Shortness of Breath. Via nebulizer albuterol 2018-11 Yes [id number] 2.5mg Inhale 3 [facility] 2.5 mg /3 2-30 6 mL every 4 ity of mL (0.083 00:00: (four) [place] %) 00 hours as Medical nebulizer needed for Bran ch solution Wheezing or Shortness of Breath. Via nebulizer albuterol 2018-11 Yes [id number] 2.5mg Inhale 3 Univers 2.5 mg /3 2-30 6 mL every 4 ity of mL (0.083 00:00: (four) [place] %) 00 hours as Medical nebulizer needed for Bran ch solution Wheezing or Shortness of Breath. Via nebulizer albuterol 2018-11 Yes [id number] 2.5mg Inhale 3 [facility] 2.5 mg /3 2-30 6 mL every 4 ity of mL (0.083 00:00: (four) [place] %) 00 hours as Medical nebulizer needed for Bran ch solution Wheezing or Shortness of Breath. Via nebulizer albuterol 2018-11 Yes [id number] 2.5mg Inhale 3 Univers 2.5 mg /3 2-30 6 mL every 4 ity of mL (0.083 00:00: (four) [place] %) 00 hours as Medical nebulizer needed for Bran ch solution Wheezing or Shortness of Breath. Via nebulizer albuterol 2018-11 Yes [id number] 2.5mg Inhale 3 Univers 2.5 mg /3 2-30 6 mL every 4 ity of mL (0.083 00:00: (four) [place] %) 00 hours as Medical nebulizer needed for Bran ch solution Wheezing or Shortness of Breath. Via nebulizer albuterol 2018-11 Yes [id number] 2.5mg Inhale 3 [facility] 2.5 mg /3 2-30 6 mL every 4 ity of mL (0.083 00:00: (four) [place] %) 00 hours as Medical nebulizer needed for Bran ch solution Wheezing or Shortness of Breath. Via nebulizer albuterol 2018-11 Yes [id number] 2.5mg Inhale 3 [facility] 2.5 mg /3 2-30 6 mL every 4 ity of mL (0.083 00:00: (four) [place] %) 00 hours as Medical nebulizer needed for Bran ch solution Wheezing or Shortness of Breath. Via nebulizer albuterol 2018-11 Yes [id number] 2.5mg Inhale 3 Univers 2.5 mg /3 2-30 6 mL every 4 ity of mL (0.083 00:00: (four) [place] %) 00 hours as Medical nebulizer needed for Bran ch solution Wheezing or Shortness of Breath. Via nebulizer albuterol 2018-11 Yes [id number] 2.5mg Inhale 3 [facility] 2.5 mg /3 2-30 6 mL every 4 ity of mL (0.083 00:00: (four) [place] %) 00 hours as Medical nebulizer needed for Bran ch solution Wheezing or Shortness of Breath. Via nebulizer albuterol 2018-11 Yes [id number] 2.5mg Inhale 3 [facility] 2.5 mg /3 2-30 6 mL every 4 ity of mL (0.083 00:00: (four) [place] %) 00 hours as Medical nebulizer needed for Bran ch solution Wheezing or Shortness of Breath. Via nebulizer methylPREDN 2018-11 Yes [id number] Follow Univers ISolone 4 2-30 6 package ity of mg tablets 00:00: directions [facility] Branch albuterol 2018-11 Yes [id number] 2.5mg Inhale 3 Univers 2.5 mg /3 2-30 6 mL every 4 ity of mL (0.083 00:00: (four) [place] %) 00 hours as Medical nebulizer needed for Bran ch solution Wheezing or Shortness of Breath. Via nebulizer methylPREDN 2018-11 Yes [id number] Follow [facility] ISolone 4 2-30 6 package ity of mg tablets 00:00: directions [facility] Branch albuterol 2018-11 Yes [id number] 2.5mg Inhale 3 [facility] 2.5 mg /3 2-30 6 mL every 4 ity of mL (0.083 00:00: (four) [place] %) 00 hours as Medical nebulizer needed for Bran ch solution Wheezing or Shortness of Breath. Via nebulizer methylPREDN 2018-11 Yes [id number] Follow [facility] ISolone 4 2-30 6 package ity of mg tablets 00:00: directions [place] [facility] albuterol 2018-11 Yes [id number] 2.5mg Inhale 3 [facility] 2.5 mg /3 2-30 6 mL every 4 ity of mL (0.083 00:00: (four) [place] %) 00 hours as Medical nebulizer needed for Bran ch solution Wheezing or Shortness of Breath. Via nebulizer methylPREDN 2018-11- No [id number] Follow [facility] ISolone 4 2-30 08-17 6 package ity of mg tablets 00:00: 00:00 directions [place] 00 :00 Medical Branch methylPREDN 2018-11- No [id number] Follow Univers ISolone 4 2-30 -17 6 package ity of mg tablets 00:00: 00:00 directions [place] 00 :00 [facility] Phenylephri 2020- No TK 10ML PO [facility] ne-DM-GG 12-04 Q 6-8 H [facility] 1018-200 00:00: 00:00 FOR 5 of MG/15ML 00 :00 DAYS. Medicin LIQD e amoxicillin 2020- No TK 1 T PO [facility] -clavulanat 12-04 Q 12 H FOR C ollege e 00:00: 00:00 10 DAYS of (AUGMENTIN) 00 :00 Medicin 875-125 MG e per tablet cyclobenzap 2016-11- No [id number] 10mg Take 1 Tab [facility] rine 01-09 by mouth 3 [place] (FLEXERIL) 00:00: 00:00 times of 10 MG 00 :00 daily as Medicin tablet needed for e Muscle spasms. Immunizations Ordered Filled Immunization Date Status Comments [facility] e Immunization Name Name Twinrix (hep a/hep 2021-04-02 Completed Univer sity of b) 00:00:00 [facility] Twinrix (hep a/hep 2021-04-02 Completed Univer sity of b) 00:00:00 [facility] Twinrix (hep a/hep 2021-04-02 Completed Univer sity of b) 00:00:00 [facility] Twinrix (hep a/hep 2021-04-02 Completed Univer sity of b) 00:00:00 [facility] Twinrix (hep a/hep 2021-04-02 Completed Univer sity of b) 00:00:00 [facility] Twinrix (hep a/hep 2021-04-02 Completed Univer sity of b) 00:00:00 [facility] Twinrix (hep a/hep 2021-04-02 Completed Univer sity of b) 00:00:00 [facility] Twinrix (hep a/hep 2021-04-02 Completed Univer sity of b) 00:00:00 [facility] Twinrix (hep a/hep 2021-04-02 Completed Univer sity of b) 00:00:00 [facility] Twinrix (hep a/hep 2021-04-02 Completed Univer sity of b) 00:00:00 [facility] Twinrix (hep a/hep 2021-04-02 Completed Univer sity of b) 00:00:00 [facility] Twinrix (hep a/hep 2021-04-02 Completed Univer sity of b) 00:00:00 [facility] Twinrix (hep a/hep 2021-01-08 Completed Univer sity of b) 00:00:00 [facility] Twinrix (hep a/hep 2021-01-08 Completed Univer sity of b) 00:00:00 [facility] Twinrix (hep a/hep 2021-01-08 Completed Univer sity of b) 00:00:00 [facility] Twinrix (hep a/hep 2021-01-08 Completed Univer sity of b) 00:00:00 [facility] Twinrix (hep a/hep 2021-01-08 Completed Univer sity of b) 00:00:00 [facility] Twinrix (hep a/hep 2021-01-08 Completed Univer sity of b) 00:00:00 [facility] Twinrix (hep a/hep 2021-01-08 Completed Univer sity of b) 00:00:00 [facility] Twinrix (hep a/hep 2021-01-08 Completed Univer sity of b) 00:00:00 [place] [facility] Twinrix (hep a/hep 2021-01-08 Completed Univer sity of b) 00:00:00 [place] [facility] Twinrix (hep a/hep 2021-01-08 Completed Univer sity of b) 00:00:00 [place] [facility] Twinrix (hep a/hep 2021-01-08 Completed Univer sity of b) 00:00:00 [place] [facility] Twinrix (hep a/hep 2021-01-08 Completed Univer sity of b) 00:00:00 [facility] Twinrix (hep a/hep 2021-01-08 Completed Univer sity of b) 00:00:00 [facility] Twinrix (hep a/hep 2021-01-08 Completed Univer sity of b) 00:00:00 [facility] Twinrix (hep a/hep 2021-01-08 Completed Univer sity of b) 00:00:00 [facility] Twinrix (hep a/hep 2021-01-08 Completed Univer sity of b) 00:00:00 [facility] Twinrix (hep a/hep 2021-01-08 Completed Univer sity of b) 00:00:00 [facility] Twinrix (hep a/hep 2020-07-31 Completed Univer sity of b) 00:00:00 [facility] Twinrix (hep a/hep 2020-07-31 Completed Univer sity of b) 00:00:00 [facility] Twinrix (hep a/hep 2020-07-31 Completed Univer sity of b) 00:00:00 [place] [facility] Twinrix (hep a/hep 2020-07-31 Completed Univer sity of b) 00:00:00 [place] [facility] Twinrix (hep a/hep 2020-07-31 Completed Univer sity of b) 00:00:00 [place] [facility] Twinrix (hep a/hep 2020-07-31 Completed Univer sity of b) 00:00:00 [facility] Twinrix (hep a/hep 2020-07-31 Completed Univer sity of b) 00:00:00 [facility] Twinrix (hep a/hep 2020-07-31 Completed Univer sity of b) 00:00:00 [place] [facility] Twinrix (hep a/hep 2020-07-31 Completed Univer sity of b) 00:00:00 [place] [facility] Twinrix (hep a/hep 2020-07-31 Completed Univer sity of b) 00:00:00 [place] [facility] Twinrix (hep a/hep 2020-07-31 Completed Univer sity of b) 00:00:00 [place] [facility] Twinrix (hep a/hep 2020-07-31 Completed Univer sity of b) 00:00:00 [place] [facility] Twinrix (hep a/hep 2020-07-31 Completed Univer sity of b) 00:00:00 [facility] Twinrix (hep a/hep 2020-07-31 Completed Univer sity of b) 00:00:00 [facility] Twinrix (hep a/hep 2020-07-31 Completed Univer sity of b) 00:00:00 [facility] Twinrix (hep a/hep 2020-07-31 Completed Univer sity of b) 00:00:00 [place] [facility] Twinrix (hep a/hep 2020-07-31 Completed Univer sity of b) 00:00:00 [place] [facility] Twinrix (hep a/hep 2020-07-31 Completed Univer sity of b) 00:00:00 [facility] Twinrix (hep a/hep 2020-07-31 Completed Univer sity of b) 00:00:00 [place] [facility] Twinrix (hep a/hep 2020-07-31 Completed Univer sity of b) 00:00:00 [place] [facility] Twinrix (hep a/hep 2020-07-31 Completed Univer sity of b) 00:00:00 [facility] Twinrix (hep a/hep 2020-07-31 Completed Univer sity of b) 00:00:00 [place] [facility] Twinrix (hep a/hep 2020-07-31 Completed Univer sity of b) 00:00:00 [place] [facility] Twinrix (hep a/hep 2020-07-31 Completed Univer sity of b) 00:00:00 [facility] Twinrix (hep a/hep 2020-07-31 Completed Univer sity of b) 00:00:00 [facility] Twinrix (hep a/hep 2020-07-31 Completed Univer sity of b) 00:00:00 [facility] Twinrix (hep a/hep 2020-07-31 Completed Univer sity of b) 00:00:00 [facility] Twinrix (hep a/hep 2020-07-31 Completed Univer sity of b) 00:00:00 [facility] Twinrix (hep a/hep 2020-07-31 Completed Univer sity of b) 00:00:00 [facility] Twinrix (hep a/hep 2020-07-31 Completed Univer sity of b) 00:00:00 [facility] Twinrix (hep a/hep 2020-07-31 Completed Univer sity of b) 00:00:00 [facility] Tdap 2017-02-08 Completed [facility] 00:00:00 Medicine Influenza 2017-02-08 [facility] Medici ne Influenza Quad-PF 2015-10-31 Completed [facility] 00:00:00 Medicine Vital Signs Vital Name Observation Time Observation Value Comments Source HEIGHT 2021-02-25 06:57:00 154.9 cm WEIGHT 2021-02-25 06:57:00 49.397 kg WEIGHT 2020-09-17 04:35:00 51.12 kg WEIGHT 2020-09-14 04:57:00 50.213 kg WEIGHT 2020-09-13 06:38:00 50.168 kg WEIGHT 2020-09-12 04:00:00 50.531 kg HEIGHT 2020-09-07 18:30:00 154.9 cm WEIGHT 2020-09-07 18:30:00 50.032 kg Systolic blood 2021-05-08 19:26:00 111 mm[Hg] Univer sity of pressure [facility] Diastolic blood 2021-05-08 19:26:00 65 mm[Hg] Unive rsity of pressure [facility] Heart rate 2021-05-08 19:26:00 70 /min [facility] Body height 2021-05-08 19:26:00 154.9 cm [facility] Body weight 2021-05-08 19:26:00 48.081 kg [facility] BMI 2021-05-08 19:26:00 20.03 kg/m2 [facility] Systolic blood 2021-04-02 18:02:00 122 mm[Hg] Univer [facility]ity [facility] pressure [facility] Diastolic blood 2021-04-02 18:02:00 78 mm[Hg] Unive rsity of pressure [facility] Heart rate 2021-04-02 18:02:00 60 /min [facility] Body temperature 2021-04-02 18:02:00 36.17 Glo [facility] ers[facility] Body height 2021-04-02 18:02:00 154.9 cm [facility] Body weight 2021-04-02 18:02:00 48.353 kg [facility] BMI 2021-04-02 18:02:00 20.14 kg/m2 [facility] HEIGHT 2021-02-25 06:57:00 154.9 cm WEIGHT 2021-02-25 06:57:00 49.397 kg HEIGHT 2021-02-21 13:51:00 154.9 cm WEIGHT 2021-02-21 13:51:00 47.628 kg HEIGHT 2021-02-21 13:51:00 154.9 cm WEIGHT 2021-02-21 13:51:00 47.628 kg Systolic blood 2021-02-17 16:01:00 104 mm[Hg] [facility] pressure Medicine Diastolic blood 2021-02-17 16:01:00 76 mm[Hg] [facility] pressure Medicine Heart rate 2021-02-17 15:57:00 75 /min [facility] Body height 2021-02-17 15:57[facility] Body weight 2021-02-17 15:57:00 [facility] BMI 2021-02-17 15:57:00 20.78 kg[facility]m2 [facility] Systolic blood 2021-02-17 16:01:00 104 mm[Hg] [facility] pressure Medicine Diastolic blood 2021-02-17 16:01:00 76 mm[Hg] [facility] pressure Medicine Heart rate 2021-02-17 15:57:00 75 /min [facility] Body height 2021-02-17 15:57:00 154.9 cm [facility] Body weight 2021-02-17 15:57:00 49.896 kg [facility] BMI 2021-02-17 15:57:00 20.78 kg/m2 [facility] Systolic blood 2021-01-08 20:01:00 125 mm[Hg] Univer sity of pressure [facility] Diastolic blood 2021-01-08 20:01:00 72 mm[Hg] Unive rsity of pressure [facility] Heart rate 2021-01-08 20:01:00 94 /min [facility] Body temperature 2021-01-08 20:01:00 36.22 Glo Univ ersity of [facility] Body height 2021-01-08 20:01:00 154.9 cm [facility] Body weight 2021-01-08 20:01:00 49.442 kg [facility] BMI 2021-01-08 20:01:00 20.60 kg/m2 [facility] WEIGHT 2020-09-17 04:35:00 51.12 kg WEIGHT 2020-09-14 04:57:00 50.213 kg WEIGHT 2020-09-13 06:38:00 50.168 kg WEIGHT 2020-09-12 04:00:00 50.531 kg HEIGHT 2020-09-07 18:30:00 154.9 cm WEIGHT 2020-09-07 18:30:00 50.032 kg Systolic blood 2020-07-31 13:20:00 128 mm[Hg] Univer sity of pressure [facility] Diastolic blood 2020-07-31 13:20:00 83 mm[Hg] Unive rsity of pressure [facility] Heart rate 2020-07-31 13:20:00 95 /min Universi ty of [facility] Body temperature 2020-07-31 13:20:00 36.44 Glo Univ [address]ity of [facility] Body height 2020-07-31 13:20:00 154.[address] [facility] Body weight 2020-07-31 13:20:00 53.[address] [facility] BMI 2020-07-31 13:20:00 22.24 kg/m2 [facility]i ty [facility] Systolic blood 2020-07-23 18:33:00 121 mm[Hg] Univer sity of pressure [facility] Diastolic blood 2020-07-23 18:33:00 75 mm[Hg] Unive rsity of pressure [facility] Heart rate 2020-07-23 18:33:00 84 /min [facility] Body temperature 2020-07-23 18:33:00 36.22 Glo Univ [address] of [facility] Respiratory rate 2020-07-23 18:33:00 18 /min Univ ersity of [facility] Body height 2020-07-23 18:33:00 154.9 cm Universi ty of [facility] Body weight 2020-07-23 18:33:[address] [facility] BMI 2020-07-23 18:33:00 22.41 kg/m2 [facility] Oxygen saturation in 2020-07-23 18:33:00 97 /min University of Arterial blood by [facility] Pulse oximetry Branch Systolic blood 2020-07-17 13:33:00 128 mm[Hg] Univer sity of pressure [facility] Diastolic blood 2020-07-17 13:33:00 85 mm[Hg] Unive rsity of pressure [facility] Heart rate 2020-07-17 13:33:00 77 /min [facility]i ty [facility] Body temperature 2020-07-17 13:33:00 36.61 Glo Univ ersity of [facility] Body height 2020-07-17 13:33:00 154.9 cm [facility]i ty [facility] Body weight 2020-07-17 13:33:[address] [facility] BMI 2020-07-17 13:33:00 22.13 kg/m2 Universi ty of [facility] Systolic blood 2020-07-15 19:56:00 130 mm[Hg] Univer sity of pressure [facility] Diastolic blood 2020-07-15 19:56:00 83 mm[Hg] Unive rsity of pressure [facility] Heart rate 2020-07-15 19:56:00 78 /min [facility]i ty [facility] Body temperature 2020-07-15 19:56:00 36.11 Glo Univ ersity of [facility] Body height 2020-07-15 19:56:00 154.9 cm [facility] Body weight 2020-07-15 19:56:00 52.98 kg [facility] BMI 2020-07-15 19:56:00 22.07 kg/m2 [facility] Oxygen saturation in 2020-07-15 19:56:00 100 /min University Arterial blood by [facility] Pulse oximetry Branch Systolic blood 2020-06-10 15:09:00 118 mm[Hg] Univer sity of pressure [facility] Diastolic blood 2020-06-10 15:09:00 76 mm[Hg] Unive rsity of pressure [facility] Heart rate 2020-06-10 15:09:00 90 /min [facility]i ty [facility] Body temperature 2020-06-10 15:09:00 36.89 Glo [facility] Respiratory rate 2020-06-10 15:09:00 16 /min [facility] Body height 2020-06-10 15:09:00 154.9 cm [facility] Body weight 2020-06-10 15:09:00 50.621 kg [facility] BMI 2020-06-10 15:09:00 21.09 kg/m2 Universi ty [facility] Systolic blood 2021-02-26 19:00:00 131 mm[Hg] [facility] Diastolic blood 2021-02-26 19:00:00 113 mm[Hg] [facility] Heart rate 2021-02-26 19:00:00 83 /min [facility] Body temperature 2021-02-26 19:00:00 36.[address] [facility] Respiratory rate 2021-02-26 19:00:00 21 /min [facility] Oxygen saturation in 2021-02-26 19:00:00 97 /min [facility] - Arterial blood by Medical nter Pulse oximetry Body height 2021-02-25 06:57:00 154.[address] [facility] Body weight 2021-02-25 06:57:00 49.397 kg [facility] BMI 2021-02-25 06:57:00 20.59 kg/m2 [facility] Procedures Procedure Date / Time Performing Clinician Source Performed EXTERNAL PROVIDER RECORDS 2021-07-09 05:01:00 Doctor [facility], [facility] [facility] PATIENT QUESTIONNAIRE 2021-05-16 05:01:00 Doctor Unassigned, Uni [facility] Name [facility] XR LUMBAR SPINE 4 VW 2021-05-08 21:56:09 Ginny Fuentes Uni [facility] ASSIGNMENT OF BENEFITS 2021-05-08 20:39:32 [facility], [facility] T[place] (HEP A/HEP 2021-04-02 18:20:25 Desirae Tay [facility])VACCINE [facility] TROPONIN I 2021-02-26 19:06:00 Luda Hall [facility] XR CHEST 1 VIEW PORTABLE 2021-02-26 17:11:[address] [facility] - / BEDSIDE Medical [place] CT BRAIN WITHOUT IV 2021-02-26 17:10:00 Luda Hall [facility] CONTRAST [facility] CT SPINE CERVICAL WITHOUT 2021-02-26 17:10:[address] [facility] - IV CONTRAST [facility] CBC W/PLT COUNT & AUTO 2021-02-26 16:50:00 Luda Hall [facility] DIFFERENTIAL [facility] COMPREHENSIVE METABOLIC 2021-02-26 16:50:00 [facility] TROPONIN I 2021-02-26 16:50:00 Luda Hall [facility] ED ECG INTERPRETATION 2021-02-26 16:44:55 Luda Hall [facility] ECG 12-LEAD 2021-02-26 15:42:49 Unknown, Hl7 Doctor [facility] CBC (HEMOGRAM ONLY) 2021-02-26 04:24:00 Sharona Goodwin [facility] ELECTROLYTE PANEL 2021-02-26 04:24:00 Sharona Goodwin [facility] BUN AND CREATININE 2021-02-26 04:24:00 Sharona Goodwin [facility] - W/RATIO [facility] XR CHEST 1 VIEW PORTABLE 2021-02-26 04:21:00 [facility] XR CHEST 1 VIEW PORTABLE 2021-02-25 13:00:00 Sharona Goodwin [facility] Erica - / BEDSIDE [facility] AICD GENERATOR & LEADS - 2021-02-25 10:28:00 KRIS Vargas [facility] - INSERTION W/ GENERAL [facility] ter ANESTHESIA (SING/DUAL/MULT) BASIC METABOLIC PANEL (7) 2021-02-25 08:33:00 Cliff Ferrari [facility] CBC (HEMOGRAM ONLY) 2021-02-25 07:46:00 Cliff Ferrari [facility] PROTHROMBIN TIME/INR 2021-02-25 07:46:00 Cliff Ferrari [facility] ECG 12-LEAD 2021-02-25 06:40:55 Unknown, Hl7 Doctor [facility] CARDIAC CATH REPORT - 2021-02-25 00:00:00 Provider, Default [facility] ARRYTHMIA IMPLANT REPORT 2021-02-25 00:00:00 Provider, Default [facility] - - [facility] BASIC METABOLIC PANEL (7) 2021-02-21 14:15:[address] [facility] I [facility] - [facility] CBC W/PLT COUNT & AUTO 2021-02-21 14:15:00 Sid Rosa [facility] Erica - DIFFERENTIAL [facility] SARS-COV2/RT-PCR ([facility] & 2021-02-21 14:09:00 Sid Rosa [facility] - REF LABS) [facility] TWINRIX (HEP A/HEP 2021-01-08 20:16:25 Desirae Tay [facility] B)VACCINE Medical Branch ASSIGNMENT OF BENEFITS 2021-01-08 19:44:03 Doctor Unassigned, [facility] CONSENT/REFUSAL FOR 2020-09-27 15:46:10 Doctor Unassigned, Unive [facility] DIAGNOSIS AND TREATMENT [facility] ASSIGNMENT OF BENEFITS 2020-09-27 15:45:42 Doctor Unassigned, Un [facility] [facility] BASIC METABOLIC PANEL (7) 2020-09-17 04:45[facility] 2020-09-17 04:45:00 [facility] PHOSPHORUS 2020-09-17 04:45:00 [facility] BASIC METABOLIC PANEL (7) 2020-09-15 04:25:00 [facility] CALCIUM, IONIZED 2020-09-15 04:25:00 Craig [facility] PHOSPHORUS 2020-09-15 04:25:00 [facility] CBC W/PLT COUNT & AUTO 2020-09-15 04:25:00 Sae Vu [facility] MAGNESIUM 2020-09-15 04:25:00 [facility] BASIC METABOLIC PANEL (7) 2020-09-13 10:12:00 [facility] CBC W/PLT COUNT & AUTO 2020-09-12 04:25:00 Sae Vu [facility] LIPID PANEL 2020-09-12 04:25:00 Wendi Keith [facility] BASIC METABOLIC PANEL (7) 2020-09-12 04:25:00 Wendi Keith [facility] CALCIUM, IONIZED 2020-09-12 04:25:00 Craig [facility] PHOSPHORUS 2020-09-12 04:25:00 [facility] MAGNESIUM 2020-09-12 04:25:00 [facility] R CATH 2020-09-11 09:01:[address] [facility] L CATH & PCI 2020-09-11 09:01:[address] [facility] CALCIUM, IONIZED 2020-09-11 04:24:00 Craig [facility] CBC W/PLT COUNT & AUTO 2020-09-11 04:24:00 Sae Vu [facility] BASIC METABOLIC PANEL (7) 2020-09-11 04:23:00 [facility] PHOSPHORUS 2020-09-11 04:23:00 [facility] MAGNESIUM 2020-09-11 04:23:00 [facility] XR CHEST 1 VIEW PORTABLE 2020-09-10 13:09:00 Craig [facility] TSH/FREE T4 IF INDICATED 2020-09-10 04:29:[address] [facility] BASIC METABOLIC PANEL (7) 2020-09-10 04:29:00 [facility] CALCIUM, IONIZED 2020-09-10 04:29:00 Craig [facility] PHOSPHORUS 2020-09-10 04:29:00 [facility] CBC W/PLT COUNT & AUTO 2020-09-10 04:29:00 Sae Vu [facility] MAGNESIUM 2020-09-10 04:29:00 [facility] PREALBUMIN 2020-09-09 06:49:[address] [facility] BASIC METABOLIC PANEL (7) 2020-09-09 03:56:00 [facility] CALCIUM, IONIZED 2020-09-09 03:56:00 [facility] 2020-09-09 03:56:00 [facility] W/PLT COUNT & AUTO 2020-09-09 03:56:00 Sae Vu [facility] MAGNESIUM 2020-09-09 03:56:00 [facility] COMPREHENSIVE METABOLIC 2020-09-08 12:34:[address] [facility] TSH/FREE T4 IF INDICATED 2020-09-08 12:34:00 Sae Vu [facility] MAGNESIUM 2020-09-08 12:34:00 [facility] HEMOGLOBIN A1C 2020-09-08 12:34:00 [facility] CBC W/PLT COUNT & AUTO 2020-09-08 12:34:00 Sae Vu [facility] PHOSPHORUS 2020-09-08 12:34:00 [facility] CALCI[facility], ION[facility]ED 2020-09-08 12:34:00 Craig [facility] RAPID DRUG SCREEN, URINE 2020-09-07 23:36:[address] [facility] 2D ECHO W/ DOPPLER 2020-09-07 22:43:09 [facility] (CW/PW/COLOR) [facility] ECG 12-LEAD 2020-09-07 21:54:13 Unknown, Hl7 Doctor [facility] CARDIAC CATH REPORT - 2020-09-07 00:00:00 Provider, Default [facility] VASCULAR DIAGRAM -SCAN 2020-09-07 00:00:00 Provider, Default [facility] TWINRIX (HEP A/HEP 2020-07-31 13:47:51 [facility] B)VACCINE Medical Branch DISCLOSURE AND CONSENT, 2020-07-23 05:01:00 Doctor Unassigned, U [facility] MEDICAL AND SURGICAL [place] [facility] PROCEDURES HBC ANTIBODY (IGM & IGG) 2020-07-17 15:22:00 Desirae Tay [facility] ASSIGNMENT OF BENEFITS 2020-07-16 22:23:43 [facility] UN[facility]JUGATED/BILI 2020-06-10 19:18:00 Ramsey Hagen [facility] COMP. METABOLIC PANEL 2020-06-10 19:18:00 Ramsey Hagen [facility] ([id number]) [facility] CBC WITH DIFFERENTIAL 2020-06-10 19:18:00 Ramsey Hagen [facility] HEPATITIS B SURFACE 2020-06-10 19:18:00 Ramsey Hagen [facility] ANTIGEN [facility] HCV ANTIBODY 2020-06-10 19:18:00 Hieu Ramsey [place] [facility] ADC OR JOSE ONLY - RPR 2020-06-10 19:18:00 Ramsey Hagen [facility] HIV 1/2 AG-AB WITH REFLEX 2020-06-10 19:18:00 Ramsey Hagen Un [facility] POCT URINALYSIS W/O 2020-06-10 00:00:00 Ramsey Hagen [facility] SPECIFIC GRAVITY [facility] EXTERNAL PROVIDER RECORDS 2019-12-12 06:01:00 Doctor Unassigned, [facility] Plan of Care Planned Activity Planned Date Details Comments Source Future Scheduled 2027-02-08 DTAP/TDAP/TD VACCINES (2 - [facility] 00:00:00 Td) [code = DTAP/TDAP/TD Med ical Center VACCINES (2 - Td)] Future Scheduled 2025-09-12 Lipid panel (procedure) [facility] Test 00:00:00 [code = 30685789] Medical Ce nter Future Scheduled 2021-07-30 INFLUENZA VACCINE (Season [facility] 00:00:00 Ended) [code = INFLUENZA Med ical Center VACCINE (Season Ended)] Future Scheduled 2011 SHINGLES VACCINES (1 of 2) [facility] Test 00:00:00 [code = SHINGLES VACCINES [facility] (1 of 2)] Future Scheduled 1982 Screening for malignant [facility] Test 00:00:00 neoplasm of cervix Medical C enter (procedure) [code = 094180395] Future Scheduled 1979 HEPATITIS C [facility]CRE[facility]ING [facility]00 [code = HEPATITIS C Medical Center SCREENING] Future Scheduled 1973 COVID-19 VACCINE (1) [code [facility] Test 00:00:00 = COVID-19 VACCINE (1)] [facility] Future Scheduled 1961 Screening for malignant [facility] Test 00:00:00 neoplasm of breast Medical C enter (procedure) [code = 744582170] Future Scheduled 1961 Screening for malignant [facility] Test 00:00:00 neoplasm of colon Medical Ce nter (procedure) [code = 475067581] Future Scheduled ELECTROCARDIOGRAM COMPLETE [facility] Test [code = 57120] of Medicine Future Scheduled Screening for malignant [facility] Test neoplasm of colon of Medicin e (procedure) [code = 669895797] Future Scheduled COVID-19 Vaccine (1) [code [facility] Test = COVID-19 Vaccine (1)] of M edicine Future Scheduled Hepatitis C screening [employer] Test (procedure) [code = of Medic ine 570929762] Future Scheduled ZOSTER VACCINE (1 of 2) [facility] Test [code = ZOSTER VACCINE (1 of Medicine of 2)] Future Scheduled Screening for malignant [facility] Test neoplasm of breast of Medici ne (procedure) [code = 915382319] Future Scheduled FLU VACCINE > 6 MONTHS [employer] Test [code = FLU VACCINE > 6 of M edicine MONTHS] Future Scheduled Screening for malignant [facility] Test neoplasm of cervix of Medici ne (procedure) [code = 081762460] Future Scheduled TETANUS SHOT (ADULT) [code [employer] Test = TETANUS SHOT (ADULT)] of M edicine Encounters Start End Encounter Admission Attending Care Care Encounter Source Date/Time Date/Time Type Type Clinicians Facility Department ID 2021-09-26 Outpatient MATHEUS LAMIRTHA [facility] [id number] Univers 14:34:06 CAROLINE sahni [facility] 2021-09-06 Outpatient [facility] Surgery [id number] SLE 09:12:33 MAIXMILIANO ROSA 2021-09-03 Inpatient UR RADHA, [facility] Cardiac ICU [id number] [facility] 10:12:34 MARGARET 2021-10-22 2021-10-22 Outpatient R FAB, [facility] [id number] Univers 10:30:00 10:30:00 DESIRAE [id number] [facility] 2021-10-08 2021-10-08 Outpatient R FAB, [facility] [id number] Univers 13:00:00 13:00:00 DESIRAE [id number] [facility] 2021-10-08 2021-10-08 Outpatient R CHRISTAOE, [facility] [id number] Univers 09:00:00 09:00:00 DESIRAE [facility] 2021-07-09 2021-07-09 Orders Doctor NICK [id number] Univers 00:00:00 00:00:00 Only Unassigned, PASCALE [id number] ity [facility] [id number] [place] as [phone] [address] 2021-06-12 2021-06-12 Outpatient Sagrario HAGEN [facility] [id number] Univers 13:00:00 13:00:00 RAMSEY [id number] [facility] 2021-06-12 2021-06-12 Outpatient Sagrario HAGEN [facility] [id number] Univers 13:00:00 13:00:00 RAMSEY [facility] 2021-06-10 2021-06-10 Outpatient Sagrario HAGEN [facility] [id number] Univers 09:30:00 09:30:00 RAMSEY [id number] [facility] 2021-06-10 2021-06-10 Outpatient Sagrario HAGEN [facility] [id number] Univers 09:30:00 09:30:00 RAMSEY [facility] 2021-05-29 2021-05-29 Outpatient Sagrario VILLAR [facility] [id number] Univers 08:30:00 08:30:00 LAVONNE [id number] [facility] 2021-05-29 2021-05-29 Outpatient R JIAN [facility] [id number] Univers 08:30:00 08:30:00 LAVONNE ity [facility] 2021-05-22 2021-05-22 Outpatient R JIAN [facility] [id number] Univers 15:30:00 15:30:00 LAVONNE ity [facility] 2021-05-22 2021-05-22 [facility] [id number] Univers 15:15:00 15:15:00 LAVONNE [id number] ity [facility] 2021-05-16 2021-05-16 Orders Doctor NICK [id number] Univers 00:00:00 00:00:00 Only Unassigned, PASCALE [id number] ity of [place] [facility] [id number] [place] [phone] [address] 2021-05-12 2021-05-12 Patient Alfredo [facility] [id number] 00:00:00 00:00:00 Secure Msg [facility] [id number] [place] [id number] Professio [phone] [place] [address] [address] 2021-05-12 2021-05-12 [place], [facility] [id number] Univers 00:00:00 00:00:00 Management [facility] [id number] ity of [place] [id number] [place] Professio [phone] [address] Office [address] 2021-05-12 2021-05-12 Patient Alfredo [facility] [id number] Univers 00:00:00 00:00:00 Secure Msg [facility] [id number] ity of [place] [id number] [place] Professio [phone] [address] Office [address] One 2021-05-09 2021-05-09 Patient Gianni [facility] [id number] Univers 00:00:00 00:00:00 Outreach [facility] [id number] i ty of [place] [id number] [place] Professio [phone] [facility] [address] 2021-05-08 2021-05-08 [facility] [id number] Univers 15:30:00 15:39:00 Encounter Wonemiliaful [place] [id number] [id number] [phone] [facility] [address] 2021-05-08 2021-05-08 Office [facility] [id number] Univers 13:54:10 15:11:35 [facility] [id number] ity of [place] [id number] [place] Professio [phone] [address] One 2021-05-08 2021-05-08 Outpatient R [facility] [id number] Univers 15:00:00 15:00:00 WONDIFUL [id number] ity o f [facility] 2021-05-08 2021-05-08 Outpatient R [facility] [id number] Univers 15:00:00 15:00:00 WONDIFUL ity o f [facility] 2021-05-08 2021-05-08 Orders Doctor NICK [id number] Univers 00:00:00 00:00:00 Only Unassigned, PASCALE [id number] ity of [place] [facility] [id number] [place] [phone] [facility] [address] 2021-04-02 2021-04-02 Rn Triage [facility] UNIVERSIT [id number] Univers 13:31:06 13:46:06 Visit ODesirae Dotson Y HEALTH [id number] ity of CLINICS [id number] [phone] [facility] [address] 2021-04-02 2021-04-02 Office Christaoe, UNIVERSIT 1.2.840.114 [id number] Univers 12:32:00 13:02:[address] [facility] [id number] i ty of CLINICS [id number] [place] [phone] [address] 2021-04-02 2021-04-02 Outpatient R FAB, [facility] [id number] Univers 13:00:00 13:00:00 DESIRAE [id number] [facility] 2021-04-02 2021-04-02 Outpatient R FAB, [facility] [id number] Univers 13:00:00 13:00:00 [facility] 2021-03-31 2021-03-31 Telephone Fab UNIVERSIT 1.2.840.114 [id number] Univers 00:00:00 00:00:00 [facility] [id number] i ty of CLINICS [id number] [place] [phone] [address] 2021-02-26 2021-02-26 Emergency ER [facility], [facility] [id number] 16:40[facility] 2021-02-26 2021-02-26 Emergency ER SLE Emergency [id number] [facility] 15:35:00 15:35:00 2021-02-25 2021-02-26 Hospital [facility] [id number] 05:51:00 14:16:00 Encounter [facility] 2021-02-25 2021-02-25 Surgery [facility] [id number] 12:25:00 15:40:00 [facility] 2021-02-25 2021-02-25 Travel [facility] [id number] [facility] 00:[facility] 00:00:00 [facility] 2021-02-25 2021-02-[address] [facility] [id number] 00:00:00 00:00:00 Only [facility] 2021-02-21 2021-02-21 Office EL Maximiliano Vargas [facility] [id number] [facility] 13:53:29 14:08:29 Visit Shane Veras [facility] 2021-02-21 2021-02-21 Outpatient [facility] [id number] SLE 00:00:00 00:00:00 2021-02-21 2021-02-21 Travel [facility] [id number] [facility] 00:[facility]00 00:00:00 [facility] 2021-02-17 2021-02-17 Office Lau [facility] 1.2.840.114 [id number] 09:59:54 10:29:54 Visit Moe, AMBULATOR [id number] Maximiliano Y [id number] [place] [phone] 300 2021-02-17 2021-02-17 Office Sid MUSTAFA 1.2.840.114 [id number] [facility] 09:59:54 10:29:54 Visit Moe AMBULATOR [id number] College Maximiliano Y [id number] of [place] [phone] [facility] 300 e 2021-02-05 2021-02-05 Patient Isael [facility] 1.2.840.114 [id number] Univers 00:00:00 00:00:00 Outreach [place] PRIMARY 350.1.13.10 i ty of [place]enny CARE 4.2.7.2.686 Deweya s FELA [phone] Az dical [address] 2021-01-08 2021-01-08 Office LOKI Tay 1.2.840.114 [id number] Univers 13:44:11 14:25:[address] [facility] 350.1.13.10 i ty of CL[place] [phone] [facility] 071 Branch 2021-01-08 2021-01-08 Outpatient R FAB [facility] 2319 32L-20 Univers 13:00:00 13:00:00 [facility]AE [id number] [facility] 2021-01-08 2021-01-08 Outpatient Sagrario TAY [facility] [id number] Univers 13:00:00 13:00:00 [facility] 2021-01-08 2021-01-08 Orders Doctor NICK 1.2.840.114 [id number] Univers 00:00:00 00:00:00 Only Unassigned, PASCALE 350.1.13.10 ity [facility] 4.2.7.2.686 [place] [phone] [facility] [address] 2020-12-13 2020-12-13 Outpatient [facility] [id number] -[id number] Univers 10:30:00 10:30:00 [id number] [facility] 2020-12-13 2020-12-13 Outpatient Sagrario TAY [facility] [id number] Univers 10:30:00 10:30:00 DESIRAE [facility] 2020-12-13 2020-12-13 Rn Triage 2, Adc Lab [facility] 1.2.840.114 [id number] Univers 09:02:50 09:17:50 Visit Desirae Tay 350.1.13.10 ity [facility] [place] Profess[place] [phone] Az dic[address] 2020-10-30 2020-10-30 Outpatient Sagrario TAY [facility] 2319 32L-20 Univers 08:00:00 08:00:00 [facility] 2020-10-23 2020-10-23 Telephone LOKI Tay 1..840.114 [id number] Univers 00:00:00 00:00:00 Des[facility]ae [facility] 350.1.13.10 i ty of [facility] [place] [phone] [facility] [address] 2020-10-14 2020-10-14 Patient Alfredo [facility] 1.2.840.114 [id number] Univers 00:00:00 00:00:00 Secure Msivan Schultzful [facility] 350.1.13.10 ity of [place] 4.2.7.2.686 [place] Professio [phone] Me dical nal [address] Office Building One 2020-10-11 2020-10-11 Telephone OMauri, UNIVERSIT 1.2.840.114 [id number] Univers 00:00:00 00:00:00 Desirae Y HEALTH 350.1.13.10 i ty of [place] [phone] [place] [address] [place] 2020-10-04 2020-10-04 Telephone OFranchescaMinh, UNIVERSIT 1.2.840.114 [id number] Univers 00:00:00 00:00:00 Desirae Y HEALTH 350.1.13.10 i ty [place] [phone] [address] 2020-09-27 2020-09-27 Outpatient R [facility] [id number] -[id number] Univers 11:30:00 11:30:00 [id number] ity of [facility] 2020-09-27 2020-09-27 Outpatient R [facility] [id number] Univers 11:30:00 11:30:00 ity of [facility] 2020-09-27 2020-09-27 Rn Triage 2, Adc Lab [facility] 1.2.840.114 [id number] Univers 10:46:54 11:01:54 Visit Herberth [place] 350.1.13.10 ity of [place] [phone] Az dical nal 353 [facility] 2020-09-27 2020-09-27 Orders Doctor NICK 1.2.840.114 [id number] Univers 00:00:00 00:00:00 Only Unassigned, PASCALE 350.1.13.10 ity of [place] [facility] 4.2.7.2.686 [place] [phone] [facility] [address] 2020-09-07 2020-09-18 [facility] SHER Crookth Rogeriokylie Sheldon [facility] [id number] [facility] 18:03:00 17:57:00 Encounter Andrey Vuza [facility] 2020-09-11 2020-09-11 Surgery Sen, [facility] [id number] 09:14:00 10:53:00 Wendi [facility] 2020-09-07 2020-09-[address] [facility] [id number] 00:00:00 00:00:00 Only [facility] 2020-08-30 2020-08-30 Outpatient R [facility] [id number] -[id number] Univers 08:00:00 08:00[facility] 2020-08-30 2020-08-30 Outpatient R [facility] [id number] Univers 08:00:00 08:00:00 [facility] 2020-08-30 2020-08-30 Telephone Fab, UNIVERS 1.2.840.114 [id number] Univers 00:00:00 00:00:00 Desirae Y HEALTH 350.1.13.10 i ty [place] [phone] [address] 2020-08-30 2020-08-30 Telephone Fab, UNIVERSIT 1.2.840.114 [id number] Univers 00:00:00 00:00:00 Desirae Y HEALTH 350.1.13.10 i ty [place] [phone] [address] 2020-08-13 2020-08-13 Telephone Fab, UNIVERSIT 1.2.840.114 [id number] Univers 00:00:00 00:00:00 Desirae Y HEALTH 350.1.13.10 i ty [place] [phone] [address] 2020-07-31 2020-07-31 Office Fab, [facility] 1.2.840.114 [id number] Univers 08:07:04 08:57:58 Visit Desirae Y HEALTH 350.1.13.10 i ty of [place] [phone] [address] 2020-07-31 2020-07-31 Outpatient R FAB, [facility] 2319 32L-20 Univers 08:00:00 08:00:00 DESIRAE ity [facility] 2020-07-31 2020-07-31 Outpatient R FAB, [facility] [id number] Univers 08:00:00 08:00:00 DESIRAE [facility] 2020-07-31 2020-07-31 Telephone LOKI Tay 1.2.840.114 [id number] Univers 00:00:00 00:00:00 Desirae [facility] 350.1.13.10 i ty of [facility] 4.2.7.2.[place] [id number] [address] 2020-07-29 2020-07-29 Outpatient R [facility] [id number] -[id number] [facility] 12:15:00 12:15:00 [id number] [facility] 2020-07-26 2020-07-26 Outpatient R HIEU, [facility] [id number] 2L-20 Univers 09:30:00 09:30:00 RAMSEY [id number] [facility] 2020-07-26 2020-07-26 [facility] [id number] Univers 09:30:00 09:30:00 RAMSEY [facility] 2020-07-26 2020-07-26 [facility] 1.2.840.114 [id number] Univers 00:00:00 00:00:00 Caroline Stanley 350.1.13.10 i ty of [place] [phone] Az dical nal [address] [place] [address] 2020-07-23 2020-07-23 Office [facility] 1.2.639.072 [id number] Univers 12:47:38 14:40:29 Visit Caroline Stanley 350.1.13.10 i ty of [place].2.7.2.[place] [phone] Az dical nal [address] [place] [address] 2020-07-23 2020-07-23 Outpatient [facility] [id number] 2L-20 Univers 13:30:00 13:30:00 CAROLINE [id number] ity [facility] 2020-07-23 2020-07-23 Outpatient R MATHEUS, [facility] [id number] Univers 13:30:00 13:30:00 CAROLINE ity [facility] 2020-07-23 2020-07-23 Prep For Nohemi, [facility] 1.2.840.114 [id number] Univers 00:00:00 00:00:00 Surgery Reva Stanley 350.1.13.10 ity [place].2.[place] [phone] Az dical [facility] 204 [facility] 2020-07-23 2020-07-23 Orders Doctor NICK 1.2.840.114 [id number] Univers 00:00:00 00:00:00 Only Unassigned, PASCALE 350.1.13.10 ity of [place] [facility] 4.2.7.2.686 [place] [phone] [facility] [address] 2020-07-22 2020-07-22 Patient Fab, UNIVERSIT 1.2.840.114 [id number] Univers 00:00:00 00:00:00 Secure Msg Desirae Y HEALTH 350.1.13.10 ity of [place] [phone] [facility] [address] 2020-07-17 2020-07-17 Outpatient R FAB, [facility] 2319 32L-20 Univers 13:00:00 13:00:00 DESIRAE [id number] ity [facility] 2020-07-17 2020-07-17 Rn Triage [facility] UNIVERSIT 1.2.840.114 [id number] Univers 10:12:28 10:19:34 Visit Fab, Desirae Y HEALTH 350.1.13.10 ity of CL[place] 4[place]2.[place] [phone] [facility] [address] 2020-07-17 2020-07-17 Office OMauri, UNIVERSIT 1.2.840.114 [id number] Univers 08:24:03 10:06:02 Visit Desirae Y HEALTH 350.1.13.10 i ty of CL[place] [phone] [facility] [address] 2020-07-17 2020-07-17 Outpatient R KristelJudsonMINH [facility] [id number] Univers 09:30:00 09:30:00 DESIRAE ity of [facility] 2020-07-16 2020-07-16 Hospital [facility] 1.2.387.178 [id number] Univers 17:35:30 23:59:00 Encounter Wonemiliaful Reece [place] 350.1.13.10 ity of [place] [phone] [facility] [address] 2020-07-16 2020-07-16 [facility] [id number] L-20 Univers 00:00:00 00:00:00 WONDIFUL [id number] ity o f [facility] 2020-07-16 2020-07-16 Out[facility] [id number] Univers 00:00:00 00:00:00 WONDIFUL ity o f [facility] 2020-07-16 2020-07-16 Orders Doctor NICK 1.2.840.114 [id number] Univers 00:00:00 00:00:00 Only Unassigned, PASCALE 350.1.13.10 ity of [place] [facility] 4.2.7.2.686 [place] [phone] [facility] [address] 2020-07-15 2020-07-15 Rn Triage 2, Adc Lab [facility] 1.2.840.114 [id number] Univers 15:44:48 15:59:48 Visit Saad Fuentesmario Re[place] 350.1.13. 10 ity [place] [phone] Az dical nal 353 [facility] 2020-07-15 2020-07-15 Office Alfredo [facility] 1.2.840.114 [id number] Univers 14:43:21 15:39:39 Visit Saadmario [place] 350.1.13.10 ity of [place]2.[place] [phone] Me dical nal 044 [facility] 2020-07-15 2020-07-15 Outpatient ALFREDO [facility] [id number] L-20 Univers 15:00:00 15:00:00 WONDIFUL [id number] ity o geoffrey [facility] 2020-07-15 2020-07-15 Outpatient R SABINO [facility] [id number] Univers 11:00:00 11:00:00 SHERRI iteric [facility] 2020-07-09 2020-07-09 Telephone Alfredo [facility] 1.2.840.114 [id number] Univers 00:00:00 00:00:00 Wondiful [facility] Health 350.1.13.10 ity [facility] 4.2.7.2.686 [place] Professio [phone] [facility] [address] 2020-07-01 2020-07-01 Outpatient ALFREDO [facility] [id number] L-20 Univers 15:45:00 15:45:00 WONDIFUL ity o geoffrey [facility] 2020-06-10 2020-06-10 Rn Triage 2, Adc Lab [facility] 1.2.840.114 [id number] Univers 14:12:14 14:27:14 Visit Ramsey Hagen 350.1.13.10 ity [place] [phone] [facility] 353 [facility] 2020-06-10 2020-06-10 Office [facility] 1.2.236.686 [id number] Univers 09:37:50 10:30:46 Visit Ramsey Stanley 350.1.13.10 i ty of [place]2.[place] [phone] [facility] 134 [facility] 2020-06-10 2020-06-10 Outpatient R HIEU [facility] [id number] 2L-20 Univers 09:30:00 09:30:00 RAMSEY [id number] [facility] 2020-06-10 2020-06-10 Outpatient R HIEU [facility] [id number] Univers 09:30:00 09:30:00 RAMSEY [facility] 2019-12-12 2019-12-12 Orders Doctor NICK 1.2.840.114 [id number] Univers 00:00:00 00:00:00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 HospitalPREALBUMIN2020-10-12 07:51:00 Test Item Value Reference Range Interpretation Comments PREALBUMIN (BEAKER) (test code = 18 mg/dL 45 586) Place Change Roof Bolter ID - TANYA [id number] 05:08:00 Test Item Value Reference Range Interpretation Comments MAGNESIUM (BEAKER) 1.7 mg/dL 1.6-2.6 Specimen slightly (test code = 627) hemolyzed Place Change Roof Bolter ID - TANYA [id number] 05:08:00 Test Item Value Reference Range Interpretation Comments PHOSPHORUS (BEAKER) 4.7 mg/dL 2.3-4.7 Specimen slightly (test code = 604) hemolyzed Place Change Roof Bolter ID - TANYA MBASIC METABOLIC [id number] 05:08:00 Test Item Value Reference Range Interpretation [...] S NOT APPLICABLE FOR DIALYSIS PATIEN TS. Place Change Roof Bolter ID - TANYA MCBC W/PLT COUNT & AUTO [id number] 04:45:00 Test Item Value Reference Range Interpretation [...] PERCENT (BEAKER) (test code = 2801) CALCIUM, [id number] 04:14:00 Test Item Value Reference Range Interpretation Comments CALCIUM IONIZED (BEAKER) (test 1.15 mmol/L 1.12-1.27 code = 698) PH, BLOOD (BEAKER) (test code = 7.44 1810) 2D Echo W/Doppler(CW/PW/Color)2020-09-08 14:00:50Ejection FractionSLEH ECHO HEARTLAB MKCKESSON CPACSInterface, External Ris In - 09/08/2020 2:01 PM C DTTransthoracic Echocardiography Report (TTE) Demographics Patient Name CUONG, Date of Study 09/07/2020 SATINDER Gender Female Visit Number [id number] Race Black Room Number 1138 Number Date of 1961 Referring Physician PRISCILA Clark Age 59 year(s) Information Manager Rufino Connors Scanning Clerk Claire Rich Physician Procedure Type of Study TTE procedure:2DECHO W DOPPLER(CW/PW/COLOR) (Routine) Indications:Congestive heart failure.Clinical HistoryHX OF COCAINE ABUSE, [facility] 61 inches Weight: 49.9 kg (110 lbs) [...] CO: 3.94 l/min LVOT CI: 2.68 l/min/m^2[facility] CenterTSH/FREE T4 IF [id number] 13:40:00 Test Item Value Reference Range Interpretation Comments THYROID STIMULATING HORMONE 2.569 uIU/mL 0.350-4.940 (BEAKER) (test code = 772) Place Change Roof Bolter ID - [id number] 13:20:00 Test Item Value Reference Range Interpretation Comments MAGNESIUM (BEAKER) 1.7 mg/dL 1.6-2.6 Specimen slightly (test code = 627) hemolyzed Place Change Roof Bolter ID - [id number] 13:20:00 Test Item Value Reference Range Interpretation Comments PHOSPHORUS (BEAKER) 4.5 mg/dL 2.3-4.7 Specimen slightly (test code = 604) hemolyzed Place Change Roof Bolter ID - ROSIANGCOMPREHENSIVE METABOLIC [id number] 13:20:00 Test Item Value Reference Range Interpretation [...] S NOT APPLICABLE FOR DIALYSIS PATIEN TS. Place Change Roof Bolter ID - HARPREETGCALCIUM, [id number] 12:52:00 Test Item Value Reference Range Interpretation Comments CALCIUM IONIZED (BEAKER) (test 1.14 mmol/L 1.12-1.27 code = 698) PH, BLOOD (BEAKER) (test code = 7.45 1810) CBC W/PLT COUNT & AUTO [id number] 12:48:00 Test Item Value Reference Range Interpretation [...] (test code = 2801) Rapid drug screen, [id number] 00:38:00 Test Item Value Reference Range Interpretation Comments Barbiturate Screen Negative Negative (test code = 64520-9) Benzodiazepine Screen Negative Negative (test code = 27445-5) Cocaine (Metab.) Negative Negative Screen (test code = 3397-7) Methadone Screen (test Negative Negative code = 12619-0) Opiate Screen (test Positive Negative A code = 93212-5) Cannabinoid Screen Negative Negative (test code = 14367-9) Amph/Methamph Screen Negative Negative (test code = 41948-8) Phencyclidine Screen Negative Negative (test code = 47714-7) pH, UA (test code = 6.0 5.0-8.0 5803-2) AZCUENA (test code = AZUCENA) DRUG CUTOFF CONC.Cocaine 300 ng/mL Cannabinoid 50 ng/mLBenzodiazepine 200 ng/mLBarbiturate 200 ng/mLPhencyclidine 25 ng/mLOpiate 300 ng/mLMethadone 300 ng/mLAmphetamine/ 1000 ng/mL Methamphetamine This assay provides an unconfirmed qualitative test result for the clinical management of patients in emergency situations. Chain of custody not maintained. Some qvre-vzm-fozgpjt medications, as well as adulterants, may cause inaccurate results. Clinical correlation should be applied. A more comprehensive drug screen or confirmation of a detected drug may be performed upon request.Place Change Roof Bolter ID - DIANA Penningtonchrista ID - [auto] Lab Interpretation Abnormal (test code = 79562-0) [facility] HospitalRAD [facility] SCREEN, [id number] 00:38:00 Test Item Value Reference Range Interpretation [...] situations. Chain of custody not maintained. Some qken-tce-ebfrbgp medications, as well as adulterants, may cause inaccurate results. Clinical correlation should be applied. A more comprehensivedrug screen or confirmation of a detected drug may be performed upon request.Place Change Roof Bolter KUSH - DIANA Raymond ID - [auto]HBC ANTIBODY (IGM & IGG)2020-07-17 23:06:00 Test Item Value Reference Range Interpretation Comments HBC (test code = 5897243630) Negative HBC Semi-Quantitative (test code = 5428468632) [facility] (IGM & IGG)2020-07-17 23:06:00 Test Item Value Reference Range Interpretation Comments HBC (test code = 3508651779) Negative HBC Semi-Quantitative (test code = 8037205115) [facility]HCV [id number] 07:42:00 Test Item Value Reference Range Interpretation Comments HCV Ab (test code = Presumptive Positive 59194-3) HCV Semi-Quantitative (test code = 86973-8) AZUCENA (test code = Presumptive positive for AZUCENA) HCV antibody with a low signal to cutoff ration (s/c). ?This may represent a false positive. ?This specimen has been reflexed to qualitative PCR test and submitted to Molecular Diagnostic Laboratory. A report will be issued by that laboratory. ?If any questions, contact the Clinical Chemistry Director sales operations assistant at [phone]. [facility] OR JOSE Pike [id number] 06:51:00 Test Item Value Reference Range Interpretation Comments RPR (Qualitative) (test Reactive Nonreactive A code = 12642-2) AZUCENA (test code = AZUCENA) Weakly reactive at [facility].cn. Lab Interpretation (test Abnormal code = 12199-1) [facility]evilleHEPAT[facility]IS B SURFACE [id number] 05:30:00 Test Item Value Reference Range Interpretation Comments HBsAg Semi-Quantitative (test code = Negative Negative 5195-3) [facility]HIV [facility]/2 AG-AB WITH [id number] 22:14:00 Test Item Value Reference Range Interpretation Comments HIV Negative Negative Semi-quantitative (test code = 41527-6) AZUCENA (test code = Non-reactive for HIV-1 AZUCENA) antigen and HIV-1/HIV-2 antibodies. ?No laboratory evidence of HIV infection. ?Repeat in 2-4 weeks if acute HIV infection is suspected. [facility]. METABOLIC PANEL (08634)2020-06-10 21:35:00 Test Item Value Reference Range Interpretation Comments NA (test code = 137 mmol/L 135-145 7261104998) K (test code = 4.4 mmol/L 3.5-5 4335272990) CL (test code = 104 mmol/L 98-108 4568197200) CO2 TOTAL (test code = 26 mmol/L 23-31 1796504723) AGAP (test code = 2-16 8935868477) BUN (test code = 10 mg/dL 7-23 6599396801) GLUCOSE (test code = 111 mg/dL 70-110 H 5660112826) CREATININE (test code = 0.77 mg/dL 0.5-1.04 7668357946) TOTAL BILI (test code = 2.6 mg/dL 0.1-1.1 H 5533646551) CALCIUM (test code = 9.1 mg/dL 8.6-10.6 2657166184) T PROTEIN (test code = 7.1 g/dL 6.3-8.2 4137411371) ALBUMIN (test code = 3.9 g/dL 3.5-5 2018740267) ALK PHOS (test code = 247 U/L 34-122 H 3342047121) ALTv (test code = 531 U/L 5-35 H 1742-6) AST(SGOT) (test code = 370 U/L 13-40 H 2968260778) eGFR Calculation mL/min/1.73m2 (Non-) (test code = 3996840878) eGFR Calculation mL/min/1.73m2 () (test code = 4350838677) AZUCENA (test code = AZUCENA) Association of Glomerular Filtration Rate (GFR) and Staging of Kidney Disease* + --+ --+ ------+| GFR (mL/min/1.73 m2) ?| With Kidney Damage ?| ?Without Kidney Damage+ --------+ --------+ +| ?>90 ?| ?Stage one ?| ? Normal ?+ ---+ ---+ -------+| ?60-89 ?| ?Stage two ?| ? Decreased GFR ? + --+ --+ ------+| ?30-59 ?| ?Stage three ?| ? Stage three ? + --+ --+ ------+| ?15-29 ?| ?Stage four ? | ? Stage four ?+ ---+ ---+ -------+| ?<15 (or dialysis) ? ?| ?Stage five ? | ? Stage five ?+ ---+ ---+ -------+ *Each stage assumes the associated GFR level has been in effect for at least three months. ?Stages 1 to 5, with or without kidney disease, indicate chronic kidney disease. Notes: Determination of stages one and two (with eGFR >59mL/min/1.73 m2) requires estimation of kidney damage for at least three months as defined by structural or functional abnormalities of the kidney, manifested by either:Pathological abnormalities or Markers of kidney damage (including abnormalities in the composition of the blood or urine or abnormalities in imaging tests). Lab Interpretation Abnormal (test code = 80116-6) [facility] UNCONJUGATED/BILI [id number] 21:34:00 Test Item Value Reference Range Interpretation Comments BILI CONJ (test code = 6837595167) 0.0 mg/dL 0-0.3 BILI UNCON (test code = 0348282379) 1.0 mg/dL 0.1-1.1 Lab Interpretation (test code = Normal 12190-7) [facility] WITH [id number] 21:20:00 Test Item Value Reference Range Interpretation Comments WBC (test code = See_Comment [Automated 6690-2) message] The sy stem which generated this result transmitted reference range : 4.30 - 11.10 10*3/?L. The reference range was not used to interpret this result as normal/abnormal . RBC (test code = See_Comment [Automated 789-8) message] The sy stem which generated this result transmitted reference range : 3.93 - 5.25 10*6/?L. The reference range was not used to interpret this result as normal/abnormal . HGB (test code = 13.9 g/dL 11.6-15 718-7) HCT (test code = 43.5 % 35.7-45.2 4544-3) MCV (test code = 91.8 fL 80.6-95.5 787-2) MCH (test code = 29.3 pg 25.9-32.8 785-6) MCHC (test code = 32.0 g/dL 31.6-35.1 786-4) RDW-SD (test code = 50.6 fL 39-49.9 H 38458-1) RDW-CV (test code = 15.1 % 12-15.5 788-0) PLT (test code = See_Comment [Automated 777-3) message] The sy stem which generated this result transmitted reference range : 166 - 358 10*3/ ?L. The reference r destinee was not used to interpret this result as normal/abnormal . MPV (test code = 14.5 fL 9.5-12.9 H 49068-6) IPF % (test code = 17.5 % 1.3-7.7 H Platelet count 3042229673) measured by fluorescence method. NRBC/100 WBC (test See_Comment [Automat ed code = 7067842346) message] The system which generated this result transmitted reference range : 0.0 - 10.0 /100 WBCs. The refer ence range was not u sed to interpret th is result as normal/abnormal . NRBC x10^3 (test code <0.01 See_Comment [Auto mated = 2229923668) message] The s ystem which generated this result transmitted reference range : 10*3/?L. The reference range was not used to interpret this result as normal/abnormal . GRAN MAT (NEUT) % 43.2 % (test code = 770-8) IMM GRAN % (test code 0.30 % = 1353292183) LYMPH % (test code = 42.2 % 736-9) MONO % (test code = 11.6 % 5905-5) EOS % (test code = 1.9 % 713-8) BASO % (test code = 0.8 % 706-2) GRAN MAT x10^3(ANC) 2.56 10*3/uL 1.88-7.09 (test code = 4425410878) IMM GRAN x10^3 (test <0.03 0-0.06 code = 2915973329) LYMPH x10^3 (test code 2.50 10*3/uL 1.32-3.29 = 731-0) MONO x10^3 (test code 0.69 10*3/uL 0.33-0.92 = 742-7) EOS x10^3 (test code = 0.11 10*3/uL 0.03-0.39 711-2) BASO x10^3 (test code 0.05 10*3/uL 0.01-0.07 = 704-7) Lab Interpretation Abnormal (test code = 05916-5) [facility] URINALYSIS W/O SPECIFIC [id number] 15:33:00 Test Item Value Reference Range Interpretation Comments POCT PH U (test code = 3254) 5 mg/dl 5-8 POCT U LEUK EST (test code = ++ Negative - Negative 3263) POCT U NIT (test code = 3262) + Negative - Negative POCT U PROT (test code = trace Negative - Negative 3259) POCT U GLU (test code = 3256) normal Negative - Negative POCT U KETONE (test code = ++ moderate Negative - Negative 3258) POCT U BLD (test code = 3257) trace Negative - Negative [facility] URINALYSIS W/O SPECIFIC [id number] 15:33:00 Test Item Value Reference Range Interpretation Comments POCT PH U (test code = 3254) 5 mg/dl 5-8 POCT U LEUK EST (test code = ++ Negative - Negative 3263) POCT U NIT (test code = 3262) + Negative - Negative POCT U PROT (test code = trace Negative - Negative 3259) POCT U GLU (test code = 3256) normal Negative - Negative POCT U KETONE (test code = ++ moderate Negative - Negative 3258) POCT U BLD (test code = 3257) trace Negative - Negative [facility]"
[2021-10-18] MEDS ORDERED: ONDANSETRON 4 MG/2 ML VIAL ONE (14:08)
[2021-10-18] MEDS ORDERED: MORPHINE 4 MG/ML SYR ONE ×2 (14:08→15:14)
--- NOTE | 2021-10-18 14:23 | RAD REPORT ---
EXAM DESCRIPTION: CT - Thorax Wo Con CLINICAL HISTORY: Chest pain fall, right posterior rib injury COMPARISON: Chest For Pe Angio dated 09/06/2020; CTANGIO CHEST FOR PE dated 10/14/2012 FINDINGS: Moderate COPD. Trace right pleural fluid. No pneumothorax. Pacemaker wires noted. Calcified adenopathy is seen in the mediastinum, greatest in the AP window measuring 31 mm. Posterior right ninth and tenth rib is fractured without displacement. No gross upper abdominal findi ng. Small crescentic hypodensity in the subcapsular posterior right lobe of the liver shows long-siva ding stability. All CT scans are performed using dose optimization technique as appropriate and may include automated exposure control or mA/KV adjustment according to patient size. IMPRESSION: Posterior right ninth and tenth rib fractures without significant displacement. No pneum othorax. Moderate COPD. The USPSTF recommends annual screening for lung cancer with low-dose CT (LDCT) in adults aged 50 to 80 years who have a 20 pack-year smoking history and currently smoke or have quit within the past 15 years.
--- NOTE | 2021-10-18 15:15 | ER ---
Nurse's Notes [facility] Name: Brenda Velasquez Age: 61 yrs Sex: Female : 1960 Arrival Date: 10/18/2021 Time: 13:24 Bed 8 Private MD: Diagnosis: Multiple fractures of ribs, right side-2 Ribs Presentation: 10/18 13:36 Chief complaint: Patient states: Getting down from an 18 perkins and slipped and landed vg1 against an iron step; incident occurred 40 minutes ago. Denies hitting head. States pain in back and right side of ribs. Coronavirus screen: Vaccine status: Patient reports receiving the 2nd dose of the covid vaccine. Client denies travel out of the [place] in the last 14 days. Ebola Screen: Patient negative for fever greater than or equal to 101.5 degrees Fahrenheit, and additional compatible Ebola Virus Disease symptoms. Initial Sepsis Screen: Does the patient meet any 2 criteria? No. Patient's initial sepsis screen is negative. Does the patient have a suspected source of infection? No. Patient's initial sepsis screen is negative. Risk Assessment: Do you want to hurt yourself or someone else? Patient reports no desire to harm self or others. Onset of symptoms was October 18, 2021. 13:36 Method Of Arrival: Wheelchair vg1 13:36 Acuity: JOSE 4 vg1 Triage Assessment: 13:42 General: Appears in no apparent distress. uncomfortable, Behavior is calm, cooperative. vg1 Pain: Complains of pain in back. Historical: - Allergies: 13:42 No Known Allergies; vg1 - Home Meds: 13:42 Lisinopril Oral [Active]; vg1 - PMHx: 13:42 drug abuse; Heart Murmur; Hepatitis; vg1 - PSHx: 13:42 Titanium jenise in Neck; Defibrillator; vg1 - Immunization history:: Client reports receiving the 2nd dose of the Covid vaccine. - Social history:: Smoking status: Patient denies any tobacco usage or history of. - Family history:: not pertinent. - Hospitalizations: : No recent hospitalization is reported. Screenin:55 Abuse screen: Denies threats or abuse. Nutritional screening: No deficits noted. aa5 Tuberculosis screening: No symptoms or risk factors identified. Fall Risk None identified. Assessment: 13:55 General: Appears uncomfortable, Behavior is calm, cooperative. Pain: Complains of pain aa5 in right mid back and right lateral aspect of chest Pain currently is 10 out of 10 on a pain scale. Quality of pain is described as sharp, shooting, Is continuous, Aggravated by increased activity, repositioning. Neuro: Level of Consciousness is awake, alert, obeys commands, Oriented to person, place, time, situation. Cardiovascular: Patient's skin is warm and dry. Respiratory: Airway is patent Respiratory effort is even, unlabored, Respiratory pattern is regular, symmetrical, Breath sounds are clear bilaterally. GI: No signs and/or symptoms were reported involving the gastrointestinal system. : No signs and/or symptoms were reported regarding the genitourinary system. EENT: No signs and/or symptoms were reported regarding the EENT system. Derm: Skin is dry, Skin is normal, Skin temperature is warm. Musculoskeletal: Range of motion: intact in all extremities. 14:00 Reassessment: MD notified of pt's pain level. aa5 14:06 Reassessment: Pt currently at CT. aa5 14:25 Reassessment: Pt back from CT scan . aa5 15:55 Reassessment: Patient states feeling better. Patient states symptoms have improved. aa5 General: Appears comfortable. Pain: Pain currently is 5 out of 10 on a pain scale. Neuro: Level of Consciousness is awake, alert, obeys commands, Oriented to person, place, time, situation. Respiratory: Airway is patent Respiratory effort is even, unlabored, Respiratory pattern is regular, symmetrical. Derm: Skin is dry, Skin is normal, Skin temperature is warm. Vital Signs: 13:36 BP 146 / 79; Pulse 72; Resp 16; Temp 98.3; Pulse Ox 100% ; Weight 49.9 kg; Height 5 ft. vg1 1 in. (154.94 cm); Pain 10/10; 14:49 BP 148 / 93; Pulse 65; Resp 16 S; Pulse Ox 97% on R/A; aa5 13:36 Body Mass Index 20.78 (49.90 kg, 154.94 cm) vg1 ED Course: 13:24 Patient arrived in ED. mr 13:42 Triage completed. vg1 13:42 Arm band placed on. vg1 13:45 Kenn Rand MD is Attending Physician. rn 13:48 Radha Strong, RN is Primary Nurse. aa5 13:55 Patient has correct armband on for positive identification. Bed in low position. Call aa5 light in reach. Side rails up X2. Adult w/ patient. 14:12 CT Chest Wo Con In Process Unspecified. EDMS 14:27 Inserted saline lock: 22 gauge in right antecubital area, using aseptic technique. aa5 15:55 No provider procedures requiring assistance completed. IV discontinued, intact, aa5 bleeding controlled, No redness/swelling at site. Pressure dressing applied. Administered Medications: 14:28 Drug: Zofran (Ondansetron) 4 mg Route: IVP; Site: right antecubital; aa5 14:40 Follow up: Response: No adverse reaction aa5 14:30 Drug: morphine 4 mg Route: IVP; Site: right antecubital; aa5 14:40 Follow up: Response: No adverse reaction; Pain is decreased aa5 15:17 Drug: morphine 4 mg Route: IVP; Site: right antecubital; aa5 15:25 Follow up: Response: No adverse reaction; Pain is decreased aa5 Outcome: 15:14 Discharge ordered by . rn 15:55 Discharged to home via wheelchair, with significant other. aa5 15:55 Condition: improved 15:55 Discharge instructions given to patient, significant other, Instructed on discharge instructions, follow up and referral plans. medication usage, Need for and use of incentive spirometer. Demonstrated understanding of instructions, follow-up care, medications, Incentive spirometer use. Prescriptions given X 1. 15:59 Patient left the ED. aa5 Signatures: Dispatcher [employer] [facility] Brandy Roman, MD MD rn Calderon, Audri, RN RN aa5 Gertrudis Marcos RN RN vg1
--- NOTE | 2021-10-18 15:15 | EDPHYS ---
Physician Documentation [facility] Name: Brenda Velasquez Age: 61 yrs Sex: Female : 1960 Arrival Date: 10/18/2021 Time: 13:24 Bed 8 Private MD: ED Physician Kenn Rand HPI: 10/18 14:15 This 61 yrs old Black Female presents to ER via Wheelchair with complaints of Fall rn Injury, Back Pain. 14:15 This 61 yrs old Black Female presents to ER via Wheelchair with complaints of Fall rn Injury, rib pain. 14:15 Details of fall: The patient fell from an upright position. Onset: The symptoms/episode rn began/occurred just prior to arrival. Associated injuries: The patient sustained injury to the chest, contusion, pain with breathing, pain with movement, tenderness. Severity of symptoms: At their worst the symptoms were moderate, in the emergency department the symptoms are unchanged. The patient has not experienced similar symptoms in the past. The patient has not recently seen a physician. Patient reports slipped when trying to get out of a big truck, landed on steel step on right posterior thorax. Reports pain with movement and with deep breath. Denies any pain to abdomen. No head injury or neck injury.. Historical: - Allergies: 13:42 No Known Allergies; vg1 - Home Meds: 13:42 Lisinopril Oral [Active]; vg1 - PMHx: 13:42 drug abuse; Heart Murmur; Hepatitis; vg1 - PSHx: 13:42 Titanium jenise in Neck; Defibrillator; vg1 - Immunization history:: Client reports receiving the 2nd dose of the Covid vaccine. - Social history:: Smoking status: Patient denies any tobacco usage or history of. - Family history:: not pertinent. - Hospitalizations: : No recent hospitalization is reported. ROS: 14:15 Constitutional: Negative for fever, chills, and weight loss, Eyes: Negative for injury, rn pain, redness, and discharge, Neck: Negative for injury, pain, and swelling, Cardiovascular: Positive for right posterior rib injury and pain Respiratory: Negative for cough, wheezing Abdomen/GI: Negative for abdominal pain, nausea, vomiting, diarrhea, and constipation, Back: Negative for injury MS/Extremity: Negative for injury and deformity, Skin: Negative for injury, rash, and discoloration, Neuro: Negative for headache, weakness, numbness, tingling, and seizure. Exam: 14:15 Constitutional: This is a well developed, well nourished patient who is awake, alert, rn appears uncomfortable Head/Face: Normocephalic, atraumatic. Neck: Trachea midline, no masses palpated, no cervical tenderness Chest/axilla: Normal chest wall appearance and motion. Moderate tenderness right lateral and posterior ribs without crepitus Cardiovascular: Regular rate and rhythm. No pulse deficits. Respiratory: No increased work of breathing, no retractions or nasal flaring. Mild splinting with deep inspiration Abdomen/GI: Soft, nontender, no ecchymosis, no peritoneal signs Back: No spinal tenderness. Skin: Warm, dry MS/ Extremity: Pulses equal, no cyanosis. Neurovascular intact. Full, normal range of motion. Equal circumference. Neuro: Awake and alert, GCS 15, oriented to person, place, time, and situation. Cranial nerves II-XII grossly intact. Motor strength 5/5 in all extremities. Sensory grossly intact. Vital Signs: 13:36 BP 146 / 79; Pulse 72; Resp 16; Temp 98.3; Pulse Ox 100% ; Weight 49.9 kg; Height 5 ft. vg1 1 in. (154.94 cm); Pain 10/10; 14:49 BP 148 / 93; Pulse 65; Resp 16 S; Pulse Ox 97% on R/A; aa5 13:36 Body Mass Index 20.78 (49.90 kg, 154.94 cm) vg1 MDM: 13:45 Patient medically screened. rn 15:12 Differential diagnosis: contusion, fracture, sprain, strain. Data reviewed: vital rn signs, nurses notes, radiologic studies, CT scan, and as a result, I will discharge patient. Counseling: I had a detailed discussion with the patient and/or guardian regarding: the historical points, exam findings, and any diagnostic results supporting the discharge/admit diagnosis, radiology results, the need for outpatient follow up, to return to the emergency department if symptoms worsen or persist or if there are any questions or concerns that arise at home. Response to treatment: the patient's symptoms have markedly improved after treatment, and as a result, I will discharge patient. Special discussion: I discussed with the patient/guardian in detail that at this point there is no indication for admission to the hospital. It is understood, however, that if the symptoms persist or worsen the patient needs to return immediately for re-evaluation. ED course: Had long discussion with patient about her 2 nondisplaced rib fractures. Will give incentive spirometer for breathing exercises and to minimize the chance of pneumonia. Explained to patient and exactly what to do and what not to do with broken ribs to decrease bad outcomes. Will DC home with pain medication and also recommend topical medication/ice/heat and [id number] pain medication.. 10/18 13:55 Order name: CT Chest Wo Con; Complete Time: 14:28 rn 10/18 14:28 Order name: INCENTIVE SPIROMETRY rn 10/18 14:04 Order name: IV Start; Complete Time: 14:33 rn Administered Medications: 14:28 Drug: Zofran (Ondansetron) 4 mg Route: IVP; Site: right antecubital; aa5 14:40 Follow up: Response: No adverse reaction aa5 14:30 Drug: morphine 4 mg Route: IVP; Site: right antecubital; aa5 14:40 Follow up: Response: No adverse reaction; Pain is decreased aa5 15:17 Drug: morphine 4 mg Route: IVP; Site: right antecubital; aa5 15:25 Follow up: Response: No adverse reaction; Pain is decreased aa5 Disposition Summary: 10/18/21 15:14 Discharge Ordered Location: Home rn Problem: new rn Symptoms: have improved rn Condition: Stable rn Diagnosis - Multiple fractures of ribs, right side - 2 Ribs(10/18/21 15:14) rn Followup: rn - With: Private Physician - When: As needed - Reason: Recheck today's complaints, Re-evaluation by your physician Discharge Instructions: - Discharge Summary Sheet rn - Rib Fracture rn - How to Use an Incentive Spirometer rn Forms: - Medication Reconciliation Form rn - Thank You Letter rn - Antibiotic pattern clerk - Prescription Opioid Use rn Prescriptions: - Tylenol-Codeine #3 300 mg-30 mg Oral - take 1 tablet by ORAL route every 6-8 hours As needed; 15 tablet; Refills: 0, rn Product Selection Permitted Signatures: Dispatcher [employer] EDMS Kenn Rand MD MD rn Calderon, Audri RN RN aa5 Hemant, Gertrudis, RN RN vg1 Corrections: (The following items were deleted from the chart) 15:14 15:14 Multiple fractures of ribs, right side rn rn
[2021-10-18 16:09] VITALS: TEMP 98.3
[2021-10-18 16:10] VITALS: BP 148/93; O2SAT 97
== END 2021-10-18 15:59 | disposition home or self-care (01) ==
LOC: ER 13:21
DX: S22.41XA Multiple fractures of ribs, right side, initial encounter for closed fracture (principal); W19.XXXA Unspecified fall, initial encounter; Z95.810 Presence of automatic (implantable) cardiac defibrillator
CPT/HCPCS: 71250; 96375; 96374; 99284; J2405

== ENCOUNTER 2021-12-26 04:38 | Inpatient (IN) | payer OTHER ==
--- OUTSIDE RECORDS SUMMARY | 2021-12-26 04:46 | XMS REPORT | Continuity of Care Document ---
:1960 Author Organization [facility] t Address [address] [place] [place] [address] Care Team Providers Name Role Phone Reece FUENTES Primary Care Physician Unavailable MATHEUS Attending Clinician Unavailable TONYA VARGAS Attending Clinician Unavailable Monalisa GARCIA Attending Clinician Unavailable Jac GARCIA Attending Clinician Unavailable FAB Attending Clinician Unavailable MELY MOLINA Attending Clinician Unavailable Reece Fuentes MD Attending Clinician Doctor Unassigned, Name Attending Clinician Unavailable HIEU Attending Clinician Unavailable Sagrario VILLAR Attending Clinician Unavailable Gianni FAITH, L Attending Clinician Reece FUENTES Attending Clinician Unavailable [facility] Attending Clinician Unavailable Fab SANTILLAN Attending Clinician Isabel POTTER Attending Clinician Tonya Vargas MD Attending Clinician [phone] Eda LOTT Attending Clinician Unavailable Tonya Vargas MD Attending Clinician [phone] Lenny Kirkland DO Attending Clinician , Lab Attending Clinician Unavailable Cassy POTTER Attending Clinician Benja POTTER S Attending Clinician Craig POTTER Attending Clinician Sagar POTTER Attending Clinician Matheus POTTER Attending Clinician Nohemi OSORIO, A Attending Clinician Annemarie GALLO Attending Clinician Unavailable Hieu FREGOSO Attending Clinician MATHEUS Admitting Clinician Unavailable TONYA VARGAS Admitting Clinician Unavailable Monalisa GARCIA Admitting Clinician Unavailable CRAIG Admitting Clinician Unavailable Payers Payer Name Policy Type Policy Effective Date Expiration Date Sour ce Number M[employer]IC [id number] 2019 00:00:00 M[employer]IP[employer]AN PPO [id number] 2019 00:00:00 COVENTRY/FIRST [id number] [address] [facility] 00:00:00 - Medical CCNCOVENTRY Center [id number] Problems Condition Condition Condition Status Onset Resolution Last Treating Co mments Source Name Details Category Date Date Treatment Clinician Date Chronic Chronic Disease Active Univers left-sided left-sided 6-15 it y of low back low back 00:00: [place] pain with pain with 00 Medi isabel left-sided left-sided Br anch sciatica sciatica Venous Venous Disease Active Univers reflux, reflux, 6-14 [place] extremity extremity 00 [facility] Branch PAD PAD Disease Active Univers (periphera (periphera 6-14 it y of l artery l artery 00:00: [place] disease) disease) 00 Medica l Branch Cardiomyop Cardiomyop Disease Active [facility] Medical 00 [place] CHF CHF Disease Active 2019-[address] [...] Medical 00 Center Screening Screening Disease Active 2020-0 Overview: Univers for for 8-26 Formatt[facility] ity of colorectal colorectal 00:00: g of this [place] cancer cancer 00 note Medical might be Branch different from the original. Added automatic ally from request for surgery [id number] Abnormal Abnormal Disease Active Unive rs LFTs LFTs 07-15 ity of 00:00: [place] 00 Medical Branch Chronic Chronic Disease Active Univers hepatitis hepatitis 07-15 [place] of C without [place] without [place] hepatic hepatic 00 Medical coma coma Branch No known No known Disease [facility] active active College problems problems of Medicin e Allergies, Adverse Reactions, Alerts Allergy Allergy Status Severity Reaction(s) Onset Inactive Treating Comm ents Source Name Type Date Date Clinician NO KNOWN Drug Active Univers ALLERGIE Class ity of [facility] NO KNOWN Allergy Active [facility] Social History Social Habit Start Date Stop Date Quantity Comments Source History SDOH University o f Alcohol Std [place] Medical Drinks Branch History SDOH University o f Alcohol Binge [place] [facility] al Branch History SDNH University o f Alcohol Comment [place] Med ical Branch Exposure to Not sure University SARS-CoV-2 [place] Medical (event) Branch Tobacco use and 2021-02-17 2021-02-17 Former user [facility] C ollege of exposure 00:00:00 00:00:00 Medicine Alcohol intake 2021-02-17 2021-02-17 Current [facility] Col lege of 00:00:00 00:00:00 non-drinker of Medicine alcohol (finding) History SDOH 2019-11-27 2019-11-27 1 University o f Alcohol Frequency 00:00:00 00:00:00 [place] M edical Branch History of 2016-03-23 User of smokeless [facility] of tobacco use 00:00:00 tobacco Medicine Sex Ass[birth year] [facility] Co llege of 00:00:00 00:00:00 Medicine Smoking Status Start Date Stop Date Source Current every day smoker 2021-02-17 00:00:00 [facility] [place] [facility] Never smoker [facility] Medical Branch Medications Ordered Filled Start Stop Current Ordering Indication Dosage Frequency Signature Comments Components Source Medication Medication Date Date Medication? Clinician (SIG) Name Name methocarbam Yes [id number] 500mg Take 1 Univers oL 500 mg 6-24 tablet by ity o f tablet 00:00: mouth 4 [place] (four) Medical times Branch daily as needed (muscle pain or spasm). methocarbam 2020-0 Yes [id number] 500mg Take 1 Univers oL 500 mg 6-24 tablet by ity o f tablet 00:00: mouth 4 (four) Medical times Branch daily as needed (muscle pain or spasm). methocarbam 2020-0 Yes [id number] 500mg Take 1 Univers oL 500 mg 6-24 tablet by ity o f tablet 00:00: mouth 4 [place] (four) Medical times Branch daily as needed (muscle pain or spasm). methocarbam 2020-0 Yes [id number] 500mg Take 1 Univers oL 500 mg 6-24 tablet by ity o f tablet 00:00: mouth 4 [place] (four) Medical times Branch daily as needed (muscle pain or spasm). spironolact 0 Yes 25mg Take 25 mg Univers one 25 mg 6-10 by mouth. ity o f tablet 19:29: [address] losartan 25 Yes 12.5mg Take 12.5 Univers mg tablet 6-10 mg by ity of 19:29: mouth. [address] spironolact Yes 25mg Take 25 mg Univers one 25 mg 6-10 by mouth. ity o f tablet 19:29: [address] losartan 25 0 Yes 12.5mg Take 12.5 Univers mg tablet 6-10 mg by ity of 19:29: mouth. [address] spironolact Yes 25mg Take 25 mg Univers one 25 mg 6-10 by mouth. ity o f tablet 19:29: [address] losartan 25 Yes 12.5mg Take 12.5 Univers mg tablet 6-10 mg by ity of 19:29: mouth. [address] spironolact 0 Yes 25mg Take 25 mg Univers one 25 mg 6-10 by mouth. ity o f tablet 19:29: [address] losartan 25 0 Yes 12.5mg Take 12.5 Univers mg tablet 6-10 mg by ity of 19:29: mouth. [address] spironolact 0 Yes 25mg Take 25 mg Univers one 25 mg 6-10 by mouth. ity o f tablet 19:29: [address] losartan 25 Yes 12.5mg Take 12.5 Univers mg tablet 6-10 mg by ity of 19:29: mouth. [address] spironolact Yes 25mg Take 25 mg Univers one 25 mg 6-10 by mouth. ity o f tablet 19:29: [address] losartan 25 Yes 12.5mg Take 12.5 Univers mg tablet 6-10 mg by ity of 19:29: mouth. [address] spironolact Yes 25mg Take 25 mg Univers one 25 mg 6-10 by mouth. ity o f tablet 19:29: [address] losartan 25 Yes 12.5mg Take 12.5 Univers mg tablet 6-10 mg by ity of 19:29: mouth. [address] spironolact Yes 25mg Take 25 mg Univers one 25 mg 6-10 by mouth. ity o f tablet 19:29: [address] losartan 25 Yes 12.5mg Take 12.5 Univers mg tablet 6-10 mg by ity of 19:29: mouth. [address] spironolact Yes 25mg Take 25 mg Univers one 25 mg 6-10 by mouth. ity o f tablet 19:29: [address] losartan 25 Yes 12.5mg Take 12.5 Univers mg tablet 6-10 mg by ity of 19:29: mouth. [address] spironolact Yes 25mg Take 25 mg Univers one 25 mg 6-10 by mouth. ity o f tablet 19:29: [address] losartan 25 Yes 12.5mg Take 12.5 Univers mg tablet 6-10 mg by ity of 19:29: mouth. [address] spironolact Yes 25mg Take 25 mg Univers one 25 mg 6-10 by mouth. ity o f tablet 14:29: [address] losartan 25 Yes 12.5mg Take 12.5 Univers mg tablet 6-10 mg by ity of 14:29: mouth. [address] amiodarone 2021-0 Yes 200mg Take 200 Un natalie 200 mg 5-25 mg by ity of tablet 00:00: mouth (two) Medical times Branch daily. amiodarone 2021-0 Yes 200mg Take 200 Un natalie 200 mg 5-25 mg by ity of tablet 00:00: mouth (two) Medical times Branch daily. amiodarone 2021-0 Yes 200mg Take 200 Un natalie 200 mg 5-25 mg by ity of tablet 00:00: mouth (two) Medical times Branch daily. amiodarone 2021-0 Yes 200mg Take 200 Un natalie 200 mg 5-25 mg by ity of tablet 00:00: mouth (two) Medical times Branch daily. amiodarone 2021-0 Yes 200mg Take 200 Un natalie 200 mg 5-25 mg by ity of tablet 00:00: mouth (two) Medical times Branch daily. amiodarone 2021-0 Yes 200mg Take 200 Un natalie 200 mg 5-25 mg by ity of tablet 00:00: mouth (two) Medical times Branch daily. amiodarone 2021-0 Yes 200mg Take 200 Un natalie 200 mg 5-25 mg by ity of tablet 00:00: mouth (two) Medical times Branch daily. amiodarone 2021-0 Yes 200mg Take 200 Un natalie 200 mg 5-25 mg by ity of tablet 00:00: mouth (two) Medical times Branch daily. amiodarone 2021-0 Yes 200mg Take 200 Un natalie 200 mg 5-25 mg by ity of tablet 00:00: mouth (two) Medical times Branch daily. amiodarone 2021-0 Yes 200mg Take 200 Un natalie 200 mg 5-25 mg by ity of tablet 00:00: mouth (two) Medical times Branch daily. amiodarone 2021-0 Yes 200mg Take 200 Un natalie 200 mg 5-25 mg by ity of tablet 00:00: mouth (two) Medical times Branch daily. losartan 2021-0 Yes 12.5mg QD Take 12.5 [facility] [...] 12 (twelve) hours for 10 doses. clindamycin 2020- No 150mg Q.25D Take [address] (Cleocin 3-31 capsule [facility] - HCL) 150 MG 00:00: 00:00 (150 mg Me dical capsule 00 :00 total) by Center mouth 4 (four) times daily for 5 days. amiodarone Yes 200mg Q.5D Take [address] (PACERONE) 3-17 mg by [facility] - 200 MG 00:00: mouth 2 Medical tablet 00 (two) Center times daily. metoprolol Yes 12.5mg Take 12.5 Univers succinate 1-21 mg by ity of XL 25 mg 24 [place]: [place] hr tablet [facility] metoprolol Yes 12.5mg Take 12.5 Univers succinate 1-21 mg by ity of XL 25 mg 24 00:00: [place] hr tablet [facility] metoprolol Yes 12.5mg Take 12.5 Univers succinate 1-21 mg by ity of XL 25 mg 24 00:00: [place] hr tablet [facility] metoprolol Yes 12.5mg Take 12.5 Univers succinate 1-21 mg by ity of XL 25 mg 24 00:00: [place]. [place] hr tablet [facility] metoprolol 2021-0 Yes 12.5mg Take 12.5 Univers succinate 1-21 mg by ity of XL 25 mg 24 00:00: [place] tablet 00 [facility] metoprolol Yes 12.5mg Take 12.5 Univers succinate 1-21 mg by ity of XL 25 mg 24 00:00: [place]. [place] hr tablet [facility] metoprolol Yes 12.5mg Take 12.5 Univers succinate 1-21 mg by ity of XL 25 mg 24 00:00: [place]. [place] hr tablet [facility] metoprolol Yes 12.5mg Take 12.5 Univers succinate 1-21 mg by ity of XL 25 mg 24 00:00: [place]. [place] hr tablet [facility] metoprolol Yes 12.5mg Take 12.5 Univers succinate 1-21 mg by ity of XL 25 mg 24 00:00: [place]. [place] hr tablet [facility] metoprolol Yes 12.5mg Take 12.5 Univers succinate 1-21 mg by ity of XL 25 mg 24 00:00: [place]. [place] hr tablet [facility] metoprolol Yes 12.5mg Take 12.5 Univers succinate 1-21 mg by ity of XL 25 mg 24 00:00: [place]. [place] hr tablet [facility] metoprolol Yes 12.5mg Take 12.5 [facility] (TOPROL-XL) 1-21 mg by College 25 MG XL 00:00: mouth of tablet 00 daily. Medicin e metoprolol Yes 12.5mg QD Take 12.5 [facility] [...] tablet mouth daily for 30 days. potassium 2019-2019- No 40meq QD Take [address] [...] (two) times daily for 30 days. potassium 2019-11- No 40meq QD Take [address] chloride SA 0-15 11-14 tablets Luke s - (K-DUR,KLOR 00:00: 23:59 (40 mEq Me dical -CON) 20 00 :00 total) by Center MEQ tablet mouth daily for 30 days. glecaprevir 2020-0 Yes [id number] 3{tbl} Take 3 Univers -pibrentasv 9-02 tablets by it y of ir 00:00: mouth [place] (MAVYRET) 00 daily. Medical 100-40 mg Branch glecaprevir 2020-0 Yes [id number] 3{tbl} Take 3 Univers -pibrentasv 9-02 tablets by it y of ir 00:00: mouth [place] (MAVYRET) 00 daily. Medical 100-40 mg Branch glecaprevir 2020-0 Yes [id number] 3{tbl} Take 3 Univers -pibrentasv 9-02 tablets by it y of ir 00:00: mouth [place] (MAVYRET) 00 daily. Medical 100-40 mg Branch glecaprevir 2020-0 Yes [id number] 3{tbl} Take 3 Univers -pibrentasv 9-02 tablets by it y of ir 00:00: mouth [place] (MAVYRET) 00 daily. Medical 100-40 mg Branch glecaprevir 2020-0 Yes [id number] 3{tbl} Take 3 Univers -pibrentasv 9-02 tablets by it y of ir 00:00: mouth [place] (MAVYRET) 00 daily. Medical 100-40 mg Branch glecaprevir 2020-0 Yes [id number] 3{tbl} Take 3 Univers -pibrentasv 9-02 tablets by it y of ir 00:00: mouth [place] (MAVYRET) 00 daily. Medical 100-40 mg Branch glecaprevir 2020-0 Yes [id number] 3{tbl} Take 3 Univers -pibrentasv 9-02 tablets by it y of ir 00:00: mouth [place] (MAVYRET) 00 daily. Medical 100-40 mg Branch glecaprevir 2020-0 Yes [id number] 3{tbl} Take 3 Univers -pibrentasv 9-02 tablets by it y of ir 00:00: mouth [place] (MAVYRET) 00 daily. Medical 100-40 mg Branch glecaprevir 2020-0 Yes [id number] 3{tbl} Take 3 Univers -pibrentasv 9-02 tablets by it y of ir 00:00: mouth [place] (MAVYRET) 00 daily. Medical 100-40 mg Branch glecaprevir 2020-0 Yes [id number] 3{tbl} Take 3 Univers -pibrentasv 9-02 tablets by it y of ir 00:00: mouth [place] (MAVYRET) 00 daily. Medical 100-40 mg Branch glecaprevir 2020-0 Yes [id number] 3{tbl} Take 3 Univers -pibrentasv 9-02 tablets by it y of ir 00:00: mouth [place] (MAVYRET) 00 daily. Medical 100-40 mg Branch glecaprevir 2020-0 Yes [id number] 3{tbl} Take 3 Univers -pibrentasv 9-02 tablets by it y of ir 00:00: mouth [place] (MAVYRET) 00 daily. Medical 100-40 mg Branch glecaprevir 2020-0 Yes [id number] 3{tbl} Take 3 Univers -pibrentasv 9-02 tablets by it y of ir 00:00: mouth [place] (MAVYRET) 00 daily. Medical 100-40 mg Branch glecaprevir 2020-0 Yes [id number] 3{tbl} Take 3 Univers -pibrentasv 9-02 tablets by it y of ir 00:00: mouth [place] (MAVYRET) 00 daily. Medical 100-40 mg Branch glecaprevir 2020-0 Yes [id number] 3{tbl} Take 3 Univers -pibrentasv 9-02 tablets by it y of ir 00:00: mouth [place] (MAVYRET) 00 daily. Medical 100-40 mg Branch glecaprevir 2020-0 Yes [id number] 3{tbl} Take 3 Univers -pibrentasv 9-02 tablets by it y of ir 00:00: mouth [place] (MAVYRET) 00 daily. Medical 100-40 mg Branch glecaprevir 2020-0 Yes [id number] 3{tbl} Take 3 Univers -pibrentasv 9-02 tablets by it y of ir 00:00: mouth [place] (MAVYRET) 00 daily. Medical 100-40 mg Branch glecaprevir 2020-0 Yes [id number] 3{tbl} Take 3 Univers -pibrentasv 9-02 tablets by it y of ir 00:00: mouth [place] (MAVYRET) 00 daily. Medical 100-40 mg Branch glecaprevir 2020-0 Yes [id number] 3{tbl} Take 3 Univers -pibrentasv 9-02 tablets by it y of ir 00:00: mouth [place] (MAVYRET) 00 daily. Medical 100-40 mg Branch glecaprevir 2020-0 Yes [id number] 3{tbl} Take 3 Univers -pibrentasv 9-02 tablets by it y of ir 00:00: mouth [place] (MAVYRET) 00 daily. Medical 100-40 mg Branch glecaprevir 2020-0 Yes [id number] 3{tbl} Take 3 Univers -pibrentasv 9-02 tablets by it y of ir 00:00: mouth [place] (MAVYRET) 00 daily. Medical 100-40 mg Branch glecaprevir 2020-0 Yes [id number] 3{tbl} Take 3 Univers -pibrentasv 9-02 tablets by it y of ir 00:00: mouth [place] (MAVYRET) 00 daily. Medical 100-40 mg Branch glecaprevir 2020-0 Yes [id number] 3{tbl} Take 3 Univers -pibrentasv 9-02 tablets by it y of ir 00:00: mouth [place] (MAVYRET) 00 daily. Medical 100-40 mg Branch glecaprevir 2020-0 Yes [id number] 3{tbl} Take 3 Univers -pibrentasv 9-02 tablets by it y of ir 00:00: mouth [place] (MAVYRET) 00 daily. Medical 100-40 mg Branch glecaprevir 2020-0 Yes [id number] 3{tbl} Take 3 Univers -pibrentasv 9-02 tablets by it y of ir 00:00: mouth [place] (MAVYRET) 00 daily. Medical 100-40 mg Branch glecaprevir 2020-0 Yes [id number] 3{tbl} Take 3 Univers -pibrentasv 9-02 tablets by it y of ir 00:00: mouth [place] (MAVYRET) 00 daily. Medical 100-40 mg Branch glecaprevir 2020-0 Yes [id number] 3{tbl} Take 3 Univers -pibrentasv 9-02 tablets by it y of ir 00:00: mouth [place] (MAVYRET) 00 daily. Medical 100-40 mg Branch glecaprevir 2020-0 Yes [id number] 3{tbl} Take 3 Univers -pibrentasv 9-02 tablets by it y of ir 00:00: mouth [place] (MAVYRET) 00 daily. Medical 100-40 mg Branch glecaprevir 2020-0 Yes [id number] 3{tbl} Take 3 Univers -pibrentasv 9-02 tablets by it y of ir 00:00: mouth [place] (MAVYRET) 00 daily. Medical 100-40 mg Branch glecaprevir 2020-0 Yes [id number] 3{tbl} Take 3 Univers -pibrentasv 9-02 tablets by it y of ir 00:00: mouth [place] (MAVYRET) 00 daily. Medical 100-40 mg Branch glecaprevir 2020-2020- No 3{tbl} QD Take [address] -pibrentasv 9- 03-30 tablets by Annemarie morataya - ir 00:00: 00:00 mouth Medical ([place]) 00 :00 daily. Center 100-40 mg Tab glecaprevir 2019- 2020- No [id number] 3{tbl} Take 3 Univers -pibrentasv 9- 09- tablets by i ty of ir 00:00: 00:00 mouth [place] (MAVYRET) 00 :00 daily. Medical 100-40 mg Branch glecaprevir 2020-0 2020- No [id number] 3{tbl} Take 3 Univers -pibrentasv 9-01 07- tablets by i ty of ir 00:00: 00:00 mouth [place] (MAVYRET) 00 :00 daily. Medical 100-40 mg Branch glecaprevir 2020-0 2019- No [id number] 3{tbl} Take 3 Univers -pibrentasv 9- 09- tablets by i ty of ir 00:00: 00:00 mouth [place] (MAVYRET) 00 :00 daily. Medical 100-40 mg Branch peg-electro 2020-0 Yes [id number] 4000mL Take 4,000 Univers lyte soln 8-25 mL by ity of .74-6 00:00: mouth [place] .74 -5.86 00 SEE-INSTRU Medi isabel gram CTIONS. Branch solution Take as directed peg-electro 2020-0 Yes [id number] 4000mL Take 4,000 Univers lyte soln 8-25 mL by ity of .74-6 00:00: mouth [place] .74 -5.86 00 SEE-INSTRU Medi isabel gram CTIONS. Branch solution Take as directed peg-electro 2020-0 Yes [id number] 4000mL Take 4,000 Univers lyte soln 8-25 mL by ity of .74-6 00:00: mouth [place] .74 -5.86 00 SEE-INSTRU Medi isabel gram CTIONS. Branch solution Take as directed peg-electro 2020-0 Yes [id number] 4000mL Take 4,000 Univers lyte soln 8-25 mL by ity of -6 00:00: mouth [place] .74 -5.86 00 SEE-INSTRU Medi isabel gram CTIONS. Branch solution Take as directed peg-electro 2020-0 Yes [id number] 4000mL Take 4,000 Univers lyte soln 8-25 mL by ity of .74-6 00:00: mouth [place] .74 -5.86 00 SEE-INSTRU Medi isabel gram CTIONS. Branch solution Take as directed peg-electro 2020-0 Yes [id number] 4000mL Take 4,000 Univers lyte soln 8-25 mL by ity of -6 00:00: mouth [place] .74 -5.86 00 SEE-INSTRU Medi isabel gram CTIONS. Branch solution Take as directed peg-electro 2020-0 Yes [id number] 4000mL Take 4,000 Univers lyte soln 8-25 mL by ity of - 00:00: mouth [place] .74 -5.86 00 SEE-INSTRU Medi isabel gram CTIONS. Branch solution Take as directed peg-electro 2020-0 Yes [id number] 4000mL Take 4,000 Univers lyte soln 8-25 mL by ity of - 00:00: mouth [place] .74 -5.86 00 SEE-INSTRU Medi isabel gram CTIONS. Branch solution Take as directed peg-electro 2020-0 Yes [id number] 4000mL Take 4,000 Univers lyte soln 8-25 mL by ity of - 00:00: mouth [place] .74 -5.86 00 SEE-INSTRU Medi isabel gram CTIONS. Branch solution Take as directed peg-electro 2020-0 Yes [id number] 4000mL Take 4,000 Univers lyte soln 8-25 mL by ity of -6 00:00: mouth [place] .74 -5.86 00 SEE-INSTRU Medi isabel gram CTIONS. Branch solution Take as directed peg-electro 2020-0 Yes [id number] 4000mL Take 4,000 Univers lyte soln 8-25 mL by ity of -6 00:00: mouth [place] .74 -5.86 00 SEE-INSTRU Medi isabel gram CTIONS. Branch solution Take as directed peg-electro 2020-0 Yes [id number] 4000mL Take 4,000 Univers lyte soln 8-25 mL by ity of - 00:00: mouth [place] .74 -5.86 00 SEE-INSTRU Medi isabel gram CTIONS. Branch solution Take as directed peg-electro 2020-0 Yes [id number] 4000mL Take 4,000 Univers lyte soln 8-25 mL by ity of - 00:00: mouth [place] .74 -5.86 00 SEE-INSTRU Medi isabel gram CTIONS. Branch solution Take as directed peg-electro 2020-0 Yes [id number] 4000mL Take 4,000 Univers lyte soln 8-25 mL by ity of - 00:00: mouth [place] .74 -5.86 00 SEE-INSTRU Medi isabel gram CTIONS. Branch solution Take as directed peg-electro 2020-0 Yes [id number] 4000mL Take 4,000 Univers lyte soln 8-25 mL by ity of - 00:00: mouth [place] .74 -5.86 00 SEE-INSTRU Medi isabel gram CTIONS. Branch solution Take as directed peg-electro 2020-0 Yes [id number] 4000mL Take 4,000 Univers lyte soln 8-25 mL by ity of - 00:00: mouth [place] .74 -5.86 00 SEE-INSTRU Medi isabel gram CTIONS. Branch solution Take as directed peg-electro 2020-0 Yes [id number] 4000mL Take 4,000 Univers lyte soln 8-25 mL by ity of - 00:00: mouth [place] .74 -5.86 00 SEE-INSTRU Medi isabel gram CTIONS. Branch solution Take as directed peg-electro 2020-0 Yes [id number] 4000mL Take 4,000 Univers lyte soln 8-25 mL by ity of - 00:00: mouth [place] .74 -5.86 00 SEE-INSTRU Medi isabel gram CTIONS. Branch solution Take as directed peg-electro 2020-0 Yes [id number] 4000mL Take 4,000 Univers lyte soln 8-25 mL by ity of -6 00:00: mouth [place] .74 -5.86 00 SEE-INSTRU Medi isabel gram CTIONS. Branch solution Take as directed peg-electro 2020-0 Yes [id number] 4000mL Take 4,000 Univers lyte soln 8-25 mL by ity of - 00:00: mouth [place] .74 -5.86 00 SEE-INSTRU Medi isabel gram CTIONS. Branch solution Take as directed peg-electro 2020-0 Yes [id number] 4000mL Take 4,000 Univers lyte soln 8-25 mL by ity of - 00:00: mouth [place] .74 -5.86 00 SEE-INSTRU Medi isabel gram CTIONS. Branch solution Take as directed peg-electro 2020-0 Yes [id number] 4000mL Take 4,000 Univers lyte soln 8-25 mL by ity of - 00:00: mouth [place] .74 -5.86 00 SEE-INSTRU Medi isabel gram CTIONS. Branch solution Take as directed peg-electro 2020-0 Yes [id number] 4000mL Take 4,000 Univers lyte soln 8-25 mL by ity of - 00:00: mouth [place] .74 -5.86 00 SEE-INSTRU Medi isabel gram CTIONS. Branch solution Take as directed peg-electro 2020-0 Yes [id number] 4000mL Take 4,000 Univers lyte soln 8-25 mL by ity of - 00:00: mouth [place] .74 -5.86 00 SEE-INSTRU Medi isabel gram CTIONS. Branch solution Take as directed peg-electro 2020-0 Yes [id number] 4000mL Take 4,000 Univers lyte soln 8-25 mL by ity of - 00:00: mouth [place] .74 -5.86 00 SEE-INSTRU Medi isabel gram CTIONS. Branch solution Take as directed peg-electro 2020-0 Yes [id number] 4000mL Take 4,000 Univers lyte soln 8-25 mL by ity of - 00:00: mouth [place] .74 -5.86 00 SEE-INSTRU Medi isabel gram CTIONS. Branch solution Take as directed peg-electro 2020-0 Yes [id number] 4000mL Take 4,000 Univers lyte soln 8-25 mL by ity of .-6 00:00: mouth [place] .74 -5.86 00 SEE-INSTRU Medi isabel gram CTIONS. Branch solution Take as directed peg-electro 2020-0 Yes [id number] 4000mL Take 4,000 Univers lyte soln 8-25 mL by ity of .74-6 00:00: mouth [place] .74 -5.86 00 SEE-INSTRU Medi isabel gram CTIONS. Branch solution Take as directed peg-electro 2020-0 Yes [id number] 4000mL Take 4,000 Univers lyte soln 8-25 mL by ity of .74-6 00:00: mouth [place] .74 -5.86 00 SEE-INSTRU Medi isabel gram CTIONS. Branch solution Take as directed peg-electro 2020-0 Yes [id number] 4000mL Take 4,000 Univers lyte soln 8-25 mL by ity of -6 00:00: mouth [place] .74 -5.86 00 SEE-INSTRU Medi isabel gram CTIONS. Branch solution Take as directed peg-electro 2020-0 Yes [id number] 4000mL Take 4,000 Univers lyte soln 8-25 mL by ity of -6 00:00: mouth [place] .74 -5.86 00 SEE-INSTRU Medi isabel gram CTIONS. Branch solution Take as directed peg-electro 2020-0 Yes [id number] 4000mL Take 4,000 Univers lyte soln 8-25 mL by ity of -6 00:00: mouth [place] .74 -5.86 00 SEE-INSTRU Medi isabel gram CTIONS. Branch solution Take as directed peg-electro 2020-0 Yes [id number] 4000mL Take 4,000 Univers lyte soln 8-25 mL by ity of -6 00:00: mouth [place] .74 -5.86 00 SEE-INSTRU Medi isabel gram CTIONS. Branch solution Take as directed peg-electro 2020-0 Yes [id number] 4000mL Take 4,000 Univers lyte soln 8-25 mL by ity of 74-6 00:00: mouth [place] .74 -5.86 00 SEE-INSTRU Medi isable gram CTIONS. Branch solution Take as directed peg-electro 2020-0 Yes [id number] 4000mL Take 4,000 Univers lyte soln 8-25 mL by ity of 236-22.74-6 00:00: mouth [place] .74 -5.86 00 SEE-INSTRU Medi isabel gram CTIONS. Branch solution Take as directed polyethylen 2019-0 Yes 4000mL Take 4,000 [facility] glycol 8-25 mL by [facility] (GOLYTELY;N 00:00: mouth of ULYTELY) 00 daily. Medicin 236 g e suspension polyethylen 2019-0 2020- No 4000mL QD Take 4,[address] [facility] e glycol 8-25 03-30 mLs by [facility] - (GoLYTELY,N 00:00: 00:00 mouth Medi isabel uLYTELY) 00 :00 daily. Center 236-22.74-6 .74 -5.86 gram solution cephALEXin 2020-0 Yes [id number] 500mg Take 1 [facility] 500 mg 7-13 capsule by ity of capsule 00:00: mouth 2 [place] [id number] ([facility]) Medical times Branch daily. cephALEXin 2020-0 Yes [id number] 500mg Take 1 [facility] 500 mg 7-13 capsule by ity of capsule 00:00: mouth 2 [place] 00 (two) Medical times Branch daily. cephALEXin 2020-0 Yes [id number] 500mg Take 1 [facility] 500 mg 7-13 capsule by ity of capsule 00:00: mouth 2 [place] 00 (two) Medical times Branch daily. cephALEXin 2020-0 Yes [id number] 500mg Take 1 [facility] 500 mg 7-13 capsule by ity of capsule 00:00: mouth 2 [place] 00 (two) Medical times Branch daily. cephALEXin 2020-0 Yes [id number] 500mg Take 1 [facility] 500 mg 7-13 capsule by ity of capsule 00:00: mouth 2 [place] 00 (two) Medical times Branch daily. cephALEXin 2020-0 2020- No [id number] 500mg Take 1 [facility] 500 mg 7-13 08-17 capsule by ity of capsule 00:00: 00:00 mouth 2 [place] 00 :00 (two) Medical times Branch daily. cephALEXin 2020-0 2020- No [id number] 500mg Take 1 [facility] 500 mg 7-13 08-17 capsule by ity of capsule 00:00: 00:00 mouth 2 [place] 00 :00 (two) Medical times Branch daily. methylPREDN 2019-1 Yes [id number] Follow Univers ISolone 4 2-30 6 package ity of mg tablets 00:00: directions ex [facility] Branch albuterol 2018-11 Yes [id number] 2.5mg Inhale 3 Univers 2.5 mg /3 2-30 6 mL every 4 ity of mL (0.083 00:00: (four) [place] %) 00 hours as Medical nebulizer needed for Bran ch solution Wheezing or Shortness of Breath. Via nebulizer methylPREDN 2018-11 Yes [id number] Follow Univers ISolone 4 2-30 6 package ity of mg tablets 00:00: directions [facility] Branch albuterol 2018-11 Yes [id number] 2.5mg Inhale 3 Univers 2.5 mg /3 2-30 6 mL every 4 ity of mL (0.083 00:00: (four) [place] %) 00 hours as Medical nebulizer needed for Bran ch solution Wheezing or Shortness of Breath. Via nebulizer methylPREDN 2018-11 Yes [id number] Follow Univers ISolone 4 2-30 6 package ity of mg tablets 00:00: directions [facility] Branch albuterol 2018-11 Yes [id number] 2.5mg Inhale 3 Univers 2.5 mg /3 2-30 6 mL every 4 ity of mL (0.083 00:00: (four) [place] %) 00 hours as Medical nebulizer needed for Bran ch solution Wheezing or Shortness of Breath. Via nebulizer albuterol 2018-11 Yes [id number] 2.5mg Inhale 3 Univers 2.5 mg /3 2-30 6 mL every 4 ity of mL (0.083 00:00: (four) [place] %) 00 hours as Medical nebulizer needed for Bran ch solution Wheezing or Shortness of Breath. Via nebulizer albuterol 2018-11 Yes [id number] 2.5mg Inhale 3 Univers 2.5 mg /3 2-30 6 mL every 4 ity of mL (0.083 00:00: (four) [place] %) 00 hours as Medical nebulizer needed for Bran ch solution Wheezing or Shortness of Breath. Via nebulizer albuterol 2018-11 Yes [id number] 2.5mg Inhale 3 Univers 2.5 mg /3 2-30 6 mL every 4 ity of mL (0.083 00:00: (four) [place] %) 00 hours as Medical nebulizer needed for Bran ch solution Wheezing or Shortness of Breath. Via nebulizer albuterol 2018-11 Yes [id number] 2.5mg Inhale 3 Univers 2.5 mg /3 2-30 6 mL every 4 ity of mL (0.083 00:00: (four) [place] %) 00 hours as Medical nebulizer needed for Bran ch solution Wheezing or Shortness of Breath. Via nebulizer albuterol 2018-11 Yes [id number] 2.5mg Inhale 3 Univers 2.5 mg /3 2-30 6 mL every 4 ity of mL (0.083 00:00: (four) [place] %) 00 hours as Medical nebulizer needed for Bran ch solution Wheezing or Shortness of Breath. Via nebulizer albuterol 2018-11 Yes [id number] 2.5mg Inhale 3 Univers 2.5 mg /3 2-30 6 mL every 4 ity of mL (0.083 00:00: (four) [place] %) 00 hours as Medical nebulizer needed for Bran ch solution Wheezing or Shortness of Breath. Via nebulizer albuterol 2018-11 Yes [id number] 2.5mg Inhale 3 Univers 2.5 mg /3 2-30 6 mL every 4 ity of mL (0.083 00:00: (four) [place] %) 00 hours as Medical nebulizer needed for Bran ch solution Wheezing or Shortness of Breath. Via nebulizer albuterol 2018-11 Yes [id number] 2.5mg Inhale 3 Univers 2.5 mg /3 2-30 6 mL every 4 ity of mL (0.083 00:00: (four) [place] %) 00 hours as Medical nebulizer needed for Bran ch solution Wheezing or Shortness of Breath. Via nebulizer albuterol 2018-11 Yes [id number] 2.5mg Inhale 3 Univers 2.5 mg /3 2-30 6 mL every 4 ity of mL (0.083 00:00: (four) [place] %) 00 hours as Medical nebulizer needed for Bran ch solution Wheezing or Shortness of Breath. Via nebulizer albuterol 2018-11 Yes [id number] 2.5mg Inhale 3 Univers 2.5 mg /3 2-30 6 mL every 4 ity of mL (0.083 00:00: (four) [place] %) 00 hours as Medical nebulizer needed for Bran ch solution Wheezing or Shortness of Breath. Via nebulizer albuterol 2018-11 Yes [id number] 2.5mg Inhale 3 Univers 2.5 mg /3 2-30 6 mL every 4 ity of mL (0.083 00:00: (four) [place] %) 00 hours as Medical nebulizer needed for Bran ch solution Wheezing or Shortness of Breath. Via nebulizer albuterol 2018-11 Yes [id number] 2.5mg Inhale 3 Univers 2.5 mg /3 2-30 6 mL every 4 ity of mL (0.083 00:00: (four) [place] %) 00 hours as Medical nebulizer needed for Bran ch solution Wheezing or Shortness of Breath. Via nebulizer albuterol 2018-11 Yes [id number] 2.5mg Inhale 3 Univers 2.5 mg /3 2-30 6 mL every 4 ity of mL (0.083 00:00: (four) [place] %) 00 hours as Medical nebulizer needed for Bran ch solution Wheezing or Shortness of Breath. Via nebulizer albuterol 2018-11 Yes [id number] 2.5mg Inhale 3 Univers 2.5 mg /3 2-30 6 mL every 4 ity of mL (0.083 00:00: (four) [place] %) 00 hours as Medical nebulizer needed for Bran ch solution Wheezing or Shortness of Breath. Via nebulizer albuterol 2018-11 Yes [id number] 2.5mg Inhale 3 Univers 2.5 mg /3 2-30 6 mL every 4 ity of mL (0.083 00:00: (four) [place] %) 00 hours as Medical nebulizer needed for Bran ch solution Wheezing or Shortness of Breath. Via nebulizer albuterol 2018-11 Yes [id number] 2.5mg Inhale 3 Univers 2.5 mg /3 2-30 6 mL every 4 ity of mL (0.083 00:00: (four) [place] %) 00 hours as Medical nebulizer needed for Bran ch solution Wheezing or Shortness of Breath. Via nebulizer albuterol 2018-11 Yes [id number] 2.5mg Inhale 3 Univers 2.5 mg /3 2-30 6 mL every 4 ity of mL (0.083 00:00: (four) [place] %) 00 hours as Medical nebulizer needed for Bran ch solution Wheezing or Shortness of Breath. Via nebulizer albuterol 2018-11 Yes [id number] 2.5mg Inhale 3 Univers 2.5 mg /3 2-30 6 mL every 4 ity of mL (0.083 00:00: (four) [place] %) 00 hours as Medical nebulizer needed for Bran ch solution Wheezing or Shortness of Breath. Via nebulizer albuterol 2018-11 Yes [id number] 2.5mg Inhale 3 Univers 2.5 mg /3 2-30 6 mL every 4 ity of mL (0.083 00:00: (four) [place] %) 00 hours as Medical nebulizer needed for Bran ch solution Wheezing or Shortness of Breath. Via nebulizer albuterol 2018-11 Yes [id number] 2.5mg Inhale 3 Univers 2.5 mg /3 2-30 6 mL every 4 ity of mL (0.083 00:00: (four) [place] %) 00 hours as Medical nebulizer needed for Bran ch solution Wheezing or Shortness of Breath. Via nebulizer albuterol 2018-11 Yes [id number] 2.5mg Inhale 3 Univers 2.5 mg /3 2-30 6 mL every 4 ity of mL (0.083 00:00: (four) [place] %) 00 hours as Medical nebulizer needed for Bran ch solution Wheezing or Shortness of Breath. Via nebulizer albuterol 2018-11 Yes [id number] 2.5mg Inhale 3 Univers 2.5 mg /3 2-30 6 mL every 4 ity of mL (0.083 00:00: (four) [place] %) 00 hours as Medical nebulizer needed for Bran ch solution Wheezing or Shortness of Breath. Via nebulizer albuterol 2018-11 Yes [id number] 2.5mg Inhale 3 Univers 2.5 mg /3 2-30 6 mL every 4 ity of mL (0.083 00:00: (four) [place] %) 00 hours as Medical nebulizer needed for Bran ch solution Wheezing or Shortness of Breath. Via nebulizer albuterol 2018-11 Yes [id number] 2.5mg Inhale 3 Univers 2.5 mg /3 2-30 6 mL every 4 ity of mL (0.083 00:00: (four) [place] %) 00 hours as Medical nebulizer needed for Bran ch solution Wheezing or Shortness of Breath. Via nebulizer albuterol 2018-11 Yes [id number] 2.5mg Inhale 3 Univers 2.5 mg /3 2-30 6 mL every 4 ity of mL (0.083 00:00: (four) [place] %) 00 hours as Medical nebulizer needed for Bran ch solution Wheezing or Shortness of Breath. Via nebulizer albuterol 2018-11 Yes [id number] 2.5mg Inhale 3 Univers 2.5 mg /3 2-30 6 mL every 4 ity of mL (0.083 00:00: (four) [place] %) 00 hours as Medical nebulizer needed for Bran ch solution Wheezing or Shortness of Breath. Via nebulizer albuterol 2018-11 Yes [id number] 2.5mg Inhale 3 Univers 2.5 mg /3 2-30 6 mL every 4 ity of mL (0.083 00:00: (four) [place] %) 00 hours as Medical nebulizer needed for Bran ch solution Wheezing or Shortness of Breath. Via nebulizer albuterol 2018-11 Yes [id number] 2.5mg Inhale 3 Univers 2.5 mg /3 2-30 6 mL every 4 ity of mL (0.083 00:00: (four) [place] %) 00 hours as Medical nebulizer needed for Bran ch solution Wheezing or Shortness of Breath. Via nebulizer albuterol 2018-11 Yes [id number] 2.5mg Inhale 3 Univers 2.5 mg /3 2-30 6 mL every 4 ity of mL (0.083 00:00: (four) [place] %) 00 hours as Medical nebulizer needed for Bran ch solution Wheezing or Shortness of Breath. Via nebulizer albuterol 2018-11 Yes [id number] 2.5mg Inhale 3 Univers 2.5 mg /3 2-30 6 mL every 4 ity of mL (0.083 00:00: (four) [place] %) 00 hours as Medical nebulizer needed for Bran ch solution Wheezing or Shortness of Breath. Via nebulizer albuterol 2018-11 Yes [id number] 2.5mg Inhale 3 Univers 2.5 mg /3 2-30 6 mL every 4 ity of mL (0.083 00:00: (four) [place] %) 00 hours as Medical nebulizer needed for Bran ch solution Wheezing or Shortness of Breath. Via nebulizer albuterol 2018-11 Yes [id number] 2.5mg Inhale 3 Univers 2.5 mg /3 2-30 6 mL every 4 ity of mL (0.083 00:00: (four) [place] %) 00 hours as Medical nebulizer needed for Bran ch solution Wheezing or Shortness of Breath. Via nebulizer albuterol 2018-11 Yes [id number] 2.5mg Inhale 3 Univers 2.5 mg /3 2-30 6 mL every 4 ity of mL (0.083 00:00: (four) [place] %) 00 hours as Medical nebulizer needed for Bran ch solution Wheezing or Shortness of Breath. Via nebulizer albuterol 2018-11 Yes [id number] 2.5mg Inhale 3 Univers 2.5 mg /3 2-30 6 mL every 4 ity of mL (0.083 00:00: (four) [place] %) 00 hours as Medical nebulizer needed for Bran ch solution Wheezing or Shortness of Breath. Via nebulizer albuterol 2018-11 Yes [id number] 2.5mg Inhale 3 Univers 2.5 mg /3 2-30 6 mL every 4 ity of mL (0.083 00:00: (four) [place] %) 00 hours as Medical nebulizer needed for Bran ch solution Wheezing or Shortness of Breath. Via nebulizer albuterol 2018-11 Yes [id number] 2.5mg Inhale 3 Univers 2.5 mg /3 2-30 6 mL every 4 ity of mL (0.083 00:00: (four) [place] %) 00 hours as Medical nebulizer needed for Bran ch solution Wheezing or Shortness of Breath. Via nebulizer albuterol 2018-11 Yes [id number] 2.5mg Inhale 3 Univers 2.5 mg /3 2-30 6 mL every 4 ity of mL (0.083 00:00: (four) [place] %) 00 hours as Medical nebulizer needed for Bran ch solution Wheezing or Shortness of Breath. Via nebulizer albuterol 2018-11 Yes [id number] 2.5mg Inhale 3 Univers 2.5 mg /3 2-30 6 mL every 4 ity of mL (0.083 00:00: (four) [place] %) 00 hours as Medical nebulizer needed for Bran ch solution Wheezing or Shortness of Breath. Via nebulizer albuterol 2018-11 Yes [id number] 2.5mg Inhale 3 Univers 2.5 mg /3 2-30 6 mL every 4 ity of mL (0.083 00:00: (four) [place] %) 00 hours as Medical nebulizer needed for Bran ch solution Wheezing or Shortness of Breath. Via nebulizer albuterol 2018-11 Yes [id number] 2.5mg Inhale 3 Univers 2.5 mg /3 2-30 6 mL every 4 ity of mL (0.083 00:00: (four) [place] %) 00 hours as Medical nebulizer needed for Bran ch solution Wheezing or Shortness of Breath. Via nebulizer albuterol 2018-11 Yes [id number] 2.5mg Inhale 3 Univers 2.5 mg /3 2-30 6 mL every 4 ity of mL (0.083 00:00: (four) [place] %) 00 hours as Medical nebulizer needed for Bran ch solution Wheezing or Shortness of Breath. Via nebulizer albuterol 2018-11 Yes [id number] 2.5mg Inhale 3 Univers 2.5 mg /3 2-30 6 mL every 4 ity of mL (0.083 00:00: (four) [place] %) 00 hours as Medical nebulizer needed for Bran ch solution Wheezing or Shortness of Breath. Via nebulizer albuterol 2018-11 Yes [id number] 2.5mg Inhale 3 Univers 2.5 mg /3 2-30 6 mL every 4 ity of mL (0.083 00:00: (four) [place] %) 00 hours as Medical nebulizer needed for Bran ch solution Wheezing or Shortness of Breath. Via nebulizer albuterol 2018-11 Yes [id number] 2.5mg Inhale 3 Univers 2.5 mg /3 2-30 6 mL every 4 ity of mL (0.083 00:00: (four) [place] %) 00 hours as Medical nebulizer needed for Bran ch solution Wheezing or Shortness of Breath. Via nebulizer albuterol 2018-11 Yes [id number] 2.5mg Inhale 3 Univers 2.5 mg /3 2-30 6 mL every 4 ity of mL (0.083 00:00: (four) [place] %) 00 hours as Medical nebulizer needed for Bran ch solution Wheezing or Shortness of Breath. Via nebulizer albuterol 2018-11 Yes [id number] 2.5mg Inhale 3 Univers 2.5 mg /3 2-30 6 mL every 4 ity of mL (0.083 00:00: (four) [place] %) 00 hours as Medical nebulizer needed for Bran ch solution Wheezing or Shortness of Breath. Via nebulizer methylPREDN 2018-11 Yes [id number] Follow Univers ISolone 4 2-30 6 package ity of mg tablets 00:00: directions ex Medical Branch albuterol 2018-11 Yes [id number] 2.5mg Inhale 3 Univers 2.5 mg /3 2-30 6 mL every 4 ity of mL (0.083 00:00: (four) [place] %) 00 hours as Medical nebulizer needed for Bran ch solution Wheezing or Shortness of Breath. Via nebulizer methylPREDN 2018-11 Yes [id number] Follow Univers ISolone 4 2-30 6 package ity of mg tablets 00:00: directions ex Medical Branch albuterol 2018-11 Yes [id number] 2.5mg Inhale 3 Univers 2.5 mg /3 2-30 6 mL every 4 ity of mL (0.083 00:00: (four) [place] %) 00 hours as Medical nebulizer needed for Bran ch solution Wheezing or Shortness of Breath. Via nebulizer methylPREDN 2018-11 Yes [id number] Follow Univers ISolone 4 2-30 6 package ity of mg tablets 00:00: directions ex Medical Branch albuterol 2018-11 Yes [id number] 2.5mg Inhale 3 Univers 2.5 mg /3 2-30 6 mL every 4 ity of mL (0.083 00:00: (four) [place] %) 00 hours as Medical nebulizer needed for Bran ch solution Wheezing or Shortness of Breath. Via nebulizer albuterol 2018-11 Yes 2.5mg 2.5 mg by [facility]PROVENTIL[facility] 2-30 Inhalation [facility] (2.5 mg/3 00:00: route as of mL) 0.083% 00 needed. Medici n nebulizer e solution methylPREDN 2018-11 Yes daily. [place] ISolone 4 2-30 College MG TBPK 00:00: of 00 Medicin e methylPREDN 2018-11- No [id number] Follow Univers ISolone 4 -28 07-17 6 package ity of mg tablets 00:00: 00:00 directions [place] 00 :00 Medical Branch methylPREDN 2018-11- No [id number] Follow Univers ISolone 4 30 17 6 package ity of mg tablets 00:00: 00:00 directions [place] 00 :00 Medical Branch amoxicillin 2020- No TK 1 T PO [facility] -clavulanat 12-04 Q 12 H FOR C ollege e 00:00: 00:00 10 DAYS of (AUGMENTIN) 00 :00 Medicin 875-125 MG e per tablet Phenylephri 2020- No TK 10ML PO [facility] ne-DM-GG 12-04 Q 6-8 H College 10-18-200 00:00: 00:00 FOR 5 of MG/15ML 00 :00 DAYS. Medicin LIQD e cyclobenzap 2016-11- No [id number] 10mg Take 1 Tab [facility] rine 01-09 by mouth 3 Noonday (FLEXERIL) 00:00: 00:00 times of 10 MG 00 :00 daily as Medicin tablet needed for e Muscle spasms. Immunizations Ordered Filled Immunization Date Status Comments [facility] e Immunization Name Name Twinrix (hep a/hep 2021-04-02 Completed Univer sity of b) 00:00:00 [facility] Twinrix (hep a/hep 2021-04-02 Completed Univer sity of b) 00:00:00 [facility] Twinrix (hep a/hep 2021-04-02 Completed Univer sity of b) 00:00:00 [facility] Twinrix (hep a/hep 2021-04-02 Completed Univer sity of b) 00:00:00 [facility] Twinrix (hep a/hep 2021-04-02 Completed Univer sity of b) 00:00:00 [place] [facility] Twinrix (hep a/hep 2021-04-02 Completed Univer sity of b) 00:00:00 [place] [facility] Twinrix (hep a/hep 2021-04-02 Completed Univer sity of b) 00:00:00 [place] [facility] Twinrix (hep a/hep 2021-04-02 Completed Univer sity of b) 00:00:00 [facility] Twinrix (hep a/hep 2021-04-02 Completed Univer sity of b) 00:00:00 [facility] Twinrix (hep a/hep 2021-04-02 Completed Univer sity of b) 00:00:00 [facility] Twinrix (hep a/hep 2021-04-02 Completed Univer sity of b) 00:00:00 [facility] Twinrix (hep a/hep 2021-04-02 Completed Univer sity of b) 00:00:00 [facility] Twinrix (hep a/hep 2021-04-02 Completed Univer sity of b) 00:00:00 [facility] Twinrix (hep a/hep 2021-01-08 Completed Univer sity of b) 00:00:00 [facility] Twinrix (hep a/hep 2021-01-08 Completed Univer sity of b) 00:00:00 [facility] Twinrix (hep a/hep 2021-01-08 Completed Univer sity of b) 00:00:00 [facility] Twinrix (hep a/hep 2021-01-08 Completed Univer sity of b) 00:00:00 [facility] Branch Twinrix (hep a/hep 2021-01-08 Completed Univer sity of b) 00:00:00 [facility] Twinrix (hep a/hep 2021-01-08 Completed Univer sity of b) 00:00:00 [place] [facility] Twinrix (hep a/hep 2021-01-08 Completed Univer sity of b) 00:00:00 [facility] Twinrix (hep a/hep 2021-01-08 Completed Univer sity of b) 00:00:00 [facility] Twinrix (hep a/hep 2021-01-08 Completed Univer sity of b) 00:00:00 [facility] Twinrix (hep a/hep 2021-01-08 Completed Univer sity of b) 00:00:00 [place] [facility] Twinrix (hep a/hep 2021-01-08 Completed Univer sity of b) 00:00:00 [facility] Twinrix (hep a/hep 2021-01-08 Completed Univer sity of b) 00:00:00 [facility] Twinrix (hep a/hep 2021-01-08 Completed Univer sity of b) 00:00:00 [facility] Twinrix (hep a/hep 2021-01-08 Completed Univer sity of b) 00:00:00 [facility] Twinrix (hep a/hep 2021-01-08 Completed Univer sity of b) 00:00:00 [facility] Twinrix (hep a/hep 2021-01-08 Completed Univer sity of b) 00:00:00 [facility] Twinrix (hep a/hep 2021-01-08 Completed Univer sity of b) 00:00:00 [facility] Twinrix (hep a/hep 2021-01-08 Completed Univer sity of b) 00:00:00 [facility] Twinrix (hep a/hep 2020-07-31 Completed Univer sity of b) 00:00:00 [facility] Twinrix (hep a/hep 2020-07-31 Completed Univer sity of b) 00:00:00 [facility] Twinrix (hep a/hep 2020-07-31 Completed Univer sity of b) 00:00:00 [place] [facility] Twinrix (hep a/hep 2020-07-31 Completed Univer sity of b) 00:00:00 [facility] Twinrix (hep a/hep 2020-07-31 Completed Univer sity of b) 00:00:00 [facility] Twinrix (hep a/hep 2020-07-31 Completed Univer sity of b) 00:00:00 [facility] Twinrix (hep a/hep 2020-07-31 Completed Univer sity of b) 00:00:00 [facility] Twinrix (hep a/hep 2020-07-31 Completed Univer sity of b) 00:00:00 [facility] Twinrix (hep a/hep 2020-07-31 Completed Univer sity of b) 00:00:00 [place] [facility] Twinrix (hep a/hep 2020-07-31 Completed Univer sity of b) 00:00:00 [facility] Twinrix (hep a/hep 2020-07-31 Completed Univer sity of b) 00:00:00 [place] [facility] Twinrix (hep a/hep 2020-07-31 Completed Univer sity of b) 00:00:00 [facility] Twinrix (hep a/hep 2020-07-31 Completed Univer sity of b) 00:00:00 [facility] Twinrix (hep a/hep 2020-07-31 Completed Univer sity of b) 00:00:00 [facility] Twinrix (hep a/hep 2020-07-31 Completed Univer sity of b) 00:00:00 [facility] Twinrix (hep a/hep 2020-07-31 Completed Univer sity of b) 00:00:00 [facility] Twinrix (hep a/hep 2020-07-31 Completed Univer sity of b) 00:00:00 [facility] Twinrix (hep a/hep 2020-07-31 Completed Univer sity of b) 00:00:00 [facility] Twinrix (hep a/hep 2020-07-31 Completed Univer sity of b) 00:00:00 [facility] Twinrix (hep a/hep 2020-07-31 Completed Univer sity of b) 00:00:00 [facility] Twinrix (hep a/hep 2020-07-31 Completed Univer sity of b) 00:00:00 [facility] Twinrix (hep a/hep 2020-07-31 Completed Univer sity of b) 00:00:00 [facility] Twinrix (hep a/hep 2020-07-31 Completed Univer sity of b) 00:00:00 [facility] Twinrix (hep a/hep 2020-07-31 Completed Univer sity of b) 00:00:00 [facility] Twinrix (hep a/hep 2020-07-31 Completed Univer sity of b) 00:00:00 [facility] Twinrix (hep a/hep 2020-07-31 Completed Univer sity of b) 00:00:00 [facility] Twinrix (hep a/hep 2020-07-31 Completed Univer sity of b) 00:00:00 [facility] Twinrix (hep a/hep 2020-07-31 Completed Univer sity of b) 00:00:00 [facility] Twinrix (hep a/hep 2020-07-31 Completed Univer sity of b) 00:00:00 [facility] Twinrix (hep a/hep 2020-07-31 Completed Univer sity of b) 00:00:00 [facility] Twinrix (hep a/hep 2020-07-31 Completed Univer sity of b) 00:00:00 [facility] Twinrix (hep a/hep 2020-07-31 Completed Univer sity of b) 00:00:00 [facility] Tdap 2017-02-08 Completed [facility] 00:00:00 Medicine Influenza 2017-02-08 Completed [facility] Quadrivalent 3YRS+ 00:00:00 Medici ne Influenza Quad-PF 2015-10-31 Completed [facility] 00:00:00 Medicine Vital Signs Vital Name Observation Time Observation Value Comments Source HEIGHT 2021-02-25 06:57:00 154.9 cm WEIGHT 2021-02-25 06:57:00 49.397 kg WEIGHT 2020-09-17 04:35:00 51.12 kg WEIGHT 2020-09-14 04:57:00 50.213 kg WEIGHT 2020-09-13 06:38:00 50.168 kg WEIGHT 2020-09-12 04:00:00 50.531 kg HEIGHT 2020-09-07 18:30:00 154.9 cm WEIGHT 2020-09-07 18:30:00 50.032 kg Systolic blood 2021-05-08 19:26:00 111 mm[Hg] Univer sity of pressure [facility] Diastolic blood 2021-05-08 19:26:00 65 mm[Hg] Unive rsity of pressure [facility] Heart rate 2021-05-08 19:26:00 70 /min [facility] Body height 2021-05-08 19:26:00 154.9 cm [facility] Body weight 2021-05-08 19:26:00 48.081 kg [facility]i ty [facility] BMI 2021-05-08 19:26:00 20.03 kg/m2 [facility] Systolic blood 2021-04-02 18:02:00 122 mm[Hg] Univer sity of pressure [facility] Diastolic blood 2021-04-02 18:02:00 78 mm[Hg] Unive rsity of [facility] Heart rate 2021-04-02 18:02:00 60 /min [facility]i ty of [facility] Body temperature 2021-04-02 18:02:00 36.17 Glo Univ ersity of [facility] Body height 2021-04-02 18:02:00 154.9 cm Universi ty of [facility] Body weight 2021-04-02 18:02:00 48.353 kg [facility]i ty of [facility] BMI 2021-04-02 18:02:00 20.14 kg/m2 [facility] ty [facility] HEIGHT 2021-02-25 06:57:00 154.9 cm WEIGHT 2021-02-25 06:57:00 49.397 kg HEIGHT 2021-02-21 13:51:00 154.9 cm WEIGHT 2021-02-21 13:51:00 47.628 kg HEIGHT 2021-02-21 13:51:00 154.9 cm WEIGHT 2021-02-21 13:51:00 47.628 kg Systolic blood 2021-02-17 16:01:00 104 mm[Hg] [facility] pressure Medicine Diastolic blood 2021-02-17 16:01:00 76 mm[Hg] [facility] pressure Medicine Heart rate 2021-02-17 15:57:00 75 /min [facility] Body height 2021-02-17 15:57:00 154.9 cm [facility] Body weight 2021-02-17 15:57:00 49.896 kg [facility] BMI 2021-02-17 15:57:00 20.78 kg/m2 [facility] Systolic blood 2021-02-17 16:01:00 104 mm[Hg] [employer] [facility] Medicine Diastolic blood 2021-02-17 16:01:00 76 mm[Hg] [facility] Medicine Heart rate 2021-02-17 15:57:00 75 /min [facility] 2021-02-17 15:57:00 154.9 cm [facility] Body weight 2021-02-17 15:57:00 49.896 kg [facility] BMI 2021-02-17 15:57:00 20.78 kg/m2 [facility] Systolic blood 2021-01-08 20:01:00 125 mm[Hg] Univer sity of [facility] Diastolic blood 2021-01-08 20:01:00 72 mm[Hg] Unive rsity of [facility] Heart rate 2021-01-08 20:01:00 94 /min Universi ty of [facility] Body temperature 2021-01-08 20:01:00 36.22 Glo Univ ersity of [facility] Body height 2021-01-08 20:01:00 154.9 cm [facility] Body weight 2021-01-08 20:01:00 49.442 kg [facility] BMI 2021-01-08 20:01:00 20.60 kg/m2 [facility] WEIGHT 2020-09-17 04:35:00 51.12 kg WEIGHT 2020-09-14 04:57:00 50.213 kg WEIGHT 2020-09-13 06:38:00 50.168 kg WEIGHT 2020-09-12 04:00:00 50.531 kg HEIGHT 2020-09-07 18:30:00 154.9 cm WEIGHT 2020-09-07 18:30:00 50.032 kg Systolic blood 2020-07-31 13:20:00 128 mm[Hg] Univer sity of pressure [facility] Diastolic blood 2020-07-31 13:20:00 83 mm[Hg] Unive rsity of pressure [facility] Heart rate 2020-07-31 13:20:00 95 /min [facility]i ty [facility] Body temperature 2020-07-31 13:20:00 36.44 Glo Univ ersity of [facility] Body height 2020-07-31 13:20:00 154.9 cm [facility] [place] [facility] [place] Body weight 2020-07-31 13:20:00 53.388 kg [facility] BMI 2020-07-31 13:20:00 22.24 kg/m2 Universi ty of [facility] Systolic blood 2020-07-23 18:33:00 121 mm[Hg] Univer sity of pressure [facility] Diastolic blood 2020-07-23 18:33:00 75 mm[Hg] Unive rsity of pressure [facility] Heart rate 2020-07-23 18:33:00 84 /min Universi ty of [facility] Body temperature 2020-07-23 18:33:00 36.22 Glo Univ ersity of [facility] Respiratory rate 2020-07-23 18:33:00 18 /min Univ ersity of [facility] Body height 2020-07-23 18:33:00 154.9 cm Universi ty of [facility] Body weight 2020-07-23 18:33:00 53.797 kg Universi ty of [facility] BMI 2020-07-23 18:33:00 22.41 kg/m2 Universi ty of [facility] Oxygen saturation in 2020-07-23 18:33:00 97 /min University of Arterial blood by [facility] Pulse oximetry Branch Systolic blood 2020-07-17 13:33:00 128 mm[Hg] Univer sity of pressure [facility] Diastolic blood 2020-07-17 13:33:00 85 mm[Hg] Unive rsity of pressure [facility] Heart rate 2020-07-17 13:33:00 77 /min Universi ty of [facility] Body temperature 2020-07-17 13:33:00 36.61 Glo Univ ersity of [facility] Body height 2020-07-17 13:33:00 154.9 cm Universi ty of [facility] Body weight 2020-07-17 13:33:00 53.116 kg Universi ty of [facility] BMI 2020-07-17 13:33:00 22.13 kg/m2 Universi ty of [facility] Systolic blood 2020-07-15 19:56:00 130 mm[Hg] Univer sity of pressure [facility] Diastolic blood 2020-07-15 19:56:00 83 mm[Hg] Unive rsity of pressure [facility] Heart rate 2020-07-15 19:56:00 78 /min Universi ty of [facility] Body temperature 2020-07-15 19:56:00 36.11 Glo Univ ersity of [facility] Body height 2020-07-15 19:56:00 154.9 cm [facility] [place] Body weight 2020-07-15 19:56:00 52.98 kg Universi ty of [facility] BMI 2020-07-15 19:56:00 22.07 kg/m2 Universi ty of [facility] Oxygen saturation in 2020-07-15 19:56:00 100 /min University Arterial blood by [facility] Pulse oximetry Branch Systolic blood 2020-06-10 15:09:00 118 mm[Hg] Univer sity of pressure [facility] Diastolic blood 2020-06-10 15:09:00 76 mm[Hg] Unive rsity of pressure [facility] Heart rate 2020-06-10 15:09:00 90 /min Universi ty of [facility] Body temperature 2020-06-10 15:09:00 36.89 Glo Univ ersity of [facility] Respiratory rate 2020-06-10 15:09:00 16 /min Univ ersity of [facility] Body height 2020-06-10 15:09:00 154.9 cm Universi ty of [facility] Body weight 2020-06-10 15:09:00 50.621 kg [facility] [place] [facility] [place] BMI 2020-06-10 15:09:00 21.09 kg/m2 Universi ty of [facility] Systolic blood 2021-02-26 19:00:00 131 mm[Hg] [facility] Diastolic blood 2021-02-26 19:00:00 113 mm[Hg] [facility] Heart rate 2021-02-26 19:00:00 83 /min [facility] Body temperature 2021-02-26 19:00:[address] [facility] Respiratory rate 2021-02-26 19:00:00 21 /min [facility] Oxygen saturation in 2021-02-26 19:00:00 97 /min [facility] - Arterial blood by Medical nter Pulse oximetry Body height 2021-02-25 06:57:00 154.9 cm [facility] Body weight 2021-02-25 06:57:00 49.397 kg [facility] BMI 2021-02-25 06:57:00 20.59 kg/m2 [facility] Procedures Procedure Date / Time Performing Clinician Source Performed EXTERNAL PROVIDER RECORDS 2021-07-09 05:01:00 Doctor Unassigned, [facility] Name [facility] PATIENT QUESTIONNAIRE 2021-05-16 05:01:00 Doctor Unassigned, [facility] Name [facility] XR LUMBAR SPINE 4 VW 2021-05-08 21:56:09 Ginny Fuentes Uni [facility] ASSIGNMENT OF BENEFITS 2021-05-08 20:39:32 [facility] [place] ([facility] A/HEP 2021-04-02 18:20:25 [facility]VACCINE Medical Branch TROPONIN I 2021-02-26 19:06:00 Luda Hall [facility] XR CHEST 1 VIEW PORTABLE 2021-02-26 17:11:00 Luda Hall I [facility] - / BEDSIDE Medical [facility] CT BRAIN WITHOUT IV 2021-02-26 17:10:00 [facility] CT SPINE CERVICAL WITHOUT 2021-02-26 17:10:[address] [facility] - IV CONTRAST [facility] CBC W/PLT COUNT & AUTO 2021-02-26 16:50:00 Luda Hall [facility] DIFFERENTIAL [facility] COMPREHENSIVE METABOLIC 2021-02-26 16:50:00 [facility]EL [facility] TROPONIN I 2021-02-26 16:50:00 Isabel [facility] ED ECG INTERPRETATION 2021-02-26 16:44:55 Luda Hall [facility] ECG 12-LEAD 2021-02-26 15:42:49 Unknown, Hl7 Doctor [facility] CBC (HEMOGRAM ONLY) 2021-02-26 04:24:[address] [facility] ELECTROLYTE PANEL 2021-02-26 04:24:00 [facility] BUN AND CREATININE 2021-02-26 04:24:00 Sharona Goodwin [facility] eamon - W/RATIO [facility] XR CHEST 1 VIEW PORTABLE 2021-02-26 04:21:00 Sharona Goodwin [facility] - / BEDSIDE [facility] XR CHEST 1 VIEW PORTABLE 2021-02-25 13:00:00 Sharona Goodwin [facility] - / BEDSIDE [facility] AICD GENERATOR & LEADS - 2021-02-25 10:28:00 KRIS Vargas - INSERTION W/ GENERAL [facility] ter ANESTHESIA (SING/DUAL/MULT) BASIC METABOLIC PANEL (7) 2021-02-25 08:33:00 Cliff Ferrari [facility] CBC (HEMOGRAM ONLY) 2021-02-25 07:46:00 Cliff Ferrari [facility] PROTHROMBIN TIME/INR 2021-02-25 07:46:[address] [facility] ECG 12-LEAD 2021-02-25 06:40:55 Unknown, Hl7 Doctor [facility] CARDIAC CATH REPORT - 2021-02-25 00:00:00 Provider, Default [facility] ARRYTHMIA IMPLANT REPORT 2021-02-25 00:00:00 Provider, Default [facility] BASIC METABOLIC PANEL (7) 2021-02-21 14:15:00 Sid Rosa CH I [facility] CBC W/PLT COUNT & AUTO 2021-02-21 14:15:00 Sid Rosa [facility] b[facility] Maldonado - DIFFERENTIAL [facility] SARS-COV2/RT-PCR ([facility] & 2021-02-21 14:09:00 KRIS Vargas - REF LABS) [facility] [place] (HEP A/HEP 2021-01-08 20:16:25 Desirae Tay [facility] B)VACCINE Medical Branch ASSIGNMENT OF BENEFITS 2021-01-08 19:44:03 Doctor Unassigned, [facility] [place] [facility] CONSENT/REFUSAL FOR 2020-09-27 15:46:10 Doctor Unassigned, Unive [facility] DIAGNOSIS AND TREATMENT [facility] ASSIGNMENT OF BENEFITS 2020-09-27 15:45:42 Doctor Unassigned, [facility] BASIC METABOLIC PANEL (7) 2020-09-17 04:45:00 [facility] MAGNESIUM 2020-09-17 04:45:00 [facility] PHOSPHORUS 2020-09-17 04:45:00 [facility] BASIC METABOLIC PANEL (7) 2020-09-15 04:25:00 [facility] CALCIUM, IONIZED 2020-09-15 04:25:00 Craig [facility] PHOSPHORUS 2020-09-15 04:25:00 Craig [facility] CBC W/PLT COUNT & AUTO 2020-09-15 04:25:00 Sae Vu [facility] MAGNESIUM 2020-09-15 04:25:00 Craig [facility] BASIC METABOLIC PANEL (7) 2020-09-13 10:12:00 [facility] W[facility] & AUTO 2020-09-12 04:25:00 Sae Vu [facility] LIPID PANEL 2020-09-12 04:25:00 [facility] BASIC METABOLIC PANEL (7) 2020-09-12 04:25:00 Sagar Wendi [facility] CALCIUM, IONIZED 2020-09-12 04:25:00 Craig [facility] PHOSPHORUS 2020-09-12 04:25:00 Craig [facility] MAGNESIUM 2020-09-12 04:25:00 [facility] CATH 2020-09-11 09:01:00 Sagar [facility] L CATH & PCI 2020-09-11 09:01:00 Sen [facility] CALCIUM, IONIZED 2020-09-11 04:24:00 Craig [facility] CBC W/PLT COUNT & AUTO 2020-09-11 04:24:00 Sae Vu [facility] BASIC METABOLIC PANEL (7) 2020-09-11 04:23:00 Craig [facility] PHOSPHORUS 2020-09-11 04:23:00 Craig [facility] MAGNESIUM 2020-09-11 04:23:00 Craig [facility] XR CHEST 1 VIEW PORTABLE 2020-09-10 13:09:00 [facility] TSH/FREE T4 IF INDICATED 2020-09-10 04:29:00 Sagar [facility] BASIC METABOLIC PANEL (7) 2020-09-10 04:29:00 Craig [facility] CALCIUM, IONIZED 2020-09-10 04:29:00 [facility] 2020-09-10 04:29:00 Craig [facility] CBC W/PLT COUNT & AUTO 2020-09-10 04:29:00 Sae Vu [facility] MAGNESIUM 2020-09-10 04:29:00 Craig [facility] PREALBUMIN 2020-09-09 06:49:00 Sen [facility] BASIC METABOLIC PANEL (7) 2020-09-09 03:56:00 Craig [facility] CALCIUM, IONIZED 2020-09-09 03:56:00 Sae Vu [facility] PHOSPHORUS 2020-09-09 03:56:00 Sae Vu [facility] CBC W/PLT COUNT & AUTO 2020-09-09 03:56:00 Sae Vu [facility] MAGNESIUM 2020-09-09 03:56:00 Sae Vu [facility] COMPREHENSIVE METABOLIC 2020-09-08 12:34:00 Sae Vu [facility] TSH/FREE T4 IF INDICATED 2020-09-08 12:34:00 [facility] 2020-09-08 12:34:00 Craig [facility] HEMOGLOBIN A1C 2020-09-08 12:34:00 [facility] CBC W/PLT COUNT & AUTO 2020-09-08 12:34:00 Sae Vu [facility] PHOSPHORUS 2020-09-08 12:34:00 [facility] CALCIUM, IONIZED 2020-09-08 12:34:00 Craig [facility] RAPID DRUG SCREEN, URINE 2020-09-07 23:36:00 [facility] 2D ECHO W/ DOPPLER 2020-09-07 22:43:09 aSgar [facility] (CW/PW/COLOR) [facility] ECG 12-LEAD 2020-09-07 21:54:13 Unknown, Hl7 Doctor [facility] CARDIAC CATH REPORT - 2020-09-07 00:00:00 Provider, Default [facility] VASCULAR DIAGRAM -SCAN 2020-09-07 00:00:00 Provider, Default [facility] [place] (HEP A/HEP 2020-07-31 13:47:51 Desirae Tay [facility] B)VACCINE Medical Branch DISCLOSURE AND CONSENT, 2020-07-23 05:01:00 Doctor Unassigned, U [facility] MEDICAL AND SURGICAL [facility] PROCEDURES HBC ANTIBODY (IGM & IGG) 2020-07-17 15:22:00 Desirae Tay [facility] ASSIGNMENT OF BENEFITS 2020-07-16 22:23:43 Doctor Unassigned, Un [facility] Name [facility] BILI UNCONJUGATED/BILI 2020-06-10 19:18:00 Ramsey Jurado [facility] COMP. METABOLIC PANEL 2020-06-10 19:18:00 Ramsey Jurado [facility] ([id number]) [facility] CBC WITH DIFFERENTIAL 2020-06-10 19:18:00 Ramsey Jurado [facility] HEPATITIS B SURFACE 2020-06-10 19:18:00 Ramesy Jurado [facility] ANTIGEN [facility] HCV ANTIBODY 2020-06-10 19:18:00 Ramsey Jurado [place] o f [facility] ADC OR JOSE ONLY - RPR 2020-06-10 19:18:00 Ramsey Jurado [facility] HIV 1/2 AG-AB WITH REFLEX 2020-06-10 19:18:00 Ramsey Jurado [facility] POCT URINALYSIS W/O 2020-06-10 00:00:00 Ramsey Jurado [facility] SPECIFIC GRAVITY [facility] EXTERNAL PROVIDER RECORDS 2019-12-12 06:01:00 Doctor Stanislav, [facility] Plan of Care Planned Activity Planned Date Details Comments Source Future Scheduled 2027-02-08 DTAP/TDAP/TD VACCINES (2 - [facility] Test 00:00:00 Td) [code = DTAP/TDAP/TD Med ical Center VACCINES (2 - Td)] Future Scheduled 2025-09-12 Lipid panel (procedure) [facility] Test 00:00:00 [code = 76255196] Medical Ce nter Future Scheduled 2021-07-30 INFLUENZA VACCINE (Season [facility] Test 00:00:00 Ended) [code = INFLUENZA Med ical Center VACCINE (Season Ended)] Future Scheduled 2011 SHINGLES VACCINES (1 of 2) [facility] - Test 00:00:00 [code = [facility]ING[facility] Future Scheduled 1982 Screening for malignant [facility] Test 00:00:00 neoplasm of cervix Medical C enter (procedure) [code = 370442545] Future Scheduled 1979 HEPATITIS C [facility]ING [facility] 00:[facility]00 [code = HEPATITIS C Medical Center SCREENING] Future Scheduled 1973 COVID-19 VACCINE (1) [code [facility] Test 00:00:00 = COVID-19 VACCINE (1)] [facility] Future Scheduled 1961 Screening for malignant [facility] - Test 00:00:00 neoplasm of breast Medical C enter (procedure) [code = 269471784] Future Scheduled 1961 Screening for malignant [facility] - Test 00:00:00 neoplasm of colon Medical Ce nter (procedure) [code = 012654887] Future Scheduled ELECTROCARDIOGRAM COMPLETE [facility] Test [code = 95314] of Medicine Future Scheduled Screening for malignant [facility] Test neoplasm of colon of Medicin e (procedure) [code = 625215097] Future Scheduled COVID-19 Vaccine (1) [code [facility] Test = COVID-19 Vaccine (1)] of edicine Future Scheduled Hepatitis C screening [employer] Test (procedure) [code = of Medic ine 903720038] Future Scheduled ZOSTER VACCINE (1 of 2) [facility] Test [code = ZOSTER VACCINE (1 of Medicine of 2)] Future Scheduled Screening for malignant [facility] Test neoplasm of breast of Medici ne (procedure) [code = 105902479] Future Scheduled FLU VACCINE > 6 MONTHS [employer] Test [code = FLU VACCINE > 6 of M edicine MONTHS] Future Scheduled Screening for malignant [facility] Test neoplasm of cervix of Medici ne (procedure) [code = 686900446] Future Scheduled TETANUS SHOT (ADULT) [code [employer] Test = TETANUS SHOT (ADULT)] of M edicine Encounters Start End Encounter Admission Attending Care Care Encounter Source Date/Time Date/Time Type Type Clinicians Facility Department ID 2021-09-26 Outpatient MATHEUS [facility] [id number] Univers 14:34:06 CAROLINE sahni [facility] 2021-09-06 Outpatient SID [facility] Surgery [id number] SLE 09:12:33 MAXIMILIANO ROSA 2021-09-03 Inpatient SHER GARCIA [facility] Cardiac ICU [id number] SLE 10:12:34 MARGARET 2022-02-19 2022-02-19 Outpatient R RADHA [facility] [id number] Univers 15:30:00 15:30:00 CARINA [id number] ity o f [facility] 2021-11-26 2021-11-26 Outpatient R [facility] [id number] Univers 16:00:00 16:00:00 [id number] ity [facility] 2021-11-26 2021-11-26 Outpatient R [facility] [id number] Univers 16:00:00 16:00:00 [facility] 2021-10-22 2021-10-22 Outpatient [place] [id number] Univers 10:30:00 10:30:00 DESIRAE [id number] [facility] 2021-10-21 2021-10-21 [facility] [id number] Univers 14:30:00 14:30:00 JUAN C [id number] [facility] 2021-10-21 2021-10-21 [facility] [id number] Univers 14:30:00 14:30:00 JUAN C [facility] 2021-10-20 2021-10-20 [facility] [id number] Univers 00:00:00 00:00:00 vivit [id number] ity [facility] [id number] [place] CHETNA?BLEA [phone] Hi rosendo AGUIRRE [address] [place] [address] MEDICAL OFFICE BUILDING 2021-10-08 2021-10-08 Outpatient Sagrario TAY [facility] [id number] Univers 13:00:00 13:00:00 DESIRAE [id number] [facility] 2021-10-08 2021-10-08 [facility] [id number] Univers 09:00:00 09:00:00 DESIRAE [facility] 2021-07-09 2021-07-09 Orders Doctor ROMERO [id number] Univers 00:00:00 00:00:00 Only Unassigned, PASCALE [id number] [facility] [id number] [place] [phone] [address] 2021-06-12 2021-06-12 Outpatient R HIEU, [facility] [id number] Univers 13:00:00 13:00:00 RAMSEY [id number] ity [facility] 2021-06-12 2021-06-12 [facility] [id number] Univers 13:00:00 13:00:00 RAMSEY [facility] 2021-06-10 2021-06-10 Outpatient R HIEU [facility] [id number] Univers 09:30:00 09:30:00 RAMSEY [id number] [facility] 2021-06-10 2021-06-10 Outpatient R HIEU [facility] [id number] Univers 09:30:00 09:30:00 RAMSEY [facility] 2021-05-29 2021-05-29 Outpatient R JIAN, [facility] [id number] Univers 08:30:00 08:30:00 LAVONNE [id number] [facility] 2021-05-29 2021-05-29 [facility] [id number] Univers 08:30:00 08:30:[address] [facility] 2021-05-22 2021-05-22 [facility] [id number] Univers 15:30:00 15:30:[address] [facility] 2021-05-22 2021-05-22 [facility] [id number] Univers 15:15:00 15:15:00 LAVONNE [id number] [facility] 2021-05-16 2021-05-16 Orders Doctor NICK [id number] Univers 00:00:00 00:00:00 Only Unassigned, PASCALE [id number] ity of [place] [facility] [id number] [place] [phone] [facility] [address] [place] 2021-05-12 2021-05-12 Case Alfredo [facility] [id number] Univers 00:00:00 00:00:00 Management Wondiful A Health [id number] ity of [place] [id number] [place] Professio [phone] [address] Office Building One 2021-05-12 2021-05-12 Patient Alfredo [facility] [id number] Univers 00:00:00 00:00:00 Secure Msg Wondiful A Health [id number] ity of [place] [id number] [place] Professio [phone] [address] Office Building One 2021-05-12 2021-05-12 Patient Alfredo [facility] [id number] 00:00:00 00:00:00 Secure Msg Wondiful A Health [id number] [place] [id number] Professio [phone] [place] [address] Office [facility] One 2021-05-09 2021-05-09 Patient Gianni [facility] [id number] Univers 00:00:00 00:00:00 Outreach Marie L Health [id number] i ty of [place] [id number] [place] Professio [phone] [address] Office Building One 2021-05-08 2021-05-08 Hospital Alfredo [facility] [id number] Univers 15:30:00 15:39:00 Encounter Wondiful A [place] [id number] ity of [id number] [phone] [facility] [address] [place] 2021-05-08 2021-05-08 Office Alfredo [facility] 1.2.840.114 [id number] Univers 13:54:10 15:11:35 Visit [facility] Health [id number] ity of [place] [id number] [place] essio [phone] [address] Office Building One 2021-05-08 2021-05-08 [facility] [id number] Univers 15:00:00 15:00:00 WONDIFUL [id number] ity o f [facility] 2021-05-08 2021-05-08 Outpatient Sagrario ALFREDO [facility] [id number] Univers 15:00:00 15:00:00 WONDIFUL ity o f [facility] 2021-05-08 2021-05-08 Orders Doctor NICK [id number] Univers 00:00:00 00:00:00 Only Unassigned, PASCALE [id number] ity of [place] [facility] [id number] [place] [phone] [facility] [address] Branch 2021-04-02 2021-04-02 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 [facility] UNIVERSIT [id number] Univers 13:31:06 13:46:06 Visit Desirae Tay Y HEALTH [id number] ity of CL[id number] [phone] [facility] [address] 2021-04-02 2021-04-02 Office Fab UNIVERSIT [id number] Univers 12:32:00 13:02:00 Visit Desirae Y HEALTH [id number] i ty of CL[place] [id number] [phone] [facility] 071 Branch 2021-04-02 2021-04-02 Outpatient Sagrario TAY [facility] [id number] Univers 13:00:00 13:00:00 DESIRAE [id number] ity of [facility] 2021-04-02 2021-04-02 Outpatient Sagrario TAY [facility] [id number] Univers 13:00:00 13:00:00 DESIRAE sahni of [facility] 2021-03-31 2021-03-31 Telephone LOKI Tay 1.2.840.114 [id number] Univers 00:00:00 00:00:00 Desirae Y [facility] 350.1.13.10 i ty of [facility] 4.2.7.2.686 Terrence quigley [phone] [place] [address] [address] 2021-02-26 2021-02-26 Emergency ER Isabel [facility] [id number] 16:40:00 20:34:00 [facility] 2021-02-26 2021-02-26 Emergency ER [facility] Emergency [id number] SLE 15:35:00 15:35:00 2021-02-25 2021-02-26 Hospital [facility] [id number] 05:51:00 14:16:00 [facility]counter [facility] 2021-02-25 2021-02-25 Surgery [facility] [id number] 12:25:00 15:40:00 [facility] 2021-02-25 2021-02-25 Travel [facility] [id number] [facility] 00:[facility]00 00:00:00 [facility] 2021-02-25 2021-02-25 Orders [facility] [id number] 00:00:00 00:00:00 Only [facility] 2021-02-21 2021-02-21 Office EL Lau [facility] [id number] [facility] 13:53:29 14:08:29 Visit Shane Veras [facility] 2021-02-21 2021-02-[address] [facility] [id number] SLE 00:00:00 00:00:00 2021-02-21 2021-02-21 Travel [facility] [id number] [facility] 00:00:00 00:00:00 [facility] 2021-02-17 2021-02-17 Office Sid LEON 1.2.840.114 [id number] [facility] 09:59:54 10:29:54 Visit Moe, AMBULATOR 350.1.13.21 College Maximiliano Y 0.2.7.2.686 of [place] [phone] [facility] 300 e 2021-02-17 2021-02-17 Office Sid LEON 1.2.840.114 [id number] 09:59:54 10:29:54 Visit Moe, AMBULATOR 350.1.13.21 Maximiliano Y 0.2.7.2.686 [place] [phone] 300 2021-02-05 2021-02-05 Patient Isael [facility] 1.2.840.114 [id number] Univers 00:00:00 00:00:00 Outreach [place] [facility] 350.1.13.10 i ty of [facility] [place].2.[place] [phone] [address] 2021-01-08 2021-01-08 Office LOKI Tay 1.2.840.114 [id number] Univers 13:44:11 14:25:41 Visit [facility] 350.1.13.10 i ty of CL[place] [phone] [facility] [address] 2021-01-08 2021-01-08 Outpatient Sagrario TAY [facility] [id number] 32L-20 Univers 13:00:00 13:00:00 DESIRAE [id number] bora [facility] 2021-01-08 2021-01-08 Outpatient Sagrario TAY [facility] [id number] Univers 13:00:00 13:00:00 DESIRAE [facility] 2021-01-08 2021-01-08 Orders Doctor ROMERO 1.2.840.114 [id number] Univers 00:00:00 00:00:00 Only Unassigned, PASCALE 350.1.13.10 ity of [place] [facility] 4.2.7.2.686 Dewey as [phone] [facility] [address] 2020-12-13 2020-12-13 Outpatient [facility] [id number] -[id number] Univers 10:30:00 10:30:[id number] [facility] 2020-12-13 2020-12-13 Outpatient R FAB, [facility] [id number] Univers 10:30:00 10:30:[address] [facility] 2020-12-13 2020-12-13 Micro 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 2, Adc Lab [facility] 1.2.840.114 [id number] Univers 09:02:50 09:17:50 Visit Desirae Tay 350.1.13.10 ity of [place] Profess[place] [phone] [facility] [address] 2020-10-30 2020-10-30 Outpatient R FAB, [facility] [id number] 32L-20 Univers 08:00:00 08:00:[id number] [facility] 2020-10-23 2020-10-23 Telephone OMauri, UNIVERSIT 1.2.840.114 [id number] Univers 00:00:00 00:00:00 Desirae Y HEALTH 350.1.13.10 i ty [place] [phone] [address] 2020-10-14 2020-10-14 Patient Alfredo [facility] 1.2.840.114 [id number] Univers 00:00:00 00:00:00 Secure Msg Wondiful [facility] 350.1.13.10 ity of [place] 4.2.7.2.686 [place] as Professio [phone] [facility] [address] One 2020-10-11 2020-10-11 Telephone O'Sukumar, UNIVERSIT 1.2.840.114 [id number] Univers 00:00:00 00:00:00 Desirae Y HEALTH 350.1.13.10 i ty [place] [phone] [address] 2020-10-04 2020-10-04 Telephone OLKOI Dotson 1.2.840.114 [id number] Univers 00:00:00 00:00:00 Desirae Y [facility] 350.1.13.10 i ty of [facility] 4.2.7.2.[place] [phone] [facility] [address] 2020-09-27 2020-09-27 Outpatient R [facility] [id number] -[id number] Univers 11:30:00 11:30:00 ity of [facility] 2020-09-27 2020-09-27 Outpatient R [facility] [id number] Univers 11:30:00 11:30:00 ity of [facility] 2020-09-27 2020-09-27 Micro 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 2, Adc Lab [facility] 1.2.840.114 [id number] Univers 10:46:54 11:01:54 Visit Herberth Madera 350.1.13.10 ity of [place].2.[place] ess[place] [phone] Hi dical [facility] 353 [facility] 2020-09-27 2020-09-27 Orders Doctor NICK 1.2.840.114 [id number] Univers 00:00:00 00:00:00 Only Unassigned, PASCALE 350.1.13.10 ity of [place] [facility] 4.2.7.2.686 [place] [phone] [facility] [address] 2020-09-07 2020-09-18 [facility] Margaret Sevilla [facility] [id number] [facility] 18:03:00 17:57:00 Encounter Sae Vu [facility] 2020-09-11 2020-09-11 Surgery Sen, [facility] [id number] 09:14:00 10:53:00 Wendi [facility] 2020-09-07 2020-09-07 Orders [facility] [id number] 00:00:00 00:00:00 Only [facility] 2020-08-30 2020-08-30 Outpatient R [facility] [id number] Univers 08:00:00 08:00:00 ity [facility] 2020-08-30 2020-08-30 Outpatient R [facility] [id number] Univers 08:00:00 08:00:00 ity [facility] 2020-08-30 2020-08-30 Telephone Fab, THOMASIT 1.2.840.114 [id number] Univers 00:00:00 00:00:00 Desirae Y HEALTH 350.1.13.10 i ty [place] [phone] [address] 2020-08-30 2020-08-30 Telephone Fab, UNIVERSIT 1.2.840.114 [id number] Univers 00:00:00 00:00:00 Desirae Y HEALTH 350.1.13.10 i ty [place] [phone] [address] 2020-08-13 2020-08-13 Telephone Fab, UNIVERSIT 1.2.840.114 [id number] Univers 00:00:00 00:00:00 Desirae Y HEALTH 350.1.13.10 i ty [place] [id number] [address] 2020-07-31 2020-07-31 Office LOKI Tay 1.2.840.114 [id number] Univers 08:07:04 08:57:58 Visit Desirae Y HEALTH 350.1.13.10 i ty of [place] [phone] [address] 2020-07-31 2020-07-31 Outpatient R FAB, [facility] [id number] 32L-20 Univers 08:00:00 08:00:[id number] [facility] 2020-07-31 2020-07-31 Outpatient R FAB, [facility] [id number] Univers 08:00:00 08:00:[address] [facility] 2020-07-31 2020-07-31 Telephone Fab UNIVERSIT 1.2.840.114 [id number] Univers 00:00:00 00:00:00 Desirae Y HEALTH 350.1.13.10 i ty of [place] 4[place] [phone] [facility] [address] 2020-07-29 2020-07-29 Outpatient R [facility] [id number] Univers 12:15:00 12:15:00 [id number] ity [facility] 2020-07-26 2020-07-26 [facility] [id number]-20 Univers 09:30:00 09:30:00 RAMSEY [id number] ity [facility] 2020-07-26 2020-07-26 Outpatient [facility] [id number] Univers 09:30:00 09:30:00 RAMSEY [facility] 2020-07-26 2020-07-26 [facility] 1.2.840.114 [id number] Univers 00:00:00 00:00:00 Caroline Stanley 350.1.13.10 i ty of [place] [phone] Hi dical nal [address] [place] [address] 2020-07-23 2020-07-23 Office [facility] 1.2.193.513 [id number] Univers 12:47:38 14:40:29 Visit Caroline Stanley 350.1.13.10 i ty of [place].2.[place] [phone] Hi dical nal [address] [place] [address] 2020-07-23 2020-07-23 Outpatient R MATHEUS [facility] [id number]-20 Univers 13:30:00 13:30:[id number] [facility] 2020-07-23 2020-07-23 Outpatient R MATHEUS [facility] [id number] Univers 13:30:00 13:30:00 CAROLINE [facility] 2020-07-23 2020-07-23 Prep Janelle Song [facility] 1.2.840.114 [id number] Univers 00:00:00 00:00:00 Surgery Reva Stanley 350.1.13.10 ity of [place].2.[place] [phone] Me dical nal 204 [facility] 2020-07-23 2020-07-23 Orders Doctor NICK 1.2.840.114 [id number] Univers 00:00:00 00:00:00 Only Unassigned, PASCALE 350.1.13.10 ity of [place] [facility] 4.2.7.2.686 [place] [phone] [facility] [address] 2020-07-22 2020-07-22 Patient Fab, UNIVERSIT 1.2.840.114 [id number] Univers 00:00:00 00:00:00 Secure Msg Desirae Y HEALTH 350.1.13.10 ity of [place] [phone] [address] 2020-07-17 2020-07-17 Outpatient R FAB, [facility] [id number] 32L-20 Univers 13:00:00 13:00:00 DESIRAE [id number] ity [facility] 2020-07-17 2020-07-17 Micro 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 [facility] UNIVERSIT 1.2.840.114 [id number] Univers 10:12:28 10:19:34 Visit O'Sukumar, Desirae Y HEALTH 350.1.13.10 ity of CL[place] 4[place] [phone] [facility] [address] 2020-07-17 2020-07-17 Office OMauri, UNIVERSIT 1.2.840.114 [id number] Univers 08:24:03 10:06:02 Visit Desirae Y HEALTH 350.1.13.10 i ty of [place]2.[place] [phone] [address] 2020-07-17 2020-07-17 Outpatient R FAB, [facility] [id number] Univers 09:30:00 09:30:00 DESIRAE ity [facility] 2020-07-16 2020-07-16 [facility] 1.2.062.033 [id number] Univers 17:35:30 23:59:00 Encounter Ginny Stanley 350.1.13.10 ity of [place].2.[place] [phone] [facility] [address] 2020-07-16 2020-07-16 Outpatient R ALFREDO [facility] [id number]-20 Univers 00:00:00 00:00:00 WONDIFUL [id number] ity o f [facility] 2020-07-16 2020-07-16 Outpatient R ALFREDO [facility] [id number] Univers 00:00:00 00:00:00 WONDIFUL ity o f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 Test Item Value Reference Range Interpretation [...] PERCENT (BEAKER) (test code = 2801) CALCIUM, [id number] 04:41:00 Test Item Value Reference Range Interpretation Comments CALCIUM IONIZED (BEAKER) (test 1.14 mmol/L 1.12-1.27 code = 698) PH, BLOOD (BEAKER) (test code = 7.42 1810) Hemoglobin [id number] 09:27:00 Test Item Value Reference Range Interpretation Comments Hemoglobin A1C (test code = 4548-4) 5.9 % 4.3-6.1 Lab Interpretation (test code = Normal 54712-7) [facility] CenterHEMOGLOBIN [id number] 09:27:00 Test Item Value Reference Range Interpretation Comments HEMOGLOBIN A1C (BEAKER) (test code = 5.9 % 4.3-6.1 368) [id number] 07:51:00 Test Item Value Reference Range Interpretation Comments Prealbumin (test code = 18 mg/dL 14-45 86186-2) AZUCENA (test code = AZUCENA) Car Pick Up Driver ID - TANYA M Lab Interpretation (test Normal code = 76349-9) [facility] CenterPREALBUMIN2020-10-12 07:51:00 Test Item Value Reference Range Interpretation Comments PREALBUMIN (BEAKER) (test code = 18 mg/dL 14-45 586) Car Pick Up Driver ID - TANYA [id number] 05:08:00 Test Item Value Reference Range Interpretation Comments MAGNESIUM (BEAKER) 1.7 mg/dL 1.6-2.6 Specimen slightly (test code = 627) hemolyzed Car Pick Up Driver ID - TANYA [id number] 05:08:00 Test Item Value Reference Range Interpretation Comments PHOSPHORUS (BEAKER) 4.7 mg/dL 2.3-4.7 Specimen slightly (test code = 604) hemolyzed Car Pick Up Driver ID - TANYA MBASIC METABOLIC [id number] 05:08:00 Test Item Value Reference Range Interpretation [...] S NOT APPLICABLE FOR DIALYSIS PATIEN TS. Car Pick Up Driver ID - TANYA MCBC W/PLT COUNT & AUTO [id number] 04:45:00 Test Item Value Reference Range Interpretation [...] PERCENT (BEAKER) (test code = 2801) CALCIUM, [id number] 04:14:00 Test Item Value Reference Range Interpretation Comments CALCIUM IONIZED (BEAKER) (test 1.15 mmol/L 1.12-1.27 code = 698) PH, BLOOD (BEAKER) (test code = 7.44 1810) 2D Echo W/Doppler(CW/PW/Color)2020-09-08 14:00:50Ejection FractionSLEH ECHO HEARTLAB MKCKFADY CPACSInterface, External Ris In - 09/08/2020 2:01 PM C DTTransthoracic Echocardiography Report (TTE) Demographics Patient Name CUONG, Date of Study 09/07/2020 SATINDER Gender Female Visit Number [id number] Race Black Room Number 1138 Number Date of 1961 Referring Physician PRISCILA Clark Age 59 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(s) 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 Rufino Connors [employer] Developer Lizabeth Lopez Interpreting Claire Guerra MD Procedure Type of Study TTE procedure:2DECHO W DOPPLER(CW/PW/COLOR) (Routine) Indications:Congestive heart failure.Clinical HistoryHX OF COCAINE ABUSE, [facility] CenterFHeight: 61 inches Weight: 49.9 kg (110 lbs) [...] CO: 3.94 l/min LVOT CI: 2.68 l/min/m^2[facility] HospitalTSH/FREE T4 IF [id number] 13:40:00 Test Item Value Reference Range Interpretation Comments THYROID STIMULATING HORMONE 2.569 uIU/mL 0.350-4.940 (BEAKER) (test code = 772) Car Pick Up Driver ID - [id number] 13:20:00 Test Item Value Reference Range Interpretation Comments MAGNESIUM (BEAKER) 1.7 mg/dL 1.6-2.6 Specimen slightly (test code = 627) hemolyzed Car Pick Up Driver ID - [id number] 13:20:00 Test Item Value Reference Range Interpretation Comments PHOSPHORUS (BEAKER) 4.5 mg/dL 2.3-4.7 Specimen slightly (test code = 604) hemolyzed Car Pick Up Driver ID - ROSIANGCOMPREHENSIVE METABOLIC [id number] 13:20:00 Test Item Value Reference Range Interpretation [...] S NOT APPLICABLE FOR DIALYSIS PATIEN TS. Car Pick Up Driver ID - ROSIANGCALCIUM, [id number] 12:52:00 Test Item Value Reference Range Interpretation Comments CALCIUM IONIZED (BEAKER) (test 1.14 mmol/L 1.12-1.27 code = 698) PH, BLOOD (BEAKER) (test code = 7.45 1810) CBC W/PLT COUNT & AUTO [id number] 12:48:00 Test Item Value Reference Range Interpretation [...] (test code = 2801) Rapid drug screen, [id number] 00:38:00 Test Item Value Reference Range Interpretation Comments Barbiturate Screen Negative Negative (test code = 49028-9) Benzodiazepine Screen Negative Negative (test code = 66368-1) Cocaine (Metab.) Negative Negative Screen (test code = 3397-7) Methadone Screen (test Negative Negative code = 25388-9) Opiate Screen (test Positive Negative A code = 19425-4) Cannabinoid Screen Negative Negative (test code = 29370-6) Amph/Methamph Screen Negative Negative (test code = 89366-6) Phencyclidine Screen Negative Negative (test code = 29592-0) pH, UA (test code = 6.0 5.0-8.0 5803-2) AZUCENA (test code = AZUCENA) DRUG CUTOFF CONC.Cocaine 300 ng/mL Cannabinoid 50 ng/mLBenzodiazepine 200 ng/mLBarbiturate 200 ng/mLPhencyclidine 25 ng/mLOpiate 300 ng/mLMethadone 300 ng/mLAmphetamine/ 1000 ng/mL Methamphetamine This assay provides an unconfirmed qualitative test result for the clinical management of patients in emergency situations. Chain of custody not maintained. Some wufk-gzr-jswxvco medications, as well as adulterants, may cause inaccurate results. Clinical correlation should be applied. A more comprehensive drug screen or confirmation of a detected drug may be performed upon request.Car Pick Up Driver KUSH - DIANA Raymond ID - [auto] Lab Interpretation Abnormal (test code = 77532-7) [facility] CenterRAPID DRUG SCREEN, [id number] 00:38:00 Test Item Value Reference Range Interpretation [...] situations. Chain of custody not maintained. Some udml-dyf-jlpkarr medications, as well as adulterants, may cause inaccurate results. Clinical correlation should be applied. A more comprehensivedrug screen or confirmation of a detected drug may be performed upon request.Car Pick Up Driver ID - DIANA Raymond ID - [auto]HBC ANTIBODY (IGM & IGG)2020-07-17 23:06:00 Test Item Value Reference Range Interpretation Comments HBC (test code = 4891519539) Negative HBC Semi-Quantitative (test code = 9479611186) [facility] IGG[facility]2020-07-17 23:06:00 Test Item Value Reference Range Interpretation Comments HBC (test code = 6788376469) Negative HBC Semi-Quantitative (test code = 1814473560) [facility] CenterHCV [id number] 07:42:00 Test Item Value Reference Range Interpretation Comments HCV Ab (test code = Presumptive Positive 07911-7) HCV Semi-Quantitative (test code = 77566-8) AZUCENA (test code = Presumptive positive for AZUCENA) HCV antibody with a low signal to cutoff ration (s/c). ?This may represent a false positive. ?This specimen has been reflexed to qualitative PCR test and submitted to [facility] Laboratory. A report will be issued by that laboratory. ?If any questions, contact the Clinical Chemistry Director live ammunition inspector at [phone]. [facility] OR JOSE GAINES - [id number] 06:51:00 Test Item Value Reference Range Interpretation Comments RPR (Qualitative) (test Reactive Nonreactive A code = 87363-0) AZUCENA (test code = AZUCENA) Weakly reactive at ADC.cn. Lab Interpretation (test Abnormal code = 36953-1) [facility] CenterHEPATITIS B SURFACE [id number] 05:30:00 Test Item Value Reference Range Interpretation Comments HBsAg Semi-Quantitative (test code = Negative Negative 5195-3) [facility] CenterHIV 1/2 AG-AB WITH [id number] 22:14:00 Test Item Value Reference Range Interpretation Comments HIV Negative Negative Semi-quantitative (test code = 03673-8) AZUCENA (test code = Non-reactive for HIV-1 AZUCENA) antigen and HIV-1/HIV-2 antibodies. ?No laboratory evidence of HIV infection. ?Repeat in 2-4 weeks if acute HIV infection is suspected. [facility] CenterCOMP. METABOLIC PANEL (49036)2020-06-10 21:35:00 Test Item Value Reference Range Interpretation Comments NA (test code = 137 mmol/L 135-145 3304199812) K (test code = 4.4 mmol/L 3.5-5 4831430568) CL (test code = 104 mmol/L 98-108 6922137124) CO2 TOTAL (test code = 26 mmol/L 23-31 3568095512) AGAP (test code = 2-16 5315474152) BUN (test code = 10 mg/dL 7-23 8977084059) GLUCOSE (test code = 111 mg/dL 70-110 H 2920187404) CREATININE (test code = 0.77 mg/dL 0.5-1.04 1929203434) TOTAL BILI (test code = 2.6 mg/dL 0.1-1.1 H 0858376873) CALCIUM (test code = 9.1 mg/dL 8.6-10.6 1675125721) T PROTEIN (test code = 7.1 g/dL 6.3-8.2 4323502180) ALBUMIN (test code = 3.9 g/dL 3.5-5 9380853429) ALK PHOS (test code = 247 U/L 34-122 H 1223280602) ALTv (test code = 531 U/L 5-35 H 1742-6) AST(SGOT) (test code = 370 U/L 13-40 H 2217516932) eGFR Calculation mL/min/1.73m2 (Non-) (test code = 0348031594) eGFR Calculation mL/min/1.73m2 () (test code = 5309598964) AZUCENA (test code = AZUCENA) Association of [...] tests). Lab Interpretation Abnormal (test code = 32983-2) [facility] UNCONJUGATED/BILI [id number] 21:34:00 Test Item Value Reference Range Interpretation Comments BILI CONJ (test code = 9820093784) 0.0 mg/dL 0-0.3 BILI UNCON (test code = 7056902375) 1.0 mg/dL 0.1-1.1 Lab Interpretation (test code = Normal 34452-5) [facility] WITH [id number] 21:20:00 Test Item Value Reference Range Interpretation Comments WBC (test code = See_Comment [Automated 5914-2) message] The sy stem which generated this result transmitted reference range : 4.30 - 11.10 10*3/?L. The reference range was not used to interpret this result as normal/abnormal . RBC (test code = See_Comment [Automated 549-2) message] The sy stem which generated this [...] (test code = 50.6 fL 39-49.9 H 46686-2) RDW-CV (test code = 15.1 % 12-15.5 788-0) PLT (test code = See_Comment [Automated 777-3) message] The sy stem which generated this result transmitted reference range : 166 - 358 10*3/ ?L. The reference r destinee was not used to interpret this result as normal/abnormal . MPV (test code = 14.5 fL 9.5-12.9 H 99738-7) IPF % (test code = 17.5 % 1.3-7.7 H Platelet count 8841374698) measured by fluorescence method. NRBC/100 WBC (test See_Comment [Automat ed code = 4665458366) message] The system which generated this result transmitted reference range : 0.0 - 10.0 /100 WBCs. The refer ence range was not u sed to interpret th is result as normal/abnormal . NRBC x10^3 (test code <0.01 See_Comment [Auto mated = 7465645780) message] The s ystem which generated this result transmitted reference range : 10*3/?L. The reference range was not used to interpret this result as normal/abnormal . GRAN MAT (NEUT) % 43.2 % (test code = 770-8) IMM GRAN % (test code 0.30 % = 4582064668) LYMPH % (test code = 42.2 % 736-9) MONO % (test code = 11.6 % 5905-5) EOS % (test code = 1.9 % 713-8) BASO % (test code = 0.8 % 706-2) GRAN MAT x10^3(ANC) 2.56 10*3/uL 1.88-7.09 (test code = 2725119747) IMM GRAN x10^3 (test <0.03 0-0.06 code = 1831739190) LYMPH x10^3 (test code 2.50 10*3/uL 1.32-3.29 = 731-0) MONO x10^3 (test code 0.69 10*3/uL 0.33-0.92 = 742-7) EOS x10^3 (test code = 0.11 10*3/uL 0.03-0.39 711-2) BASO x10^3 (test code 0.05 10*3/uL 0.01-0.07 = 704-7) Lab Interpretation Abnormal (test code = 00866-7) [facility] URINALYSIS W/O SPECIFIC [id number] 15:33:00 Test Item Value Reference Range Interpretation [...] code = 3257) trace Negative - Negative [facility] CenterPO[facility] URINAL[facility] W/O SPECIFIC [id number] 15:33:00 Test Item Value Reference Range Interpretation [...] code = 3257) trace Negative - Negative [facility]"
[2021-12-26 05:16] LABS: Absolute Lymphocytes (CBC) 2.8 K/uL (0.7-4.9); Lymphocytes % 40.6 % (15.3-44.8); Protime INR 0.95; RBC Red Blood Cell Count 4.76 M/uL (3.86-4.86)
[2021-12-26 05:36] LABS: Albumin 3.4 g/dL (3.4-5.0); Bilirubin Direct 0.1 mg/dL (0-0.2); Bilirubin Total 0.3 mg/dL (0.2-1.0); Protein, Total 7.5 g/dL (6.4-8.2)
[2021-12-26 05:37] LABS: Potassium 4.4 mmol/L (3.5-5.1)
[2021-12-26 05:38] LABS: Troponin High Sensitivity 194.2 pg/mL (<58.9)
[2021-12-26] MEDS ORDERED: NA CHLORIDE 0.9% 1,000 ML ONE (05:52)
--- NOTE | 2021-12-26 06:25 | ER ---
Nurse's Notes [facility] Name: Brenda Velasquez Age: 61 yrs Sex: Female : 1960 Arrival Date: 12/26/2021 Time: 04:45 Bed 23 Private MD: Ginny Khan Diagnosis: Acute dyspnea. Elevated Troponin Presentation: 12/26 04:48 Chief complaint: Patient states: "I am having problems breathing, I can hear a rattling tw5 in my chest. Last time I felt like this I had pneumonia. ". Coronavirus screen: Vaccine status: Patient reports receiving the 2nd dose of the covid vaccine. Risk I/O. Ebola Screen: Patient negative for fever greater than or equal to 101.5 degrees Fahrenheit, and additional compatible Ebola Virus Disease symptoms Patient denies exposure to infectious person. Patient denies travel to an Ebola-affected area in the 21 days before illness onset. Initial Sepsis Screen: Does the patient meet any 2 criteria? No. Patient's initial sepsis screen is negative. Does the patient have a suspected source of infection? No. Patient's initial sepsis screen is negative. Risk Assessment: Do you want to hurt yourself or someone else? Patient reports no desire to harm self or others. Onset of symptoms was December 24, 2021. 04:48 Method Of Arrival: Ambulatory tw5 04:48 Acuity: JOSE 3 tw5 Triage Assessment: 04:50 General: Appears in no apparent distress. Behavior is calm, cooperative. tw5 05:04 Pain: Complains of pain in chest Pain currently is 10 out of 10 on a pain scale. tw5 Respiratory: Reports shortness of breath at rest Onset: The symptoms/episode began/occurred gradually, the patient has moderate shortness of breath. Historical: - Allergies: 04:50 Cipro PO; tw5 - Home Meds: 08:04 spironolactone 25 mg Oral tab 1 tab once daily [Active]; losartan 25 mg oral tab 0.5 ww tab once daily [Active]; Toprol XL 25 mg Oral Tb24 1 tab once daily [Active]; amiodarone 100 mg Oral tab 1 tab 2 times per day [Active]; - PMHx: 04:50 drug abuse; Heart Murmur; Hepatitis; Hypertensive disorder; tw5 - PSHx: 04:50 defibrillator; Titanium jenise in Neck; tw5 - Immunization history:: Flu vaccine is not up to date. - Social history:: Smoking status: Patient/guardian denies using tobacco, the patient reports quitting approximately 1 years ago. Screenin:44 Abuse screen: Denies threats or abuse. Denies injuries from another. Nutritional ww screening: No deficits noted. Tuberculosis screening: No symptoms or risk factors identified. Fall Risk None identified. Assessment: 07:30 General: Patient complaining of chest pressure feels like someone is sitting on her ww chest. EKG done and reviewed by ED MD, placed on 2LNC. Dr. Severino notified and requested Lovenox 50mg once and to give the home lisinopril. . 07:30 Respiratory: Breath sounds are diminished bilaterally. jg9 07:44 General: Appears uncomfortable, Behavior is cooperative, anxious. Pain: Complains of ww pain in xiphoid area and mid-sternal area. Neuro: Level of Consciousness is awake, alert, obeys commands, Oriented to person, place, time, situation. Cardiovascular: Reports chest pain, Capillary refill < 3 seconds Patient's skin is warm and dry. AICD present in left chest wall. Rhythm is regular Chest pain is described as mild, quality is pressure, is located in substernal area. Respiratory: Airway is patent Respiratory effort is dyspnea and tachypnea Respiratory pattern is regular, symmetrical, tachypnea. GI: No deficits noted. No signs and/or symptoms were reported involving the gastrointestinal system. Abdomen is non-distended. : No signs and/or symptoms were reported regarding the genitourinary system. EENT: No signs and/or symptoms were reported regarding the EENT system. Derm: No signs and/or symptoms reported regarding the dermatologic system. Skin is intact, Skin is pink, warm \\T\\ dry. Vital Signs: 04:48 BP 144 / 107; Pulse 77; Resp 22; Temp 97.8; Pulse Ox 97% on R/A; Weight 49.9 kg; Height tw5 5 ft. 1 in. (154.94 cm); Pain 10/10; 07:44 BP 159 / 97; Pulse 83; Resp 34; Pulse Ox 99% on 2 lpm NC; ww 04:48 Body Mass Index 20.78 (49.90 kg, 154.94 cm) tw5 [place] Coma Score: 07:44 Eye Response: spontaneous(4). Verbal Response: oriented(5). Motor Response: obeys ww commands(6). Total: 15. ED Course: 04:45 Patient arrived in ED. es 04:45 Ginny Khan is Private Physician. es 04:50 Triage completed. tw5 04:54 Ely Mckeon, RN is Primary Nurse. sm5 05:04 Arm band placed on. tw5 05:04 Initial lab(s) drawn, by ED staff, sent to lab. COVID swab sent to lab. Inserted saline tw5 lock: 20 gauge in left antecubital area, using aseptic technique. Blood collected. 05:04 EKG done, by ED staff, reviewed by Pal Archuleta MD. tw5 05:05 Basic Metabolic Panel Sent. tw5 05:05 CBC with Diff Sent. tw5 05:05 LFT's Sent. tw5 05:05 Magnesium Sent. tw5 05:05 NT PRO-BNP Sent. tw5 05:05 PT-INR Sent. tw5 05:05 Troponin HS Sent. tw5 05:07 Pal Archuleta MD is Attending Physician. pkl 05:32 Troponin HS Sent. mk 05:32 NT PRO-BNP Sent. mk 05:33 XRAY Chest (1 view) In Process Unspecified. EDMS 05:33 Magnesium Sent. mk 05:33 LFT's Sent. mk 05:33 Basic Metabolic Panel Sent. mk 05:33 D-Dimer Sent. mk 05:33 Lactate Sent. mk 05:33 Procalcitonin Sent. mk 05:38 Notified ED physician of a critical lab result(s). trop high sensitivity 192. mk 05:43 CT Chest For PE Angio In Process Unspecified. EDMS 06:24 Quentin Núñez is Hospitalizing Provider. pkl 07:44 Patient has correct armband on for positive identification. Placed in gown. Bed in low ww position. Call light in reach. Side rails up X2. Adult w/ patient. crop and soil technician on. Pulse ox on. NIBP on. Warm blanket given. 16:28 No provider procedures requiring assistance completed. jg9 16:29 Patient admitted, IV remains in place. jg9 12/27 08:31 Primary Nurse role handed off by Ely Mckeon, OREN eb Administered Medications: 12/26 05:58 Drug: NS 0.9% 1000 ml Route: IV; Rate: 100 ml/hr; Site: left antecubital; 06:50 Drug: Tussionex Pennkinetic ER (chlorpheniramine-hydrocodone) Suspension 5 ml Route: PO;mk 06:50 Drug: Albuterol - atroVENT (ipratropium) (3:1) (2.5 mg - 0.5 mg) 3 ml Route: Nebulizer; mk 08:20 Drug: Lovenox (enoxaparin) 50 mg Route: Sub-Q; Site: left lower abdomen; ww 09:36 Drug: Lasix (furosemide) 40 mg Route: IVP; Site: left antecubital; Outcome: 06:25 Decision to Hospitalize by Provider. pk 16:29 Admitted to ER Hold. Please see [facility] for further documentation. jg9 16:29 Condition: stable 12/27 12:12 Patient left the ED. ap3 Signatures: Dispatcher [employer] EDPal Galicia MD MD Mara Boykin Amanda RN RN ap3 Nisha Nuñez Tiffany [facility] Ely Mckeon RN RN [facility] Christiane Sargent RN RN j9 Claudia Alfredo RN RN Mabel Ramirez RN RN mk Corrections: (The following items were deleted from the chart) 12/26 08:06 04:50 Home Meds: lisinopril 10 mg oral tab 1 tab; 08:06 04:50 Home Meds: Lasix 20 mg Oral tab 1 tab once daily;
--- NOTE | 2021-12-26 06:26 | EDPHYS ---
Physician Documentation [facility] Name: Brenda Velasquez Age: 61 yrs Sex: Female : 1960 Arrival Date: 12/26/2021 Time: 04:45 Bed 23 Private MD: Ginny Khan ED Physician Pal Archuleta HPI: 12/26 05:14 This 61 yrs old Black Female presents to ER via Ambulatory with complaints of Breathing pkl Difficulty. 05:14 The patient has shortness of breath at rest. Onset: The symptoms/episode began/occurred pkl 3 day(s) ago, and became worse today. Associated signs and symptoms: Pertinent positives: non-productive cough. Historical: - Allergies: 04:50 Cipro PO; tw5 - Home Meds: 08:04 spironolactone 25 mg Oral tab 1 tab once daily [Active]; losartan 25 mg oral tab 0.5 ww tab once daily [Active]; Toprol XL 25 mg Oral Tb24 1 tab once daily [Active]; amiodarone 100 mg Oral tab 1 tab 2 times per day [Active]; - PMHx: 04:50 drug abuse; Heart Murmur; Hepatitis; Hypertensive disorder; tw5 - PSHx: 04:50 defibrillator; Titanium jenise in Neck; tw5 - Immunization history:: Flu vaccine is not up to date. - Social history:: Smoking status: Patient/guardian denies using tobacco, the patient reports quitting approximately 1 years ago. ROS: 05:14 Eyes: Negative for injury, pain, redness, and discharge, ENT: Negative for injury, pkl pain, and discharge, Neck: Negative for injury, pain, and swelling. 05:14 Cardiovascular: Negative for chest pain. 05:14 Respiratory: Positive for shortness of breath, at rest. 05:14 Abdomen/GI: Negative for abdominal pain, nausea, vomiting, and diarrhea. 05:14 Back: Negative for acute changes. 05:14 : Negative for urinary symptoms. 05:14 MS/extremity: Negative for acute changes. 05:14 Skin: Negative for rash. 05:14 Neuro: Negative for altered mental status, loss of consciousness. Exam: 05:16 Head/Face: Normocephalic, atraumatic. Eyes: Pupils equal round and reactive to light, pkl extra-ocular motions intact. Lids and lashes normal. Conjunctiva and sclera are non-icteric and not injected. Cornea within normal limits. Periorbital areas with no swelling, redness, or edema. ENT: Nares patent. No nasal discharge, no septal abnormalities noted. Tympanic membranes are normal and external auditory canals are clear. Oropharynx with no redness, swelling, or masses, exudates, or evidence of obstruction, uvula midline. Mucous membranes moist. Neck: Trachea midline, no thyromegaly or masses palpated, and no cervical lymphadenopathy. Supple, full range of motion without nuchal rigidity, or vertebral point tenderness. No Meningismus. Chest/axilla: Normal chest wall appearance and motion. Nontender with no deformity. No lesions are appreciated. Cardiovascular: Regular rate and rhythm with a normal S1 and S2. No gallops, murmurs, or rubs. Normal PMI, no JVD. No pulse deficits. 05:16 Respiratory: mild respiratory distress is noted, Respirations: labored breathing, that is mild, Breath sounds: rales, that are mild, are scattered. 05:16 Abdomen/GI: Bowel sounds: normal, Palpation: abdomen is soft and non-tender, in all quadrants. 05:16 Back: Exam negative for acute changes. 05:16 : Exam negative for acute changes. 05:16 Musculoskeletal/extremity: Exam is negative for acute changes. 05:16 Skin: Exam negative for rash. 05:16 Neuro: Orientation: is normal, Mentation: is normal, Cranial nerves: grossly normal, Motor: is normal. Vital Signs: 04:48 BP 144 / 107; Pulse 77; Resp 22; Temp 97.8; Pulse Ox 97% on R/A; Weight 49.9 kg; Height tw5 5 ft. 1 in. (154.94 cm); Pain 10/10; 07:44 BP 159 / 97; Pulse 83; Resp 34; Pulse Ox 99% on 2 lpm NC; ww 04:48 Body Mass Index 20.78 (49.90 kg, 154.94 cm) tw5 [place] Coma Score: 07:44 Eye Response: spontaneous(4). Verbal Response: oriented(5). Motor Response: obeys ww commands(6). Total: 15. MDM: 05:07 Patient medically screened. pkl 06:23 Data reviewed: vital signs, nurses notes, lab test result(s), EKG, radiologic studies, pkl CT scan, plain films. ED course: Talked to Dr. Núñez, admit to Telemetry. 12/26 04:54 Order name: Basic Metabolic Panel; Complete Time: 05:41 12/26 04:54 Order name: CBC with Diff; Complete Time: 05:28 12/26 04:54 Order name: LFT's; Complete Time: 05:41 12/26 04:54 Order name: Magnesium; Complete Time: 05:41 12/26 04:54 Order name: NT PRO-BNP; Complete Time: 05:41 12/26 04:54 Order name: PT-INR; Complete Time: 05:28 12/26 04:54 Order name: Troponin HS; Complete Time: 05:41 12/26 05:05 Order name: COVID-19 SARS RT PCR (Document "Date of Onset" if Symptomatic); Complete tw5 Time: 06:15 12/26 05:12 Order name: D-Dimer pkl 12/26 05:12 Order name: Lactate pkl 12/26 05:12 Order name: Procalcitonin pkl 12/26 05:18 Order name: UDS pkl 12/26 04:54 Order name: XRAY Chest (1 view) 12/26 05:13 Order name: CT Chest For PE Angio pkl 12/26 05:52 Order name: CREATININE WHOLE BLOOD; Complete Time: 05:56 EDIN 12/26 06:30 Order name: Urine Dipstick-Ancillary; Complete Time: 06:32 EDMS 12/26 11:56 Order name: Troponin High Sensitivity EDMS 12/26 15:26 Order name: Troponin High Sensitivity EDMS 12/27 03:47 Order name: CBC with Automated Diff EDMS 12/27 03:57 Order name: Basic Metabolic Panel EDMS 12/27 03:57 Order name: Phosphorus EDMS 12/27 03:57 Order name: Magnesium EDMS 12/27 04:05 Order name: CBC Smear Scan EDMS 12/26 04:54 Order name: EKG; Complete Time: 04:55 12/26 04:54 Order name: Cardiac monitoring; Complete Time: 05:05 12/26 04:54 Order name: EKG - Nurse/Tech; Complete Time: 05:05 12/26 04:54 Order name: IV Saline Lock; Complete Time: 05:05 12/26 04:54 Order name: Labs collected and sent; Complete Time: 05:05 12/26 04:54 Order name: O2 Per Protocol; Complete Time: 05:05 12/26 04:54 Order name: O2 Sat Monitoring; Complete Time: 05:05 12/26 05:16 Order name: Urine Dipstick-Ancillary (obtain specimen); Complete Time: 07:09 pkl Administered Medications: 05:58 Drug: NS 0.9% 1000 ml Route: IV; Rate: 100 ml/hr; Site: left antecubital; mk 06:50 Drug: Tussionex Pennkinetic ER (chlorpheniramine-hydrocodone) Suspension 5 ml Route: PO;mk 06:50 Drug: Albuterol - atroVENT (ipratropium) (3:1) (2.5 mg - 0.5 mg) 3 ml Route: Nebulizer; mk 08:20 Drug: Lovenox (enoxaparin) 50 mg Route: Sub-Q; Site: left lower abdomen; ww 09:36 Drug: Lasix (furosemide) 40 mg Route: IVP; Site: left antecubital; Disposition Summary: 12/26/21 06:25 Hospitalization Ordered Hospitalization Status: Inpatient Admission pkl Provider: Quentin Núñez pkcarrie Condition: Stable pkl Problem: new pkl Symptoms: are unchanged pkl Bed/Room Type: Standard pkl Location: [facility] ER HOLD(12/26/21 15:35) Room Assignment: ERHOLD-(12/26/21 15:35) eb Diagnosis - Acute dyspnea. Elevated Troponin pkl Forms: - Medication Reconciliation Form pkl - SBAR form pkl Signatures: Dispatcher [employer] EDMS Pal Archuleta MD MD pkNisha Fernandes Tiffany 5 Ely Mckeon RN RN 5 Claudia Alfredo RN RN Mabel Alegria RN RN mk Corrections: (The following items were deleted from the chart) 05:14 05:13 CREATININE, SERUM+C.LAB.BRZ ordered. EDMS EDMS 06:16 05:13 Arterial Blood Gas+RC.LAB.BRZ ordered. EDMS EDMS 08:06 04:50 Home Meds: lisinopril 10 mg oral tab 1 tab; 08:06 04:50 Home Meds: Lasix 20 mg Oral tab 1 tab once daily; 15:35 06:25 Telemetry/MedSurg (Inpatient) pkl eb 15:35 06:25 pkl eb
[2021-12-26 06:29] LABS: Urine Blood Negative (Negative); Urine Glucose Negative (Negative); Urine Protein Negative (Negative); Urine pH 5.5 (5.0-7.0)
[2021-12-26 06:42] LABS: Barbiturates NEGATIVE (NEGATIVE); Benzodiazepines NEGATIVE (NEGATIVE); Cocaine POSITIVE (NEGATIVE); METHAMPHETAM NEGATIVE (NEGATIVE); Methadone NEGATIVE (NEGATIVE); Opiates NEGATIVE (NEGATIVE); Phencyclidine NEGATIVE (NEGATIVE); THC Cannibis NEGATIVE (NEGATIVE)
[2021-12-26] MEDS ORDERED: HYDROCODONE/CHLORPHEN 5 ML/OSYR ONE (06:48)
[2021-12-26] MEDS ORDERED: ALBUTEROL 2.5 MG/3 ML NEB SOL ONE ×2 (06:48→19:42)
[2021-12-26] MEDS ORDERED: ENOXAPARIN 60 MG/0.6 ML SQ ONE (08:18)
--- NOTE | 2021-12-26 09:10 | RAD REPORT ---
EXAM DESCRIPTION: RAD - Chest Single View - 12/26/2021 5:33 am CLINICAL HISTORY: COUGH Chest pain. COMPARISON: Chest Single View dated 06/24/2021; Chest Single View dated 09/05/2020; Chest Single View dated 09/04/2020; Chest Single View dated 11/26/2019 FINDINGS: Portable technique limits examination quality. Interstitial prominence bilaterally may represent pulmonary mild. The heart is moderately enlarged in size with single lead pacer/ defibrillator device. Moderate thoracic dextroscoliosis. IMPRESSION: Mild CHF.
[2021-12-26] MEDS ORDERED: FUROSEMIDE 40 MG/4 ML VIAL ONE ×2 (09:32→15:59)
[2021-12-26] MEDS ORDERED: FUROSEMIDE 40 MG/4 ML VIAL IV ONE (09:35)
[2021-12-26] MEDS ORDERED: ACETAMINOPHEN 500 MG TAB PO PRN (09:45)
[2021-12-26] MEDS ORDERED: MORPHINE 2 MG/ML SYR IV PRN (09:45)
[2021-12-26] MEDS: CLOPIDOGREL 75 MG TABLET PO SCH (09:45)
[2021-12-26] MEDS: ASPIRIN EC 81 MG TAB PO SCH (09:45)
[2021-12-26] MEDS: FUROSEMIDE 40 MG/4 ML VIAL IV SCH ×2 (09:45→17:00)
[2021-12-26] MEDS ORDERED: ASPIRIN EC 81 MG TAB PO ONE (11:27)
[2021-12-26] MEDS ORDERED: CLOPIDOGREL 75 MG TABLET ONE (11:27)
--- NOTE | 2021-12-26 15:53 | RAD REPORT ---
EXAM DESCRIPTION: CT Angiography Chest With Intravenous Contrast CLINICAL HISTORY: The patient is 61 years old and is Female; Cough; Dyspnea TECHNIQUE: Axial computed tomographic angiography images of the chest with intravenous contrast. S agittal and coronal reformatted images were created and reviewed. This CT exam was performed using one or more of the following dose reduction techniques: automated exposure control, adjustment of t he mA and/or kV according to patient size, and/or use of iterative reconstruction technique. MIP re constructed images were created and reviewed. COMPARISON: No relevant prior studies available. FINDINGS: Pulmonary arteries: No PE identified. Aorta: No acute findings. No thoracic aortic aneurysm. Lungs: Left lower lobe linear atelectasis. No pulmonary consolidation or groundglass opacities to suggest pneumonia. Biapical pleuroparenchymal scarring with bullous change. Pleural space: No pneumothorax. No significant pleural fluid. Heart: Cardiomegaly. No significant pericardial fluid. No evidence of RV dysfunction. Mediastinum: No pneumomediastinum. Bones/joints: Moderate scoliosis. Old right-sided rib fractures. No dislocation. Soft tissues: Unremarkable. Lymph nodes: Calcified AP window and subcarinal lymph nodes. Tubes, lines and devices: Left-sided ICD. IMPRESSION: 1. No PE identified. 2. Cardiomegaly. Right-sided ICD. 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 The interpreting radiologist is fully responsible for the content of the report.
--- NOTE | 2021-12-26 16:50 | P.HP ---
Certification for Inpatient Patient admitted to: Inpatient With expected LOS: >2 Midnights Practitioner: I am a practitioner with admitting privileges, knowledge of patient current condition, hospital course, and medical plan of care. Services: Services provided to patient in accordance with Admission requirements found in Title 42 Section 412.3 of the Code of Federal Regulations Patient History Date of Service: 12/26/21 Reason for admission: Shortness of breath History of Present Illness: 61-year-old woman with a history of cardiomyopathy, severely depressed LV function with EF of 15 to 20%, history of pulmonary hypertension presented to the emergency department with a complaint of progressive shortness of breath, worse over the past couple of days. Patient reports orthopnea and had to sleep in a tripod position last night. CTA thorax shows no acute infiltrate, no pulmonary edema, no PE. It reported emphysema. Initial troponin mildly elevated. Patient admitted for further management of CHF decompensation. Allergies No Known Drug Allergies Allergy (Verified 09/04/20 16:05) Unknown Home Medications: Amiodarone HCl [Cordarone Tab] 200 mg PO BID 12/26/21 Losartan Potassium 12.5 mg PO DAILY 12/26/21 Metoprolol Succinate 25 mg PO DAILY 12/26/21 Spironolactone [Aldactone] 25 mg PO DAILY 12/26/21 - Past Medical/Surgical History Has patient received pneumonia vaccine in the past: No Diabetic: No -: heart murmur -: scoliosis -: hypertension -: cardiomyopathy -: AICD -: Neck fusion - Social History Smoking Status: Never smoker Alcohol use: No CD- Drugs: No Caffeine use: Yes Place of Residence: Home Review of Systems Other: Except as documented, all other systems reviewed and negative. Physical Examination - Vital Signs Blood Pressure: 157/102 - Physical Exam General: Alert, Oriented x3, Moderate distress HEENT: PERRLA, Mucous membr. moist/pink, EOMI, Sclerae nonicteric Neck: Supple, JVD not distended Respiratory: Normal air movement, Crackles/rales (Mild bibasilar crackles) Cardiovascular: No edema, Regular rate/rhythm, Normal S1 S2 Gastrointestinal: Normal bowel sounds, Soft and benign, Non-distended, No tenderness Musculoskeletal: No swelling, No tenderness Integumentary: No rashes, No erythema, No cyanosis Neurological: Normal speech, Normal strength at 5/5 x4 extr, Cranial nerves 3-12 intact - Studies Laboratory Data (last 24 hrs) 12/26/21 05:02: PT 10.9, INR 0.95 12/26/21 05:02: WBC 6.80, Hgb 14.2, Hct 45.0, Plt Count 187 12/26/21 05:02: Sodium 141, Potassium 4.4, BUN 14, Creatinine 1.25, Glucose 111 H, Magnesium 2.0, Total Bilirubin 0.3, AST 51 H, ALT 53, Alkaline Phosphatase 115 Assessment and Plan - Problems (Diagnosis) (1) Acute on chronic systolic heart failure Current Visit: Yes Status: Acute (2) Elevated troponin Current Visit: Yes Status: Acute (3) Emphysema lung Current Visit: Yes Status: Acute (4) COPD (chronic obstructive pulmonary disease) Current Visit: No Status: Acute - Plan Admit to the medical floor. Elevated troponin likely secondary to demand ischemia given his severely reduced LVEF. We will treat for CHF exacerbation with IV Lasix. IV morphine as needed for chest pain and shortness of breath. Patient given full dose Lovenox. Also started on Plavix in addition to aspirin. Cardiology consult Repeat echocardiogram. Bronchodilators and IV steroids for COPD Continue heart failure medication-losartan, metoprolol and Aldactone. Supplemental oxygen as needed. - Advance Directives Does patient have a Living Will: No Does patient have a Durable POA for Healthcare: No
[2021-12-26] MEDS: METHYLPREDNISOLONE 40 MG INJ IV SCH (17:00)
[2021-12-26] MEDS ORDERED: ACETAMINOPHEN 500 MG TAB ONE ×2 (17:38→22:06)
[2021-12-26] MEDS ORDERED: INFLUENZA VACCINE (for 6+ mo) 0.5 ML DOSE IMVAC ONE (18:00)
[2021-12-26] MEDS ORDERED: METHYLPREDNISOLONE 40 MG INJ ONE ×2 (18:22→22:06)
[2021-12-26] MEDS ORDERED: IPRATROPIUM BROM 0.5MG/2.5ML ONE ×2 (19:42→22:07)
[2021-12-26] MEDS: IPRATROPIUM BROM 0.5MG/2.5ML NEB SCH (20:00)
[2021-12-26] MEDS: ALBUTEROL 2.5 MG/3 ML NEB SOL NEB SCH (20:00)
[2021-12-26] MEDS: AMIODARONE HCL 200 MG TAB PO SCH (21:00)
[2021-12-26] MEDS ORDERED: ENOXAPARIN 60 MG/0.6 ML SQ SCH (21:00)
[2021-12-26] MEDS ORDERED: AMIODARONE HCL 200 MG TAB ONE (22:05)
[2021-12-27] MEDS: METHYLPREDNISOLONE 40 MG INJ IV SCH ×2 (01:00→08:04)
[2021-12-27] MEDS ORDERED: ALBUTEROL 2.5 MG/3 ML NEB SOL ONE ×2 (02:06→07:37)
[2021-12-27] MEDS ORDERED: IPRATROPIUM BROM 0.5MG/2.5ML ONE ×3 (02:06→07:46)
[2021-12-27] MEDS: ALBUTEROL 2.5 MG/3 ML NEB SOL NEB SCH ×2 (02:10→07:34)
[2021-12-27] MEDS: IPRATROPIUM BROM 0.5MG/2.5ML NEB SCH ×2 (02:10→07:34)
[2021-12-27] MEDS ORDERED: METHYLPREDNISOLONE 40 MG INJ ONE ×2 (02:29→07:46)
[2021-12-27 03:37] LABS: Absolute Lymphocytes (CBC) 0.5 K/uL (0.7-4.9); Hematocrit 43.7 % (36.0-45.0); Lymphocytes % 10.3 % (15.3-44.8); MPV 10.7 fL (7.6-11.3); RBC Red Blood Cell Count 4.76 M/uL (3.86-4.86)
[2021-12-27 03:56] LABS: Magnesium 1.8 mg/dL (1.8-2.4); Phosphorus 3.3 mg/dL (2.5-4.9); Potassium 4.1 mmol/L (3.5-5.1)
[2021-12-27 04:05] LABS: Anisocytosis 1+; Blood Morphology Comment NOTED (NOT SEEN); Platelet Estimate ADEQ; Platelets, Giant FEW; White Blood Cell Scan OK (OK)
[2021-12-27] MEDS ORDERED: ASPIRIN EC 81 MG TAB PO ONE (07:45)
[2021-12-27] MEDS ORDERED: AMIODARONE HCL 200 MG TAB ONE ×2 (07:45→09:57)
[2021-12-27] MEDS ORDERED: CLOPIDOGREL 75 MG TABLET ONE (07:45)
[2021-12-27] MEDS ORDERED: FUROSEMIDE 40 MG/4 ML VIAL ONE (07:46)
[2021-12-27 07:50] VITALS: BP 90/47; TEMP 98.4
[2021-12-27] MEDS: FUROSEMIDE 40 MG/4 ML VIAL IV SCH (07:55)
[2021-12-27] MEDS: CLOPIDOGREL 75 MG TABLET PO SCH (08:04)
[2021-12-27] MEDS: ASPIRIN EC 81 MG TAB PO SCH (08:04)
[2021-12-27 08:13] VITALS: O2SAT 100
[2021-12-27 08:14] VITALS: BMI 20.7
[2021-12-27] MEDS: AMIODARONE HCL 200 MG TAB PO SCH (09:00)
[2021-12-27] MEDS ORDERED: LOSARTAN POTASSIUM 50 MG TABLET PO SCH (09:00)
[2021-12-27] MEDS ORDERED: SPIRONOLACTONE 25 MG TABLET PO SCH (09:00)
--- NOTE | 2021-12-27 11:05 | P.DS ---
Admission Date: 12/26/21 Discharge Date: 12/27/21 Disposition: DC HOME/HOME HEALTH CARE Discharge Condition: FAIR Reason for Admission: Shortness of breath - Problems (1) Acute on chronic systolic heart failure Current Visit: Yes Status: Acute (2) Elevated troponin Current Visit: Yes Status: Acute (3) Emphysema lung Current Visit: Yes Status: Acute (4) COPD (chronic obstructive pulmonary disease) Current Visit: No Status: Acute Brief History of Present Illness: 61-year-old woman with a history of cardiomyopathy, severely depressed LV function with EF of 15 to 20%, history of pulmonary hypertension presented to the emergency department with a complaint of progressive shortness of breath, worse over the past couple of days. Patient reports orthopnea and had to sleep in a tripod position last night. CTA thorax shows no acute infiltrate, no pulmonary edema, no PE. It reported emphysema. Initial troponin mildly elevated. Patient admitted for further management of CHF decompensation. Hospital Course: Admitted to the medical floor and treated for CHF exacerbation with IV Lasix. Also treated for COPD exacerbation IV steroid and scheduled bronchodilators. Echocardiogram repeated which showed an ejection fraction of 15 to 20% which is her baseline. Her troponin was mildly elevated, this was deemed secondary to CHF and demand ischemia. Patient seen and evaluated by cardiology. Patient shortness of breath is improved and she is currently at baseline. She has been ambulatory on oxygen. Patient states she uses oxygen sometimes at home. Given that the CTA thorax shows emphysema, she is prescribed bronchodilators for treatment of COPD. Patient deemed clinically stable for discharge. Vital Signs/Physical Exam: Temp Pulse Resp BP Pulse Ox 98.4 F 62 18 90/47 L 100 12/27/21 07:47 12/27/21 08:05 12/27/21 07:47 12/27/21 08:05 12/27/21 07:47 General: Alert, In no apparent distress, Oriented x3 HEENT: Mucous membr. moist/pink, Sclerae nonicteric Neck: Supple, JVD not distended Respiratory: Normal air movement, Diminished Cardiovascular: No edema, Regular rate/rhythm, Normal S1 S2 Gastrointestinal: Soft and benign, Non-distended, No tenderness Musculoskeletal: No swelling, No tenderness Integumentary: No rashes Neurological: Normal strength at 5/5 x4 extr Laboratory Data at Discharge: WBC 4.80 K/uL (4.3-10.9) D 12/27/21 03:17 Hgb 14.3 g/dL (12.0-15.0) 12/27/21 03:17 Hct 43.7 % (36.0-45.0) 12/27/21 03:17 Plt Count 180 K/uL (152-406) 12/27/21 03:17 PT 10.9 SECONDS (9.5-12.5) 12/26/21 05:02 INR 0.95 12/26/21 05:02 Sodium 136 mmol/L (136-145) 12/27/21 03:17 Potassium 4.1 mmol/L (3.5-5.1) 12/27/21 03:17 BUN 27 mg/dL (7-18) H 12/27/21 03:17 Creatinine 1.43 mg/dL (0.55-1.3) H 12/27/21 03:17 Glucose 165 mg/dL (74-106) H 12/27/21 03:17 Phosphorus 3.3 mg/dL (2.5-4.9) 12/27/21 03:17 Magnesium 1.8 mg/dL (1.8-2.4) 12/27/21 03:17 Total Bilirubin 0.3 mg/dL (0.2-1.0) 12/26/21 05:02 AST 51 U/L (15-37) H 12/26/21 05:02 ALT 53 U/L (12-78) 12/26/21 05:02 Alkaline Phosphatase 115 U/L (45-117) 12/26/21 05:02 Home Medications: Amiodarone HCl [Cordarone*] 200 mg PO BID 12/26/21 Losartan Potassium 12.5 mg PO DAILY 12/26/21 Spironolactone [Aldactone*] 25 mg PO DAILY 12/26/21 Albuterol Neb [Proventil 0.083% Neb Soln] 2.5 mg NEB [id number] #120 amp 12/27/21 Fluticasone/Umeclidin/Vilanter [Trelegy Ellipta 100-62.5-25] 1 each IH DAILY #60 blst.w.dev 12/27/21 Furosemide [Lasix] 40 mg PO DAILY #30 tab 12/27/21 Ipratropium Neb [Atrovent*] 0.5 mg NEB [id number] #120 amp 12/27/21 Nebulizer [Aeroneb Go Nebulizer] 1 each MC TID #1 each 12/27/21 New Medications: Ipratropium Neb [Atrovent*] 0.5 mg NEB [id number] #120 amp Albuterol Neb [Proventil 0.083% Neb Soln] 2.5 mg NEB [id number] #120 amp Nebulizer [Aeroneb Go Nebulizer] 1 each MC TID #1 each Furosemide [Lasix] 40 mg PO DAILY #30 tab Fluticasone/Umeclidin/Vilanter [Trelegy Ellipta 100-62.5-25] 1 each IH DAILY #60 blst.w.dev Diet: AHA Activity: Ad radha Followup: Guerda Friedman FNPC [Primary Care Provider] - 1 Week Time spent managing pt's care (in minutes): 34
--- NOTE | 2021-12-27 22:09 | CON ---
Date of Consultation: 12/26/2021 Reason For Consultation: Heart failure. History Of Present Illness: This is a 61-year-old female, very well known to have nonischemic cardio myopathy, very low ejection fraction below 20%, presented with shortness of breath, orthopnea, lower extremity edema, and found to be in acute decompensated congestive heart failure, responded very well to Lasix. At time of my evaluation, she was very comfortable, laying flat. Past Medical History: Congestive heart failure. Atrial fibrillation. Hypertension. Systolic heart failure which was nonischemic. Medications: Refer reconciliation sheet for detailed list. Allergies: NO KNOWN DRUG ALLERGIES. Family History: No premature coronary artery disease or cancer. Social History: She does not smoke or drink. Does not use any drugs. Review of Systems: All systems reviewed and they were negative except as mentioned in the HPI. Physical Examination: VITAL SIGNS: Reviewed. HEAD AND NECK: Pupils are equal, reactive to light. Intact eye movements. No JVD. No cervical lym phadenopathy. NECK: Supple. Thyroid is not enlarged. LUNGS: Crackles in both bases. No accessory muscle use or muscle retraction. HEART: Regular rate and rhythm. No extra sounds. ABDOMEN: Soft, nontender. Bowel sounds positive. No organomegaly. No masses or hernia. No rigidi ty or rebound. EXTREMITIES: Trace edema bilaterally. No clubbing or cyanosis. Intact pulses. SKIN: No rashes. NEUROLOGIC: Alert, awake. No acute focal deficits. Investigations: Labs were reviewed. Troponin peaked at 200 range. Assessment And Recommendation: 1.Acute on chronic systolic heart failure with very low ejection fraction. We know that this is non ischemic, as apparently this was evaluated in the past. At this point, I recommend IV Lasix 40 mg q. 12 hours and transition to oral based on her response and guideline directed medical therapy of heart failure including beta adrien, Entresto if it can be introduced and close followup as an outpatient . 2.Elevated troponin, likely due to demand, as the patient is known to have nonischemic cardiomyopath y. Please make sure the patient follows up in the office within a week of discharge. Thank you for the consult. /DARLIN Voice ID: [id number] Report ID: [id number]
--- NOTE | 2021-12-29 08:20 | ECHO ---
HEIGHT: 5 ft 1 in WEIGHT: 110 lb 0.171 oz DATE OF STUDY: 12/26/[address]: bobbi keys 2-DIMENSIONAL: YES M.MODE: YES DOPPLER: YES COLOR FLOW: YES TDS: PORTABLE: DEFINITY: BUBBLE STUDY: DIAGNOSIS: NON ST ELEVATION MYOCARDIAL INFARCTION CARDIAC HISTORY: CATHERIZATION: NO SURGERY: NO PROSTHETIC VALVE: NO PACEMAKER: DEFIB MEASUREMENTS (cm) DIASTOLIC (NORMALS) SYSTOLIC (NORMALS) IVSd 0.9 (0.6-1.2) LA Diam 3.2 (1.9-4.0) LVEF 15-20% LVIDd 6.3 (3.5-5.7) LVIDs 5.5 (2.0-3.5) %FS 13% LVPWd 1.0 (0.6-1.2) Ao Diam 2.4 (2.0-3.7) 2 DIMENSIONAL ASSESSMENT: RIGHT ATRIUM: NORMAL LEFT ATRIUM: NORMAL RIGHT VENTRICLE: NORMAL LEFT VENTRICLE: DILATED TRICUSPID VALVE: MILD TRICUSPID REGURGITATION MITRAL VALVE: MODERATE MITRAL REGURGITATION PULMONIC VALVE: NORMAL AORTIC VALVE: MILD AORTIC INSUFFIENCY PERICARDIAL EFFUSION: NONE AORTIC ROOT: NORMAL LEFT VENTRICULAR WALL MOTION: SEVERE GLOBAL HYPOKINESIS DOPPLER/COLOR FLOW: SEE BELOW COMMENTS: SEVERELY DEPRESSED LEFT VENTRICULAR EJECTION FRACTION 15-20%. SEVERE GLOBAL HYPOKINESIS. SEVERELY DILATED LEFT VENTRICLE. MODERATE MITRAL REGURGITATION. MILD AORTIC INSUFFIENCY, MILD TRICUSPID INSUFFIENCY. TECHNOLOGIST: JOSE GUADALUPE HUERTA
== END 2021-12-27 12:11 | disposition home or self-care (01) | DRG 291 ==
LOC: ER 04:38 → ERHOLD 09:08
PROVIDERS: ADMIT Internal Medicine; ATTEND Internal Medicine
DX: I11.0 Hypertensive heart disease with heart failure (principal); I50.23 Acute on chronic systolic (congestive) heart failure; I24.8 Other forms of acute ischemic heart disease; J43.9 Emphysema, unspecified; I27.20 Pulmonary hypertension, unspecified; I48.91 Unspecified atrial fibrillation; Z95.810 Presence of automatic (implantable) cardiac defibrillator; Z20.822 Contact with and (suspected) exposure to COVID-19
CPT/HCPCS: 36415; 71045; 71275; 80048; 80076; 80307; 81003; 82565; 83735; 83880; 84100; 84484; 85025; 85610; 93005; 93306; 94640; 96372; 96374; 99285; J1650; J1940; J2920; J7030; Q9967; U0003